=== PATIENT | female | born 1940 | race Caucasian/White ===

== ENCOUNTER → 2019-01-12 | Outpatient (CLI) | payer MEDICARE, OTHER ==
--- NOTE | 2019-01-12 18:16 | Diagnostic Imaging Report ---
INDICATION: Pain after fall. FINDINGS: There is a focal lucency to the dorsal aspect of the distal radius extending into the radiocarpal joint suspect for nondisplaced fracture. No other fracture or dislocation. Soft tissues are unremarkable. IMPRESSION: Nondisplaced intra-articular fracture along the dorsal aspect of the distal radius. Dictated by: Dictated on workstation # [id number]
--- NOTE | 2019-01-12 19:30 | Diagnostic Imaging Report ---
INDICATION: Pain after fall. Two views were obtained. FINDINGS: There is a focal cortical regularity along the dorsal aspect of the distal radius, suspect for nondisplaced fracture. There is no other fracture or dislocation. The soft tissues are unremarkable. IMPRESSION: Nondisplaced intra-articular fracture of the dorsal aspect of the distal radius. Dictated by: Dictated on workstation # [id number]
--- NOTE | 2019-01-12 19:35 | Diagnostic Imaging Report ---
INDICATION: Pain. FINDINGS: There is a nondisplaced fracture through the dorsal aspect of the distal radius extending into the radiocarpal joint. There is no other fracture or dislocation. Carpal bones are intact. IMPRESSION: Findings suspect for a nondisplaced intra-articular fracture involving the dorsal aspect of the distal radius. Dictated by: Dictated on workstation # [id number]
== END ==
LOC: RAD 15:19
PROVIDERS: ATTEND Nurse Practitioner Family
DX: S52.572A Other intraarticular fracture of lower end of left radius, initial encounter for closed fracture (principal); W19.XXXA Unspecified fall, initial encounter
CPT/HCPCS: 73090; 73110; 73130

== ENCOUNTER → 2019-02-14 | Outpatient (CLI) | payer MEDICARE, OTHER ==
--- NOTE | 2019-02-14 14:02 | Diagnostic Imaging Report ---
INDICATION: Wrist fracture four weeks ago, follow-up. TECHNIQUE: Two views of the left forearm. CORRELATION STUDY: 01/12/2019. FINDINGS: Limited visualization of the known distal dorsal intra-articular fracture of the radius. Fracture line is less well visualized but likely still present. The remainder of the radius as well as ulna is otherwise intact and unremarkable. Soft tissues are unremarkable. IMPRESSION: 1. Limited visualization of the known distal radius fracture. No new bony abnormality. Alignment anatomic. Dictated by: Dictated on workstation # [id number]
--- NOTE | 2019-02-14 14:12 | Diagnostic Imaging Report ---
INDICATION: Wrist fracture 4 weeks ago, followup. TECHNIQUE: 3 views of the left wrist CORRELATION STUDY: 01/12/2019 FINDINGS: Baseline imaging demonstrated a non-displaced intraarticular fracture of the distal dorsal radius. At followup, the previously noted fracture lines are less well visualized and blurred. There is suggestion of some residual fracture line present particularly along the lateral aspect. However, this was noted to be limited in visualization on prior imaging. Overall alignment appears maintained and near anatomic. There is some degree of degenerative change about the radiocarpal row as well as at the base of the first carpometacarpal articulation. Cystic change about the scaphoid. IMPRESSION: 1. Suggestion of interval healing of a nondisplaced distal dorsal radius fracture. A portion of the fracture lines do still appear to be present. However, it was noted that baseline imaging assessment was limited as is on the study as well. Dictated by: Dictated on workstation # [id number]
== END ==
LOC: RAD 11:22
DX: S52.572D Other intraarticular fracture of lower end of left radius, subsequent encounter for closed fracture with routine healing (principal)
CPT/HCPCS: 73090; 73110

== ENCOUNTER → 2019-08-22 | Outpatient (CLI) | payer MEDICARE, OTHER ==
--- NOTE | 2019-08-22 15:31 | Diagnostic Imaging Report ---
INDICATION: Shortness of breath. COMPARISON: 06/09/2013 FINDINGS: The lungs are clear. The heart is mildly enlarged but there is no vascular congestion or overt failure pattern. No pleural fluid or pneumothorax. IMPRESSION: Mild prominence of the heart, otherwise negative. Dictated by: Dictated on workstation # [id number]
== END ==
LOC: RAD 10:51
DX: J41.0 Simple chronic bronchitis (principal)
CPT/HCPCS: 71046

== ENCOUNTER → 2019-09-04 | Outpatient (CLI) | payer MEDICARE, OTHER | LOC: CARD 12:47 | DX: I51.7 Cardiomegaly (principal) | CPT/HCPCS: 93306 ==

== ENCOUNTER → 2020-09-24 | Outpatient (CLI) | payer MEDICARE, OTHER ==
[~2020-09-24] VITALS: Ht 160 cm; Wt 102.0 kg
[~2020-09-24] MED LIST: CATHETER FLUSH 10 ML SYR IV PRN; REGADENOSON 0.4 MG/5 ML SYR (LEXISCAN) IV ONE
[2020-09-24 09:33] VITALS: BP 110/57
--- NOTE | 2020-09-25 10:38 | STRESS TEST ---
DATE OF SERVICE: 09/24/2020 RESTING AND POST REGADENOSON TECHNETIUM-99M TETROFOSMIN SPECT CT IMAGING CLINICAL DIAGNOSIS: Baseline images were carried out after injection of 10.31 mCi of technetium-99m Tetrofosmin. This was followed by 0.4 mg of Regadenoson and 30.2 mCi of technetium-99m Tetrofosmin for SPECT imaging. The electrocardiogram showed sinus rhythm at baseline. It did not change significantly with Regadenoson infusion. The patient tolerated the procedure well. Review of images at rest and following stress does not indicate any significant perfusion defects consistent with myocardial ischemia or infarction. Gated images show normal global left ventricular systolic function with normal regional wall motion. Left ventricular ejection fraction is calculated to be 72%. Left ventricular end diastolic volume is 68 mL. TID is absent (1). CONCLUSIONS: 1. No evidence of significant myocardial ischemia or infarction on this study. 2. Normal regional wall motion. 3. Normal global left ventricular systolic function with a calculated ejection fraction of 72%. Job ID: [id number] DocumentID: [id number] Dictated Date: 09/25/2020 09:53:28 Operations Asst Date: 09/25/2020 10:38:09 Dictated By: SHIN HERRERA MD, MA, FACP, FACC,
== END ==
LOC: CARD 08:00
PROVIDERS: ATTEND Internal Medicine Cardiovascular Disease
DX: R06.09 Other forms of dyspnea (principal)
CPT/HCPCS: 78452; 93017; A9502

== ENCOUNTER → 2020-09-30 | Outpatient (CLI) | payer MEDICARE, OTHER | LOC: CARD 11:28 | PROVIDERS: ATTEND Internal Medicine Cardiovascular Disease | DX: R06.09 Other forms of dyspnea (principal) | CPT/HCPCS: 93306 ==

== ENCOUNTER 2021-04-23 05:41 | Outpatient (RCR) | payer MEDICARE, OTHER ==
[~2021-04-23] VITALS: Ht 162.6 cm; Wt 103.0 kg
[~2021-04-23 05:41] MED LIST changes: +ALBU1.25 INH; +BUME2TAB7 PO; -CATHETER FLUSH 10 ML SYR IV PRN; +FURO80TA3 PO; +GLIP10TA13 PO; +INSU3INS2 SQ; +POTA10CA43 PO; -REGADENOSON 0.4 MG/5 ML SYR (LEXISCAN) IV ONE; +SERT-414 PO; +SIMV20TA26 PO; +SITA100T12 PO
== END 2021-04-23 09:58 | disposition home or self-care (01) ==
LOC: PREOP 05:41
PROVIDERS: ATTEND Surgery
DX: Z01.812 Encounter for preprocedural laboratory examination (principal); K92.1 Melena; D64.9 Anemia, unspecified; Z20.822 Contact with and (suspected) exposure to COVID-19
CPT/HCPCS: 87635

== ENCOUNTER 2021-04-25 12:12 | Day surgery (SDC) | payer MEDICARE, OTHER ==
[~2021-04-25] VITALS: Ht 162 cm; Wt 103.0 kg
[2021-04-25] MEDS ORDERED: LACTATED RINGERS 1,000 ML IV STA (12:28)
[2021-04-25] MEDS ORDERED: MIDAZOLAM 5 MG/5 ML (VERSED) VIAL IV ONE (12:30)
[2021-04-25] MEDS ORDERED: LIDOCAINE JELLY 2% 6 ML SYRINGE MM PRN (12:30)
[2021-04-25] MEDS ORDERED: HURRICAINE EXT TUBE (BENZOCAINE) XX PRN (12:30)
[2021-04-25] MEDS ORDERED: fentaNYL INJ 100 MCG/2 ML AMP IVP ONE (12:30)
[2021-04-25 12:53] VITALS: BP 163/59
--- NOTE | 2021-04-25 13:55 | Progress Note-Pre Operative ---
Pre-Operative Progress Note H&P Reviewed The H&P was reviewed, patient examined and no changes noted. Date Seen by Provider: Apr 25, 2021 Time Seen by Provider: 13:00 Date H&P Reviewed: Apr 25, 2021 Time H&P Reviewed: 13:00 Pre-Operative Diagnosis: anemia KORY PATIÑO MD Apr 25, 2021 13:55
[2021-04-25] MEDS ORDERED: PANT40TA2 PO (13:56)
--- NOTE | 2021-04-25 13:56 | Discharge Inst-Surgical ---
D/C Lap Instructions-KIDO New, Converted, or Re-Newed RX: RX on Chart Follow Up PRN Activity as tolerated High Fiber Diet 25g or more per day Avoid Alcohol, Caffeine, Spicy [place] and Acid foods. Drink 64 fluid oz or more of fluids per day. Symptoms to Report: Fever over 101 degree F, Nausea/Vomiting If any problems/questions: Contact your physician or go to Emergency Room KORY PATIÑO MD Apr 25, 2021 13:56
[2021-04-25] MEDS ORDERED: proPOfol 200 MG/20 ML (DIPRIVAN) VIAL IV ONE (13:58)
[2021-04-25] MEDS ORDERED: morphine INJ 10 MG/ML 1ML (SYR OR VIAL) IVP PRN ×2 (14:00)
[2021-04-25] MEDS ORDERED: ONDANSETRON 4 MG/2 ML (SDV) Z0FRAN IVP PRN (14:00)
[2021-04-25] MEDS ORDERED: HYDROcodone/APAP 5 MG/325 MG (LORTAB) TAB PO PRN (14:00)
[2021-04-25] MEDS ORDERED: ACETAMINOPHEN 325 MG TABLET PO PRN (14:00)
[2021-04-25 14:37] VITALS: BP 139/62
[2021-04-25 14:40] VITALS: BP 133/55
[2021-04-25 15:10] VITALS: BP 147/60
[2021-04-25 15:15] VITALS: BP 147/60
--- NOTE | 2021-04-25 15:17 | Progress Note-Post Operative ---
Post-Operative Progess Note Surgeon (s)/Veneer Manufacturer (s) Surgeon KORY PATIÑO MD Veneer Manufacturer: none Pre-Operative Diagnosis anemia Post-Operative Diagnosis reflux esophagitis(stage 2), small HH(1.5cm), moderate gastritis. chronic stage 2 ext and int hemorrhoids, large sessile cecal mass. Procedure & Operative Findings Date of Procedure 04/25/21 Procedure Performed/Findings EGD with bx. colonoscopy. Anesthesia Type mac Estimated Blood Loss Estimated blood loss (mL): minimal Specimens/Packing Specimens Removed ge jxn, antrum, cecal mass KORY PATIÑO MD Apr 25, 2021 15:17
--- NOTE | 2021-04-25 18:52 | Anesthesia-General Post-Op ---
MAC Patient Condition Mental Status/LOC: Same as Preop Cardiovascular: Satisfactory Nausea/Vomiting: Absent Respiratory: Satisfactory Pain: Controlled Complications: Absent Post Op Complications Complications None Follow Up Care/Instructions Patient Instructions None needed. Anesthesiology Discharge Order Discharge Order Patient is doing well, no complaints, stable vital signs, no apparent adverse anesthesia problems. No complications reported per nursing. MANINDER GARCIA CRNA Apr 25, 2021 18:51
--- NOTE | 2021-04-25 20:41 | OPERATIVE REPORT ---
DATE OF SERVICE: 04/25/2021 ATTENDING PRIMARY CARE PHYSICIAN: Ernst Alvarado MD PREOPERATIVE DIAGNOSIS: Anemia. POSTOPERATIVE DIAGNOSES: Reflux esophagitis stage II, small hiatal hernia, moderate gastritis, mild chronic stage II external and internal hemorrhoids, cecal mass. PROCEDURE: EGD with biopsy, colonoscopy with biopsy. SURGEON: Kory Patñio MD. ANESTHESIA: Monitored anesthesia care. ESTIMATED BLOOD LOSS: Minimal. FINDINGS: Reflux esophagitis stage II, small hiatal hernia, moderate gastritis, mild chronic stage II external and internal hemorrhoids, cecal mass. DISPOSITION: The patient tolerated the procedure well. INDICATIONS: The patient is an 80-year-old female, who has had a longstanding history of anemia as well as iron deficiency and she was started on iron; however, discontinued this on her own. Hemoglobin and hematocrit were done recently and were found to be 7.3 and 24.7 respectively. She has not had a colonoscopy up to this point in her life. She does report some issues with the reflux; however, not severe. DESCRIPTION OF PROCEDURE: The patient was brought to the endoscopy suite, laid in the left lateral decubitus position. After adequate IV pain and sedative medications and monitored anesthesia care, the mouthpiece was applied. The endoscope was placed in the mouth, visualizing the pharynx and hypopharyngeal region. Vocal cords, epiglottis and vallecula identified and appeared to be normal. Endoscope was then gently intubated into the esophageal opening and esophagus insufflated. The endoscope was then advanced to the first, second and third portion of esophagus at the level of the GE junction, a reflux esophagitis stage II identified. No ulcers or strictures identified, and a biopsy was taken with forceps with visualization of good hemostasis. A biopsy was taken of the antrum to rule out H. pylori with visualization of good hemostasis. The endoscope was then advanced to the pylorus and the first and second portion of the duodenum, which appeared normal. The endoscope was then slowly withdrawn while taking a second look and suctioning of residual air with no additional findings. A digital rectal examination was then performed, which revealed mild chronic stage II external and internal hemorrhoids, not actively edematous nor inflamed and no bleeding. Normal sphincter tone was felt and there were no palpable masses. The endoscope was then intubated to the anus and rectum gently insufflated. The endoscope was then advanced through the valves of Lucio of the rectum with no polyps or any neoplasms identified. We then proceeded to sigmoid colon where no diverticulosis identified. The endoscope was then advanced to remainder of the descending, transverse and ascending colon to the cecum. At the level of the cecum, a fungating mass was identified and this was large. This is the most likely etiology of her anemia and blood loss. Multiple biopsies taken with forceps with visualization of good hemostasis. The endoscope was then slowly withdrawn while taking a second look and suctioning of residual air with no additional findings. The patient tolerated the procedure well. We will await the biopsy results; however, due to the characteristics of the lesion and size, this will likely harbor a malignancy and she will likely need to have this resected. We will also proceed with further workup including laboratory work and CT scan of the abdomen. Job ID: [id number] DocumentID: [id number] Dictated Date: 04/25/2021 14:32:46 Php Web Developer Date: 04/25/2021 20:40:46 Dictated By: KORY PATIÑO MD MTDD
== END 2021-04-25 15:15 ==
LOC: ENDO 12:12
PROVIDERS: ATTEND Surgery
DX: K21.00 Gastro-esophageal reflux disease with esophagitis, without bleeding (principal); K29.50 Unspecified chronic gastritis without bleeding; C18.0 Malignant neoplasm of cecum; K44.9 Diaphragmatic hernia without obstruction or gangrene; K92.1 Melena; K64.4 Residual hemorrhoidal skin tags; K64.1 Second degree hemorrhoids; K57.30 Diverticulosis of large intestine without perforation or abscess without bleeding; D50.9 Iron deficiency anemia, unspecified; I10 Essential (primary) hypertension; E11.9 Type 2 diabetes mellitus without complications; E66.01 Morbid (severe) obesity due to excess calories; Z68.39 Body mass index [BMI] 39.0-39.9, adult; Z79.84 Long term (current) use of oral hypoglycemic drugs; Z79.899 Other long term (current) drug therapy
CPT/HCPCS: 82947; 88305

== ENCOUNTER → 2021-05-20 | Outpatient (CLI) | payer MEDICARE ==
[~2021-05-20] MED LIST changes: +CATHETER FLUSH 10 ML SYR IV PRN; +HOLD METFORMIN - RECEIVED CONTRAST 20 ML VIAL IV SCH; +IOHEXOL 350 MG/ML 100 ML (OMNIPAQUE 350) VIAL IV ONE; +NS 100 ML (IVPB) BAG IV ONE; +PANT40TA2 PO
[2021-05-20 14:18] LABS: CREATININE SERUM 1.59 MG/DL (0.60-1.30)
--- NOTE | 2021-05-20 15:40 | Diagnostic Imaging Report ---
PROCEDURE: CT abdomen and pelvis with and without contrast. TECHNIQUE: Precontrast acquisitions were acquired through the abdomen and pelvis. Multiple contiguous axial images were obtained through the abdomen and pelvis after the administration of intravenous contrast. Auto Exposure Controls were utilized during the CT exam to meet ALARA standards for radiation dose reduction. DATE: May 20, 2021. COMPARISON: None. INDICATION: 80-year-old female, history of colon cancer. Evaluation for metastatic disease. FINDINGS: There is mild dependent atelectasis in the left lower lobe. The heart is not enlarged. There is no pericardial effusion. The liver is unremarkable in size and contour. There is no identified liver lesion. The main, right, and left portal veins are patent. There is no biliary ductal dilation. The main pancreatic duct is not abnormally dilated. There is some fatty replacement of the pancreatic parenchyma at the level of the pancreatic head. There is no identified abnormally enhancing pancreatic mass. The spleen is normal in size. The adrenal glands are unremarkable. There is a low-attenuation right renal lesion on axial image 38 measuring 4.9 cm in size with internal attenuation consistent with a benign cyst. There is a low-attenuation left renal lesion consistent with a benign cyst on axial image 36 which measures 1.1 cm in size. The urinary collecting systems are not distended. There is no identified renal or ureteral stone. The urinary bladder is unremarkable. The uterus and adnexa are grossly unremarkable in appearance for patient age on limited CT assessment. There is focal abnormal wall thickening in the region of the hepatic flexure as well as at the level of the more proximal aspect of the right colon. These sites are concerning for potential colon cancer. Further evaluation with colonoscopy is recommended. There is no identified pericolonic lymph node. The intestinal tract is not distended. There is no free intraperitoneal air. There is no drainable fluid collection. There is no free pelvic fluid. There are atherosclerotic calcifications. There is no identified abnormally enlarged lymph node in the abdomen or pelvis meeting CT size criteria for adenopathy. There is a fat-containing anterior abdominal wall hernia near the level of the umbilicus. There is chondrocalcinosis. There are multilevel degenerative changes of the spine. There is no identified acute bony abnormality. IMPRESSION: CT ABDOMEN AND PELVIS. 1. Foci of abnormal wall thickening of the colon in the region of the hepatic flexure and also at the level of the more proximal aspect of the right colon which do raise concern for colonic malignancy. Recommend further evaluation with colonoscopy. No identified metastatic lesion within the abdomen or pelvis. 3. Bilateral benign renal cysts. Dictated by: Dictated on workstation # [id number]
== END ==
LOC: RAD 14:45
PROVIDERS: ATTEND Surgery
DX: C18.9 Malignant neoplasm of colon, unspecified (principal); N28.1 Cyst of kidney, acquired
CPT/HCPCS: 36415; 74178; 82378; 82565; 84520

== ENCOUNTER 2021-05-28 05:32 | Outpatient (CLI) | payer MEDICARE, OTHER ==
[~2021-05-28] VITALS: Ht 157.5 cm
[~2021-05-28 05:32] MED LIST changes: -CATHETER FLUSH 10 ML SYR IV PRN; -HOLD METFORMIN - RECEIVED CONTRAST 20 ML VIAL IV SCH; -IOHEXOL 350 MG/ML 100 ML (OMNIPAQUE 350) VIAL IV ONE; -NS 100 ML (IVPB) BAG IV ONE
== END 2021-05-28 11:25 ==
LOC: PREOP 05:32
PROVIDERS: ATTEND Surgery
DX: Z01.818 Encounter for other preprocedural examination (principal)

== ENCOUNTER 2021-05-29 10:00 | Inpatient (IN) | payer MEDICARE, OTHER ==
[~2021-05-29] VITALS: Ht 157 cm; Wt 103.2 kg
[2021-05-29] VITALS (11 sets, daily range): BP systolic 117–200; BP diastolic 54–95
--- NOTE | 2021-05-29 12:12 | Progress Note-Pre Operative ---
Pre-Operative Progress Note H&P Reviewed The H&P was reviewed, patient examined and no changes noted. Date Seen by Provider: May 29, 2021 Time Seen by Provider: 12:10 Date H&P Reviewed: May 29, 2021 Time H&P Reviewed: 12:05 Pre-Operative Diagnosis: Colon Cancer SCARLETT LUIS APRN May 29, 2021 12:12
[2021-05-29] MEDS: LACTATED RINGERS 1,000 ML IV PRN ×3 (12:15→16:22)
[2021-05-29] MEDS ORDERED: DEXTROSE 50% 50 ML (IMS) SYR ONE ×2 (12:23→15:44)
[2021-05-29] MEDS ORDERED: DEXTROSE 50% 50 ML (IMS) SYR IV ONE (12:45)
[2021-05-29] MEDS ORDERED: ceFAZolin 2 GM IV Premixed 50 ML IV ONE (12:45)
[2021-05-29] MEDS ORDERED: LIDOCAINE/EPI 1%-1:100,000 (XYLOCAINE) 20ML ONE (13:13)
[2021-05-29] MEDS ORDERED: proPOfol 200 MG/20 ML (DIPRIVAN) VIAL IV ONE (14:00)
[2021-05-29] MEDS ORDERED: LIDOCAINE PF 2% 5 ML (XYLOCAINE) VIAL ONE (14:00)
[2021-05-29] MEDS ORDERED: ROCURONIUM 10 MG/ML 5 ML SYRINGE IV ONE ×2 (14:00→15:35)
[2021-05-29] MEDS ORDERED: ONDANSETRON 4 MG/2 ML (SDV) Z0FRAN ONE (14:00)
[2021-05-29] MEDS ORDERED: fentaNYL INJ 100 MCG/2 ML AMP ONE ×2 (14:00→15:32)
[2021-05-29] MEDS ORDERED: diphenhydrAMINE 50 MG/ML INJ (BENADRYL) IV PRN (14:15)
[2021-05-29] MEDS ORDERED: METOCLOPRAMIDE INJ 10 MG/2 ML (REGLAN) IV PRN (14:15)
[2021-05-29] MEDS ORDERED: fentaNYL INJ 1,000 MCG in NS (IVPB) 80 ML IV SCH (14:15)
[2021-05-29] MEDS ORDERED: NALOXONE 0.4 MG/ML 1 ML (NARCAN) VIAL IV PRN (14:15)
[2021-05-29] MEDS ORDERED: NS IV 1000 ML 1,000 ML IV SCH (14:15)
[2021-05-29] MEDS ORDERED: diphenhydrAMINE 50 MG/ML INJ (BENADRYL) IVP PRN (14:15)
[2021-05-29] MEDS ORDERED: ONDANSETRON 4 MG/2 ML (SDV) Z0FRAN IV PRN (14:15)
[2021-05-29] MEDS ORDERED: GLYCOPYRROLATE 0.2 MG/ML (ROBINUL) 2 ML VIAL ONE (16:06)
[2021-05-29] MEDS ORDERED: NEOSTIGMINE 3 MG/3 ML VIAL ONE (16:06)
[2021-05-29] MEDS ORDERED: LABETALOL HCL 20 MG/4 ML VIAL ONE (16:09)
[2021-05-29] MEDS ORDERED: SEVOFLURANE (ULTANE) 15 ML INHAL SOLN ONE (16:13)
--- NOTE | 2021-05-29 16:20 | Progress Note-Post Operative ---
Post-Operative Progess Note Surgeon (s)/Towel Rolling Machine Operator (s) Surgeon KORY PATIÑO MD Towel Rolling Machine Operator: saad rodriguez HAND ALTERATIONS SEAMSTRESS Pre-Operative Diagnosis Colon Cancer Post-Operative Diagnosis same Procedure & Operative Findings Date of Procedure 05/29/21 Procedure Performed/Findings laparoscopic right hemicolectomy, placement lt sc central venous cath Anesthesia Type get Estimated Blood Loss Estimated blood loss (mL): minimal Specimens/Packing Specimens Removed right colon KORY PATIÑO MD May 29, 2021 16:20
[2021-05-29] MEDS ORDERED: ONDANSETRON 4 MG/2 ML (SDV) Z0FRAN IVP PRN (16:45)
[2021-05-29] MEDS ORDERED: HYDROmorphone 2 MG/ML VIAL (DILAUDID) IV ONE ×2 (16:45→17:30)
--- NOTE | 2021-05-29 16:52 | Diagnostic Imaging Report ---
INDICATION: Central line placement. COMPARISON: 08/22/2019. TECHNIQUE: Single radiograph of the chest dated May 29, 2021. FINDINGS: Left subclavian central venous catheter is in place with the distal tip overlying near the cavoatrial junction. No significant pneumothorax. The cardiac silhouette is enlarged. Pulmonary vasculature appears engorged. Low lung volumes with extensive left greater than right pulmonary opacities. Small left pleural effusion suspected. No pneumothorax. No acute osseous abnormality. IMPRESSION: 1. Left subclavian central venous catheter is in place with the distal tip overlying near the cavoatrial junction without pneumothorax. 2. Low lung volumes with extensive left greater than right pulmonary infiltrates with trace left pleural effusion. 3. Central pulmonary vascular congestion. Dictated by: Dictated on workstation # [id number]
[2021-05-29] MEDS ORDERED: HYDROmorphone 2 MG/ML VIAL (DILAUDID) ONE (17:12)
[2021-05-29] MEDS: 1/2 NS W/KCL 20 MEQ/L 1,000 ML IV SCH (20:32)
[2021-05-29] MEDS: metroNIDAZOLE 500MG/100ML IVPB 100 ML IV SCH (20:51)
[2021-05-29] MEDS: ENOXAPARIN 40 MG/0.4 ML (LOVENOX) SYR SC SCH (20:52)
--- NOTE | 2021-05-29 21:02 | OPERATIVE REPORT ---
DATE OF SERVICE: 05/29/2021 ATTENDING PRIMARY CARE PHYSICIAN: Ernst Alvarado MD. PREOPERATIVE DIAGNOSIS: Ileocecal colon cancer. POSTOPERATIVE DIAGNOSIS: Hepatic flexure colon cancer. PROCEDURES PERFORMED: 1. Laparoscopic right hemicolectomy. 2. Placement of left subclavian central venous catheter. SURGEON: Eric Cardoza MD. METAPHYSICS TEACHER: Gamal Matos APRN. ANESTHESIA: General endotracheal. ESTIMATED BLOOD LOSS: 250 mL. FINDINGS: A large mass approximately at the hepatic flexure. There was involvement of the serosa; however, not invading adjacent organs and no peritoneal carcinomatosis as well as no obvious liver metastasis. DISPOSITION: The patient tolerated the procedure well. INDICATION FOR PROCEDURE: The patient is an 80-year-old female with longstanding history of anemia and iron deficiency and was started on iron; however, discontinued this on her own. She recently had labs drawn and was found to have a hemoglobin of 7.3 and hematocrit of 24.7. She had not had a colonoscopy before up to this point in her life. On 04/25/2021, she underwent an EGD and colonoscopy. She was found to have a reflux esophagitis stage II, small hiatal hernia, and moderate gastritis. She was also found to have mild chronic stage II external and internal hemorrhoids. However, there was a mass, which was thought to be at the cecum, identified and this was biopsied and consistent with at least an intramucosal carcinoma. DESCRIPTION OF PROCEDURE: The patient was brought to the operating room and laid supine on the table. After adequate IV pain and sedative medications and general endotracheal intubation, the chest and neck were prepped and draped in a standard surgical fashion. The left subclavian vein was then cannulated with drawing of the venous blood. A guidewire was inserted without any resistance and a skin incision was made using an 11 blade. A tract was then created using a venous dilator and through this opening, a triple lumen central venous catheter was placed over the guidewire using the Seldinger technique. The guidewire was removed and all three ports anthony venous blood and saline pushed in without any resistance. The catheter was then sutured to the skin using interrupted 3-0 silk sutures. Catheter was then cleaned and covered with Dermabond. The patient was then placed in a modified lithotomy position and the abdomen was prepped and draped in a standard surgical fashion. A 0.5% Marcaine with epinephrine was used to anesthetize the overlying skin in the left upper abdominal quadrant and a transverse skin incision was made using a 15 blade. A 0 silk suture was applied to the medial aspect incision for retraction and a Veress needle was inserted with a low opening pressure of 0 mmHg and the abdomen was then insufflated to 15 mmHg pressure. The Veress needle was removed and a 5 mm XL trocar was placed followed by a 5 mm 45-degree angle laparoscope visualizing the peritoneal cavity. A four-quadrant abdominal exploration was performed. The mass was not visualized at this time. There was no peritoneal carcinomatosis. No obvious liver metastasis. Under direct visualization, we then proceeded to place a supraumbilical 10 mm port after the skin and peritoneal lining were anesthetized using 0.5% Marcaine with epinephrine. In a similar manner, two right lower abdominal quadrant 5 mm ports were placed. The patient was then placed in a Trendelenburg position as well as plane right side up, left side down. We first proceeded with taking down the lateral attachments and the white lines of Toldt of the right side of the colon. We were also able to take down the hepatic flexure connective tissue fibers using the Sonicision with visualization of good hemostasis. We then proceeded with medial to lateral dissection of the mesentery taking a wedge of the mesentery as to do a cancer surgery. We used a Sonicision as well as a LigaSure for this. The duodenum was then identified and spared throughout this process. The gastrocolic omentum and ligament were then taken down using the Sonicision, freeing up the entire right side of the colon. Good hemostasis was observed. The mass appeared to be more along the hepatic flexure. The skin incision along the supraumbilical incision was then extended superiorly and the right colon was eviscerated out of this opening and then we proceeded to resect the colon 6 cm from the ileocecal valve along the ileum and then just right to the middle colic artery along the transverse colon using a MARCELL 55 mm stapler with blue loads. We then proceeded with [id number] anastomosis of the terminal ileum and the colon. This was done using the MARCELL 55 mm stapler and the open end was then reapproximated using 3-0 silk interrupted sutures. This open end was then stapled with the same stapler with visualization of good hemostasis. The mesentery was then closed using 3-0 Vicryl running suture. The ileocolonic anastomosis was then reduced back into the peritoneal cavity and the abdomen was insufflated with visualization of good hemostasis. A 19-[place] Silver-Andino drain was placed along the right pericolic gutter and subhepatic space. This was brought out the right lower abdominal quadrant port site. This was then sutured to the skin using 3-0 nylon suture. The supraumbilical fascia was then closed using a #1 looped PDS suture. The subcutaneous tissue was then reapproximated using 3-0 Vicryl interrupted sutures. All skin incisions were closed using 4-0 Monocryl running subcuticular sutures. Wounds were then cleaned and covered with Dermabond. The patient tolerated the procedure well. We will admit her to the floor and start IV and oral pain medication as well as ice chips for now. We will also consult physical therapy for ambulation. Once she develops some bowel function, we will start clear liquid diet and slowly advance as tolerated. When she has adequate pain control with oral pain medications and is tolerating liquids and some solids and is ambulating well, we will discharge her home. We will also proceed with DVT prophylaxis with early ambulation, SCDs as well as Lovenox injections. Job ID: [id number] DocumentID: [id number] Dictated Date: 05/29/2021 16:32:10 Member Of Parliament Date: 05/29/2021 21:01:25 Dictated By: ERIC CARDOZA MD
[2021-05-29] MEDS: fentaNYL INJ 100 MCG/2 ML AMP IVP PRN (21:46)
[2021-05-29] MEDS: ceFAZolin 2 GM IV Premixed 50 ML IV SCH (21:47)
[2021-05-29] MEDS: HYDROcodone/APAP 7.5 MG/325 MG (LORTAB, LORCET PLUS) TABLET PO PRN (23:55)
[2021-05-30] MEDS: fentaNYL INJ 100 MCG/2 ML AMP IVP PRN ×6 (02:34→17:34)
[2021-05-30] MEDS: metroNIDAZOLE 500MG/100ML IVPB 100 ML IV SCH ×2 (03:34→12:07)
[2021-05-30] MEDS: RT-ALBUTEROL SULF 2.5 MG/3 ML PRE-MIX VIAL INH SCH (03:36)
[2021-05-30 04:00] VITALS: BP 144/66
[2021-05-30] MEDS: ceFAZolin 2 GM IV Premixed 50 ML IV SCH ×2 (05:35→13:49)
[2021-05-30] MEDS: 1/2 NS W/KCL 20 MEQ/L 1,000 ML IV SCH ×4 (05:35→20:57)
[2021-05-30 05:42] LABS: HEMATOCRIT 23 % (35-52); MEAN CORPUSCULAR HEMOGLOBIN 27 pg (25-34); MEAN CORPUSCULAR HGB CONC 29 g/dL (32-36); MEAN CORPUSCULAR VOLUME 93 fL (80-99); MEAN PLATELET VOLUME 10.3 fL (9.0-12.2); PLATELET COUNT 267 10^3/uL (130-400); WHITE BLOOD COUNT 11.8 10^3/uL (4.3-11.0)
[2021-05-30 05:50] LABS: HEMOGLOBIN 6.8 g/dL (11.5-16.0)
[2021-05-30 05:56] LABS: POTASSIUM 4.7 MMOL/L (3.6-5.0)
[2021-05-30 05:57] LABS: CALCIUM 8.3 MG/DL (8.5-10.1)
[2021-05-30 06:01] LABS: CREATININE SERUM 1.52 MG/DL (0.60-1.30)
[2021-05-30 08:00] VITALS: BP 145/65
[2021-05-30] MEDS: SENNA W/DOCUSATE (SENOKOT S) TABLET PO SCH (08:45)
[2021-05-30] MEDS: PANTOPRAZOLE 40 MG (PROTONIX) VIAL IV SCH (08:46)
[2021-05-30] MEDS: ENOXAPARIN 40 MG/0.4 ML (LOVENOX) SYR SC SCH ×2 (08:46→20:04)
--- NOTE | 2021-05-30 09:27 | Physical Therapy Evaluation ---
PT Evaluation-General Medical Diagnosis Admission Date May 29, 2021 at 11:26 Medical Diagnosis: colon cancer Onset Date: May 29, 2021 Therapy Diagnosis Therapy Diagnosis: debility/weakness Referral Physician: Tracey Reason for Referral: Evaluation/Treatment Medical History Current History critical Hgb Reviewed History: Yes Social History Home: Single Level Current Living Status: Other Family Entry Into Home: Ramp Prior Prior Level of Function SCALE: Activities may be completed with or without assistive devices. 9-Fvqxbkwlsi-uccaxjb completes the activity by him/herself with no assistance from a helper. 5-Set-up or Clean-up Assistance-helper sets up or cleans up; patient completes activity. [place] assists only prior to or following the activity. 4-Supervision or Touching Assistance-helper provides verbal cues and/or touching/steadying and/or contact guard assistance as patient completes activity. Assistance may be provided throughout the activity or intermittently. 3-Partial/Moderate Assistance-helper does LESS THAN HALF the effort. [place] lifts, holds or supports trunk or limbs, but provides less than half the effort. 2-Substantial/Maximal Assistance-helper does MORE THAN HALF the effort. [place] lifts or holds trunk or limbs and provides more than half the effort. 3-Xkjbxorlc-sloryc does ALL the effort. Patient does none of the effort to complete the activity. Or, the assistance of 2 or more helpers is required for the patient to complete the activity. If activity was not attempted, code reason: 7-Patient Refused. 9-Not Applicable-not attempted and the patient did not perform the activity before the current illness, exacerbation or injury. 10-Not Attempted due to Environmental Limitations-(lack of equipment, weather restraints, etc.). 88-Not Attempted due to Medical Conditions or Safety Concerns. Bed Mobility: 5 Transfers (B,C,W/C): 5 Gait: 5 Indoor Mobility (Ambulation): Independent Prior Devices Use: Walker PT Evaluation-Current Subjective Patient agrees to PT. Objective Patient Orientation: Person, Time, Situation Attachments: Oxygen, [place] Catheter, IV ROM/Strength ROM Lower Extremities bilateral WFL (noted edema) Strength Lower Extremities 3-/5 grossly bilateral LE Integumentary/Posture Bladder Incontinence: Sam[place]go Cath Posture WFL Neuromuscular (Tone, Coordination, Reflexes) diminished coordination Sensory Vision: Functional Hearing: Impaired Transfers Roll Left to Right (QC): 2 Lying to Sitting/Side of Bed(Q: 2 Sit to Stand (QC): 3 Chair/Kmh-wy-Wakdu Xfer(QC): 3 Gait Does the Patient Walk?: Yes Mode of Locomotion: Walk Anticipated Mode of Locomotion: Walk Walk 10 feet (QC): 3 Walk 50 ft with 2 Turns(QC): 88 Walk 150 ft (QC): 88 Distance: 10' Gait Assistive Device: FWW Comments/Gait Description slow, shuffle gait sequence Balance Sitting Static: Fair Sitting Dynamic: Fair Standing Static: Fair Standing Dynamic: Fair Assessment/Needs 80 y.o. female, will benefit from skilled PT to address functional strength and mobility to improve current LOF. Rehab Potential: Fair PT [facility] Goals Neurology Physician Assistant Goals PT [facility] Goals Time Frame: Jun 14, 2021 Roll Left & Right (QC): 5 Sit to Lying (QC): 5 Lying-Sitting on Side/Bed(QC): 5 Sit to Stand (QC): 5 Chair/Cyf-yv-Lldmq Xfer(QC): 5 Toilet Transfer (QC): 5 Does the Patient Walk: Yes Walk 10 feet (QC): 5 Walk 50ft with 2 Turns (QC): 5 Walk 150 ft (QC): 5 PT Plan Problem List Problem List: Activity Tolerance, Functional Strength, Safety, Balance, Gait, Transfer, Bed Mobility Treatment/Plan Treatment Plan: Continue Plan of Care Treatment Plan: Bed Mobility, Education, Functional Activity Reddy, Functional Strength, Gait, Safety, Therapeutic Exercise, Transfers Treatment Duration: Jun 14, 2021 Frequency: 6 times per week Estimated Hrs Per Day: .25 hour per day Patient and/or Family Agrees t: Yes Time/GCodes Time In: 816 Time Out: 826 Total Billed Treatment Time: 10 Total [facility] MIGUELITO CHANEL PT May 30, 2021 09:27
[2021-05-30] MEDS: HYDROcodone/APAP 7.5 MG/325 MG (LORTAB, LORCET PLUS) TABLET PO PRN ×3 (09:47→20:04)
[2021-05-30] MEDS ORDERED: GLIP10TA24 PO ×2 (10:21)
[2021-05-30] MEDS ORDERED: PIOG30TA71 PO ×2 (10:21)
[2021-05-30] MEDS ORDERED: FERR-84 PO ×2 (10:21)
[2021-05-30] MEDS ORDERED: DOCU-26 PO ×2 (10:21)
[2021-05-30] MEDS ORDERED: MULT-1136 PO ×2 (10:21)
--- NOTE | 2021-05-30 10:55 | Progress Note ---
Subjective Date Seen by a Provider: May 30, 2021 Time Seen by a Provider: 10:30 Subjective/Events-last exam doing well. OOB-chair now. pain controlled. no nausea/vomiting, no fever/chills. Objective Exam Vital Signs Date Time Temp Pulse Resp B/P (MAP) Pulse Ox O2 Delivery O2 Flow Rate FiO2 05/30/21 09:00 95 Nasal Cannula 2.00 05/30/21 08:00 37.0 70 18 145/65 (91) 94 Nasal Cannula 2.00 05/30/21 04:00 37.1 73 18 144/66 (92) 97 Nasal Cannula 2.00 05/30/21 00:59 2.00 05/29/21 23:44 36.6 74 16 163/69 (100) 96 Nasal Cannula 2.00 05/29/21 20:15 95 Nasal Cannula 2.00 05/29/21 20:10 36.4 73 18 165/70 (101) 96 Nasal Cannula 2.00 05/29/21 17:40 36.4 16 189/67 (107) 94 Nasal Cannula 2 05/29/21 17:40 Nasal Cannula 2 05/29/21 17:35 Nasal Cannula 3 05/29/21 17:30 16 189/67 (107) 94 Nasal Cannula 2 05/29/21 17:20 Nasal Cannula 6 05/29/21 17:20 18 188/67 (107) 95 Nasal Cannula 3 05/29/21 17:10 20 200/73 (115) 96 Nasal Cannula 6 05/29/21 17:05 Nasal Cannula 6 05/29/21 17:00 14 190/81 (117) 94 Nasal Cannula 6 05/29/21 16:50 12 117/82 (94) 95 OxyMask 10 05/29/21 16:50 OxyMask 10 05/29/21 16:40 12 163/91 (115) 94 OxyMask 10 05/29/21 16:38 OxyMask 10 05/29/21 16:38 36.2 12 162/95 (117) 92 OxyMask 10 05/29/21 12:00 36.7 71 20 175/54 (94) 98 Room Air 05/29/21 11:45 98 Room Air I & O 05/30/21 07:00 Intake Total 3350 ml Output Total 535 ml Balance 2815 ml Capillary Refill : Less Than 3 Seconds General Appearance: No Apparent Distress HEENT: PERRL/EOMI Neck: Full Range of Motion Respiratory: Decreased Breath Sounds Cardiovascular: Regular Rate, Rhythm Gastrointestinal: soft, tenderness, other (ss drainage debbie) Extremity: Normal Capillary Refill Neurologic/Psychiatric: Alert, Oriented x3 Skin: Normal Color Lymphatic: No Adenopathy Results Lab Laboratory Tests 05/29/21 12:17: Glucometer 57*L 05/29/21 12:46: Glucometer 82 05/29/21 16:43: Glucometer 84 05/29/21 20:21: Glucometer 152H 05/29/21 23:46: Glucometer 169H 05/30/21 03:59: Glucometer 137H 05/30/21 05:30: White Blood Count 11.8H, Red Blood Count 2.49L, Hemoglobin 6.8*L, Hematocrit 23L , Mean Corpuscular Volume 93, Mean Corpuscular Hemoglobin 27, Mean Corpuscular Hemoglobin Concent 29L, Red Cell Distribution Width 20.3H, Platelet Count 267, Mean Platelet Volume 10.3, Sodium Level 137, Potassium Level 4.7, Chloride Level 109H, Carbon Dioxide Level 22, Anion Gap 6, Blood Urea Nitrogen 20H, Creatinine 1.52H, Estimat Glomerular Filtration Rate 33, BUN/Creatinine Ratio 13, Glucose Level 128H, Calcium Level 8.3L 05/30/21 08:10: Glucometer 118H Assessment/Plan Assessment/Plan Assess & Plan/Chief Complaint s/p laparoscopic right hemicolectomy. cont PT. cont IS and breathing tx. cont ice chips until some bowel function. KORY PATIÑO MD May 30, 2021 10:55
[2021-05-30 12:06] VITALS: BP 143/69
[2021-05-30] MEDS ORDERED: metroNIDAZOLE 500MG/100ML IVPB 100 ML ONE (12:06)
[2021-05-30 12:58] LABS: HEMOGLOBIN 7.2 g/dL (11.5-16.0)
--- NOTE | 2021-05-30 13:50 | Consultation - Hospitalist ---
HPI History of Present Illness: HPI/Chief Complaint Pt is an 80yoCF with a PMH of IDDMII, HLD, depression who was admitted for hemicolectomy. She is POD #1 and I am consulted for medical management. She reports having pain but that it is controlled despite grimacing during our conversation. She reports a history of DM and plans for her daughter to bring in her insulin pen. We discussed blood sugar control in the hospital and plan to control it with sliding scale for now since she is not eating and BS is 123 this AM. Source: patient Date Seen 05/30/21 Attending Physician Kory Cardoza MD PCP Ernst Alvarado MD Referring Physician Date of Admission May 29, 2021 at 11:26 Home Medications & Allergies Home Medications Reviewed patient Home Medication Reconciliation performed by pharmacy medication reconciliations photo equipment technician and/or nursing. Patients Allergies have been reviewed. Allergies Allergies Coded Allergies No Known Drug Allergies (Unverified05/28/21) Past Jpjcumq-Klimse-Jvxflm Hx Patient Social History Employed/Student: retired Tobacco Use?: No Smoking Status: Never a Smoker Smokeless Tobacco Frequency: Never a User Substance use?: No Alcohol Use?: No Pt feels they are or have been: No Immunizations Up To Date First/Initial COVID19 Vaccinat: APRIL 2021 Second COVID19 Vaccination Sanjay: APRIL 2021 Seasonal Allergies Seasonal Allergies: No Current Status status: No status: No Advance Directives: No Communicates: Verbally Primary Language: Danish Preferred Spoken Language: Danish Is interpretation needed?: No Past Medical History Surgeries: Gallbladder High Cholesterol, Hypertension Gastroesophageal Reflux Diabetes, Non-Insulin dep Hearing Impairment: Hard of Hearing Colon What Type of Treatment Did You: Surgical Intervention Depression Blood Disorders: Yes (ANEMIA) Family Medical History Reviewed Nursing Family Hx No Pertinent Family Hx Health daughter Review of Systems Constitutional: No fever EENTM: no symptoms reported Respiratory: no symptoms reported Cardiovascular: no symptoms reported Gastrointestinal: abdominal pain; No nausea, No vomiting Genitourinary: no symptoms reported Musculoskeletal: no symptoms reported Skin: no symptoms reported Psychiatric/Neurological: No Symptoms Reported Physical Exam Physical Exam Vital Signs Vital Signs - First Documented 05/29/21 05/29/21 11:45 12:00 Temp 36.7 Pulse 71 Resp 20 B/P (MAP) 175/54 (94) Pulse Ox 98 O2 Delivery Room Air Capillary Refill : Less Than 3 Seconds Height, Weight, BMI Height: '" Weight: lbs. oz. kg; 41.86 BMI Method: General Appearance: No Apparent Distress, Chronically ill, Obese HEENT: PERRL/EOMI, Moist Mucous Membranes; No Scleral Icterus (L), No Scleral Icterus (R) Neck: Full Range of Motion, Supple Respiratory: Lungs Clear, No Accessory Muscle Use, No Respiratory Distress Cardiovascular: Regular Rate, Rhythm, No Murmur Gastrointestinal: Soft, Abnormal Bowel Sounds (quiet), Tenderness (appropriate) Extremity: Normal Capillary Refill, No Calf Tenderness, No Pedal Edema Neurologic/Psychiatric: Alert, Oriented x3, Normal Mood/Affect Skin: Normal Color, Warm/Dry Results Results/Procedures Labs Laboratory Tests 05/30/21 05:30 05/30/21 12:50 Patient resulted labs reviewed. Imaging: Reviewed Imaging Report Imaging [facility], [place] NAME: NORY CASTILLO [facility] REC#: [id number] PT STATUS: ADM IN : 1940 PHYSICIAN: KORY CARDOZA MD ADMIT DATE: 05/29/21 Signed Date of Exam:05/29/21 CHEST 1 VIEW, AP/PA ONLY INDICATION: Central line placement. COMPARISON: 08/22/2019. TECHNIQUE: Single radiograph of the chest dated May 29, 2021. FINDINGS: Left subclavian central venous catheter is in place with the distal tip overlying near the cavoatrial junction. No significant pneumothorax. The cardiac silhouette is enlarged. Pulmonary vasculature appears engorged. Low lung volumes with extensive left greater than right pulmonary opacities. Small left pleural effusion suspected. No pneumothorax. No acute osseous abnormality. IMPRESSION: 1. Left subclavian central venous catheter is in place with the distal tip overlying near the cavoatrial junction without pneumothorax. 2. Low lung volumes with extensive left greater than right pulmonary infiltrates with trace left pleural effusion. 3. Central pulmonary vascular congestion. Dictated by: Dictated on workstation # [id number] Dict: 05/29/21 1649 Trans: 05/29/216 [facility] [phone] Interpreted by: MARCO ANTONIO FREEMAN MD Electronically signed by: MARCO ANTONIO FREEMAN MD 05/29/21 1706 Assessment/Plan Assessment and Plan Assess & Plan/Chief Complaint Colon cancer S/p hemicolectomy management per primary Pain regimen NPO except ice chips IDDMII Blood sugar currently well controlled while NPO SSI added Resume home meds as her diet advances and bowel function returns Anemia Post operative repeat hemoglobin 7.2, trend Unsure of baseline will round prCAMMIE Sotelo MD May 30, 2021 13:50
--- NOTE | 2021-05-30 14:11 | Anesthesia-General Post-Op ---
General Patient Condition Mental Status/LOC: Same as Preop Cardiovascular: Satisfactory Nausea/Vomiting: Absent Respiratory: Satisfactory Pain: Controlled Complications: Absent Post Op Complications Complications None Follow Up Care/Instructions Patient Instructions None needed. Anesthesia/Patient Condition Patient Condition Patient is doing well, no complaints, stable vital signs, no apparent adverse anesthesia problems. No complications reported per nursing. MANINDER GARCIA CRNA May 30, 2021 14:11
[2021-05-30] MEDS ORDERED: ONDANSETRON 4 MG/2 ML (SDV) Z0FRAN IVP PRN (14:15)
[2021-05-30] MEDS ORDERED: METOCLOPRAMIDE INJ 10 MG/2 ML (REGLAN) IVP PRN (14:15)
[2021-05-30 16:12] VITALS: BP 122/70
[2021-05-30] MEDS: inSUlin ASPART (NovoLOG) 1 UNIT/0.01 ML (CHARGE PER UNIT) SC SCH ×2 (18:22→20:23)
[2021-05-30 19:18] VITALS: BP 146/58
[2021-05-31] VITALS (7 sets, daily range): BP systolic 146–180; BP diastolic 54–86
[2021-05-31] MEDS: fentaNYL INJ 100 MCG/2 ML AMP IVP PRN ×2 (01:20→15:54)
[2021-05-31] MEDS: 1/2 NS W/KCL 20 MEQ/L 1,000 ML IV SCH ×3 (03:51→16:53)
[2021-05-31] MEDS: inSUlin ASPART (NovoLOG) 1 UNIT/0.01 ML (CHARGE PER UNIT) SC SCH ×4 (05:12→20:35)
[2021-05-31 06:10] LABS: BASOPHILS # (AUTO) 0.1 10^3/uL (0.0-0.1); BASOPHILS % (AUTO) 1 % (0-10); EOSINOPHILS # (AUTO) 0.2 10^3/uL (0.0-0.3); EOSINOPHILS % (AUTO) 2 % (0-10); HEMATOCRIT 23 % (35-52); LYMPHOCYTES # (AUTO) 1.9 10^3/uL (1.0-4.0); LYMPHOCYTES % (AUTO) 21 % (12-44); MEAN CORPUSCULAR HEMOGLOBIN 27 pg (25-34); MEAN CORPUSCULAR HGB CONC 29 g/dL (32-36); MEAN CORPUSCULAR VOLUME 94 fL (80-99); MEAN PLATELET VOLUME 10.2 fL (9.0-12.2); MONOCYTES # (AUTO) 0.8 10^3/uL (0.0-1.0); MONOCYTES % (AUTO) 9 % (0-12); NEUTROPHILS # (AUTO) 6.4 10^3/uL (1.8-7.8); NEUTROPHILS % (AUTO) 68 % (42-75); PLATELET COUNT 226 10^3/uL (130-400); WHITE BLOOD COUNT 9.4 10^3/uL (4.3-11.0)
[2021-05-31 06:12] LABS: HEMOGLOBIN 6.5 g/dL (11.5-16.0)
--- NOTE | 2021-05-31 07:45 | Progress Note - Surgery ---
CORTES MCDONOUGH MED STUDENT 05/31/21 0744: Subjective Date Seen by a Provider: May 31, 2021 Time Seen by a Provider: 08:15 Subjective/Events-last exam hospital course: 80 y/o F w/ PMH of IDDMI2, HLD, HTN, GERD, depression admitted for hemicolectomy. Laproscopic R hemicolectomy performed for colon cancer. DEBBIE drain in place. Central venous catheter placed in L subclavian. MRSA negative. today: The patient states she's feeling better. She denies pain except at her incision sites and has no other symptoms. DEBBIE drain with bulb half full. She denies BM or flatulence. She hasn't ambulated but plans on it later today. She is tolerating ice chips and using her IS. She is having good urine output in her urinary catheter. Review of Systems General: No Chills, No Night Sweats HEENT: No Head Aches, No Visual Changes, No Eye Pain, No Ear Pain Pulmonary: No Dyspnea, No Cough Cardiovascular: No: Chest Pain, Palpitations Gastrointestinal: Abdominal Pain; No: Nausea, Vomiting Genitourinary: No Dysuria, No Frequency Musculoskeletal: No: back pain Neurological: No: Weakness, Numbness Objective Exam Vital Signs Date Time Temp Pulse Resp B/P (MAP) Pulse Ox O2 Delivery O2 Flow Rate FiO2 05/31/21 04:35 36.7 69 18 152/86 (108) 92 Nasal Cannula 0.50 05/31/21 00:30 95 0.50 05/31/21 00:30 36.8 73 20 159/54 (89) 95 Nasal Cannula 0.50 05/30/21 20:05 Nasal Cannula 1.00 05/30/21 19:18 36.9 72 18 146/58 (87) 95 Nasal Cannula 1.00 05/30/21 16:12 36.6 67 20 122/70 (87) 96 Nasal Cannula 2.00 05/30/21 12:06 36.6 69 20 143/69 (93) 97 Nasal Cannula 2.00 05/30/21 09:00 95 Nasal Cannula 2.00 05/30/21 08:00 37.0 70 18 145/65 (91) 94 Nasal Cannula 2.00 I & O 05/31/21 07:00 Intake Total 1000 ml Output Total 1352 ml Balance -352 ml Capillary Refill : Less Than 3 Seconds General Appearance: No Apparent Distress, Chronically ill, Obese HEENT: PERRL/EOMI (delayed), Moist Mucous Membranes; No Scleral Icterus (L), No Scleral Icterus (R) Neck: Full Range of Motion, Supple Respiratory: Lungs Clear, No Accessory Muscle Use, No Respiratory Distress Cardiovascular: Regular Rate, Rhythm, No Murmur Gastrointestinal: soft, tenderness (all quadrants), other (ss drainage debbie) Extremity: Normal Capillary Refill, No Calf Tenderness, Pedal Edema (pitting) Neurologic/Psychiatric: Alert, Oriented x3, Normal Mood/Affect Skin: Normal Color, Warm/Dry Results Lab Laboratory Tests 05/30/21 08:10: Glucometer 118H 05/30/21 11:53: Glucometer 129H 05/30/21 12:50: Hemoglobin 7.2L, Hematocrit 25L 05/30/21 16:53: Glucometer 101 05/30/21 20:10: Glucometer 104 05/31/21 05:06: Glucometer 99 05/31/21 06:03: White Blood Count 9.4, Red Blood Count 2.40L, Hemoglobin 6.5*L, Hematocrit 23L, Mean Corpuscular Volume 94, Mean Corpuscular Hemoglobin 27, Mean Corpuscular Hemoglobin Concent 29L, Red Cell Distribution Width 20.2H, Platelet Count 226, Mean Platelet Volume 10.2, Immature Granulocyte % (Auto) 0, Neutrophils (%) (Auto) 68, Lymphocytes (%) (Auto) 21, Monocytes (%) (Auto) 9, Eosinophils (%) (Auto) 2, Basophils (%) (Auto) 1, Neutrophils # (Auto) 6.4, Lymphocytes # (Auto) 1.9, Monocytes # (Auto) 0.8, Eosinophils # (Auto) 0.2, Basophils # (Auto) 0.1, Immature Granulocyte # (Auto) 0.0 Microbiology 05/29/21 MRSA Screen - Final, Complete MRSA not isolated Assessment/Plan Assessment/Plan Assessment/Plan colon cancer s/p laparoscopic right hemicolectomy. * cont PT and ambulation. * cont IS and breathing tx. * start minimal liquid diet today and monitor patient's tolerance * remove hale today Anemia * Hgb 6.5, Hct 23 * discuss with ANDREW Fung DO 05/31/21 1240: Subjective Time Seen by a Provider: 09:21 Subjective/Events-last exam Pt seen and examined; denies abdominal pain, but also no flatus or BM. Denies N/V. Review of Systems General: No Chills, No Night Sweats Pulmonary: No Dyspnea, No Cough Cardiovascular: No: Chest Pain, Palpitations Gastrointestinal: Abdominal Pain (very minimal at incision); No: Nausea, Vomiting Objective Exam General Appearance: No Apparent Distress, Obese HEENT: Moist Mucous Membranes Respiratory: Lungs Clear, Normal Breath Sounds, No Accessory Muscle Use, No Respiratory Distress Cardiovascular: Regular Rate, Rhythm, No Murmur Gastrointestinal: soft, tenderness (at incision), other (ss drainage debbie, incision c/d/i) Assessment/Plan Assessment/Plan Assessment/Plan S/P Right hemicolectomy Anemia - pt has no symptoms and does not want to have blood transfusion at this time Plan to d/c hale and encourage ambulation and IS use. Will try sips of clears and pain meds, anti-emetics as needed. Supervisory-Addendum Brief Verification & Attestation Participated in pt care: history, MDM, physical Personally performed: exam, history, MDM, supervision of care Care discussed with: Medical Student Procedures: n/a Verification and Attestation of Medical Student E/M Service A medical student performed and documented this service. I then reviewed and verified all information documented by the medical student and made modifications to such information, when appropriate. I personally performed a physical exam, medical decision making and then discussed any differences between the notes and made revisions as necessary to create one note. Andrew Hobbs , 05/31/21 , 12:40 C[facility]ES MCDONOUGH MED STUDENT May 31, 2021 07:44 ANDREW HOBBS DO May 31, 2021 12:40
[2021-05-31] MEDS: RT-ALBUTEROL SULF 2.5 MG/3 ML PRE-MIX VIAL INH SCH ×3 (08:29→21:16)
--- NOTE | 2021-05-31 09:14 | Physical Therapy Daily Note ---
PT Daily Note-Current Subjective States that she will try to walk. Transfers SCALE: Activities may be completed with or without assistive devices. 7-Ojxmjmscqa-zxsdcqq completes the activity by him/herself with no assistance from a helper. 5-Set-up or Clean-up Assistance-helper sets up or cleans up; patient completes activity. [place] assists only prior to or following the activity. 4-Supervision or Touching Assistance-helper provides verbal cues and/or touching/steadying and/or contact guard assistance as patient completes activity. Assistance may be provided throughout the activity or intermittently. 3-Partial/Moderate Assistance-helper does LESS THAN HALF the effort. Egan lif ts, holds or supports trunk or limbs, but provides less than half the effort. 2-Substantial/Maximal Assistance-helper does MORE THAN HALF the effort. [place] lifts or holds trunk or limbs and provides more than half the effort. 9-Zbovflwfw-cemdpv does ALL the effort. Patient does none of the effort to complete the activity. Or, the assistance of 2 or more helpers is required for the patient to complete the activity. If activity was not attempted, code reason: 7-Patient Refused. 9-Not Applicable-not attempted and the patient did not perform the activity before the current illness, exacerbation or injury. 10-Not Attempted due to Environmental Limitations-(lack of equipment, weather restraints, etc.). 88-Not Attempted due to Medical Conditions or Safety Concerns. Roll Left & Right (QC): 3 Sit to Lying (QC): 3 Lying to Sitting/Side of Bed(Q: 3 Sit to Stand (QC): 4 Gait Training Does the Patient Walk?: Yes Distance: 10' Walk 10 feet (QC): 5 Walk 50 ft with 2 Turns(QC): 88 Walk 150 ft (QC): 88 Walking 10ft/uneven surface-QC: 88 Gait Persons Needed: 1 Gait Assistive Device: FWW Assessment Current Status: Good Progress Patient did well with ambulation today. PT [facility] Goals Nursing Home Goals PT [facility] Goals Time Frame: Jun 14, 2021 Roll Left & Right (QC): 5 Sit to Lying (QC): 5 Lying-Sitting on Side/Bed(QC): 5 Sit to Stand (QC): 5 Chair/Nsv-rz-Uzegh Xfer(QC): 5 Toilet Transfer (QC): 5 Does the Patient Walk: Yes Walk 10 feet (QC): 5 Walk 50ft with 2 Turns (QC): 5 Walk 150 ft (QC): 5 PT Plan Treatment/Plan Treatment Plan: Continue Plan of Care Treatment Plan: Bed Mobility, Education, Functional Activity Reddy, Functional Strength, Gait, Safety, Therapeutic Exercise, Transfers Treatment Duration: Jun 14, 2021 Frequency: 6 times per week Estimated Hrs Per Day: .25 hour per day Patient and/or Family Agrees t: Yes Time/GCodes Time In: 855 Time Out: 0910 Total Billed Treatment Time: 15 Total Billed Treatment 1, GT x 15 LIZET LANGFORD PT May 31, 2021 09:14
[2021-05-31] MEDS: PANTOPRAZOLE 40 MG (PROTONIX) VIAL IV SCH (10:09)
[2021-05-31] MEDS: ENOXAPARIN 40 MG/0.4 ML (LOVENOX) SYR SC SCH ×2 (10:09→20:38)
[2021-05-31] MEDS: SENNA W/DOCUSATE (SENOKOT S) TABLET PO SCH (10:09)
[2021-05-31] MEDS: HYDROcodone/APAP 7.5 MG/325 MG (LORTAB, LORCET PLUS) TABLET PO PRN ×2 (10:31→20:38)
[2021-06-01 03:53] VITALS: BP 153/68
[2021-06-01] MEDS: 1/2 NS W/KCL 20 MEQ/L 1,000 ML IV SCH ×4 (04:21→22:22)
[2021-06-01] MEDS: inSUlin ASPART (NovoLOG) 1 UNIT/0.01 ML (CHARGE PER UNIT) SC SCH ×4 (05:51→21:15)
[2021-06-01 08:00] VITALS: BP 168/78
--- NOTE | 2021-06-01 08:21 | Progress Note - Surgery ---
CORTES MCDONOUGH MED STUDENT 06/01/21 0821: Subjective Date Seen by a Provider: Jun 01, 2021 Time Seen by a Provider: 08:40 Subjective/Events-last exam hospital course: 80 y/o F w/ PMH of IDDMI2, HLD, HTN, GERD, depression admitted for hemicolectomy. Laproscopic R hemicolectomy performed for colon cancer. DEBBIE drain in place. Central venous catheter placed in L subclavian. MRSA negative. today: Patient is resting comfortably in bed. She has no complaints except for weakness upon ambulation. The DEBBIE drain is 3/4 full. Her urinary catheter was removed yesterday and she is having good urinary output. She is tolerating her clear diet. She is having stool and flatulence. She continues to use her IS. Review of Systems General: No Chills, No Night Sweats, No Fatigue HEENT: No Head Aches Pulmonary: No Dyspnea, No Cough Cardiovascular: No: Chest Pain Gastrointestinal: No: Nausea, Vomiting, Abdominal Pain Genitourinary: No Dysuria, No Frequency Musculoskeletal: No: back pain Neurological: No: Weakness, Numbness Objective Exam Vital Signs Date Time Temp Pulse Resp B/P (MAP) Pulse Ox O2 Delivery O2 Flow Rate FiO2 06/01/21 07:30 93 Nasal Cannula 2.00 06/01/21 03:53 37.0 69 18 153/68 (96) 98 Nasal Cannula 2.00 05/31/21 23:25 37.0 77 16 146/63 (90) 97 Nasal Cannula 2.00 05/31/21 21:16 95 Nasal Cannula 2.00 05/31/21 20:35 Nasal Cannula 2.00 05/31/21 19:42 37.0 78 18 180/76 (110) 97 Nasal Cannula 2.00 05/31/21 16:00 36.9 81 18 151/66 (94) 93 Nasal Cannula 2.00 05/31/21 14:34 Room Air 05/31/21 14:30 95 Nasal Cannula 0.50 05/31/21 11:40 37.0 76 24 148/68 (94) 91 Nasal Cannula 0.50 05/31/21 09:12 Nasal Cannula 1.00 05/31/21 08:34 91 Nasal Cannula 0.50 I & O 06/01/21 06:59 Intake Total 1300 ml Output Total 1235 ml Balance 65 ml Capillary Refill : Less Than 3 Seconds General Appearance: No Apparent Distress, Obese HEENT: Moist Mucous Membranes, Other (delayed EOM) Neck: Full Range of Motion, Supple Respiratory: Lungs Clear, Normal Breath Sounds, No Accessory Muscle Use, No Respiratory Distress Cardiovascular: Regular Rate, Rhythm Gastrointestinal: soft, tenderness (at incisions), other (ss drainage debbie, incision c/d/i) Extremity: Normal Capillary Refill, No Calf Tenderness, Pedal Edema (pitting) Neurologic/Psychiatric: Alert, Oriented x3, Normal Mood/Affect Skin: Normal Color, Warm/Dry Results Lab Laboratory Tests 05/31/21 11:39: Glucometer 101 05/31/21 15:58: Glucometer 109 05/31/21 20:29: Glucometer 144H 06/01/21 05:46: Glucometer 113H Microbiology 05/29/21 MRSA Screen - Final, Complete MRSA not isolated Assessment/Plan Assessment/Plan Assessment/Plan S/P Right hemicolectomy Anemia - pt has no symptoms and does not want to have blood transfusion at this time Plan is to advance diet to liquids then soft foods as tolerated since pt had BM and flatulence. encourage ambulation and IS use. pain meds and anti-emetics as needed. Per doctor, not necessary to order repeat labs. ANDREW RENEE DO 06/01/21 1346: Subjective Time Seen by a Provider: 11:21 Subjective/Events-last exam Pt seen and examined, looks much better today and is up in chair. She denies abdominal pain and is hungry. +BM and flatus. Review of Systems General: No Chills, No Night Sweats Pulmonary: No Dyspnea, No Cough Cardiovascular: No: Chest Pain Gastrointestinal: No: Nausea, Vomiting, Abdominal Pain Objective Exam General Appearance: No Apparent Distress, Obese Respiratory: Lungs Clear, Normal Breath Sounds, No Accessory Muscle Use, No Respiratory Distress Cardiovascular: Regular Rate, Rhythm, No Murmur Gastrointestinal: soft, tenderness (at incisions), other (ss drainage debbie, incision c/d/i) Assessment/Plan Assessment/Plan Assessment/Plan S/P Right hemicolectomy Anemia - pt has no symptoms and does not want to have blood transfusion at this time Plan is to advance diet to liquids then soft foods as tolerated since pt had BM and flatulence. Encourage ambulation and IS use. pain meds and anti-emetics as needed. Will order a CBC in the am to make sure she is not trending down. Supervisory-Addendum Brief Verification & Attestation Participated in pt care: history, MDM, physical Personally performed: exam, history, MDM, supervision of care Care discussed with: Medical Student Procedures: n/a Verification and Attestation of Medical Student E/M Service A medical student performed and documented this service. I then reviewed and verified all information documented by the medical student and made modifications to such information, when appropriate. I personally performed a physical exam, medical decision making and then discussed any differences between the notes and made revisions as necessary to create one note. Andrew Renee , 06/01/21 , 13:46 CORTES MCDONOUGH MED STUDENT Jun 01, 2021 08:21 ANDREW RENEE DO Jun 01, 2021 13:46
[2021-06-01] MEDS: SENNA W/DOCUSATE (SENOKOT S) TABLET PO SCH (08:42)
[2021-06-01] MEDS: PANTOPRAZOLE 40 MG (PROTONIX) VIAL IV SCH (08:42)
[2021-06-01] MEDS: ENOXAPARIN 40 MG/0.4 ML (LOVENOX) SYR SC SCH ×2 (08:43→22:15)
[2021-06-01] MEDS: HYDROcodone/APAP 7.5 MG/325 MG (LORTAB, LORCET PLUS) TABLET PO PRN ×2 (08:52→22:15)
[2021-06-01] MEDS: fentaNYL INJ 100 MCG/2 ML AMP IVP PRN (10:22)
[2021-06-01 11:20] VITALS: BP 167/74
[2021-06-01 16:00] VITALS: BP 217/86
[2021-06-01 20:00] VITALS: BP 157/65
[2021-06-01 23:48] VITALS: BP 178/72
[2021-06-02] VITALS (8 sets, daily range): BP systolic 134–189; BP diastolic 59–73
[2021-06-02] MEDS: inSUlin ASPART (NovoLOG) 1 UNIT/0.01 ML (CHARGE PER UNIT) SC SCH ×4 (06:19→22:17)
[2021-06-02] MEDS: HYDROcodone/APAP 7.5 MG/325 MG (LORTAB, LORCET PLUS) TABLET PO PRN ×3 (06:40→21:32)
[2021-06-02] MEDS: 1/2 NS W/KCL 20 MEQ/L 1,000 ML IV SCH ×4 (06:42→21:30)
[2021-06-02 07:06] LABS: BASOPHILS % (AUTO) 0 % (0-10); EOSINOPHILS # (AUTO) 0.2 10^3/uL (0.0-0.3); EOSINOPHILS % (AUTO) 2 % (0-10); HEMATOCRIT 23 % (35-52); LYMPHOCYTES # (AUTO) 1.8 10^3/uL (1.0-4.0); LYMPHOCYTES % (AUTO) 17 % (12-44); MEAN CORPUSCULAR HEMOGLOBIN 27 pg (25-34); MEAN CORPUSCULAR HGB CONC 28 g/dL (32-36); MEAN CORPUSCULAR VOLUME 94 fL (80-99); MEAN PLATELET VOLUME 10.6 fL (9.0-12.2); MONOCYTES # (AUTO) 0.8 10^3/uL (0.0-1.0); MONOCYTES % (AUTO) 7 % (0-12); NEUTROPHILS # (AUTO) 7.5 10^3/uL (1.8-7.8); NEUTROPHILS % (AUTO) 73 % (42-75); PLATELET COUNT 241 10^3/uL (130-400); WHITE BLOOD COUNT 10.4 10^3/uL (4.3-11.0)
--- NOTE | 2021-06-02 07:15 | Progress Note - Surgery ---
CORTES MCDONOUGH MED STUDENT 06/02/21 0714: Subjective Date Seen by a Provider: Jun 02, 2021 Time Seen by a Provider: 07:10 Subjective/Events-last exam 80 y/o F w/ PMH of IDDMI2, HLD, HTN, GERD, depression admitted for hemicolectomy. Laproscopic R hemicolectomy performed for colon cancer. DEBBIE drain in place. Central venous catheter placed in L subclavian. MRSA negative. today: Patient is resting comfortably in bed. She has no complaints. The DEBBIE drain was replaced and is 1/4 full. She is having good urinary output. She is tolerating a full diet. She is having stool and flatulence. She continues to use her IS. Patient states she does not feel ready to be discharged. Review of Systems General: No Fatigue HEENT: No Head Aches, No Visual Changes Pulmonary: Dyspnea (on ambulation), Cough Cardiovascular: No: Chest Pain Gastrointestinal: No: Nausea, Vomiting, Abdominal Pain Genitourinary: No Dysuria, No Frequency Musculoskeletal: No: arm pain, back pain, leg pain Neurological: No: Weakness, Numbness Objective Exam Vital Signs Date Time Temp Pulse Resp B/P (MAP) Pulse Ox O2 Delivery O2 Flow Rate FiO2 06/02/21 03:46 36.8 72 18 176/73 (107) 97 Nasal Cannula 1.50 06/01/21 23:48 36.6 76 18 178/72 (107) 96 Nasal Cannula 1.50 06/01/21 21:00 Nasal Cannula 1.50 06/01/21 20:00 36.9 81 20 157/65 (95) 95 Nasal Cannula 1.50 06/01/21 16:00 37.1 82 18 217/86 (129) 98 Nasal Cannula 1.50 06/01/21 11:20 36.8 76 20 167/74 (105) 100 Nasal Cannula 1.50 06/01/21 09:00 97 Nasal Cannula 2.00 06/01/21 08:00 36.8 74 20 168/78 (108) 97 Nasal Cannula 2.00 06/01/21 07:30 93 Nasal Cannula 2.00 I & O 06/02/21 07:00 Intake Total 1620 ml Output Total 480 ml Balance 1140 ml Capillary Refill : Less Than 3 Seconds General Appearance: No Apparent Distress, Obese HEENT: Moist Mucous Membranes, Other (delayed EOM) Neck: Full Range of Motion, Supple Respiratory: Lungs Clear, Normal Breath Sounds, No Accessory Muscle Use, No Respiratory Distress Cardiovascular: Regular Rate, Rhythm, No Murmur Gastrointestinal: soft, tenderness (at incisions), other (ss drainage debbie, incision c/d/i, mild bruising at midline incision) Extremity: Normal Capillary Refill, No Calf Tenderness, Pedal Edema Neurologic/Psychiatric: Alert, Oriented x3, Normal Mood/Affect Skin: Normal Color, Warm/Dry Results Lab Laboratory Tests 06/01/21 11:19: Glucometer 116H 06/01/21 16:20: Glucometer 141H 06/01/21 20:07: Glucometer 171H 06/02/21 06:03: Glucometer 145H 06/02/21 06:58: Microbiology 05/29/21 MRSA Screen - Final, Complete MRSA not isolated Assessment/Plan Assessment/Plan Assessment/Plan S/P Right hemicolectomy Anemia - pt has no symptoms and does not want to have blood transfusion at this time. Hgb stable at 6.6 today Plan is to continue soft food diet as tolerated. Continue oxygen, patient not on oxygen at home. Encourage ambulation and IS use. pain meds and anti-emetics as needed. ANDREW RENEE DO 06/02/21 1442: Subjective Time Seen by a Provider: 13:44 Subjective/Events-last exam Pt seen and examined, she thinks now she is ready to go home. She is tolerating diet and pain controlled with oral meds. PT says she can walk 25-30 ft. Review of Systems General: Fatigue HEENT: No Head Aches, No Visual Changes Pulmonary: Dyspnea (on ambulation), Cough Cardiovascular: No: Chest Pain Gastrointestinal: No: Nausea, Vomiting, Abdominal Pain Objective Exam General Appearance: No Apparent Distress, Obese Respiratory: Lungs Clear, Normal Breath Sounds, No Accessory Muscle Use, No Respiratory Distress Cardiovascular: Regular Rate, Rhythm Gastrointestinal: soft, tenderness (at incisions), other (ss drainage debbie, incision c/d/i, mild bruising at midline incision) Assessment/Plan Assessment/Plan Assessment/Plan S/P Right hemicolectomy Anemia - pt has no symptoms and does not want to have blood transfusion at this time. Hgb stable at 6.6 today Plan is to check O2 with ambulation if she needs oxygen will have to get is set up; otherwise can send home today. Encourage ambulation and IS use. pain meds and anti-emetics as needed. Supervisory-Addendum Brief Verification & Attestation Participated in pt care: history, MDM, physical Personally performed: exam, history, MDM, supervision of care Care discussed with: Medical Student Procedures: n/a Verification and Attestation of Medical Student E/M Service A medical student performed and documented this service. I then reviewed and verified all information documented by the medical student and made modifications to such information, when appropriate. I personally performed a physical exam, medical decision making and then discussed any differences between the notes and made revisions as necessary to create one note. Andrew Renee , 06/02/21 , 14:42 CORTES MCDONOUGH MED STUDENT Jun 02, 2021 07:14 ANDREW RENEE DO Jun 02, 2021 14:42
[2021-06-02 07:24] LABS: ALBUMIN 2.8 GM/DL (3.2-4.5); BILIRUBIN,TOTAL 0.3 MG/DL (0.1-1.0); CALCIUM 8.3 MG/DL (8.5-10.1); CREATININE SERUM 1.03 MG/DL (0.60-1.30); POTASSIUM 4.9 MMOL/L (3.6-5.0); TOTAL PROTEIN 5.6 GM/DL (6.4-8.2)
[2021-06-02 07:27] LABS: HEMOGLOBIN 6.6 g/dL (11.5-16.0)
[2021-06-02] MEDS: SENNA W/DOCUSATE (SENOKOT S) TABLET PO SCH (08:35)
[2021-06-02] MEDS: PANTOPRAZOLE 40 MG (PROTONIX) VIAL IV SCH (08:35)
[2021-06-02] MEDS: ENOXAPARIN 40 MG/0.4 ML (LOVENOX) SYR SC SCH ×2 (08:35→20:39)
--- NOTE | 2021-06-02 10:23 | Physical Therapy Daily Note ---
PT Daily Note-Current Subjective Patient agrees to PT. Patient c/o right heel pain. Noted redness with RN notified. Mental Status Patient Orientation: Person, Time, Situation Attachments: Central Line, Oxygen, Drains Transfers SCALE: Activities may be completed with or without assistive devices. 7-Gtxyjtwyvv-csbyrmk completes the activity by him/herself with no assistance from a helper. 5-Set-up or Clean-up Assistance-helper sets up or cleans up; patient completes activity. [place] assists only prior to or following the activity. 4-Supervision or Touching Assistance-helper provides verbal cues and/or touching/steadying and/or contact guard assistance as patient completes activity. Assistance may be provided throughout the activity or intermittently. 3-Partial/Moderate Assistance-helper does LESS THAN HALF the effort. [place] lifts, holds or supports trunk or limbs, but provides less than half the effort. 2-Substantial/Maximal Assistance-helper does MORE THAN HALF the effort. [place] lifts or holds trunk or limbs and provides more than half the effort. 1-Qecvothwz-izplff does ALL the effort. Patient does none of the effort to co mplete the activity. Or, the assistance of 2 or more helpers is required for the patient to complete the activity. If activity was not attempted, code reason: 7-Patient Refused. 9-Not Applicable-not attempted and the patient did not perform the activity before the current illness, exacerbation or injury. 10-Not Attempted due to Environmental Limitations-(lack of equipment, weather restraints, etc.). 88-Not Attempted due to Medical Conditions or Safety Concerns. Lying to Sitting/Side of Bed(Q: 2 Sit to Stand (QC): 3 Chair/Ynh-xz-Actkt Xfer(QC): 3 Toilet Transfer (QC): 3 Gait Training Does the Patient Walk?: Yes Distance: 20' x 2 Walk 10 feet (QC): 4 Gait Assistive Device: FWW slow, extended UE's with FWW use and WBOS Assessment Patient is up to toilet with MEDICINAL CHEMIST present to cleanse and dress patient. Patient improving with treatment plan. PT Prison Goals Prison Goals PT Prison Goals Time Frame: Jun 14, 2021 Roll Left & Right (QC): 5 Sit to Lying (QC): 5 Lying-Sitting on Side/Bed(QC): 5 Sit to Stand (QC): 5 Chair/Ovu-nx-Opahc Xfer(QC): 5 Toilet Transfer (QC): 5 Does the Patient Walk: Yes Walk 10 feet (QC): 5 Walk 50ft with 2 Turns (QC): 5 Walk 150 ft (QC): 5 PT Plan Treatment/Plan Treatment Plan: Continue Plan of Care Treatment Plan: Bed Mobility, Education, Functional Activity Reddy, Functional Strength, Gait, Safety, Therapeutic Exercise, Transfers Treatment Duration: Jun 14, 2021 Frequency: 6 times per week Estimated Hrs Per Day: .25 hour per day Patient and/or Family Agrees t: Yes Time/GCodes Time In: 950 Time Out: 1009 Total Billed Treatment Time: 19 Total Billed Treatment 1 visit FA 19 min MIGUELITO CHANEL PT Jun 02, 2021 10:23
[2021-06-02] MEDS: hydrALAZINE (APESOLINE) 20 MG/ML VIAL IV PRN ×3 (15:44→21:17)
[2021-06-02] MEDS ORDERED: NS IV 500 ML 500 ML IV SCH (15:45)
--- NOTE | 2021-06-02 20:01 | Progress Note - Hospitalist ---
Subjective HPI/CC On Admission Date Seen by Provider: Jun 02, 2021 Time Seen by Provider: 16:00 Pt is an 80yoCF with a PMH of IDDMII, HLD, depression who was admitted for hemicolectomy. She is POD #1 and I am consulted for medical management. She reports having pain but that it is controlled despite grimacing during our conversation. She reports a history of DM and plans for her daughter to bring in her insulin pen. We discussed blood sugar control in the hospital and plan to control it with sliding scale for now since she is not eating and BS is 123 this AM. Subjective/Events-last exam She reports shortness of breath. She denies hematochezia and melena. She has had some bleeding around her abdominal incision. Objective Exam Vital Signs Vital Signs Date Time Temp Pulse Resp B/P (MAP) Pulse Ox O2 Delivery O2 Flow Rate FiO2 06/02/21 19:24 37.1 78 20 166/72 (103) 99 Nasal Cannula 2.00 Capillary Refill : Less Than 3 Seconds General Appearance: No Apparent Distress, Obese Respiratory: Lungs Clear, Normal Breath Sounds, No Respiratory Distress Cardiovascular: Regular Rate, Rhythm, No Edema, No Murmur Gastrointestinal: Normal Bowel Sounds, Soft Extremity: Normal Inspection, No Pedal Edema Neurologic/Psychiatric: Alert, Oriented x3, No Motor/Sensory Deficits, Disoriented Skin: Normal Color, Warm/Dry Results/Procedures Lab Laboratory Tests 06/02/21 06:58 Patient resulted labs reviewed. Imaging: Reviewed Imaging Report Assessment/Plan Assessment and Plan Assess & Plan/Chief Complaint Colon cancer s/p hemicolectomy Management per primary Postoperative anemia Acute respiratory failure with hypoxia Hgb 6.6 Likely causing dyspnea Obtained verbal consent, discussed risks/benefits/alternatives, patient agrees Transfuse 1 unit PRBC Repeat Hgb tomorrow Goal Hgb >7 DVT prophylaxis: Lovenox Diagnosis/Problems Diagnosis/Problems (1) Colon cancer Status: Acute (2) S/P right hemicolectomy Status: Acute (3) Postoperative anemia Status: Acute (4) Acute respiratory failure with hypoxia Status: Acute CHRIS RHOADES MD Jun 02, 2021 20:01
[2021-06-03 00:14] VITALS: BP 139/69
[2021-06-03 04:05] VITALS: BP_SYST 139; BP_SYST 167; BP_DIAS 69; BP_DIAS 70
[2021-06-03 04:36] LABS: BASOPHILS # (AUTO) 0.1 10^3/uL (0.0-0.1); BASOPHILS % (AUTO) 1 % (0-10); EOSINOPHILS # (AUTO) 0.2 10^3/uL (0.0-0.3); EOSINOPHILS % (AUTO) 2 % (0-10); HEMATOCRIT 27 % (35-52); LYMPHOCYTES # (AUTO) 2.4 10^3/uL (1.0-4.0); LYMPHOCYTES % (AUTO) 21 % (12-44); MEAN CORPUSCULAR HGB CONC 29 g/dL (32-36); MEAN CORPUSCULAR VOLUME 91 fL (80-99); MEAN PLATELET VOLUME 10.5 fL (9.0-12.2); MONOCYTES # (AUTO) 0.9 10^3/uL (0.0-1.0); MONOCYTES % (AUTO) 8 % (0-12); NEUTROPHILS # (AUTO) 7.8 10^3/uL (1.8-7.8); NEUTROPHILS % (AUTO) 67 % (42-75); PLATELET COUNT 267 10^3/uL (130-400); WHITE BLOOD COUNT 11.6 10^3/uL (4.3-11.0)
[2021-06-03 04:39] LABS: MEAN CORPUSCULAR HEMOGLOBIN 26 pg (25-34)
[2021-06-03] MEDS: inSUlin ASPART (NovoLOG) 1 UNIT/0.01 ML (CHARGE PER UNIT) SC SCH ×2 (05:47→11:31)
[2021-06-03] MEDS: 1/2 NS W/KCL 20 MEQ/L 1,000 ML IV SCH ×2 (07:35→16:20)
[2021-06-03 08:00] VITALS: BP 184/76
[2021-06-03] MEDS: SENNA W/DOCUSATE (SENOKOT S) TABLET PO SCH (08:37)
[2021-06-03] MEDS: ENOXAPARIN 40 MG/0.4 ML (LOVENOX) SYR SC SCH (08:37)
[2021-06-03] MEDS: PANTOPRAZOLE 40 MG (PROTONIX) VIAL IV SCH (08:38)
--- NOTE | 2021-06-03 10:09 | Physical Therapy Daily Note ---
PT Daily Note-Current Subjective Patient agrees to PT. Mental Status Patient Orientation: Normal For Age Attachments: Central Line, Oxygen, Drains Transfers SCALE: Activities may be completed with or without assistive devices. 6-Cfpxuklnlq-uymlipk completes the activity by him/herself with no assistance from a helper. 5-Set-up or Clean-up Assistance-helper sets up or cleans up; patient completes activity. [place] assists only prior to or following the activity. 4-Supervision or Touching Assistance-helper provides verbal cues and/or touching/steadying and/or contact guard assistance as patient completes activity. Assistance may be provided throughout the activity or intermittently. 3-Partial/Moderate Assistance-helper does LESS THAN HALF the effort. [place] lifts, holds or supports trunk or limbs, but provides less than half the effort. 2-Substantial/Maximal Assistance-helper does MORE THAN HALF the effort. [place] lifts or holds trunk or limbs and provides more than half the effort. 1-Oydyishhp-oyshzu does ALL the effort. Patient does none of the effort to complete the activity. Or, the assistance of 2 or more helpers is required for the patient to complete the activity. If activity was not attempted, code reason: 7-Patient Refused. 9-Not Applicable-not attempted and the patient did not perform the activity before the current illness, exacerbation or injury. 10-Not Attempted due to Environmental Limitations-(lack of equipment, weather restraints, etc.). 88-Not Attempted due to Medical Conditions or Safety Concerns. Roll Left & Right (QC): 4 Lying to Sitting/Side of Bed(Q: 4 Sit to Stand (QC): 4 Chair/Gum-yr-Qpfxq Xfer(QC): 4 Toilet Transfer (QC): 4 SBA with all mobility/patient toileted self Gait Training Does the Patient Walk?: Yes Distance: 25' x 1; 75' x 1 Walk 10 feet (QC): 4 Walk 50 ft with 2 Turns(QC): 4 Gait Assistive Device: FWW SBA/slow and functional Exercises Seated Therapy Exercises: Ankle pumps, Long arc quads Seated Reps: 15 Assessment Patient is up in recliner with needs met. Increase activity. PT Tutoring Clinician Goals Shelter Goals PT Tutoring Clinician Goals Time Frame: Jun 14, 2021 Roll Left & Right (QC): 5 Sit to Lying (QC): 5 Lying-Sitting on Side/Bed(QC): 5 Sit to Stand (QC): 5 Chair/Vtz-lh-Vlati Xfer(QC): 5 Toilet Transfer (QC): 5 Does the Patient Walk: Yes Walk 10 feet (QC): 5 Walk 50ft with 2 Turns (QC): 5 Walk 150 ft (QC): 5 PT Plan Treatment/Plan Treatment Plan: Continue Plan of Care Treatment Plan: Bed Mobility, Education, Functional Activity Reddy, Functional Strength, Gait, Safety, Therapeutic Exercise, Transfers Treatment Duration: Jun 14, 2021 Frequency: 6 times per week Estimated Hrs Per Day: .25 hour per day Patient and/or Family Agrees t: Yes Time/GCodes Time In: 835 Time Out: 858 Total Billed Treatment Time: 23 Total Billed Treatment 1 visit FA x 2 23 min MIGUELITO CHANEL PT Jun 03, 2021 10:09
[2021-06-03 12:00] VITALS: BP 184/71
[2021-06-03] MEDS ORDERED: HYDR-34 PO ×2 (13:10)
--- NOTE | 2021-06-03 13:11 | Discharge Inst-Surgical ---
Discharge Inst-Surgical Depart Medication/Instructions New, Converted or Re-Newed RX: Transmitted to Pharmacy Patient Instructions Follow up Appt: Make appointment for 1 week. [phone] Instructions: No lifting greater than 20 pounds. No strenuous activity. May shower in 24 hours, no tub bath or soaking. Use incentive spirometer at home as directed. No Smoking Skin/Wound Care: May remove bandages in am. You need to leave the Dermabond on incision it will fall off on it's own. Symptoms to Report: Appetite Changes, Extremity Discoloration, Numbness/Tingling, Swelling Increased, Bleeding Excessive, Eyesight Changes, Pain Increased, Urine Color Change, Constipation(Persistent), Fever over 101 degree F, Pain/Pressure in chest, Urinating Difficulty, Cough Up/Vomit Blood, Heart Beat Irreg/Pounding, Pain/Pressure in jaw, Cramps in feet or legs, Lightheadedness, Pain/Pressure in shoulder, Diarrhea(Persistent), Memory Changes Suddenly, Questions/Concerns, Weight gain consecutive days, Dizziness/Fainting, Nausea/Vomiting, Shortness of Breath, Weight gain over 2 pounds If questions or concerns contact your physician Or seek help at emergency department. Activity Activity as Tolerated: Yes Activity Instructions: Avoid Stress to Incision Driving Instructions: No Driving/Refer to Dr. Perry Discharge Diet: No Restrictions Diet After 24 Hours: Clear Liquid if Nauseous If Any Problems/Questions/Issu: Contact Your Physician, Go to Emergency Room Skin/Wound Care Infection Signs and Symptoms: Increased Redness, Foul Odor of Wound, Increased Drainage, Skin Itchy or Has a Rash, Increased Swelling, Temperature Above 101 F Wound Care Comment: ARTHUR drain teaching Bathing Instructions: Sponge Stitches/[place]/Dermabond Dis: Care of ANDREW Cox DO Jun 03, 2021 13:11
[2021-06-03] MEDS: hydrALAZINE (APESOLINE) 20 MG/ML VIAL IV PRN (13:21)
[2021-06-03 17:05] VITALS: BP 184/71
== END 2021-06-03 17:05 | disposition home or self-care (01) | DRG 329 ==
LOC: 4TH 11:26
PROVIDERS: ADMIT Surgery; ATTEND Surgery
PROC: 0DTF0ZZ Resection of Right Large Intestine, Open Approach (ICD-10-PCS; principal; 2021-05-29 14:00)
DX: C18.3 Malignant neoplasm of hepatic flexure (principal); J96.01 Acute respiratory failure with hypoxia; D64.9 Anemia, unspecified; K21.00 Gastro-esophageal reflux disease with esophagitis, without bleeding; K44.9 Diaphragmatic hernia without obstruction or gangrene; K29.70 Gastritis, unspecified, without bleeding; K64.1 Second degree hemorrhoids; E11.9 Type 2 diabetes mellitus without complications; E78.00 Pure hypercholesterolemia, unspecified; E78.5 Hyperlipidemia, unspecified; I10 Essential (primary) hypertension; K21.9 Gastro-esophageal reflux disease without esophagitis; H91.90 Unspecified hearing loss, unspecified ear; F32.9 Major depressive disorder, single episode, unspecified
CPT/HCPCS: 36415; 71045; 80048; 80053; 82947; 85014; 85018; 85025; 85027; 86850; 86900; 86901; 86920; 87081; 94640; 94760; 94761

== ENCOUNTER 2021-09-16 12:33 | Outpatient (RCR) | payer MEDICARE, OTHER ==
[2021-06-19 09:51] LABS: BASOPHILS # (AUTO) 0.1 10^3/uL (0.0-0.1); BASOPHILS % (AUTO) 1 % (0-10); EOSINOPHILS # (AUTO) 0.4 10^3/uL (0.0-0.3); EOSINOPHILS % (AUTO) 5 % (0-10); HEMATOCRIT 31 % (35-52); HEMOGLOBIN 9.3 g/dL (11.5-16.0); LYMPHOCYTES # (AUTO) 2.3 10^3/uL (1.0-4.0); LYMPHOCYTES % (AUTO) 28 % (12-44); MEAN CORPUSCULAR HEMOGLOBIN 27 pg (25-34); MEAN CORPUSCULAR HGB CONC 30 g/dL (32-36); MEAN CORPUSCULAR VOLUME 92 fL (80-99); MEAN PLATELET VOLUME 10.8 fL (9.0-12.2); MONOCYTES # (AUTO) 0.6 10^3/uL (0.0-1.0); MONOCYTES % (AUTO) 7 % (0-12); NEUTROPHILS # (AUTO) 4.9 10^3/uL (1.8-7.8); NEUTROPHILS % (AUTO) 59 % (42-75); PLATELET COUNT 309 10^3/uL (130-400); WHITE BLOOD COUNT 8.3 10^3/uL (4.3-11.0)
[2021-06-19 10:21] LABS: ALBUMIN 3.6 GM/DL (3.2-4.5); BILIRUBIN,TOTAL 0.2 MG/DL (0.1-1.0); CALCIUM 9.2 MG/DL (8.5-10.1); CREATININE SERUM 1.59 MG/DL (0.60-1.30); POTASSIUM 4.3 MMOL/L (3.6-5.0); TOTAL PROTEIN 6.8 GM/DL (6.4-8.2)
[2021-07-23 15:24] LABS: BASOPHILS % (AUTO) 0 % (0-10); EOSINOPHILS # (AUTO) 0.2 10^3/uL (0.0-0.3); EOSINOPHILS % (AUTO) 3 % (0-10); HEMATOCRIT 30 % (35-52); HEMOGLOBIN 9.2 g/dL (11.5-16.0); LYMPHOCYTES # (AUTO) 2.6 10^3/uL (1.0-4.0); LYMPHOCYTES % (AUTO) 32 % (12-44); MEAN CORPUSCULAR HEMOGLOBIN 28 pg (25-34); MEAN CORPUSCULAR HGB CONC 31 g/dL (32-36); MEAN CORPUSCULAR VOLUME 91 fL (80-99); MEAN PLATELET VOLUME 11.6 fL (9.0-12.2); MONOCYTES # (AUTO) 0.6 10^3/uL (0.0-1.0); MONOCYTES % (AUTO) 8 % (0-12); NEUTROPHILS # (AUTO) 4.6 10^3/uL (1.8-7.8); NEUTROPHILS % (AUTO) 57 % (42-75); PLATELET COUNT 221 10^3/uL (130-400)
[2021-07-23 15:39] LABS: ALBUMIN 3.7 GM/DL (3.2-4.5); BILIRUBIN,TOTAL 0.2 MG/DL (0.1-1.0); CALCIUM 9.5 MG/DL (8.5-10.1); CREATININE SERUM 1.89 MG/DL (0.60-1.30); POTASSIUM 4.1 MMOL/L (3.6-5.0); TOTAL PROTEIN 7.3 GM/DL (6.4-8.2)
[2021-08-06 13:53] LABS: BASOPHILS # (AUTO) 0.1 10^3/uL (0.0-0.1); BASOPHILS % (AUTO) 1 % (0-10); EOSINOPHILS # (AUTO) 0.2 10^3/uL (0.0-0.3); EOSINOPHILS % (AUTO) 2 % (0-10); HEMATOCRIT 29 % (35-52); HEMOGLOBIN 9.1 g/dL (11.5-16.0); LYMPHOCYTES # (AUTO) 2.2 10^3/uL (1.0-4.0); LYMPHOCYTES % (AUTO) 25 % (12-44); MEAN CORPUSCULAR HEMOGLOBIN 29 pg (25-34); MEAN CORPUSCULAR HGB CONC 31 g/dL (32-36); MEAN CORPUSCULAR VOLUME 93 fL (80-99); MONOCYTES # (AUTO) 0.6 10^3/uL (0.0-1.0); MONOCYTES % (AUTO) 7 % (0-12); NEUTROPHILS # (AUTO) 5.8 10^3/uL (1.8-7.8); NEUTROPHILS % (AUTO) 65 % (42-75); PLATELET COUNT 222 10^3/uL (130-400)
[2021-08-06 14:12] LABS: ALBUMIN 3.8 GM/DL (3.2-4.5); BILIRUBIN,TOTAL 0.3 MG/DL (0.1-1.0); CALCIUM 9.2 MG/DL (8.5-10.1); CREATININE SERUM 1.64 MG/DL (0.60-1.30); POTASSIUM 4.8 MMOL/L (3.6-5.0); TOTAL PROTEIN 7.4 GM/DL (6.4-8.2)
[~2021-09-16 12:33] MED LIST changes: +DOCU-26 PO; +FERR-84 PO; +GLIP10TA24 PO; +HYDR-34 PO; +MULT-1136 PO; +PIOG30TA71 PO
[2021-09-16 13:01] LABS: BASOPHILS # (AUTO) 0.1 10^3/uL (0.0-0.1); BASOPHILS % (AUTO) 1 % (0-10); EOSINOPHILS # (AUTO) 0.3 10^3/uL (0.0-0.3); EOSINOPHILS % (AUTO) 4 % (0-10); HEMATOCRIT 29 % (35-52); HEMOGLOBIN 9.1 g/dL (11.5-16.0); LYMPHOCYTES # (AUTO) 2.1 10^3/uL (1.0-4.0); LYMPHOCYTES % (AUTO) 26 % (12-44); MEAN CORPUSCULAR HEMOGLOBIN 31 pg (25-34); MEAN CORPUSCULAR HGB CONC 32 g/dL (32-36); MEAN CORPUSCULAR VOLUME 97 fL (80-99); MEAN PLATELET VOLUME 11.5 fL (9.0-12.2); MONOCYTES # (AUTO) 0.6 10^3/uL (0.0-1.0); MONOCYTES % (AUTO) 8 % (0-12); NEUTROPHILS # (AUTO) 4.7 10^3/uL (1.8-7.8); NEUTROPHILS % (AUTO) 61 % (42-75); PLATELET COUNT 190 10^3/uL (130-400); WHITE BLOOD COUNT 7.8 10^3/uL (4.3-11.0)
[2021-09-16 13:23] LABS: ALBUMIN 3.7 GM/DL (3.2-4.5); BILIRUBIN,TOTAL 0.4 MG/DL (0.1-1.0); CALCIUM 9.5 MG/DL (8.5-10.1); CREATININE SERUM 2.26 MG/DL (0.60-1.30); POTASSIUM 4.6 MMOL/L (3.6-5.0); TOTAL PROTEIN 7.3 GM/DL (6.4-8.2)
== END 2021-09-17 | disposition home or self-care (01) ==
LOC: ONC 12:33
PROVIDERS: ATTEND Internal Medicine Hematology & Oncology
DX: C18.9 Malignant neoplasm of colon, unspecified (principal); I12.9 Hypertensive chronic kidney disease with stage 1 through stage 4 chronic kidney disease, or unspecified chronic kidney disease; N18.30 Chronic kidney disease, stage 3 unspecified; E11.9 Type 2 diabetes mellitus without complications
CPT/HCPCS: 80053; 82378; 85025; G0463; 99213; 99214

== ENCOUNTER 2021-10-14 13:47 | Outpatient (RCR) | payer MEDICARE, OTHER ==
[2021-10-14 14:02] LABS: BASOPHILS % (AUTO) 1 % (0-10); EOSINOPHILS # (AUTO) 0.1 10^3/uL (0.0-0.3); EOSINOPHILS % (AUTO) 2 % (0-10); HEMATOCRIT 30 % (35-52); HEMOGLOBIN 9.6 g/dL (11.5-16.0); LYMPHOCYTES % (AUTO) 25 % (12-44); MEAN CORPUSCULAR HEMOGLOBIN 33 pg (25-34); MEAN CORPUSCULAR HGB CONC 32 g/dL (32-36); MEAN CORPUSCULAR VOLUME 104 fL (80-99); MEAN PLATELET VOLUME 11.2 fL (9.0-12.2); MONOCYTES # (AUTO) 0.7 10^3/uL (0.0-1.0); MONOCYTES % (AUTO) 8 % (0-12); NEUTROPHILS # (AUTO) 5.1 10^3/uL (1.8-7.8); NEUTROPHILS % (AUTO) 64 % (42-75); PLATELET COUNT 221 10^3/uL (130-400)
[2021-10-14 14:22] LABS: ALBUMIN 3.9 GM/DL (3.2-4.5); BILIRUBIN,TOTAL 0.5 MG/DL (0.1-1.0); CALCIUM 9.3 MG/DL (8.5-10.1); CREATININE SERUM 1.64 MG/DL (0.60-1.30); POTASSIUM 4.6 MMOL/L (3.6-5.0); TOTAL PROTEIN 7.5 GM/DL (6.4-8.2)
== END 2021-11-03 | disposition home or self-care (01) ==
LOC: ONC 13:47
PROVIDERS: ATTEND Internal Medicine Hematology & Oncology
DX: Z51.11 Encounter for antineoplastic chemotherapy (principal); C18.0 Malignant neoplasm of cecum; I12.9 Hypertensive chronic kidney disease with stage 1 through stage 4 chronic kidney disease, or unspecified chronic kidney disease; N18.30 Chronic kidney disease, stage 3 unspecified; E11.9 Type 2 diabetes mellitus without complications; R97.0 Elevated carcinoembryonic antigen [CEA]
CPT/HCPCS: 80053; 82378; 85025; G0463; 99213

== ENCOUNTER → 2021-10-14 | Outpatient (CLI) | payer MEDICARE, OTHER ==
--- NOTE | 2021-10-14 15:36 | Diagnostic Imaging Report ---
PROCEDURE: US venous upper extremity left. TECHNIQUE: Multiple realtime grayscale images were obtained of left upper extremity in various projections. Additional spectral analysis and color Doppler duplex images were also obtained. INDICATION: Left arm swelling. FINDINGS: The left internal jugular vein as well as the left subclavian and axillary veins are patent. The brachial vein is patent. Basilic, cephalic as well as radial and ulnar veins are patent. No thrombus is detected. No fluid collection or mass is detected. IMPRESSION: No evidence of left upper extremity DVT. Dictated by: Dictated on workstation # [id number]
== END ==
LOC: RAD 14:37
PROVIDERS: ATTEND Nurse Practitioner Adult Health
DX: R22.32 Localized swelling, mass and lump, left upper limb (principal)

== ENCOUNTER → 2021-10-14 | Outpatient (CLI) | payer MEDICARE, OTHER | LOC: RAD 14:37 | PROVIDERS: ATTEND Nurse Practitioner Adult Health | DX: Z53.9 Procedure and treatment not carried out, unspecified reason (principal) ==

== ENCOUNTER → 2021-11-18 | Outpatient (CLI) | payer MEDICARE, OTHER ==
--- NOTE | 2021-11-18 18:02 | Diagnostic Imaging Report ---
HISTORY: Difficulty breathing COMPARISON: 05/29/2021 TECHNIQUE: 2 views of the chest FINDINGS: There is a small left pleural effusion and a minimal right pleural effusion. There is mild cardiomegaly. There is central vascular congestion with mild interstitial edema. Aeration is significantly improved compared to May 2021. No pneumothorax is seen. IMPRESSION: 1. Small left and minimal right pleural effusions. 2. Mild cardiomegaly with interstitial edema. Aeration is improved compared to May 2021. Dictated by: Dictated on workstation # [id number]
== END ==
LOC: RAD 14:30
DX: I51.7 Cardiomegaly (principal); M79.89 Other specified soft tissue disorders; R60.0 Localized edema
CPT/HCPCS: 71046

== ENCOUNTER 2022-03-08 17:36 | Emergency (ER) | payer MEDICARE, OTHER ==
[~2022-03-08] VITALS: Ht 162 cm; Wt 108.8 kg
[2022-03-08] MEDS ORDERED: DEXTROSE 50% 50 ML (IMS) SYR ONE (17:48)
--- NOTE | 2022-03-08 17:56 | ED General ---
General Chief Complaint: Glucose Problems Stated Complaint: HYPOGLYCEMIA Source of Information: Patient, EMS, Old Records History of Present Illness Date Seen by Provider: Mar 08, 2022 Time Seen by Provider: 17:45 Initial Comments PT ARRIVES VIA EMS FROM HOME PER EMS, A FAMILY MEMBER FOUND HER UNRESPONSIVE, AND CALLED EMS ON ARRIVAL, EMS FOUND PT DIAPHORETIC, UNRESPONSIVE AND FOAMING AT THE MOUTH PT IS KNOWN INSULIN DEPENDENT DIABETIC, ACCUCHECK FOR EMS WAS 49 AFTER 80 ML OF D10 VIA I/O IN LEFT LOWER LEG PT IS AWAKE ON ARRIVAL AND TALKING. LAST KNOWN WELL TIME WAS 2230 LAST NIGHT, AND FAMILY MEMBER REPORTED TO EMS THAT SHE LAST TOOK MEDICATION AT THAT TIME FAMILY MEMBER CHECKED ON HER AT NOON, AND PT WAS SLEEPING SO LEFT HER ALONE FAMILY MEMBER CHECKED ON HER AGAIN AROUND 1700 AND FOUND HER IN THE ABOVE CONDITION AND CALLED EMS NO ACCUCHECK WAS DONE BY FAMILY MEMBER. NO FAMILY IS HERE WITH PT ON ARRIVAL PT IS AWAKE AND ABLE TO ANSWER BASIC QUESTIONS ON ARRIVAL PT STATES SHE IS DIABETIC AND HAS COLON CANCER, BUT IS NOT GETTING ANY TREATMENT FOR COLON CANCER PT ONLY C/O BEING COLD CLOTHING IS SATURATED WITH URINE AND SWEAT. PCP: DR. GREEN Allergies and Home Medications Allergies Coded Allergies: No Known Drug Allergies (Unverified , 05/28/21) Patient Home Medication List Bumetanide (Bumetanide) 2 Mg Tablet, 2 MG PO DAILY, (Reported) Entered as Reported by: JOHNIE GODFREY on 04/22/21 1312 Docusate Sodium (Stool Softener) 100 Mg Capsule, 200 MG PO DAILY, (Reported) Entered as Reported by: STEPHANIE FULLER on 05/30/21 1021 Ferrous Sulfate (Iron) 325 Mg Tablet, 325 MG PO DAILY, (Reported) Entered as Reported by: STEPHANIE FULLER on 05/30/21 1021 Glipizide (Glipizide ER) 10 Mg Tab.er.24, 10 MG PO DAILY, (Reported) Entered as Reported by: STEPHANIE FULLER on 05/30/21 1021 Hydrocodone Bit/Acetaminophen (HYDROcodone/APAP 7.5/325 TAB) 1 Ea Tablet, 1 EA PO Q4H PRN for PAIN-MODERATE (5-7) Prescribed by: ANDREW HOBBS on 06/03/21 1310 Insulin Glargine/Lixisenatide (Soliqua 100 Unit-33 Mcg/ml Pen) 3 Ml Insuln.pen, 40 UNITS SQ DAILY, (Reported) Entered as Reported by: JOHNIE GODFREY on 04/22/21 1312 Multivitamin (Multivitamin) 1 Each Tablet, 1 EACH PO DAILY, (Reported) Entered as Reported by: STEPHANIE FULLER on 05/30/21 1021 Pioglitazone HCl (Pioglitazone HCl) 30 Mg Tablet, 30 MG PO DAILY, (Reported) Entered as Reported by: STEPHANIE FULLER on 05/30/21 1021 Potassium Chloride (Potassium Chloride) 10 Meq Capsule.er, 10 MEQ PO DAILY, (Reported) Entered as Reported by: JOHNIE GODFREY on 04/22/21 1312 Sertraline HCl (Sertraline HCl) 100 Mg Tablet, 100 MG PO DAILY, (Reported) Entered as Reported by: JOHNIE GODFREY on 04/22/21 131 Simvastatin (Simvastatin) 20 Mg Tablet, 20 MG PO DAILY, (Reported) Entered as Reported by: JOHNIE GODFREY on 04/22/21 131 Sitagliptin Phosphate (Januvia) 100 Mg Tablet, 100 MG PO DAILY, (Reported) Entered as Reported by: JOHNIE GODFREY on 04/22/21 1312 Review of Systems Review of Systems Constitutional: other ( ABOVE) Past Dkdhxpo-Fttrok-Eltoaf Hx Immunizations Up To Date First/Initial COVID19 Vaccinat: APRIL 2021 Second COVID19 Vaccination Sanjay: APRIL 2021 Third COVID19 Vaccination Date: NA Seasonal Allergies Seasonal Allergies: No Past Medical History Surgeries: Yes Abdominal, Bowel Surgery, Gallbladder Respiratory: Yes (BREATHING ISSUES) Cardiac: Yes High Cholesterol, Hypertension Neurological: No Genitourinary: No Gastrointestinal: Yes (COLON CANCER) Gastroesophageal Reflux Musculoskeletal: No Endocrine: Yes (OBESITY) Diabetes, Insulin dep HEENT: Yes Hearing Impairment: Hard of Hearing Cancer: Yes Colon Did You Recieve Any Treatments: Yes What Type of Treatment Did You: Surgical Intervention COLON RESECTION /RIGHT HEMICOLECTOMY 05/[address] PATIÑO Psychosocial: Yes Depression Integumentary: No Blood Disorders: Yes (ANEMIA) Family Medical History No Pertinent Family Hx Health daughter Physical Exam Vital Signs Vital Signs - First Documented Capillary Refill : Height, Weight, BMI Height: '" Weight: lbs. oz. kg; 41.86 BMI Method: General Appearance: No Apparent Distress, WD/WN, Obese, Other (SKIN IS VERY COL D, PT IS AWAKE AND TALKING BUT HAVING SOME FLEXION CONTRACTIONS OF HANDS AND FEET. SKIN IS DAMP. ) Neck: Normal Inspection Respiratory: Normal Breath Sounds, No Accessory Muscle Use, No Respiratory Distress Cardiovascular: Regular Rate, Rhythm, No JVD, No Murmur Gastrointestinal: Non Tender, Soft Extremity: Pedal Edema (TRACE EDEMA TO BILATERAL LOWER LEGS. I/O PRESENT IN LEFT LOWER LEG. FEET AND HANDS ARE COLD WITH DECREASED CAP REFILL. 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 Norm as Tested Skin: Cool, Damp, Pallor Focused Exam Lactate Level 03/08/22 18:10: Lactic Acid Level 1.60 Lactic Acid Level Laboratory Tests Test 03/08/22 18:10 Lactic Acid Level 1.60 MMOL/L (0.50-2.00) Progress/Results/Core Measures Suspected Sepsis SIRS Temperature: Pulse: Respiratory Rate: Laboratory Tests 03/08/22 18:10: White Blood Count 12.0H Blood Pressure / Mean: 03/08/22 18:10: Lactic Acid Level 1.60 Laboratory Tests 03/08/22 18:10: Creatinine 1.41H, INR Comment 1.0, Platelet Count 255, Total Bilirubin 0.4 Results/Orders Lab Results Laboratory Tests Test 03/08/22 18:08 03/08/22 18:10 03/08/22 18:15 03/08/22 19:00 Range/Units Glucometer 204 H 115 H 70-110 MG/DL White Blood Count 12.0 H 4.3-11.0 10^3/uL Red Blood Count 3.84 3.80-5.11 10^6/uL Hemoglobin 11.3 L 11.5-16.0 g/dL Hematocrit 37 35-52 % Mean Corpuscular Volume 96 80-99 fL Mean Corpuscular Hemoglobin 29 25-34 pg Mean Corpuscular Hemoglobin Concent 31 L 32-36 g/dL Red Cell Distribution Width 15.9 H 10.0-14.5 % Platelet Count 255 130-400 10^3/uL Mean Platelet Volume 10.9 9.0-12.2 fL Immature Granulocyte % (Auto) 1 % Neutrophils (%) (Auto) 92 H 42-75 % Lymphocytes (%) (Auto) 5 L 12-44 % Monocytes (%) (Auto) 3 0-12 % Eosinophils (%) (Auto) 0 0-10 % Basophils (%) (Auto) 0 0-10 % Neutrophils # (Auto) 11.0 H 1.8-7.8 10^3/uL Lymphocytes # (Auto) 0.6 L 1.0-4.0 10^3/uL Monocytes # (Auto) 0.3 0.0-1.0 10^3/uL Eosinophils # (Auto) 0.0 0.0-0.3 10^3/uL Basophils # (Auto) 0.0 0.0-0.1 10^3/uL Immature Granulocyte # (Auto) 0.1 0.0-0.1 10^3/uL Neutrophils % (Manual) 93 % Lymphocytes % (Manual) 4 % Monocytes % (Manual) 3 % Anisocytosis SLIGHT Prothrombin Time 13.1 12.2-14.7 SEC INR Comment 1.0 0.8-1.4 Activated Partial Thromboplast Time 34 24-35 SEC Sodium Level 140 135-145 MMOL/L Potassium Level 5.0 3.6-5.0 MMOL/L Chloride Level 106 98-107 MMOL/L Carbon Dioxide Level 23 21-32 MMOL/L Anion Gap 11 5-14 MMOL/L Blood Urea Nitrogen 25 H 7-18 MG/DL Creatinine 1.41 H 0.60-1.30 MG/DL Estimat Glomerular Filtration Rate 37 BUN/Creatinine Ratio 18 Glucose Level 201 H 70-105 MG/DL Lactic Acid Level 1.60 0.50-2.00 MMOL/L Calcium Level 8.9 8.5-10.1 MG/DL Corrected Calcium 9.1 8.5-10.1 MG/DL Magnesium Level 2.3 1.6-2.4 MG/DL Total Bilirubin 0.4 0.1-1.0 MG/DL Aspartate Amino Transf (AST/SGOT) 25 5-34 U/L Alanine Aminotransferase (ALT/SGPT) 28 0-55 U/L Alkaline Phosphatase 96 40-136 U/L Total Creatine Kinase 95 29-168 U/L Creatine Kinase MB 2.7 <6.6 NG/ML Myoglobin 101.9 H 10.0-92.0 NG/ML Troponin I < 0.028 <0.028 NG/ML C-Reactive Protein High Sensitivity 1.53 H 0.00-0.50 MG/DL B-Type Natriuretic Peptide 1573.6 H <100.0 PG/ML Total Protein 7.7 6.4-8.2 GM/DL Albumin 3.7 3.2-4.5 GM/DL Amylase Level 65 25-125 U/L Lipase 16 8-78 U/L Procalcitonin 0.03 <0.10 NG/ML Influenza Type A (RT-PCR) Not Detected Not Detecte Influenza Type B (RT-PCR) Not Detected Not Detecte SARS-CoV-2 RNA (RT-PCR) Not Detected Not Detecte Urine Color YELLOW Urine Clarity CLEAR Urine pH 8.0 5-9 Urine Specific Holcomb 1.025 H 1.016-1.022 Urine Protein 2+ H NEGATIVE Urine Glucose (UA) NEGATIVE NEGATIVE Urine Ketones NEGATIVE NEGATIVE Urine Nitrite POSITIVE H NEGATIVE Urine Bilirubin NEGATIVE NEGATIVE Urine Urobilinogen 0.2 < = 1.0 MG/DL Urine Leukocyte Esterase NEGATIVE NEGATIVE Urine RBC (Auto) 1+ H NEGATIVE Urine RBC 5-10 H /HPF Urine WBC 2-5 /HPF Urine Squamous Epithelial Cells NONE /HPF Urine Renal Epithelial Cells NONE /HPF Urine Crystals NONE /LPF Urine Bacteria LARGE H /HPF Urine Casts NONE /LPF Urine Mucus NEGATIVE /LPF Urine Culture Indicated CULTURE PENDING Test 03/08/22 20:29 Range/Units Glucometer 124 H 70-110 MG/DL My Orders Orders - YG TINOCO DO D50w (Emergency) Syringe (Dextrose 50% 5 (03/08/22 18:00) Ed Iv/Invasive Line Start (03/08/22 17:47) Catheter(Urinary) Insert & Ass 03,15 (03/08/22 17:47) O2 (03/08/22 17:47) Monitor-Rhythm Ecg Trace Only (03/08/22 17:47) Amylase (03/08/22 17:47) Cbc With Automated Diff (03/08/22 17:47) Comprehensive Metabolic Panel (03/08/22 17:47) Lipase (03/08/22 17:47) Magnesium (03/08/22 17:47) Ed Iv/Invasive Line Start (03/08/22 17:47) Dextrose 10% Iv Solution (D10w 1000 Ml I (03/08/22 18:00) Lactic Acid Analyzer (03/08/22 18:10) Blood Culture (03/08/22 18:10) Urinalysis (03/08/22 18:10) Urine Culture (03/08/22 18:10) Protime With Inr (03/08/22 18:10) Partial Thromboplastin Time (03/08/22 18:10) Chest 1 View, Ap/Pa Only (03/08/22 18:10) Ed Iv/Invasive Line Start (03/08/22 18:10) Ed Iv/Invasive Line Start (03/08/22 18:10) Vital Signs Adult Sepsis Patie Q15M (03/08/22 18:10) O2 (03/08/22 18:10) Remove Rings In Anticipation O (03/08/22 18:10) Procalcitonin (Pct) (03/08/22 18:10) Hs C Reactive Protein (03/08/22 18:10) Ekg Tracing (03/08/22 18:10) Covid 19 Inhouse Test (03/08/22 18:10) Influenza A And B By Pcr (03/08/22 18:10) Isolation Central Supply Req (03/08/22 18:10) Creatine Kinase (03/08/22 18:10) Creatine Kinase Mb (03/08/22 18:10) Myoglobin Serum (03/08/22 18:10) Troponin I Kiran (03/08/22 18:10) Accucheck Stat ONCE (03/08/22 18:20) Manual Differential (03/08/22 18:10) Ceftriaxone 1 Gm Pre-Mix (Rocephin 1 Gm (03/08/22 19:15) Bnp Kiran (03/08/22 19:10) General/Regular (03/08/22 Dinner) Accucheck Stat ONCE (03/08/22 20:15) Furosemide Injection (Lasix Injection) (03/08/22 20:30) Accucheck Stat ONCE (03/08/22 21:12) Medications Given in ED Current Medications Medications Dose Ordered Sig/Altagracia Route Start Time Stop Time Status Last Admin Dose Admin Ceftriaxone Sodium/Dextrose 50 ml @ 100 mls/hr ONCE ONCE IV 03/08/22 19:15 03/08/22 19:44 DC 03/08/22 20:22 100 MLS/HR Dextrose 50 ml ONCE ONCE IV 03/08/22 18:00 03/08/22 18:01 DC 03/08/22 17:50 50 ML Furosemide 40 mg ONCE ONCE IVP 03/08/22 20:30 03/08/22 20:31 DC 03/08/22 20:22 40 MG Vital Signs/I&O 03/08/22 03/08/22 03/08/22 17:45 17:45 17:47 Temp 35.6 Pulse 60 Resp 18 B/P (MAP) 175/124 (141) Pulse Ox 94 95 O2 Delivery Nasal Cannula Nasal Cannula Nasal Cannula O2 Flow Rate 5.00 5.00 6.00 Capillary Refill : Point of Care Testing Finger Stick Blood Glucose: 35 Blood Glucose Action Taken: DR AND RN NOTIFIED Progress Note : Progress Note ACCUCHECK 35 ON ARRIVAL HERE, GIVEN 1 AMP D50 VIA LEFT LEG I/O AND INFUSION OF D10 STARTED. VERY DIFFICULT IV ACCESS. SEPSIS PROTOCOL INITIATED COVID AND FLU TESTING DONE. PT WISHES TO BE A FULL CODE Diagnostic Imaging Comments CXR--PER RADIOLOGIST REPORT AT 1901 There is cardiomegaly with vascular congestion and perihilar pulmonary edema. IMPRESSION: Congestive heart failure. Reviewed: Reviewed by Me Departure Impression Primary Impression: Severe diabetic hypoglycemia Additional Impressions: CHF (congestive heart failure) UTI (urinary tract infection) HTN (hypertension) Disposition: HOME, SELF-CARE Condition: Improved Departure-Patient Inst. Decision time for Depature: 21:29 Referrals: LORA GREEN MD (PCP/Family) Primary Care Physician Patient Instructions: CHF, Diabetes and Infections, High Blood Pressure (DC), Low Blood Sugar, Adult ED, Urinary Tract Infection, Adult ED Add. Discharge Instructions: EAT A HIGH PROTEIN SNACK WHEN YOU GET HOME HOLD YOUR NIGHT TIME DIABETIC MEDICATION TONIGHT, BUT YOU MAY TAKE ALL OF YOUR OTHER REGULAR MEDICATION TONIGHT CHECK YOUR BLOOD SUGAR EVERY 2-3 HOURS TONIGHT, AND IF IT DOES NOT DROP BELOW 80, YOU MAY RESTART YOUR REGULAR DIABETES MEDICATION IN THE MORNING KEEP YOUR APPOINTMENT WITH DR. GREEN TOMORROW. All discharge instructions reviewed with patient and/or family. Voiced understanding. Scripts Nitrofurantoin Monohyd/M-Cryst (Macrobid 100 mg Capsule) 100 Mg Capsule 1 TAB PO BID, #20 CAP Prov: YG TINOCO DO 03/08/22 YG TINOCO DO Mar 08, 2022 17:56
[2022-03-08] MEDS ORDERED: DEXTROSE 50% 50 ML (IMS) SYR IV ONE (18:00)
[2022-03-08] MEDS ORDERED: DEXTROSE 10% IV SOLUTION 1,000 ML IV SCH (18:00)
[2022-03-08 18:21] LABS: BASOPHILS % (AUTO) 0 % (0-10); EOSINOPHILS % (AUTO) 0 % (0-10); HEMATOCRIT 37 % (35-52); HEMOGLOBIN 11.3 g/dL (11.5-16.0); LYMPHOCYTES # (AUTO) 0.6 10^3/uL (1.0-4.0); LYMPHOCYTES % (AUTO) 5 % (12-44); MEAN CORPUSCULAR HEMOGLOBIN 29 pg (25-34); MEAN CORPUSCULAR HGB CONC 31 g/dL (32-36); MEAN CORPUSCULAR VOLUME 96 fL (80-99); MEAN PLATELET VOLUME 10.9 fL (9.0-12.2); MONOCYTES # (AUTO) 0.3 10^3/uL (0.0-1.0); MONOCYTES % (AUTO) 3 % (0-12); NEUTROPHILS % (AUTO) 92 % (42-75); PLATELET COUNT 255 10^3/uL (130-400)
[2022-03-08 18:26] LABS: BILIRUBIN,URINE NEGATIVE (NEGATIVE); CLARITY,URINE CLEAR; COLOR,URINE YELLOW; GLUCOSE, URINE (UA) NEGATIVE (NEGATIVE); KETONES,URINE NEGATIVE (NEGATIVE); LEUKOCYTE ESTERASE ,URINE NEGATIVE (NEGATIVE); NITRITE,URINE POSITIVE (NEGATIVE); PROTEIN,URINE 2+ (NEGATIVE)
[2022-03-08 18:28] LABS: ALBUMIN 3.7 GM/DL (3.2-4.5); CHLORIDE 106 MMOL/L (98-107); SODIUM 140 MMOL/L (135-145)
[2022-03-08 18:29] LABS: CALCIUM 8.9 MG/DL (8.5-10.1)
[2022-03-08 18:30] LABS: AMYLASE 65 U/L (25-125); GLUCOSE 201 MG/DL (70-105); TOTAL PROTEIN 7.7 GM/DL (6.4-8.2)
[2022-03-08 18:31] LABS: CARBON DIOXIDE 23 MMOL/L (21-32)
[2022-03-08 18:32] LABS: BILIRUBIN,TOTAL 0.4 MG/DL (0.1-1.0)
[2022-03-08 18:34] LABS: ALKALINE PHOSPHATASE 96 U/L (40-136); CREATININE SERUM 1.41 MG/DL (0.60-1.30); GFR ESTIMATED 37
[2022-03-08 18:34] LABS: BACTERIA,URINE LARGE /HPF
[2022-03-08 18:35] LABS: BUN/CREATININE RATIO 18; PROTHROMBIN TIME PATIENT 13.1 SEC (12.2-14.7)
[2022-03-08 18:37] LABS: ALANINE AMINOTRANSFERASE 28 U/L (0-55); MAGNESIUM 2.3 MG/DL (1.6-2.4)
[2022-03-08 18:38] LABS: ANISOCYTOSIS SLIGHT; LIPASE 16 U/L (8-78); LYMPHOCYTES % (MANUAL) 4 %; MONOCYTES % (MANUAL) 3 %; NEUTROPHILS % (MANUAL) 93 %
[2022-03-08 18:39] LABS: CREATINE KINASE 95 U/L (29-168)
[2022-03-08 18:46] LABS: CREATINE KINASE MB 2.7 NG/ML (<6.6)
--- NOTE | 2022-03-08 18:56 | Diagnostic Imaging Report ---
INDICATION: Altered mental status. EXAMINATION: Portable chest at 6:41 PM. There is cardiomegaly with vascular congestion and perihilar pulmonary edema. IMPRESSION: Congestive heart failure. Dictated by: Dictated on workstation # [id number]
[2022-03-08] MEDS ORDERED: cefTRIAXone 1 GM PRE-MIX 50 ML IV ONE (19:15)
[2022-03-08] MEDS ORDERED: FUROSEMIDE 40 MG/4 ML INJ (LASIX) IVP ONE (20:30)
[2022-03-08] MEDS ORDERED: NITR-65 PO (21:31)
[2022-03-08 22:28] VITALS: BP 122/65
== END 2022-03-08 22:28 | disposition home or self-care (01) ==
LOC: EDUNIT# 17:36 → ER 17:37
DX: E11.649 Type 2 diabetes mellitus with hypoglycemia without coma (principal); I11.0 Hypertensive heart disease with heart failure; I50.9 Heart failure, unspecified; N39.0 Urinary tract infection, site not specified; E66.9 Obesity, unspecified; C18.9 Malignant neoplasm of colon, unspecified; Z79.4 Long term (current) use of insulin; Z20.822 Contact with and (suspected) exposure to COVID-19
CPT/HCPCS: 36415; 51702; 71045; 80053; 81000; 82150; 82550; 82553; 82947; 83605; 83690; 83735; 83874; 83880; 84145; 84484; 85007; 85027; 85610; 85730; 86141; 87040; 87077; 87088; 87186; 87636; 93005; 93041

== ENCOUNTER → 2022-07-16 | Outpatient (CLI) | payer MEDICARE, OTHER ==
[~2022-07-16] MED LIST changes: +NITR-65 PO
== END ==
LOC: CARD 12:26
PROVIDERS: ATTEND Nurse Practitioner Family
DX: I34.81 Nonrheumatic mitral (valve) annulus calcification (principal); I51.7 Cardiomegaly; I48.91 Unspecified atrial fibrillation
CPT/HCPCS: 93225; 93226; C8929; 93306

== ENCOUNTER 2022-09-02 14:23 | Inpatient (IN) | payer MEDICARE, OTHER ==
[~2022-09-02] VITALS: Ht 160 cm; Wt 95.3 kg
--- OUTSIDE RECORDS SUMMARY | 2022-09-02 14:43 | XMS REPORT | CCD ---
Author Author Amy Fenton Organization [facility] Address [address] [place] [address] Phone Care Team Providers Care Sample Tailor Name Role Phone PP Unavailable CCM Unavailable Summary Purpose Interface Exchange Insurance Providers Payer name Policy type / Coverage type Covered democrat ID Effective Begin Date Effective End Date [employer] MEDIC[place] Medicare Part B [id number] Unknown Family History Family History data not found Social History No Social History data Allergies, Adverse Reactions, Alerts Allergies, Adverse Reactions, Alerts data not found Problems Condition Codes Effective Dates Condition Status Anemia ICD-10: D64.9 ICD-9: 285.9 07/07/2022 Active Cardiac arrhythmia ICD-10: I49.9 ICD-9: 427.9 07/07/2022 Active 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 ICD-9: 428.40 07/07/2022 Active DM type 2 (diabetes mellitus, type 2) ICD-10: E11.9 ICD-9: 250.00 04/15/2022 Active Renal insufficiency ICD-10: N28.9 ICD-9: 593.9 07/07/2022 Active CHF (congestive heart failure) ICD-10: I50.9 ICD-9: 428.0 04/15/2022 Active Depression ICD-10: F32.A ICD-9: 311 06/16/2022 Active Essential hypertension ICD-10: I10 ICD-9: 401.9 04/15/2022 Active Hyperlipidemia ICD-10: E78.5 ICD-9: 272.4 04/15/2022 Active Requires continuous at home supplemental oxygen ICD-10 : Z99.81 ICD-9: V46.2 04/15/2022 Active Hypertension Unknown 04/15/2022 Active Encounter to establish care with new doctor ICD-10: Z7 6.89 ICD-9: V65.8 04/15/2022 Active Medications Medication Codes Instructions Start Date Stop Date Status Fill Instructions simvastatin 20 mg tablet RxNorm: 266070 Take 1 Tablet(s) Oral QD 07/21/2022 Active metoprolol succinate ER 50 mg tablet,extended release 24 hr RxNorm: 539377 1 Tablet(s) Oral QD 06/16/2022 No Stop Date Active cranberry 500 mg capsule RxNorm: 1 Capsule(s) Oral QD 06/16/2022 N o Stop Date Active Breztri Aerosphere 160 mcg-9mcg-4.8mcg/actuation HFA a erosol inhaler RxNorm: 9721666 2 Puff(s) Inhalation two times a day in the morning an d evening 06/16/2022 No Stop Date Active iron 325 mg (65 mg iron) tablet RxNorm: 874752 1 Tablet(s) Oral QD 06/16/2022 No Stop Date Active bumetanide 1 mg tablet RxNorm: 562423 Take 1 Tablet(s) Oral QD 06/0412/12/2022 Active Soliqua 100/33 100 unit-33 mcg/mL subcutaneous insulin pen RxNorm: 8694277 Take 25 Unit(s) Subcutaneous QD 06/16/2022 09/13/2022 Active Soliqua 100/33 100 unit-33 mcg/mL subcutaneous insulin pen RxNorm: 1353740 Take 25 Unit(s) Subcutaneous QD 06/16/2022 06/15/2022 Inactive bumetanide 1 mg tablet RxNorm: 756188 1 Tablet(s) Oral QD 06/16/2022 06/15/2022 Inactive pioglitazone 30 mg tablet RxNorm: 363136 Take 1 Tablet(s) Oral QD 0 05/19/2022 06/15/2022 Inactive albuterol sulfate 2.5 mg/3 mL (0.083 %) solution for n ebulization RxNorm: 138678 3 Milliliter(s) Inhalation four times a day as needed DX: J4 4.9 COPD 05/12/2022 05/12/2022 Inactive albuterol sulfate 2.5 mg/3 mL (0.083 %) solution for n ebulization RxNorm: 021245 3 Milliliter(s) Inhalation four times a day as needed DX: I5 0.9 05/12/2022 05/12/2022 Inactive Seroquel 25 mg tablet RxNorm: 347476 Take 1 Tablet(s) Oral QD 05/1105/11/2022 Inactive simvastatin 20 mg tablet RxNorm: 973387 Take 1 Tablet(s) Oral QD 05/11/2022 Inactive Januvia 100 mg tablet RxNorm: 107930 1 Tablet(s) Oral QD 05/11/2022 0 06/15/2022 Inactive albuterol sulfate 2.5 mg/3 mL (0.083 %) solution for n ebulization RxNorm: 550110 3 Milliliter(s) Inhalation DX: I50.9 05/08/2022 05/08/2022 Inac tive sertraline 100 mg tablet RxNorm: 239223 Take 1 Tablet(s) Oral QD 10/16/2022 Active simvastatin 20 mg tablet RxNorm: 504496 Take 1 Tablet(s) Oral QD 04/16/2022 Inactive potassium chloride ER 10 mEq capsule,extended release RxNorm : 648281 Take 1 Capsule(s) Oral QD with food 04/15/2022 07/13/2022 Active spironolactone 25 mg tablet RxNorm: 583218 Tablet(s) Oral 04/15/2022 06/15/2022 Inactive Seroquel 25 mg tablet RxNorm: 779196 1 Tablet(s) Oral QD 04/15/2022 0 05/11/2022 Inactive albuterol sulfate 2.5 mg/3 mL (0.083 %) solution for n ebulization RxNorm: 379409 Milliliter(s) Inhalation 04/15/2022 05/08/2022 Inactive sertraline 100 mg tablet RxNorm: 908364 1 Tablet(s) Oral QD 022 04/20/2022 Inactive simvastatin 20 mg tablet RxNorm: 125904 Tablet(s) Oral 04/15/2022 Inactive pioglitazone 30 mg tablet RxNorm: 818589 Tablet(s) Oral 04/15/2022 Inactive glipizide 10 mg tablet RxNorm: 093533 Tablet(s) Oral 04/15/202204/14 Active glipizide ER 10 mg tablet, extended release 24 hr RxNorm: 31 5107 Take 1 Tablet(s) Oral 04/15/2022 06/15/2022 Inactive metoprolol tartrate 50 mg tablet RxNorm: 111034 Tablet(s) Oral 04/0306/15/2022 Inactive Medication Administered No Medication Administered data Immunizations No Immunization data Results No Results data Procedures No Procedures data Vital Signs Date Vital 07/07/2022 Blood Pressure 1: 137/79 Code: 8480-6 BMI: 37.1 Code: 23156-1 Heart Rate 1: 75 bpm Height: 5'4" Code: 8302-2 SpO2: 100% Temperature: 3 6.6 (C) / 97.8 (F) Weight: 216 lbs Code: 35152-5 06/16/2022 Blood Pressure 1: 162/64 Code: 8480-6 Heart Rate 1: 64 bpm Respiratory Rate: 24 bpm SpO2: 90% Temperature: 36.3 (C) / 97.3 (F) We ight: 224 lbs Code: 09435-4 04/15/2022 Blood Pressure 1: 132/70 Code: 8480-6 BMI: 37.2 Code: 91908-4 Heart Rate 1: 102 bpm Height: 5'4" Code: 8302-2 Respiratory Rate: 18 bpm SpO2: 97% Temperature: 36.4 (C) / 97.5 (F) Weight: 217 lbs Code: 23844-4 Functional Status No Functional Status data Reason For Visit Reason For Visit Effective Dates Notes follow up 07/07/2022 lab results Medication Monitoring 06/16/2022 ~generic 04/15/2022 Establish care Encounters Encounter Performer Location Location Address Codes Date () OFFICE/OUTPATIENT VISIT EST 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] Diagnosis: Anemia[ICD10: D64.9] Diagnosis: Renal insufficiency[ICD10: N28.9] Diagnosis: DM type 2 (diabetes mellitus, type 2)[ICD10: E11.9] Diagnosis: Cardiac arrhythmia[ICD10: I49.9] Tao Orender TAO JoseMarito DEREK [facility] [address] [place] [id number] CPT-4: 13011 07/07/2022 ([id number]) OFFICE/OUTPATIENT VISIT EST Diagnosis: DM type 2 (diabetes mellitus, type 2)[ICD10: E11.9] Diagnosis: Essential hypertension[ICD10: I10] Diagnosis: Hyperlipidemia[ICD10: E78.5] Diagnosis: Requires continuous at home supplemental oxygen[ICD10: Z99.81] Diagnosis: CHF (congestive heart failure)[ICD10: I50.9] Diagnosis: Depression[ICD10: F32.A] Allyson Hoytdylon BURGER JoseMarito JACQUE VALDEZ [facility] [address] [place] [phone] CPT-4: 65837 06/16/2022 ([id number]) OFFICE/OUTPATIENT VISIT NEW Diagnosis: Essential hypertension[ICD10: I10] Diagnosis: Hyperlipidemia[ICD10: E78.5] Diagnosis: CHF (congestive heart failure)[ICD10: I50.9] Diagnosis: DM type 2 (diabetes mellitus, type 2)[ICD10: E11.9] Diagnosis: Encounter to establish care with new doctor[ICD10: Z76.89] Diagnosis: Requires continuous at home supplemental oxygen[ICD10: Z99.81] Haleigh Eliceo BURGER JoseMarito DEREK [facility] [address] [place] [phone] CPT-4: 10074 04/15/2022 Plan of Care Planned Activity Notes Codes Status Date Visit Diagnosis Plan: Combined congestive systolic and diastolic heart failure Discussion: Check 2-D ECHO Add farxiga 5mg daily See Dr. Skaggs Follow Up: 1 months ICD-9 : 428.40 ICD-10 : I50.40 07/07/2022 Visit Diagnosis Plan: Anemia Discussion: Check iron/fe rritin/B12 Patient has a history of colon cancer and did not finish treatment ICD-9 : 285.9 ICD-10 : D64.9 07/07/2022 Visit Diagnosis Plan: Renal insufficiency Discussion: Add farxiga ICD-9 : 593.9 ICD-10 : N28.9 07/07/2022 Visit Diagnosis Plan: DM type 2 (diabetes mellitus, ty pe 2) Discussion: Continue soliqua and add farxiga 5mg daily Patient was asked to do accuchecks BID over last 2 weeks but only check blood sugar 3 times in the past 2 weeks Accuchecks at least daily alternating times Labs discussed ICD-9 : 250.00 ICD-10 : E11.9 07/07/2022 Visit Diagnosis Plan: Cardiac arrhythmia Discussion: Jose dempsey like in atrial fibrillation but not a good candidate for NOAC due to anemia of unknown cause and noncompliance Will check ECHO and see Dr. Skaggs Will increase metoprolol to 50mg po BID ICD-9 : 427.9 ICD-10 : I49.9 07/07/2022 [facility]ment: Tao [facility] [phone] [id number] US RESCHEDULED 06/30/2022 Visit Diagnosis Plan: Essential hypertension Discussio n: Continue metoprolol. Monitor BP readings over the next 2 weeks and log them. Follow-up in 2 weeks. ICD-9 : 401.9 ICD-10 : I10 06/16/2022 Visit Diagnosis Plan: DM type 2 (diabetes mellitus, ty pe 2) Discussion: Continue Soliqua 25 units daily. Stop pioglitazone, glipizide, and januvia. Start checking fasting BS in am and log it. Follow-up in 2 weeks. Labs ordered and will review at f/u. ICD-9 : 250.00 ICD-10 : E11.9 06/16/2022 Visit Diagnosis Plan: CHF (congestive heart failure) D iscussion: Continue metoprolol and bumetadine and KCL. No longer on spironolactone. ICD-9 : 428.0 ICD-10 : I50.9 06/16/2022 Visit Diagnosis Plan: Hyperlipidemia Discussion: Gerry nue simvastatin. Check lipid panel. ICD-9 : 272.4 ICD-10 : E78.5 06/16/2022 Visit Diagnosis Plan: Depression Discussion: Continue sertraline-- well controlled. ICD-9 : 311 ICD-10 : F32.A 06/16/2022 Visit Diagnosis Plan: Requires continuous at home supp lemental oxygen Discussion: Continue continuous O2-- she is needing a portable O2 tank. ICD-9 : V46.2 ICD-10 : Z99.81 06/16/2022 Appointment: [facility] [phone] [id number] [facility] REVIEW 06/16/2022 Patient Education: Patient Medication Summary Completed 06/16/2022 Patient Education: pioglitazone- [employer] Coupon [phone] [email or web address].Stratopy/ENEFpro/resources/getResource/61/njraih5d-[email or web address] Completed 06/16/2022 Patient Education: High Blood Pressure Co mpleted 06/16/2022 Visit Diagnosis Plan: Encounter to establish care with new doctor Discussion: Denies acute concerns today and states all chronic conditions have been stable Refilled medications Records requested from previous provider and from recent ED visit and update labs when due ICD-9 : V65.8 ICD-10 : Z76.89 04/15/2022 Appointment: Haleigh Fenton [facility]el[facility] [phone] [id number] no answer/vm not set up at 0945 tl NEW PATIENT 04/15/2022 Patient Education: Patient Medication Summary Completed 04/15/2022 Patient Education: High Blood Pressure Co mpleted 04/15/2022 Patient Education: potassium chloride- [employer] Coup on [phone] https://www.Stratopy/ENEFpro/resources/getResource/61/[email or web address]-[email or web address] Completed 04/15/2022 Patient Education: glipizide- [employer] Coupon [phone] [email or web address].Zefanclub/ENEFpro/resources/getResource/61/[email or web address]-[email or web address] Completed 04/15/2022 Instructions No Instructions Medical Equipment No Medical Equipment data Health Concerns Section Health Concerns data not found Goals Section Goals data not found Interventions Section Interventions data not found Health Status Evaluations/Outcomes Section Health Status Evaluations/Outcomes data not found Advance Directives No Advance Directive data
--- OUTSIDE RECORDS SUMMARY | 2022-09-02 14:43 | XMS REPORT | CCD ---
Author Author Amy Fenton Organization [facility] Address [address] [place] [address] Phone Care Team Providers Care Dowel Sander Operator Name Role Phone PP Unavailable CCM Unavailable Summary Purpose Interface Exchange Insurance Providers Payer name Policy type / Coverage type Covered green party ID Effective Begin Date Effective End Date W[place] MEDIC[place] Medicare Part B [id number] Unknown Family History Family History data not [...] Fill Instructions simvastatin 20 mg tablet RxNorm: 058144 Take 1 Tablet(s) Oral QD 07/21/2022 Active metoprolol succinate ER 50 mg tablet,extended release 24 hr RxNorm: 306588 1 Tablet(s) Oral QD 06/16/2022 No Stop Date Active cranberry 500 mg capsule RxNorm: 1 Capsule(s) Oral QD 06/16/2022 N o Stop Date Active Breztri Aerosphere 160 mcg-9mcg-4.8mcg/actuation HFA a erosol inhaler RxNorm: 5698309 2 Puff(s) Inhalation two times a day in the morning an d evening 06/16/2022 No Stop Date Active iron 325 mg (65 mg iron) tablet RxNorm: 943763 1 Tablet(s) Oral QD 06/16/2022 No Stop Date Active bumetanide 1 mg tablet RxNorm: 154360 Take 1 Tablet(s) Oral QD 06/0412/12/2022 Active Soliqua 100/33 100 unit-33 mcg/mL subcutaneous insulin pen RxNorm: 0538319 Take 25 Unit(s) Subcutaneous QD 06/16/2022 09/13/2022 Active Soliqua 100/33 100 unit-33 mcg/mL subcutaneous insulin pen RxNorm: 6105687 Take 25 Unit(s) Subcutaneous QD 06/16/2022 06/15/2022 Inactive bumetanide 1 mg tablet RxNorm: 045352 1 Tablet(s) Oral QD 06/16/2022 06/15/2022 Inactive pioglitazone 30 mg tablet RxNorm: 396890 Take 1 Tablet(s) Oral QD 0 05/19/2022 06/15/2022 Inactive albuterol sulfate 2.5 mg/3 mL (0.083 %) solution for n ebulization RxNorm: 769703 3 Milliliter(s) Inhalation four times a day as needed DX: J4 4.9 COPD 05/12/2022 05/12/2022 Inactive albuterol sulfate 2.5 mg/3 mL (0.083 %) solution for n ebulization RxNorm: 191029 3 Milliliter(s) Inhalation four times a day as needed DX: I5 0.9 05/12/2022 05/12/2022 Inactive Seroquel 25 mg tablet RxNorm: 333124 Take 1 Tablet(s) Oral QD 05/1105/11/2022 Inactive simvastatin 20 mg tablet RxNorm: 655157 Take 1 Tablet(s) Oral QD 05/11/2022 Inactive Januvia 100 mg tablet RxNorm: 601676 1 Tablet(s) Oral QD 05/11/2022 0 06/15/2022 Inactive albuterol sulfate 2.5 mg/3 mL (0.083 %) solution for n ebulization RxNorm: 068810 3 Milliliter(s) Inhalation DX: I50.9 05/08/2022 05/08/2022 Inac tive sertraline 100 mg tablet RxNorm: 292395 Take 1 Tablet(s) Oral QD 10/16/2022 Active simvastatin 20 mg tablet RxNorm: 115565 Take 1 Tablet(s) Oral QD 04/16/2022 Inactive potassium chloride ER 10 mEq capsule,extended release RxNorm : 097009 Take 1 Capsule(s) Oral QD with food 04/15/2022 07/13/2022 Inactive spironolactone 25 mg tablet RxNorm: 376004 Tablet(s) Oral 04/15/2022 06/15/2022 Inactive Seroquel 25 mg tablet RxNorm: 688932 1 Tablet(s) Oral QD 04/15/2022 0 05/11/2022 Inactive albuterol sulfate 2.5 mg/3 mL (0.083 %) solution for n ebulization RxNorm: 205303 Milliliter(s) Inhalation 04/15/2022 05/08/2022 Inactive sertraline 100 mg tablet RxNorm: 153252 1 Tablet(s) Oral QD 022 04/20/2022 Inactive simvastatin 20 mg tablet RxNorm: 260554 Tablet(s) Oral 04/15/2022 Inactive pioglitazone 30 mg tablet RxNorm: 796642 Tablet(s) Oral 04/15/2022 Inactive glipizide 10 mg tablet RxNorm: 640028 Tablet(s) Oral 04/15/202204/14 Active glipizide ER 10 mg tablet, extended release 24 hr RxNorm: 31 5107 Take 1 Tablet(s) Oral 04/15/2022 06/15/2022 Inactive metoprolol tartrate 50 mg tablet RxNorm: 653663 Tablet(s) Oral 04/0306/15/2022 Inactive Medication Administered No Medication Administered data Immunizations No Immunization data Results No Results data Procedures No Procedures data Vital Signs Date Vital 07/07/2022 Blood Pressure 1: 137/79 Code: 8480-6 BMI: 37.1 Code: 26465-0 Heart Rate 1: 75 bpm Height: 5'4" Code: 8302-2 SpO2: 100% Temperature: 3 6.6 (C) / 97.8 (F) Weight: 216 lbs Code: 43374-6 06/16/2022 Blood Pressure 1: 162/64 Code: 8480-6 Heart Rate 1: 64 bpm Respiratory Rate: 24 bpm SpO2: 90% Temperature: 36.3 (C) / 97.3 (F) We ight: 224 lbs Code: 44270-5 04/15/2022 Blood Pressure 1: 132/70 Code: 8480-6 BMI: 37.2 Code: 58682-1 Heart Rate 1: 102 bpm Height: 5'4" Code: 8302-2 Respiratory Rate: 18 bpm SpO2: 97% Temperature: 36.4 (C) / 97.5 (F) Weight: 217 lbs Code: 22937-4 Functional Status No Functional Status data Reason [...] arrhythmia[ICD10: I49.9] Tao Orender TAO JoseMarito DEREK VouchAR [address] [place] [address] CPT-4: 31557 07/07/2022 ([id number]) OFFICE/OUTPATIENT VISIT EST Diagnosis: DM type 2 (diabetes mellitus, type 2)[ICD10: E11.9] Diagnosis: Essential hypertension[ICD10: I10] Diagnosis: Hyperlipidemia[ICD10: E78.5] Diagnosis: Requires continuous at home supplemental oxygen[ICD10: Z99.81] Diagnosis: CHF (congestive heart failure)[ICD10: I50.9] Diagnosis: Depression[ICD10: F32.A] Allyson Hoytdylon BURGER JoseMarito JACQUE VALDEZ VouchAR [address] [place] [address] CPT-4: 18649 06/16/2022 ([id number]) OFFICE/OUTPATIENT VISIT NEW Diagnosis: Essential hypertension[ICD10: I10] Diagnosis: Hyperlipidemia[ICD10: E78.5] Diagnosis: CHF (congestive heart failure)[ICD10: I50.9] Diagnosis: DM type 2 (diabetes mellitus, type 2)[ICD10: E11.9] Diagnosis: Encounter to establish care with new doctor[ICD10: Z76.89] Diagnosis: Requires continuous at home supplemental oxygen[ICD10: Z99.81] Haleigh Eliceo BURGER JoseMarito DEREK VouchAR [address] [place] [phone] CPT-4: 63654 04/15/2022 Plan of Care Planned Activity Notes [...] I49.9 07/07/2022 Appointment: Tao Beaver WPtel: [phone] [phone] FOLLOW UP 07/07/2022 Appointment: Toa Beaver WPtel: [phone] [phone] US RESCHEDULED 06/30/2022 Visit Diagnosis Plan: Essential [...] : Z99.81 06/16/2022 Appointment: [facility] [phone] [facility] [facility] REVIEW 06/16/2022 Patient Education: Patient Medication Summary Completed 06/16/2022 Patient Education: pioglitazone- OptimizeRX Coupon [phone] [id number] https://www.[employer]/resources/getResource/61/vzmmwx3y-8ff2-079e-69 Completed 06/16/2022 Patient Education: High Blood Pressure [...] [facility] [phone] [facility] no answer/vm not set up at 0945 tl NEW PATIENT 04/15/2022 Patient Education: Patient Medication Summary Completed 04/15/2022 Patient Education: High Blood Pressure Co mpleted 04/15/2022 Patient Education: potassium chloride- OptimizeRX Coup on [id number] https://www.[employer]/samplemd/resources/getResource/61/36093s1z-6ot6-5751-b4 Completed 04/15/2022 Patient Education: glipizide- OptimizeRX Coupon [phone] https://www.[employer]/samplemd/resources/getResource/61/n1p8990y-3s6i-69ki-b1 Completed 04/15/2022 Instructions No Instructions Medical Equipment No Medical Equipment data Health Concerns Section Health Concerns data not found Goals Section Goals data not found Interventions Section Interventions data not found Health Status Evaluations/Outcomes Section Health Status Evaluations/Outcomes data not found Advance Directives No Advance Directive data
--- OUTSIDE RECORDS SUMMARY | 2022-09-02 14:43 | XMS REPORT | CCD ---
Author Author Amy Fenton Organization [facility] Address [address] [place] [address] Phone Care Team Providers Care Airplane Dispatch Clerk Name Role Phone PP Unavailable CCM Unavailable Summary Purpose Interface Exchange Insurance Providers Payer name Policy type / Coverage type Covered green party ID Effective Begin Date Effective End Date WPS MEDIC[place] Medicare Part B [id number] Unknown Family History Family History data not [...] Fill Instructions simvastatin 20 mg tablet RxNorm: 046935 Take 1 Tablet(s) Oral QD 07/21/2022 Active metoprolol succinate ER 50 mg tablet,extended release 24 hr RxNorm: 044100 1 Tablet(s) Oral QD 06/16/2022 No Stop Date Active cranberry 500 mg capsule RxNorm: 1 Capsule(s) Oral QD 06/16/2022 N o Stop Date Active Breztri Aerosphere 160 mcg-9mcg-4.8mcg/actuation HFA a erosol inhaler RxNorm: 8985659 2 Puff(s) Inhalation two times a day in the morning an d evening 06/16/2022 No Stop Date Active iron 325 mg (65 mg iron) tablet RxNorm: 203557 1 Tablet(s) Oral QD 06/16/2022 No Stop Date Active bumetanide 1 mg tablet RxNorm: 669499 Take 1 Tablet(s) Oral QD 06/0412/12/2022 Active Soliqua 100/33 100 unit-33 mcg/mL subcutaneous insulin pen RxNorm: 8974993 Take 25 Unit(s) Subcutaneous QD 06/16/2022 09/13/2022 Active Soliqua 100/33 100 unit-33 mcg/mL subcutaneous insulin pen RxNorm: 2011322 Take 25 Unit(s) Subcutaneous QD 06/16/2022 06/15/2022 Inactive bumetanide 1 mg tablet RxNorm: 321839 1 Tablet(s) Oral QD 06/16/2022 06/15/2022 Inactive pioglitazone 30 mg tablet RxNorm: 134068 Take 1 Tablet(s) Oral QD 0 05/19/2022 06/15/2022 Inactive albuterol sulfate 2.5 mg/3 mL (0.083 %) solution for n ebulization RxNorm: 735638 3 Milliliter(s) Inhalation four times a day as needed DX: J4 4.9 COPD 05/12/2022 05/12/2022 Inactive albuterol sulfate 2.5 mg/3 mL (0.083 %) solution for n ebulization RxNorm: 043993 3 Milliliter(s) Inhalation four times a day as needed DX: I5 0.9 05/12/2022 05/12/2022 Inactive Seroquel 25 mg tablet RxNorm: 372308 Take 1 Tablet(s) Oral QD 05/1105/11/2022 Inactive simvastatin 20 mg tablet RxNorm: 559276 Take 1 Tablet(s) Oral QD 05/11/2022 Inactive Januvia 100 mg tablet RxNorm: 937469 1 Tablet(s) Oral QD 05/11/2022 0 06/15/2022 Inactive albuterol sulfate 2.5 mg/3 mL (0.083 %) solution for n ebulization RxNorm: 248897 3 Milliliter(s) Inhalation DX: I50.9 05/08/2022 05/08/2022 Inac tive sertraline 100 mg tablet RxNorm: 830270 Take 1 Tablet(s) Oral QD 10/16/2022 Active simvastatin 20 mg tablet RxNorm: 695806 Take 1 Tablet(s) Oral QD 04/16/2022 Inactive potassium chloride ER 10 mEq capsule,extended release RxNorm : 508825 Take 1 Capsule(s) Oral QD with food 04/15/2022 07/13/2022 Inactive spironolactone 25 mg tablet RxNorm: 000614 Tablet(s) Oral 04/15/2022 06/15/2022 Inactive Seroquel 25 mg tablet RxNorm: 700172 1 Tablet(s) Oral QD 04/15/2022 0 05/11/2022 Inactive albuterol sulfate 2.5 mg/3 mL (0.083 %) solution for n ebulization RxNorm: 525589 Milliliter(s) Inhalation 04/15/2022 05/08/2022 Inactive sertraline 100 mg tablet RxNorm: 373943 1 Tablet(s) Oral QD 022 04/20/2022 Inactive simvastatin 20 mg tablet RxNorm: 815971 Tablet(s) Oral 04/15/2022 Inactive pioglitazone 30 mg tablet RxNorm: 870155 Tablet(s) Oral 04/15/2022 Inactive glipizide 10 mg tablet RxNorm: 323398 Tablet(s) Oral 04/15/202204/14 Active glipizide ER 10 mg tablet, extended release 24 hr RxNorm: 31 5107 Take 1 Tablet(s) Oral 04/15/2022 06/15/2022 Inactive metoprolol tartrate 50 mg tablet RxNorm: 937719 Tablet(s) Oral 04/0306/15/2022 Inactive Medication Administered No Medication Administered data Immunizations No Immunization data Results No Results data Procedures No Procedures data Vital Signs Date Vital 07/07/2022 Blood Pressure 1: 137/79 Code: 8480-6 BMI: 37.1 Code: 73288-1 Heart Rate 1: 75 bpm Height: 5'4" Code: 8302-2 SpO2: 100% Temperature: 3 6.6 (C) / 97.8 (F) Weight: 216 lbs Code: 46897-4 06/16/2022 Blood Pressure 1: 162/64 Code: 8480-6 Heart Rate 1: 64 bpm Respiratory Rate: 24 bpm SpO2: 90% Temperature: 36.3 (C) / 97.3 (F) We ight: 224 lbs Code: 39118-6 04/15/2022 Blood Pressure 1: 132/70 Code: 8480-6 BMI: 37.2 Code: 55575-4 Heart Rate 1: 102 bpm Height: 5'4" Code: 8302-2 Respiratory Rate: 18 bpm SpO2: 97% Temperature: 36.4 (C) / 97.5 (F) Weight: 217 lbs Code: 57733-2 Functional Status No Functional Status data Reason [...] arrhythmia[ICD10: I49.9] Tao Orender TAO JoseMarito DEREK MDLIVE [address] [place] [address] CPT-4: 23994 07/07/2022 ([id number]) OFFICE/OUTPATIENT VISIT EST Diagnosis: DM type 2 (diabetes mellitus, type 2)[ICD10: E11.9] Diagnosis: Essential hypertension[ICD10: I10] Diagnosis: Hyperlipidemia[ICD10: E78.5] Diagnosis: Requires continuous at home supplemental oxygen[ICD10: Z99.81] Diagnosis: CHF (congestive heart failure)[ICD10: I50.9] Diagnosis: Depression[ICD10: F32.A] Allyson Hoytdylon BURGER JoseMarito JACQUE VALDEZ MDLIVE [address] [place] [phone] CPT-4: 69621 06/16/2022 (97128) OFFICE/OUTPATIENT VISIT NEW Diagnosis: Essential hypertension[ICD10: I10] Diagnosis: Hyperlipidemia[ICD10: E78.5] Diagnosis: CHF (congestive heart failure)[ICD10: I50.9] Diagnosis: DM type 2 (diabetes mellitus, type 2)[ICD10: E11.9] Diagnosis: Encounter to establish care with new doctor[ICD10: Z76.89] Diagnosis: Requires continuous at home supplemental oxygen[ICD10: Z99.81] Haleigh Eliceo BURGER JoseMarito DEREK MDLIVE [address] [place] [phone] CPT-4: 36871 04/15/2022 Plan of Care Planned Activity Notes [...] I49.9 07/07/2022 Appointment: Tao Beaver WPtel: [phone] [phone] FOLLOW UP 07/07/2022 Appointment: Tao Beaver WPtel: [phone] [phone] US RESCHEDULED 06/30/2022 Visit Diagnosis Plan: Essential [...] 06/16/2022 Appointment: [facility]son [facility]acon [facility] [phone] [facility] MEDICATION REVIEW 06/16/2022 Patient Education: Patient Medication Summary Completed 06/16/2022 Patient Education: pioglitazone- OptimizeRX Coupon [phone] [id number] https://www.[employer]/resources/getResource/61/orbjle7u-3kc0-947q-16 Completed 06/16/2022 Patient Education: High Blood Pressure Co mpleted 06/16/2022 Visit Diagnosis Plan: Encounter to establish care with new doctor Discussion: Denies acute concerns today and states all chronic conditions have been stable Refilled medications Records requested from previous provider and from recent ED visit and update labs when due ICD-9 : V65.8 ICD-10 : Z76.89 04/15/2022 Appointment: Haleigh Fenton [facility]el[facility] [phone] [facility] no answer/vm not set up at 0945 tl NEW PATIENT 04/15/2022 Patient Education: Patient Medication Summary Completed 04/15/2022 Patient Education: High Blood Pressure Co mpleted 04/15/2022 Patient Education: potassium chloride- OptimizeRX Coup on [id number] https://www.[employer]/samplemd/resources/getResource/61/84782b1n-1we6-1500-j8 Completed 04/15/2022 Patient Education: glipizide- OptimizeRX Coupon [id number] https://www.[employer]/samplemd/resources/getResource/61/g8l4921l-7u7v-04fm-d2 Completed 04/15/2022 Instructions No Instructions Medical Equipment No Medical Equipment data Health Concerns Section Health Concerns data not found Goals Section Goals data not found Interventions Section Interventions data not found Health Status Evaluations/Outcomes Section Health Status Evaluations/Outcomes data not found Advance Directives No Advance Directive data
--- OUTSIDE RECORDS SUMMARY | 2022-09-02 14:43 | XMS REPORT | CCD ---
Author Author Amy Fenton Organization [facility] Address [address] [place] [address] Phone Care Team Providers Care Client Service Associate Name Role Phone PP Unavailable CCM Unavailable Summary Purpose Interface Exchange Insurance Providers Payer name Policy type / Coverage type Covered democrat ID Effective Begin Date Effective End Date W[place] MEDIC[place] B [place] Medicare Part B [id number] Unknown Family History Family History data not [...] Fill Instructions simvastatin 20 mg tablet RxNorm: 030136 Take 1 Tablet(s) Oral QD 01/17/2023 Active simvastatin 20 mg tablet RxNorm: 135088 Take 1 Tablet(s) Oral QD 06/22/2022 Inactive metoprolol succinate ER 50 mg tablet,extended release 24 hr RxNorm: 329457 1 Tablet(s) Oral QD 06/16/2022 No Stop Date Active cranberry 500 mg capsule RxNorm: 1 Capsule(s) Oral QD 06/16/2022 N o Stop Date Active Breztri Aerosphere 160 mcg-9mcg-4.8mcg/actuation HFA a erosol inhaler RxNorm: 5413785 2 Puff(s) Inhalation two times a day in the morning an d evening 06/16/2022 No Stop Date Active iron 325 mg (65 mg iron) tablet RxNorm: 547979 1 Tablet(s) Oral QD 06/16/2022 No Stop Date Active bumetanide 1 mg tablet RxNorm: 848747 Take 1 Tablet(s) Oral QD 06/0412/12/2022 Active Soliqua 100/33 100 unit-33 mcg/mL subcutaneous insulin pen RxNorm: 3469280 Take 25 Unit(s) Subcutaneous QD 06/16/2022 09/13/2022 Active Soliqua 100/33 100 unit-33 mcg/mL subcutaneous insulin pen RxNorm: 8915452 Take 25 Unit(s) Subcutaneous QD 06/16/2022 06/15/2022 Inactive bumetanide 1 mg tablet RxNorm: 445298 1 Tablet(s) Oral QD 06/16/2022 06/15/2022 Inactive pioglitazone 30 mg tablet RxNorm: 255898 Take 1 Tablet(s) Oral QD 0 05/19/2022 06/15/2022 Inactive albuterol sulfate 2.5 mg/3 mL (0.083 %) solution for n ebulization RxNorm: 167516 3 Milliliter(s) Inhalation four times a day as needed DX: J4 4.9 COPD 05/12/2022 05/12/2022 Inactive albuterol sulfate 2.5 mg/3 mL (0.083 %) solution for n ebulization RxNorm: 633270 3 Milliliter(s) Inhalation four times a day as needed DX: I5 0.9 05/12/2022 05/12/2022 Inactive Seroquel 25 mg tablet RxNorm: 585000 Take 1 Tablet(s) Oral QD 05/1105/11/2022 Inactive simvastatin 20 mg tablet RxNorm: 793138 Take 1 Tablet(s) Oral QD 05/11/2022 Inactive Januvia 100 mg tablet RxNorm: 934767 1 Tablet(s) Oral QD 05/11/2022 0 06/15/2022 Inactive albuterol sulfate 2.5 mg/3 mL (0.083 %) solution for n ebulization RxNorm: 277125 3 Milliliter(s) Inhalation DX: I50.9 05/08/2022 05/08/2022 Inac tive sertraline 100 mg tablet RxNorm: 867156 Take 1 Tablet(s) Oral QD 10/16/2022 Active simvastatin 20 mg tablet RxNorm: 942395 Take 1 Tablet(s) Oral QD 04/16/2022 Inactive spironolactone 25 mg tablet RxNorm: 309261 Tablet(s) Oral 04/15/2022 06/15/2022 Inactive Seroquel 25 mg tablet RxNorm: 112941 1 Tablet(s) Oral QD 04/15/2022 0 05/11/2022 Inactive albuterol sulfate 2.5 mg/3 mL (0.083 %) solution for n ebulization RxNorm: 817106 Milliliter(s) Inhalation 04/15/2022 05/08/2022 Inactive sertraline 100 mg tablet RxNorm: 111084 1 Tablet(s) Oral QD 022 04/20/2022 Inactive potassium chloride ER 10 mEq capsule,extended release RxNorm : 047527 Take 1 Capsule(s) Oral QD with food 04/15/2022 07/13/2022 Inactive simvastatin 20 mg tablet RxNorm: 415020 Tablet(s) Oral 04/15/2022 Inactive pioglitazone 30 mg tablet RxNorm: 589176 Tablet(s) Oral 04/15/2022 Inactive glipizide 10 mg tablet RxNorm: 020109 Tablet(s) Oral 04/15/202204/14 Active glipizide ER 10 mg tablet, extended release 24 hr RxNorm: 31 5107 Take 1 Tablet(s) Oral 04/15/2022 06/15/2022 Inactive metoprolol tartrate 50 mg tablet RxNorm: 760572 Tablet(s) Oral 04/0306/15/2022 Inactive Medication Administered No Medication Administered data Immunizations No Immunization data Results No Results data Procedures No Procedures data Vital Signs Date Vital 07/07/2022 Blood Pressure 1: 137/79 Code: 8480-6 BMI: 37.1 Code: 12699-0 Heart Rate 1: 75 bpm Height: 5'4" Code: 8302-2 SpO2: 100% Temperature: 3 6.6 (C) / 97.8 (F) Weight: 216 lbs Code: 51724-7 06/16/2022 Blood Pressure 1: 162/64 Code: 8480-6 Heart Rate 1: 64 bpm Respiratory Rate: 24 bpm SpO2: 90% Temperature: 36.3 (C) / 97.3 (F) We ight: 224 lbs Code: 43383-6 04/15/2022 Blood Pressure 1: 132/70 Code: 8480-6 BMI: 37.2 Code: 92209-5 Heart Rate 1: 102 bpm Height: 5'4" Code: 8302-2 Respiratory Rate: 18 bpm SpO2: 97% Temperature: 36.4 (C) / 97.5 (F) Weight: 217 lbs Code: 72437-1 Functional Status No Functional Status data Reason For Visit Reason For Visit Effective Dates Notes follow up 07/07/2022 lab results Medication Monitoring 06/16/2022 ~generic 04/15/2022 Establish care Encounters Encounter Performer Location Location Address Codes Date (03900) OFFICE/OUTPATIENT VISIT EST 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] Diagnosis: Anemia[ICD10: D64.9] Diagnosis: Renal insufficiency[ICD10: N28.9] Diagnosis: DM type 2 (diabetes mellitus, type 2)[ICD10: E11.9] Diagnosis: Cardiac arrhythmia[ICD10: I49.9] Tao BEAVER [address] [address] CPT-4: 20217 07/07/2022 (65709) OFFICE/OUTPATIENT VISIT EST Diagnosis: DM type 2 (diabetes mellitus, type 2)[ICD10: E11.9] Diagnosis: Essential hypertension[ICD10: I10] Diagnosis: Hyperlipidemia[ICD10: E78.5] Diagnosis: Requires continuous at home supplemental oxygen[ICD10: Z99.81] Diagnosis: CHF (congestive heart failure)[ICD10: I50.9] Diagnosis: Depression[ICD10: F32.A] Allyson Ines VALDEZ [address] [address] CPT-4: 49992 06/16/2022 ([id number]) OFFICE/OUTPATIENT VISIT NEW Diagnosis: Essential hypertension[ICD10: I10] Diagnosis: Hyperlipidemia[ICD10: E78.5] Diagnosis: CHF (congestive heart failure)[ICD10: I50.9] Diagnosis: DM type 2 (diabetes mellitus, type 2)[ICD10: E11.9] Diagnosis: Encounter to establish care with new doctor[ICD10: Z76.89] Diagnosis: Requires continuous at home supplemental oxygen[ICD10: Z99.81] Haleigh BEAVER [address] [address] CPT-4: 73247 04/15/2022 Plan of Care Planned Activity Notes Codes Status Date Visit Plan: 07/07/2022 Visit Diagnosis Plan: Combined congestive systolic and [...] 07/07/2022 Visit Diagnosis Plan: Cardiac arrhythmia Discussion: S roselyn like in atrial fibrillation but not a good candidate for NOAC due to anemia of unknown cause and noncompliance Will check ECHO and see Dr. Skaggs Will increase metoprolol to 50mg po BID ICD-9 : 427.9 ICD-10 : I49.9 07/07/2022 Appointment: Tao Beaver WPtel: [phone] [phone] FOLLOW UP 07/07/2022 Appointment: Tao Beaver WPtel: [address] [phone] US RESCHEDULED 06/30/2022 Visit Diagnosis Plan: Essential [...] 06/16/2022 Appointment: [facility]son [facility] [phone] [facility] MEDICATION REVIEW 06/16/2022 Patient Education: Patient Medication Summary Completed 06/16/2022 Patient Education: pioglitazone- OptimizeRX Coupon [phone] https://www.[employer]/resources/getResource/61/uujrih9o-2ju2-362d-39 Completed 06/16/2022 Patient Education: High Blood Pressure Co mpleted 06/16/2022 Visit Diagnosis Plan: Encounter to establish care with new doctor Discussion: Denies acute concerns today and states all chronic conditions have been stable Refilled medications Records requested from previous provider and from recent ED visit and update labs when due ICD-9 : V65.8 ICD-10 : Z76.89 04/15/2022 Appointment: ForrestHaleigh reynolds WPtel[facility] [phone] [facility] no answer/vm not set up at 0945 tl NEW PATIENT 04/15/2022 Patient Education: Patient Medication Summary Completed 04/15/2022 Patient Education: High Blood Pressure Co mpleted 04/15/2022 Patient Education: potassium chloride- OptimizeRX Coup on [id number] https://www.[employer]/resources/getResource/61/24032f1f-1lf4-2623-y5 Completed 04/15/2022 Patient Education: glipizide- OptimizeRX Coupon [id number] https://www.[employer]/resources/getResource/61/b1j3214w-7q7q-13my-a1 Completed 04/15/2022 Instructions No Instructions Medical Equipment No Medical Equipment data Health Concerns Section Health Concerns data not found Goals Section Goals data not found Interventions Section Interventions data not found Health Status Evaluations/Outcomes Section Health Status Evaluations/Outcomes data not found Advance Directives No Advance Directive data
--- OUTSIDE RECORDS SUMMARY | 2022-09-02 14:43 | XMS REPORT | CCD ---
Author Author Amy Fenton Organization TAO [facility]ER [facility] Address [address] [place] [address] Phone Care Team Providers Care Concrete Layer Name Role Phone PP Unavailable CCM Unavailable Summary Purpose Interface Exchange Insurance Providers Payer name Policy type / Coverage type Covered republican ID Effective Begin Date Effective End Date W[place] MEDIC[place] B [place] Medicare Part B [id number] Unknown Family History Family History data not [...] Fill Instructions simvastatin 20 mg tablet RxNorm: 650813 Take 1 Tablet(s) Oral QD 07/21/2022 Active metoprolol succinate ER 50 mg tablet,extended release 24 hr RxNorm: 765488 1 Tablet(s) Oral QD 06/16/2022 No Stop Date Active cranberry 500 mg capsule RxNorm: 1 Capsule(s) Oral QD 06/16/2022 N o Stop Date Active Breztri Aerosphere 160 mcg-9mcg-4.8mcg/actuation HFA a erosol inhaler RxNorm: 2049209 2 Puff(s) Inhalation two times a day in the morning an d evening 06/16/2022 No Stop Date Active iron 325 mg (65 mg iron) tablet RxNorm: 707051 1 Tablet(s) Oral QD 06/16/2022 No Stop Date Active bumetanide 1 mg tablet RxNorm: 829643 Take 1 Tablet(s) Oral QD 06/0412/12/2022 Active Soliqua 100/33 100 unit-33 mcg/mL subcutaneous insulin pen RxNorm: 6583259 Take 25 Unit(s) Subcutaneous QD 06/16/2022 09/13/2022 Active Soliqua 100/33 100 unit-33 mcg/mL subcutaneous insulin pen RxNorm: 8015560 Take 25 Unit(s) Subcutaneous QD 06/16/2022 06/15/2022 Inactive bumetanide 1 mg tablet RxNorm: 070126 1 Tablet(s) Oral QD 06/16/2022 06/15/2022 Inactive pioglitazone 30 mg tablet RxNorm: 705602 Take 1 Tablet(s) Oral QD 0 05/19/2022 06/15/2022 Inactive albuterol sulfate 2.5 mg/3 mL (0.083 %) solution for n ebulization RxNorm: 745632 3 Milliliter(s) Inhalation four times a day as needed DX: J4 4.9 COPD 05/12/2022 05/12/2022 Inactive albuterol sulfate 2.5 mg/3 mL (0.083 %) solution for n ebulization RxNorm: 476434 3 Milliliter(s) Inhalation four times a day as needed DX: I5 0.9 05/12/2022 05/12/2022 Inactive Seroquel 25 mg tablet RxNorm: 173937 Take 1 Tablet(s) Oral QD 05/1105/11/2022 Inactive simvastatin 20 mg tablet RxNorm: 021528 Take 1 Tablet(s) Oral QD 05/11/2022 Inactive Januvia 100 mg tablet RxNorm: 482148 1 Tablet(s) Oral QD 05/11/2022 0 06/15/2022 Inactive albuterol sulfate 2.5 mg/3 mL (0.083 %) solution for n ebulization RxNorm: 914311 3 Milliliter(s) Inhalation DX: I50.9 05/08/2022 05/08/2022 Inac tive sertraline 100 mg tablet RxNorm: 180545 Take 1 Tablet(s) Oral QD 10/16/2022 Active simvastatin 20 mg tablet RxNorm: 033132 Take 1 Tablet(s) Oral QD 04/16/2022 Inactive potassium chloride ER 10 mEq capsule,extended release RxNorm : 132058 Take 1 Capsule(s) Oral QD with food 04/15/2022 07/13/2022 Active spironolactone 25 mg tablet RxNorm: 155572 Tablet(s) Oral 04/15/2022 06/15/2022 Inactive Seroquel 25 mg tablet RxNorm: 803479 1 Tablet(s) Oral QD 04/15/2022 0 05/11/2022 Inactive albuterol sulfate 2.5 mg/3 mL (0.083 %) solution for n ebulization RxNorm: 310221 Milliliter(s) Inhalation 04/15/2022 05/08/2022 Inactive sertraline 100 mg tablet RxNorm: 259653 1 Tablet(s) Oral QD 022 04/20/2022 Inactive simvastatin 20 mg tablet RxNorm: 026260 Tablet(s) Oral 04/15/2022 Inactive pioglitazone 30 mg tablet RxNorm: 923705 Tablet(s) Oral 04/15/2022 Inactive glipizide 10 mg tablet RxNorm: 132164 Tablet(s) Oral 04/15/202204/14 Active glipizide ER 10 mg tablet, extended release 24 hr RxNorm: 31 5107 Take 1 Tablet(s) Oral 04/15/2022 06/15/2022 Inactive metoprolol tartrate 50 mg tablet RxNorm: 668484 Tablet(s) Oral 04/0306/15/2022 Inactive Medication Administered No Medication Administered data Immunizations No Immunization data Results No Results data Procedures No Procedures data Vital Signs Date Vital 07/07/2022 Blood Pressure 1: 137/79 Code: 8480-6 BMI: 37.1 Code: 38533-5 Heart Rate 1: 75 bpm Height: 5'4" Code: 8302-2 SpO2: 100% Temperature: 3 6.6 (C) / 97.8 (F) Weight: 216 lbs Code: 49920-3 06/16/2022 Blood Pressure 1: 162/64 Code: 8480-6 Heart Rate 1: 64 bpm Respiratory Rate: 24 bpm SpO2: 90% Temperature: 36.3 (C) / 97.3 (F) We ight: 224 lbs Code: 39946-9 04/15/2022 Blood Pressure 1: 132/70 Code: 8480-6 BMI: 37.2 Code: 60795-9 Heart Rate 1: 102 bpm Height: 5'4" Code: 8302-2 Respiratory Rate: 18 bpm SpO2: 97% Temperature: 36.4 (C) / 97.5 (F) Weight: 217 lbs Code: 66382-8 Functional Status No Functional Status data Reason [...] arrhythmia[ICD10: I49.9] Tao Orender TAO JoseMarito DEREK [employer] [address] [place] [address] CPT-4: 42268 07/07/2022 (01659) OFFICE/OUTPATIENT VISIT EST Diagnosis: DM type 2 (diabetes mellitus, type 2)[ICD10: E11.9] Diagnosis: Essential hypertension[ICD10: I10] Diagnosis: Hyperlipidemia[ICD10: E78.5] Diagnosis: Requires continuous at home supplemental oxygen[ICD10: Z99.81] Diagnosis: CHF (congestive heart failure)[ICD10: I50.9] Diagnosis: Depression[ICD10: F32.A] Allyson Hoytdylon BURGER JoseMarito JACQUE VALDEZ [employer] [address] [place] [phone] CPT-4: 55512 06/16/2022 (10036) OFFICE/OUTPATIENT VISIT NEW Diagnosis: Essential hypertension[ICD10: I10] Diagnosis: Hyperlipidemia[ICD10: E78.5] Diagnosis: CHF (congestive heart failure)[ICD10: I50.9] Diagnosis: DM type 2 (diabetes mellitus, type 2)[ICD10: E11.9] Diagnosis: Encounter to establish care with new doctor[ICD10: Z76.89] Diagnosis: Requires continuous at home supplemental oxygen[ICD10: Z99.81] Haleigh Eliceo BURGER JoseMarito DEREK [employer] [address] [place] [place] [address] CPT-4: 17738 04/15/2022 Plan of Care Planned Activity Notes [...] 07/07/2022 Visit Diagnosis Plan: Cardiac arrhythmia Discussion: Joes dempsey like in atrial fibrillation but not a good candidate for NOAC due to anemia of unknown cause and noncompliance Will check ECHO and see Dr. Skaggs Will increase metoprolol to 50mg po BID ICD-9 : 427.9 ICD-10 : I49.9 07/07/2022 App[facility]ment[facility] Tao [facility] [phone] [facility] [place] RESCHEDULED 06/30/2022 Visit Diagnosis Plan: Essential [...] : Z99.81 06/16/2022 Appointment: [facility]lyson [facility] [address] [facility] [facility] REVIEW 06/16/2022 Patient Education: Patient Medication Summary Completed 06/16/2022 Patient Education: pioglitazone- OptimizeRX Coupon [phone] [id number] https://www.[employer]/HearMeOut/resources/getResource/61/tdrnja5q-6fh0-417i-20 Completed 06/16/2022 Patient Education: High Blood Pressure Co mpleted 06/16/2022 Visit Diagnosis Plan: Encounter to establish care with new doctor Discussion: Denies acute concerns today and states all chronic conditions have been stable Refilled medications Records requested from previous provider and from recent ED visit and update labs when due ICD-9 : V65.8 ICD-10 : Z76.89 04/15/2022 Appointment: Haleigh Fenton [facility]el[facility] [phone] [facility] no answer/vm not set up at 0945 tl NEW PATIENT 04/15/2022 Patient Education: Patient Medication Summary Completed 04/15/2022 Patient Education: High Blood Pressure Co mpleted 04/15/2022 Patient Education: potassium chloride- OptimizeRX Coup on [id number] https://www.[employer]/HearMeOut/resources/getResource/61/17585c7l-2st3-3314-l9 Completed 04/15/2022 Patient Education: glipizide- OptimizeRX Coupon [phone] https://www.HearMeOut.Tapomat/HearMeOut/resources/getResource/61/s2c5655c-6j9j-32yh-x3 Completed 04/15/2022 Instructions No Instructions Medical Equipment No Medical Equipment data Health Concerns Section Health Concerns data not found Goals Section Goals data not found Interventions Section Interventions data not found Health Status Evaluations/Outcomes Section Health Status Evaluations/Outcomes data not found Advance Directives No Advance Directive data
--- OUTSIDE RECORDS SUMMARY | 2022-09-02 14:43 | XMS REPORT | CCD ---
Author Author Amy Fenton Organization [facility] Address [address] [place] [address] Phone Care Team Providers Care Mate Chief Name Role Phone PP Unavailable CCM Unavailable Summary Purpose Interface Exchange Insurance Providers Payer name Policy type / Coverage type Covered constitution party ID Effective Begin Date Effective End Date WPS MEDIC[place] B [place] Medicare Part B [id number] Unknown Family History Family History data not [...] Start Date Stop Date Status Fill Instructions metoprolol succinate ER 50 mg tablet,extended release 24 hr RxNorm: 961906 Take 1 Tablet(s) Oral two times a day 07/28/2022 01/23/2023 Active replaces once daily metoprolol succinate ER 50 mg tablet,extended release 24 hr RxNorm: 877225 Take 1 Tablet(s) Oral QD 07/27/2022 07/27/2022 Inactive simvastatin 20 mg tablet RxNorm: 321230 Take 1 Tablet(s) Oral QD 01/17/2023 Active simvastatin 20 mg tablet RxNorm: 533040 Take 1 Tablet(s) Oral QD 06/22/2022 Inactive cranberry 500 mg capsule RxNorm: 1 Capsule(s) Oral QD 06/16/2022 N o Stop Date Active Breztri Aerosphere 160 mcg-9mcg-4.8mcg/actuation HFA a erosol inhaler RxNorm: 0441533 2 Puff(s) Inhalation two times a day in the morning an d evening 06/16/2022 No Stop Date Active iron 325 mg (65 mg iron) tablet RxNorm: 589524 1 Tablet(s) Oral QD 06/16/2022 No Stop Date Active bumetanide 1 mg tablet RxNorm: 918046 Take 1 Tablet(s) Oral QD 06/0412/12/2022 Active Soliqua 100/33 100 unit-33 mcg/mL subcutaneous insulin pen RxNorm: 3225428 Take 25 Unit(s) Subcutaneous QD 06/16/2022 09/13/2022 Active metoprolol succinate ER 50 mg tablet,extended release 24 hr RxNorm: 360902 1 Tablet(s) Oral QD 06/16/2022 07/27/2022 Inactive Soliqua 100/33 100 unit-33 mcg/mL subcutaneous insulin pen RxNorm: 4012442 Take 25 Unit(s) Subcutaneous QD 06/16/2022 06/15/2022 Inactive bumetanide 1 mg tablet RxNorm: 591185 1 Tablet(s) Oral QD 06/16/2022 06/15/2022 Inactive pioglitazone 30 mg tablet RxNorm: 684791 Take 1 Tablet(s) Oral QD 0 05/19/2022 06/15/2022 Inactive albuterol sulfate 2.5 mg/3 mL (0.083 %) solution for n ebulization RxNorm: 011355 3 Milliliter(s) Inhalation four times a day as needed DX: J4 4.9 COPD 05/12/2022 05/12/2022 Inactive albuterol sulfate 2.5 mg/3 mL (0.083 %) solution for n ebulization RxNorm: 416736 3 Milliliter(s) Inhalation four times a day as needed DX: I5 0.9 05/12/2022 05/12/2022 Inactive Seroquel 25 mg tablet RxNorm: 394065 Take 1 Tablet(s) Oral QD 05/1105/11/2022 Inactive simvastatin 20 mg tablet RxNorm: 173482 Take 1 Tablet(s) Oral QD 05/11/2022 Inactive Januvia 100 mg tablet RxNorm: 990666 1 Tablet(s) Oral QD 05/11/2022 0 06/15/2022 Inactive albuterol sulfate 2.5 mg/3 mL (0.083 %) solution for n ebulization RxNorm: 080143 3 Milliliter(s) Inhalation DX: I50.9 05/08/2022 05/08/2022 Inac tive sertraline 100 mg tablet RxNorm: 225159 Take 1 Tablet(s) Oral QD 10/16/2022 Active simvastatin 20 mg tablet RxNorm: 020590 Take 1 Tablet(s) Oral QD 04/16/2022 Inactive spironolactone 25 mg tablet RxNorm: 433851 Tablet(s) Oral 04/15/2022 06/15/2022 Inactive Seroquel 25 mg tablet RxNorm: 641466 1 Tablet(s) Oral QD 04/15/2022 0 05/11/2022 Inactive albuterol sulfate 2.5 mg/3 mL (0.083 %) solution for n ebulization RxNorm: 279692 Milliliter(s) Inhalation 04/15/2022 05/08/2022 Inactive sertraline 100 mg tablet RxNorm: 166009 1 Tablet(s) Oral QD 022 04/20/2022 Inactive potassium chloride ER 10 mEq capsule,extended release RxNorm : 458864 Take 1 Capsule(s) Oral QD with food 04/15/2022 07/13/2022 Inactive simvastatin 20 mg tablet RxNorm: 965709 Tablet(s) Oral 04/15/2022 Inactive pioglitazone 30 mg tablet RxNorm: 338275 Tablet(s) Oral 04/15/2022 Inactive glipizide 10 mg tablet RxNorm: 779202 Tablet(s) Oral 04/15/202204/14 Active glipizide ER 10 mg tablet, extended release 24 hr RxNorm: 31 5107 Take 1 Tablet(s) Oral 04/15/2022 06/15/2022 Inactive metoprolol tartrate 50 mg tablet RxNorm: 389837 Tablet(s) Oral 04/0306/15/2022 Inactive Medication Administered No Medication Administered data Immunizations No Immunization data Results No Results data Procedures No Procedures data Vital Signs Date Vital 07/07/2022 Blood Pressure 1: 137/79 Code: 8480-6 BMI: 37.1 Code: 38218-9 Heart Rate 1: 75 bpm Height: 5'4" Code: 8302-2 SpO2: 100% Temperature: 3 6.6 (C) / 97.8 (F) Weight: 216 lbs Code: 24496-6 06/16/2022 Blood Pressure 1: 162/64 Code: 8480-6 Heart Rate 1: 64 bpm Respiratory Rate: 24 bpm SpO2: 90% Temperature: 36.3 (C) / 97.3 (F) We ight: 224 lbs Code: 26932-2 04/15/2022 Blood Pressure 1: 132/70 Code: 8480-6 BMI: 37.2 Code: 76868-6 Heart Rate 1: 102 bpm Height: 5'4" Code: 8302-2 Respiratory Rate: 18 bpm SpO2: 97% Temperature: 36.4 (C) / 97.5 (F) Weight: 217 lbs Code: 11219-2 Functional Status No Functional Status data Reason [...] E11.9] Diagnosis: Cardiac arrhythmia[ICD10: I49.9] Tao BEAVER [employer] [address] [place] [address] CPT-4: 94993 07/07/2022 (35113) OFFICE/OUTPATIENT VISIT EST Diagnosis: DM type 2 (diabetes mellitus, type 2)[ICD10: E11.9] Diagnosis: Essential hypertension[ICD10: I10] Diagnosis: Hyperlipidemia[ICD10: E78.5] Diagnosis: Requires continuous at home supplemental oxygen[ICD10: Z99.81] Diagnosis: CHF (congestive heart failure)[ICD10: I50.9] Diagnosis: Depression[ICD10: F32.A] Allyson GILMORE [employer] [address] [place] [phone] CPT-4: 36610 06/16/2022 (03591) OFFICE/OUTPATIENT VISIT NEW Diagnosis: Essential hypertension[ICD10: I10] Diagnosis: Hyperlipidemia[ICD10: E78.5] Diagnosis: CHF (congestive heart failure)[ICD10: I50.9] Diagnosis: DM type 2 (diabetes mellitus, type 2)[ICD10: E11.9] Diagnosis: Encounter to establish care with new doctor[ICD10: Z76.89] Diagnosis: Requires continuous at home supplemental oxygen[ICD10: Z99.81] Haleigh BEAVER [employer] [address] [place] [phone] CPT-4: 08392 04/15/2022 Plan of Care Planned Activity Notes [...] 427.9 ICD-10 : I49.9 07/07/2022 Appointment: Tao Beavertel: [address] [place], [place] [id number] FOLLOW UP 07/07/2022 Appointment: Tao Beaver WPtel: [address] [place] [address] RESCHEDULED 06/30/2022 Visit Diagnosis Plan: Essential hypertension [...] 06/16/2022 Appointment: Allyson Chacon [facility]el[facility] [phone] [facility] [facility] MEDICATION REVIEW 06/16/2022 Patient Education: Patient Medication Summary Completed 06/16/2022 Patient Education: pioglitazone- OptimizeRX Coupon [id number] https://www.Miew/[employer]/resources/getResource/61/fmskwv1i-2xl7-247o-95 Completed 06/16/2022 Patient Education: High Blood Pressure Co mpleted 06/16/2022 Visit Diagnosis Plan: Encounter to establish care with new doctor Discussion: Denies acute concerns today and states all chronic conditions have been stable Refilled medications Records requested from previous provider and from recent ED visit and update labs when due ICD-9 : V65.8 ICD-10 : Z76.89 04/15/2022 Appointment: Haleigh Fenton WPtel: [phone] [facility] no answer/vm not set up at 0945 tl NEW PATIENT 04/15/2022 Patient Education: Patient Medication Summary Completed 04/15/2022 Patient Education: High Blood Pressure Co mpleted 04/15/2022 Patient Education: potassium chloride- OptimizeRX Coup on [id number] https://www.[employer].com/samplemd/resources/getResource/61/94479z1j-6mn3-8698-p5 Completed 04/15/2022 Patient Education: glipizide- OptimizeRX Thelma [phone] https://www.[employer].com/samplemd/resources/getResource/61/p1u7505y-6j2s-74ii-b1 Completed 04/15/2022 Instructions No Instructions Medical Equipment No Medical Equipment data Health Concerns Section Health Concerns data not found Goals Section Goals data not found Interventions Section Interventions data not found Health Status Evaluations/Outcomes Section Health Status Evaluations/Outcomes data not found Advance Directives No Advance Directive data
--- OUTSIDE RECORDS SUMMARY | 2022-09-02 14:43 | XMS REPORT | CCD ---
Author Author Amy Fenton Organization TAO [facility]ER [facility] Address [address] [place] [address] Phone Care Team Providers Care Cage Fighter Name Role Phone PP Unavailable CCM Unavailable Summary Purpose Interface Exchange Insurance Providers Payer name Policy type / Coverage type Covered green party ID Effective Begin Date Effective End Date W[place] MEDIC[place] B [place] Medicare Part B [id number] Unknown Family History Family History data not [...] 50 mg tablet,extended release 24 hr RxNorm: 638414 Take 1 Tablet(s) Oral QD 07/27/2022 08/25/2022 Active simvastatin 20 mg tablet RxNorm: 160863 Take 1 Tablet(s) Oral QD 01/17/2023 Active simvastatin 20 mg tablet RxNorm: 027901 Take 1 Tablet(s) Oral QD 06/22/2022 Inactive metoprolol succinate ER 50 mg tablet,extended release 24 hr RxNorm: 919069 1 Tablet(s) Oral QD 06/16/2022 07/27/2022 Inactive cranberry 500 mg capsule RxNorm: 1 Capsule(s) Oral QD 06/16/2022 N o Stop Date Active Breztri Aerosphere 160 mcg-9mcg-4.8mcg/actuation HFA a erosol inhaler RxNorm: 2953501 2 Puff(s) Inhalation two times a day in the morning an d evening 06/16/2022 No Stop Date Active iron 325 mg (65 mg iron) tablet RxNorm: 688273 1 Tablet(s) Oral QD 06/16/2022 No Stop Date Active bumetanide 1 mg tablet RxNorm: 558105 Take 1 Tablet(s) Oral QD 06/0412/12/2022 Active Soliqua 100/33 100 unit-33 mcg/mL subcutaneous insulin pen RxNorm: 9044056 Take 25 Unit(s) Subcutaneous QD 06/16/2022 09/13/2022 Active Soliqua 100/33 100 unit-33 mcg/mL subcutaneous insulin pen RxNorm: 5749907 Take 25 Unit(s) Subcutaneous QD 06/16/2022 06/15/2022 Inactive bumetanide 1 mg tablet RxNorm: 372034 1 Tablet(s) Oral QD 06/16/2022 06/15/2022 Inactive pioglitazone 30 mg tablet RxNorm: 927688 Take 1 Tablet(s) Oral QD 0 05/19/2022 06/15/2022 Inactive albuterol sulfate 2.5 mg/3 mL (0.083 %) solution for n ebulization RxNorm: 573080 3 Milliliter(s) Inhalation four times a day as needed DX: J4 4.9 COPD 05/12/2022 05/12/2022 Inactive albuterol sulfate 2.5 mg/3 mL (0.083 %) solution for n ebulization RxNorm: 907830 3 Milliliter(s) Inhalation four times a day as needed DX: I5 0.9 05/12/2022 05/12/2022 Inactive Seroquel 25 mg tablet RxNorm: 920835 Take 1 Tablet(s) Oral QD 05/1105/11/2022 Inactive simvastatin 20 mg tablet RxNorm: 570140 Take 1 Tablet(s) Oral QD 05/11/2022 Inactive Januvia 100 mg tablet RxNorm: 769094 1 Tablet(s) Oral QD 05/11/2022 0 06/15/2022 Inactive albuterol sulfate 2.5 mg/3 mL (0.083 %) solution for n ebulization RxNorm: 856228 3 Milliliter(s) Inhalation DX: I50.9 05/08/2022 05/08/2022 Inac tive sertraline 100 mg tablet RxNorm: 737520 Take 1 Tablet(s) Oral QD 10/16/2022 Active simvastatin 20 mg tablet RxNorm: 502543 Take 1 Tablet(s) Oral QD 04/16/2022 Inactive spironolactone 25 mg tablet RxNorm: 231308 Tablet(s) Oral 04/15/2022 06/15/2022 Inactive Seroquel 25 mg tablet RxNorm: 884035 1 Tablet(s) Oral QD 04/15/2022 0 05/11/2022 Inactive albuterol sulfate 2.5 mg/3 mL (0.083 %) solution for n ebulization RxNorm: 268957 Milliliter(s) Inhalation 04/15/2022 05/08/2022 Inactive sertraline 100 mg tablet RxNorm: 658334 1 Tablet(s) Oral QD 022 04/20/2022 Inactive potassium chloride ER 10 mEq capsule,extended release RxNorm : 748495 Take 1 Capsule(s) Oral QD with food 04/15/2022 07/13/2022 Inactive simvastatin 20 mg tablet RxNorm: 240890 Tablet(s) Oral 04/15/2022 Inactive pioglitazone 30 mg tablet RxNorm: 480722 Tablet(s) Oral 04/15/2022 Inactive glipizide 10 mg tablet RxNorm: 523105 Tablet(s) Oral 04/15/202204/14 Active glipizide ER 10 mg tablet, extended release 24 hr RxNorm: 31 5107 Take 1 Tablet(s) Oral 04/15/2022 06/15/2022 Inactive metoprolol tartrate 50 mg tablet RxNorm: 913025 Tablet(s) Oral 04/0306/15/2022 Inactive Medication Administered No Medication Administered data Immunizations No Immunization data Results No Results data Procedures No Procedures data Vital Signs Date Vital 07/07/2022 Blood Pressure 1: 137/79 Code: 8480-6 BMI: 37.1 Code: 63085-2 Heart Rate 1: 75 bpm Height: 5'4" Code: 8302-2 SpO2: 100% Temperature: 3 6.6 (C) / 97.8 (F) Weight: 216 lbs Code: 34419-5 06/16/2022 Blood Pressure 1: 162/64 Code: 8480-6 Heart Rate 1: 64 bpm Respiratory Rate: 24 bpm SpO2: 90% Temperature: 36.3 (C) / 97.3 (F) We ight: 224 lbs Code: 24967-5 04/15/2022 Blood Pressure 1: 132/70 Code: 8480-6 BMI: 37.2 Code: 95940-8 Heart Rate 1: 102 bpm Height: 5'4" Code: 8302-2 Respiratory Rate: 18 bpm SpO2: 97% Temperature: 36.4 (C) / 97.5 (F) Weight: 217 lbs Code: 48407-1 Functional Status No Functional Status data Reason For Visit Reason For Visit Effective Dates Notes follow up 07/07/2022 lab results Medication Monitoring 06/16/2022 ~generic 04/15/2022 Establish care Encounters Encounter Performer Location Location Address Codes Date (19091) OFFICE/OUTPATIENT VISIT EST 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] Diagnosis: Anemia[ICD10: D64.9] Diagnosis: Renal insufficiency[ICD10: N28.9] Diagnosis: DM type 2 (diabetes mellitus, type 2)[ICD10: E11.9] Diagnosis: Cardiac arrhythmia[ICD10: I49.9] Tao BEAVER [employer] [address] [place] [phone] CPT-4: 53351 07/07/2022 (60789) OFFICE/OUTPATIENT VISIT EST Diagnosis: DM type 2 (diabetes mellitus, type 2)[ICD10: E11.9] Diagnosis: Essential hypertension[ICD10: I10] Diagnosis: Hyperlipidemia[ICD10: E78.5] Diagnosis: Requires continuous at home supplemental oxygen[ICD10: Z99.81] Diagnosis: CHF (congestive heart failure)[ICD10: I50.9] Diagnosis: Depression[ICD10: F32.A] Allyson VALDEZ [employer] [address] [place] [address] CPT-4: 27598 06/16/2022 (52994) OFFICE/OUTPATIENT VISIT NEW Diagnosis: Essential hypertension[ICD10: I10] Diagnosis: Hyperlipidemia[ICD10: E78.5] Diagnosis: CHF (congestive heart failure)[ICD10: I50.9] Diagnosis: DM type 2 (diabetes mellitus, type 2)[ICD10: E11.9] Diagnosis: Encounter to establish care with new doctor[ICD10: Z76.89] Diagnosis: Requires continuous at home supplemental oxygen[ICD10: Z99.81] Haleigh BEAVER [employer] [address] [place] [phone] CPT-4: 13641 04/15/2022 Plan of Care Planned Activity Notes [...] : I49.9 07/07/2022 Appointment: Tao Beaver WPtel: [phone] [place] FOLLOW UP 07/07/2022 Appointment: Tao Beaver WPtel: [phone] [facility] US RESCHEDULED 06/30/2022 Visit [...] 06/16/2022 Appointment: Allyson Chacon [facility]el[facility] [phone] [facility] MEDICATION REVIEW 06/16/2022 Patient Education: Patient Medication Summary Completed 06/16/2022 Patient Education: pioglitazone- OptimizeRX Coupon [id number] https://www.Stealth[employer]here/resources/getResource/61/pzohsc7m-4bn6-348d-32 Completed 06/16/2022 Patient Education: High Blood Pressure Co mpleted 06/16/2022 Visit Diagnosis Plan: Encounter to establish care with new doctor Discussion: Denies acute concerns today and states all chronic conditions have been stable Refilled medications Records requested from previous provider and from recent ED visit and update labs when due ICD-9 : V65.8 ICD-10 : Z76.89 04/15/2022 Appointment: Haleigh Fenton [facility]Ptel[facility] [phone] [facility] no answer/vm not set up at 0945 tl NEW PATIENT 04/15/2022 Patient Education: Patient Medication Summary Completed 04/15/2022 Patient Education: High Blood Pressure Co mpleted 04/15/2022 Patient Education: potassium chloride- OptimizeRX Coup on [phone] https://www.Stealth[employer]here/resources/getResource/61/25788a2i-7sv3-8372-w7 Completed 04/15/2022 Patient Education: glipizide- OptimizeRX Coupon [phone] https://www.HomeSphere.com/samplemd/resources/getResource/61/o7l8680y-4t3f-18fe-f7 Completed 04/15/2022 Instructions No Instructions Medical Equipment No Medical Equipment data Health Concerns Section Health Concerns data not found Goals Section Goals data not found Interventions Section Interventions data not found Health Status Evaluations/Outcomes Section Health Status Evaluations/Outcomes data not found Advance Directives No Advance Directive data
[2022-09-02] MEDS ORDERED: ACETAMINOPHEN 325 MG TABLET PO PRN (15:00)
[2022-09-02] MEDS ORDERED: PATIENT MAY USE OWN MEDS, ALL PO SCH (15:00)
[2022-09-02] MEDS ORDERED: FUROSEMIDE 40 MG/4 ML INJ (LASIX) IVP NR (15:00)
--- NOTE | 2022-09-02 15:13 | Tele-ICU Progress Note ---
Subjective Date Seen by a Provider: Sep 02, 2022 Subjective/Events-last exam This virtual visit was conducted using real time audio/video. Thank you for asking us to see this patient for respiratory insufficiency due to decompensated CHF, afib/RVR. Also COPD on 4LPM home O2. Directly admitted from [facility] and no records available. PMH:COPD/O2 4 LPM, Afib on Eliquis. SH: smoking history:F FH: Non-contributory PE: Pale, obese. 120-130 Irreg 120/100 O2 sat 99% on 5 LPM NC. HEENT: No obvious masses, adenopathy or JVD. Chest: clear to auscultation. CV:Irreg S1 S2 No murmur or added sounds. Abd: Non-tender. Bowel sounds Y. : Unremarkable. [place] N. [employer]ER/psychiatric: Grossly intact. No obvious focal findings. Extremities: 3-4+ edema. Capillary refill < 3 seconds. Skin: unremarkable. Results: No labs available. CXR: pending. Available old chart/ vitals / labs / images reviewed. Video assessment done using teleICU camera, rest of exam as per RN. A/P: Respiratory insufficiency: Continue present management with O2. Duonebs added. Monitor for increasing oxygenation needs and/or need for intubation. Critical Care: critically ill patient. Will need diuresis once labs incl K level available. Discussed with RN FRANCIS. Asked RN to reach out to eICU if any questions or concerns later. Time spent with patient/coordination of care with other health professionals (mins): 28 Sepsis Event Evaluation Height, Weight, BMI Height: '" Weight: lbs. oz. kg; 41.00 BMI Method: Exam Exam Patient acknowledged, consented, and participated in this virtual visit which was conducted using real time audio/video Height & Weight Height: '" Weight: lbs. oz. kg; 41.00 BMI Method: General Appearance: Anxious, Obese Peripheral Pulses: 1+ Dorsalis Pedis (R), 1+ Left Dors-Pedis (L) (See free text) Assessment/Plan Assessment/Plan See free text. Critical Care: Critically Ill Patient ANN ODELL MD Sep 02, 2022 15:13
[2022-09-02 15:53] LABS: BASOPHILS % (AUTO) 0 % (0-10); EOSINOPHILS # (AUTO) 0.1 10^3/uL (0.0-0.3); EOSINOPHILS % (AUTO) 0 % (0-10); HEMATOCRIT 24 % (35-52); HEMOGLOBIN 7.1 g/dL (11.5-16.0); LYMPHOCYTES # (AUTO) 0.4 10^3/uL (1.0-4.0); LYMPHOCYTES % (AUTO) 3 % (12-44); MEAN CORPUSCULAR HEMOGLOBIN 28 pg (25-34); MEAN CORPUSCULAR HGB CONC 30 g/dL (32-36); MEAN CORPUSCULAR VOLUME 95 fL (80-99); MEAN PLATELET VOLUME 11.1 fL (9.0-12.2); MONOCYTES % (AUTO) 7 % (0-12); NEUTROPHILS % (AUTO) 89 % (42-75); PLATELET COUNT 317 10^3/uL (130-400); WHITE BLOOD COUNT 14.6 10^3/uL (4.3-11.0)
[2022-09-02 15:54] LABS: POTASSIUM 4.1 MMOL/L (3.6-5.0)
[2022-09-02 15:55] LABS: CALCIUM 8.8 MG/DL (8.5-10.1)
[2022-09-02 15:56] LABS: TOTAL PROTEIN 6.4 GM/DL (6.4-8.2)
--- NOTE | 2022-09-02 15:56 | Diagnostic Imaging Report ---
INDICATION: Dyspnea. COMPARISON: Radiograph 03/08/2022. FINDINGS: There is a large left pleural effusion with near complete left chest white out with only a portion of the apex aerated. The heart appears enlarged and there is vascular congestion on the right. No right-sided pleural fluid or pneumothorax. IMPRESSION: Near white out of the left hemithorax presumed a combination of consolidation and a large left pleural effusion. There is cardiomegaly and vascular congestion present. Dictated by: Dictated on workstation # [id number]
[2022-09-02 15:58] LABS: BILIRUBIN,TOTAL 0.4 MG/DL (0.1-1.0)
[2022-09-02 16:00] LABS: CREATININE SERUM 1.7 MG/DL (0.60-1.30)
[2022-09-02 16:03] LABS: MAGNESIUM 2.2 MG/DL (1.6-2.4)
[2022-09-02 16:08] VITALS: BP 132/94
[2022-09-02 16:13] LABS: EOSINOPHILS % (MANUAL) 1 %; LYMPHOCYTES % (MANUAL) 2 %; MONOCYTES % (MANUAL) 4 %; NEUTROPHILS % (MANUAL) 93 %
[2022-09-02 16:14] LABS: ELLIPT/OVALOCYTES MODERATE; POLYCHROMASIA MODERATE; STOMATOCYTES SLIGHT; TARGET CELLS MODERATE
[2022-09-02] MEDS ORDERED: RT-ALBUTEROL/IPRATROPIUM 3 ML (DUONEB) VIAL INH PRN (16:15)
[2022-09-02 16:27] LABS: ABG BASE EXCESS 4.4 MMOL/L (-2.5-2.5); ABG OXYGEN SATURATION 100 % (94-100); ABG PCO2 46 MMHG (35-45); ABG PH 7.42 (7.37-7.43); ABG PO2 108 MMHG (79-93); ABG TCO2 30.2 MMOL/L (21.0-31.0); ALLENS TEST YES-POS
[2022-09-02 16:28] LABS: PATIENT TEMP 36.7; VENTILATOR NO
[2022-09-02] MEDS ORDERED: NS IV 500 ML 500 ML IV SCH (17:00)
--- NOTE | 2022-09-02 17:03 | History & Physical ---
History of Present Illness History of Present Illness Reason for visit/HPI This is a 82 year old female with a known history of atrial fibrillation, CHF, and COPD who presented to my office with worsening shortness of breath and edema. She has not been taking any of her medications for at least 2 weeks according to her daughter. Her oxygen saturation was 84% on 4L in my office. She was also found to be in atrial fibrillation with RVR. She will be directly admitted to the ICU for further evaluation and treatment. She has a history of noncompliance with medications. She states that she threw away her medications and that is why she has not been taking them. Date of Admission Sep 02, 2022 at 14:39 Date Seen by a Provider: Sep 02, 2022 Time Seen by a Provider: 14:00 I consulted on this patient on 09/02/22 16:58 Attending Physician Tao Beaver DO Admitting Physician Admitting Physician: Tao Beaver DO Attending Physician: Tao Beaver DO Consult Allergies and Home Medications Allergies Coded Allergies: No Known Drug Allergies (Unverified , 05/28/21) Patient Home Medication List Home Medication List Reviewed: Yes Bumetanide (Bumetanide) 2 Mg Tablet, 2 MG PO DAILY, (Reported) Entered as Reported by: JOHNIE GODFREY on 04/22/21 1312 Docusate Sodium (Stool Softener) 100 Mg Capsule, 200 MG PO DAILY, (Reported) Entered as Reported by: STEPHANIE FULLER on 05/30/21 1021 Ferrous Sulfate (Iron) 325 Mg Tablet, 325 MG PO DAILY, (Reported) Entered as Reported by: STEPHANIE FULLER on 05/30/21 1021 Glipizide (Glipizide ER) 10 Mg Tab.er.24, 10 MG PO DAILY, (Reported) Entered as Reported by: STEPHANIE FULLER on 05/30/21 1021 Hydrocodone Bit/Acetaminophen (HYDROcodone/APAP 7.5/325 TAB) 1 Ea Tablet, 1 EA PO Q4H PRN for PAIN-MODERATE (5-7) Prescribed by: ANDREW HOBBS on 06/03/21 1310 Insulin Glargine/Lixisenatide (Soliqua 100 Unit-33 Mcg/ml Pen) 3 Ml Insuln.pen, 40 UNITS SQ DAILY, (Reported) Entered as Reported by: JOHNIE GODFREY on 04/22/21 1312 Multivitamin (Multivitamin) 1 Each Tablet, 1 EACH PO DAILY, (Reported) Entered as Reported by: STEPHANIE FULLER on 05/30/21 1021 Nitrofurantoin Monohyd/M-Cryst (Macrobid 100 mg Capsule) 100 Mg Capsule, 1 TAB PO BID Prescribed by: YG TINOCO on 03/08/222130 Pioglitazone HCl (Pioglitazone HCl) 30 Mg Tablet, 30 MG PO DAILY, (Reported) Entered as Reported by: STEPHANIE FULLER on 05/30/21 1021 Potassium Chloride (Potassium Chloride) 10 Meq Capsule.er, 10 MEQ PO DAILY, (Reported) Entered as Reported by: JOHNIE GODFREY on 04/22/21 131 Sertraline HCl (Sertraline HCl) 100 Mg Tablet, 100 MG PO DAILY, (Reported) Entered as Reported by: JOHNIE GODFREY on 04/22/21 131 Simvastatin (Simvastatin) 20 Mg Tablet, 20 MG PO DAILY, (Reported) Entered as Reported by: JOHNIE GODFREY on 04/22/21 131 Sitagliptin Phosphate (Januvia) 100 Mg Tablet, 100 MG PO DAILY, (Reported) Entered as Reported by: JOHNIE GODFREY on 04/22/21 131 Past Rqnecgu-Tgislx-Vnyozv Hx Patient Social History Tobacco Use?: No Use of E-Cig and/or Vaping dev: No Substance use?: No Alcohol Use?: No Pt feels they are or have been: No Immunizations Up To Date First/Initial COVID19 Vaccinat: APRIL 2021 Second COVID19 Vaccination Sanjay: APRIL 2021 Seasonal Allergies Seasonal Allergies: No Current Status Advance Directives: No Communicates: Verbally Primary Language: Citizen Of [place] Preferred Spoken Language: Citizen Of [place] Is interpretation needed?: No Past Medical History Surgeries: Abdominal, Bowel Surgery, Gallbladder Chronic Edema/Swelling, High Cholesterol, Hypertension EXHIBITIONS CURATOR History: Menopausal Gastroesophageal Reflux, Chronic Constipation, Hemorrhoids, Polyps, Esophagitis Diabetes, Insulin dep Hearing Impairment: Hard of Hearing Colon Did You Recieve Any Treatments: Yes What Type of Treatment Did You: Surgical Intervention Depression Blood Disorders: Yes (ANEMIA) Family Medical History No Pertinent Family Hx PAST SURGICAL HISTORY: -EGD/COLONOSCOPY 04/25/21 -COLON RESECTION / RIGHT HEMICOLECTOMY 05/[address] PATIÑO -CHOLECYSTECTOMY -KNEE SURGERY Review of Systems Constitutional: malaise, weakness EENTM: No see HPI, No no symptoms reported, No ear discharge, No hearing loss, No ear pain, No blurred vision, No double vision, No eye pain, No tearing, No vision loss, No dental problems, No hoarseness, No mouth pain, No mouth swelling, No epistaxis, No nose congestion, No nose pain, No throat pain, No throat swelling, No other Respiratory: short of breath Cardiovascular: edema Gastrointestinal: No RUQ, No LUQ, No RLQ, No LLQ, No no symptoms reported, No see HPI, No abdominal pain, No constipation, No diarrhea, No dysphagia, No hematemesis, No heartburn, No jaundice, No loss of appetite, No melena, No nausea, No vomiting, No other Genitourinary: No no symptoms reported, No see HPI, No decreased output, No discharge, No dysuria, No frequency, No hematuria, No hesitancy, No incontinence, No nocturia, No pain, No other Musculoskeletal: muscle weakness Skin: No no symptoms reported, No see HPI, No change in color, No change in hair/nails, No dryness, No hx of skin cancer, No lesions, No lumps, No pruritus, No rash, No other Psychiatric/Neurological: Weakness Physical Exam Vital Signs Vital Signs - First Documented 09/02/22 09/02/22 15:00 15:15 Pulse 126 Resp 38 B/P (MAP) 121/113 (116) Pulse Ox 100 O2 Delivery Nasal Cannula O2 Flow Rate 5.00 Capillary Refill : Height, Weight, BMI Height: '" Weight: lbs. oz. kg; 39.49 BMI Method: General Appearance: Moderate Distress (respiratory) Neck: Supple Respiratory: Decreased Breath Sounds, Respiratory Distress Cardiovascular: Irregularly Irregular, Tachycardia Gastrointestinal: Normal Bowel Sounds, Non Tender, Soft Rectal: Deferred Back: No CVA Tenderness Extremity: Non Tender, No Calf Tenderness, Pedal Edema (3 plus) Neurologic/Psychiatric: Disoriented (mildy obtunded) Skin: Warm/Dry Comments Laboratory Tests 09/02/22 15:20: Sodium Level 139, Potassium Level 4.1, Chloride Level 102, Carbon Dioxide Level 21, Anion Gap 16H, Blood Urea Nitrogen 44H, Creatinine 1.70H, Estimat Glomerular Filtration Rate 30, BUN/Creatinine Ratio 26, Glucose Level 239H, Calcium Level 8.8, Corrected Calcium 9.6, Magnesium Level 2.2, Total Bilirubin 0.4, Aspartate Amino Transf (AST/SGOT) 48H, Alanine Aminotransferase (ALT/SGPT) 44, Alkaline Phosphatase 130, Total Protein 6.4, Albumin 3.0L 09/02/22 15:22: Glucometer 216H 09/02/22 15:45: White Blood Count 14.6H, Red Blood Count 2.50L, Hemoglobin 7.1L, Hematocrit 24L, Mean Corpuscular Volume 95, Mean Corpuscular Hemoglobin 28, Mean Corpuscular Hemoglobin Concent 30L, Red Cell Distribution Width 16.4H, Platelet Count 317, Mean Platelet Volume 11.1, Immature Granulocyte % (Auto) 1, Neutrophils (%) (Auto) 89H, Lymphocytes (%) (Auto) 3L, Monocytes (%) (Auto) 7, Eosinophils (%) (Auto) 0, Basophils (%) (Auto) 0, Neutrophils # (Auto) 13.0H, Lymphocytes # (Auto) 0.4L, Monocytes # (Auto) 1.0, Eosinophils # (Auto) 0.1, Basophils # (Auto) 0.0, Immature Granulocyte # (Auto) 0.1, Neutrophils % (Manual) 93, Lymphocytes % (Manual) 2, Monocytes % (Manual) 4, Eosinophils % (Manual) 1, Polychromasia MODERATE, Target Cells MODERATE, Stomatocytes SLIGHT, Elliptocytes MODERATE, B-Type Natriuretic Peptide 654.3H 09/02/22 16:15: Blood Gas Puncture Site L RADIAL, Blood Gas Patient Temperature 36.7, Arterial Blood pH 7.42, Arterial Blood Partial Pressure CO2 46H, Arterial Blood Partial Pressure O2 108H, Arterial Blood HCO3 29H, Arterial Blood Total CO2 30.2, Art erial Blood Oxygen Saturation 100, Arterial Blood Base Excess 4.4H, Arvin Test YES-POS, Blood Gas Ventilator Setting NO, Blood Gas Inspired Oxygen UNKNOWN Assessment/Plan Assessment and Plan 1. Acute on Chronic Respiratory Failure--admit to ICU on oxygen and advance to BiPAP if needed, Check ABGs, patient is DNR 2. Atrial Fibrillation with RVR--consult cardiology, cardizem drip if needed, otherwise start oral cardizem, will need to hold on eliquis due to anemia 3. Decompensated Diastolic Congestive Heart Failure--IV lasix and monitor BUN/Cr 4. Acute on Chronic Anemia--transfuse 1u pRBCs and monitor H/H 5. Dibetes mellitus--start accuchecks with SSI 6. Acute on Chronic Renal Insufficiency--monitor BUN/Cr with diuresis 7. Debility--will need PT/OT once more medically stable 8. History of Colon Cancer--stopped treatment early 9. COPD--oxygen requiring, MAT protocol Admission Diagnosis Admission Status: Inpatient Order (span 2 midnights) Reason for Inpatient Admission: Will need IV lasix and possible cardizem TAO Nuñez DO Sep 02, 2022 17:03
[2022-09-02] MEDS: inSUlin ASPART (NovoLOG) 1 UNIT/0.01 ML (CHARGE PER UNIT) SC SCH ×2 (17:38→20:21)
[2022-09-02] MEDS: FUROSEMIDE 40 MG/4 ML INJ (LASIX) IVP SCH (17:38)
--- NOTE | 2022-09-02 18:04 | Consultation-Cardiology ---
HPI-Cardiology Cardiology Consultation: Date of Consultation 09/02/22 Time Seen by a Provider: 17:30 Date of Admission Attending Physician Vanesa Beaver DO Admitting Physician Admitting Physician: Vanesa Beaver DO Attending Physician: Vanesa Beaver DO Consulting Physician SHIN HERRERA MD, MA, FACP, FACC, FSCAI, CCDS HPI: Chief Complaint: Shortness of breath 82 yo woman with multiple medical issues who quit taking all her meds 2 weeks and presented with marked shortness of breath and hypoxia (83% on RA) to Dr Beaver's office from where she was hospitalized. Has been treated with iv Lasix and supple oxygen. Currently, feels better. Denies cp or palp or syncop or swelling. Notes gen malaise and weakness. Denies n/v/d Review of Systems-Cardiology Review of Systems Constitutional: As described under HPI, malaise; No weight loss, No weight gain Eyes: No vision change Ears/Nose/Throat: No ear discharge, No nasal drainage, No recent hearing loss Respiratory: As described under HPI Cardiovascular: As described under HPI Gastrointestinal: As described under HPI Genitourinary: No dysuria Musculoskeletal: back pain (chronic) Skin: No rash, No ulcerations Psychiatric/Neurological: No seizure, No focal weakness, No syncope Hematologic: No bleeding abnormalities HNW-Shrjtq-Auzbvr Hx Patient Social History 2nd Hand Smoke Exposure: No Have you traveled recently?: No Alcohol Use?: No Pt feels they are or have been: No Past Medical History PMH As described under Assessment. Family Medical History Family Medical History: Does not report fam h/o early CAD or SCD Allergies and Home Medications Allergies Coded Allergies: No Known Drug Allergies (Unverified , 05/28/21) Patient Home Medication List Home Medication List Reviewed: Yes Bumetanide (Bumetanide) 2 Mg Tablet, 2 MG PO DAILY, (Reported) Entered as Reported by: JOHNIE GODFREY on 04/22/21 1312 Docusate Sodium (Stool Softener) 100 Mg Capsule, 200 MG PO DAILY, (Reported) Entered as Reported by: STEPHANIE FULLER on 05/30/21 1021 Ferrous Sulfate (Iron) 325 Mg Tablet, 325 MG PO DAILY, (Reported) Entered as Reported by: STEPHANIE FULLER on 05/30/21 1021 Glipizide (Glipizide ER) 10 Mg Tab.er.24, 10 MG PO DAILY, (Reported) Entered as Reported by: STEPHANIE FULLER on 05/30/21 1021 Hydrocodone Bit/Acetaminophen (HYDROcodone/APAP 7.5/325 TAB) 1 Ea Tablet, 1 EA PO Q4H PRN for PAIN-MODERATE (5-7) Prescribed by: ANDREW HOBBS on 06/03/21 1310 Insulin Glargine/Lixisenatide (Soliqua 100 Unit-33 Mcg/ml Pen) 3 Ml Insuln.pen, 40 UNITS SQ DAILY, (Reported) Entered as Reported by: JOHNIE GODFREY on 04/22/21 1312 Multivitamin (Multivitamin) 1 Each Tablet, 1 EACH PO DAILY, (Reported) Entered as Reported by: STEPHANIE FULLER on 05/30/21 1021 Nitrofurantoin Monohyd/M-Cryst (Macrobid 100 mg Capsule) 100 Mg Capsule, 1 TAB PO BID Prescribed by: YG TINOCO on 03/08/22 213 Pioglitazone HCl (Pioglitazone HCl) 30 Mg Tablet, 30 MG PO DAILY, (Reported) Entered as Reported by: STEPHANIE FULLER on 05/30/21 1021 Potassium Chloride (Potassium Chloride) 10 Meq Capsule.er, 10 MEQ PO DAILY, (Reported) Entered as Reported by: JOHNIE GODFREY on 04/22/21 131 Sertraline HCl (Sertraline HCl) 100 Mg Tablet, 100 MG PO DAILY, (Reported) Entered as Reported by: JOHNIE GODFREY on 04/22/21 1312 Simvastatin (Simvastatin) 20 Mg Tablet, 20 MG PO DAILY, (Reported) Entered as Reported by: JOHNIE GODFREY on 04/22/21 131 Sitagliptin Phosphate (Januvia) 100 Mg Tablet, 100 MG PO DAILY, (Reported) Entered as Reported by: JOHNIE GODFREY on 04/22/21 1312 Physical Exam-Cardiology Physical Exam Vital Signs/I&O 09/02/22 09/02/22 09/02/22 09/02/22 15:00 15:14 15:15 15:30 Pulse 126 110 110 123 Resp 38 11 36 B/P (MAP) 121/113 (116) 132/94 (107) Pulse Ox 100 100 O2 Delivery Nasal Cannula Nasal Cannula Nasal Cannula O2 Flow Rate 5.00 5.00 5.00 09/02/22 09/02/22 09/02/22 09/02/22 15:45 16:00 16:08 16:15 Pulse 108 113 113 117 Resp 27 28 25 B/P (MAP) 174/86 (115) Pulse Ox 99 97 97 100 O2 Delivery Nasal Cannula Nasal Cannula Nasal Cannula O2 Flow Rate 5.00 5.00 5.00 09/02/22 09/02/22 09/02/22 09/02/22 16:30 17:00 17:15 17:30 Pulse 112 120 103 113 Resp 28 23 9 26 B/P (MAP) 142/42 (75) 177/116 (136) 163/89 (113) 165/102 (123) Pulse Ox 98 90 99 99 O2 Delivery Nasal Cannula Nasal Cannula Nasal Cannula Nasal Cannula O2 Flow Rate 5.00 5.00 5.00 5.00 Capillary Refill : Constitutional: AAO x 3, well-developed HEENT: PERRL, EOMI, hearing is well preserved; No xanthelasmas are seen Neck: carotid pulses are 2 + bilaterally, with good upstrokes Respiratory: No accessory muscle use; other (fair to good air entry; coarse and fine basal crackles) Cardiovascular: irregularly irregular, tachycardia, S1 and S2, systolic murmur (soft SANJAY at card base) Gastrointestinal: No tender; soft; No guarding, No rebound; audible bowel sounds Extremities: No clubbing, No cyanosis, No significant edema Neurologic/Psychiatric: oriented x 3, other (moves all limbs equally) Skin: No rash on exposed areas, No ulcerations on exposed areas Data Review Labs Laboratory Tests 09/02/22 15:20: Sodium Level 139, Potassium Level 4.1, Chloride Level 102, Carbon Dioxide Level 21, Anion Gap 16H, Blood Urea Nitrogen 44H, Creatinine 1.70H, Estimat Glomerular Filtration Rate 30, BUN/Creatinine Ratio 26, Glucose Level 239H, Calcium Level 8.8, Corrected Calcium 9.6, Magnesium Level 2.2, Total Bilirubin 0.4, Aspartate Amino Transf (AST/SGOT) 48H, Alanine Aminotransferase (ALT/SGPT) 44, Alkaline Phosphatase 130, Total Protein 6.4, Albumin 3.0L 09/02/22 15:22: Glucometer 216H 09/02/22 15:45: White Blood Count 14.6H, Red Blood Count 2.50L, Hemoglobin 7.1L, Hematocrit 24L, Mean Corpuscular Volume 95, Mean Corpuscular Hemoglobin 28, Mean Corpuscular Hemoglobin Concent 30L, Red Cell Distribution Width 16.4H, Platelet Count 317, Mean Platelet Volume 11.1, Immature Granulocyte % (Auto) 1, Neutrophils (%) (Auto) 89H, Lymphocytes (%) (Auto) 3L, Monocytes (%) (Auto) 7, Eosinophils (%) (Auto) 0, Basophils (%) (Auto) 0, Neutrophils # (Auto) 13.0H, Lymphocytes # (Auto) 0.4L, Monocytes # (Auto) 1.0, Eosinophils # (Auto) 0.1, Basophils # (Auto) 0.0, Immature Granulocyte # (Auto) 0.1, Neutrophils % (Manual) 93, Lymphocytes % (Manual) 2, Monocytes % (Manual) 4, Eosinophils % (Manual) 1, Polychromasia MODERATE, Target Cells MODERATE, Stomatocytes SLIGHT, Elliptocytes MODERATE, B-Type Natriuretic Peptide 654.3H 09/02/22 16:15: Blood Gas Puncture Site L RADIAL, Blood Gas Patient Temperature 36.7, Arterial Blood pH 7.42, Arterial Blood Partial Pressure CO2 46H, Arterial Blood Partial Pressure O2 108H, Arterial Blood HCO3 29H, Arterial Blood Total CO2 30.2, Arterial Blood Oxygen Saturation 100, Arterial Blood Base Excess 4.4H, Arvin Test YES-POS, Blood Gas Ventilator Setting NO, Blood Gas Inspired Oxygen UNKNOWN Laboratory Tests 09/02/22 15:20 09/02/22 15:45 A/P-Cardiology Assessment/Admission Diagnosis Ac resp failure, likely related to noncompliance with med and other factors noted below Ac diastolic CHF Marked anemia - [facility] [place] [place] A Fib with RVR - first dx on ECG of 07-13-22 - Holter 07/16/22: A fib with avg vent rate 96 bpm, frequent isolated and couple PVCs, no VT New onset CHF - undetermined etiology - Echocardiogram of Sep 30, 2020 showed LVEF 60-65%. PASP 35-40mmHg - Echocardiogram of 07-16-22 showed LVEF 50-55%. Mod calcified mitral valve annulus Exertional shortness of breath, - likely related to physical deconditioning - MPI of Sep 25, 2020: No evidence of significant myocardial ischemia or infarction on this study. Normal regional wall motion. Normal global left ventricular systolic function with a calculated ejection fraction of 72%. - Recommend sleep eval for eval for YEISON. Discussed. She refuses DM II - managed by PCP CKD-4 - managed by PCP Obesity - with BMI approx 39 Hypertension Hyperlipidemia - treated with statins and managed by pcp Colon CA - right hemicolectomy by Dr. Cardoza for stage IV colon, followed by Dr. Piedra Discussion and Recomendations * Advised compliance with meds * iv diuretics to treat decomp CHF * Oral dilt to control ventricular rate * Oral apixaban for stroke prophylaxis * Blood transfusion to treat her marked anemia that is likely contributing to shortness of breath * Monitor labs * I discussed her case with Dr Beaver on the phone SHIN HERRERA MD FACP FAC CCDS Sep 02, 2022 18:04
[2022-09-02] MEDS: RT-ALBUTEROL/IPRATROPIUM 3 ML (DUONEB) VIAL INH SCH ×2 (19:07→21:27)
[2022-09-02 20:11] VITALS: BP 141/78
[2022-09-02] MEDS: APIXABAN 2.5 MG (ELIQUIS) TABLET PO SCH (20:21)
[2022-09-02 20:31] VITALS: BP 146/83
[2022-09-02 23:02] VITALS: BP 134/76
[2022-09-03 01:57] LABS: HEMOGLOBIN 7.7 g/dL (11.5-16.0)
[2022-09-03] MEDS: RT-ALBUTEROL/IPRATROPIUM 3 ML (DUONEB) VIAL INH SCH ×6 (02:09→22:45)
[2022-09-03 04:37] LABS: HEMATOCRIT 25 % (35-52); HEMOGLOBIN 7.6 g/dL (11.5-16.0); MEAN CORPUSCULAR HEMOGLOBIN 28 pg (25-34); MEAN CORPUSCULAR HGB CONC 31 g/dL (32-36); MEAN CORPUSCULAR VOLUME 91 fL (80-99); MEAN PLATELET VOLUME 11.2 fL (9.0-12.2); PLATELET COUNT 304 10^3/uL (130-400); WHITE BLOOD COUNT 14.5 10^3/uL (4.3-11.0)
[2022-09-03 05:05] LABS: ALBUMIN 2.7 GM/DL (3.2-4.5); POTASSIUM 3.4 MMOL/L (3.6-5.0)
[2022-09-03 05:06] LABS: CALCIUM 8.5 MG/DL (8.5-10.1)
[2022-09-03 05:08] LABS: TOTAL PROTEIN 5.8 GM/DL (6.4-8.2)
[2022-09-03 05:09] LABS: BILIRUBIN,TOTAL 0.7 MG/DL (0.1-1.0)
[2022-09-03 05:11] LABS: CREATININE SERUM 1.64 MG/DL (0.60-1.30)
[2022-09-03] MEDS ORDERED: NS IV 500 ML 500 ML IV PRN (05:15)
[2022-09-03] MEDS: inSUlin ASPART (NovoLOG) 1 UNIT/0.01 ML (CHARGE PER UNIT) SC SCH ×4 (05:16→20:13)
[2022-09-03] MEDS: MAGNESIUM 1 GM/100 ML IVPB 100 ML IV SCH (05:40)
[2022-09-03] MEDS: KCL 20 MEQ TAB (K-DUR) PO SCH (06:06)
[2022-09-03] MEDS: POTASSIUM CL 10MEQ/50ML IVPB 50 ML IV SCH (06:06)
[2022-09-03] MEDS: FUROSEMIDE 40 MG/4 ML INJ (LASIX) IVP SCH ×2 (06:17→17:10)
--- NOTE | 2022-09-03 06:56 | Progress Note ---
Standard Progress Note Progress Notes/Assess & Plan Date Seen by a Provider: Sep 03, 2022 Time Seen by a Provider: 06:55 Progress/Assessment & Plan RN called for permision to give IV KCl in pt with potassium 3.4 but Cr 1.6, I gave approval RUPINDER PEREZ MD Sep 03, 2022 06:56
[2022-09-03] MEDS ORDERED: FLU QUAD HIGH DOSE 240 MCG/0.7 ML 2022-23 (FLUZONE) IM ONE (07:15)
--- NOTE | 2022-09-03 07:37 | Progress Note ---
ANDREY FORD 09/03/22 0737: Subjective Date Seen by a Provider: Sep 03, 2022 Time Seen by a Provider: 07:00 Subjective/Events-last exam 82F with PMH of CHF, COPD, and A Fibb on day 2 of admission for acute respiratory failure claims she is feeling better today and resting comfortably in bed. Pt received packed RBCs yesterday and tolerated well. Per nurse, pt was able to eat last night w/o complaints. Denies any pain while resting, N/V, fever or chills, or troubles with bowel movements. Claims she does feel SOB and fatigued. Review of Systems General: No Chills, No Night Sweats HEENT: No Head Aches, No Dysphasia Pulmonary: Dyspnea, Cough Cardiovascular: No: Chest Pain, Palpitations Gastrointestinal: No: Nausea, Vomiting, Abdominal Pain Genitourinary: No Dysuria, No Frequency Musculoskeletal: leg pain, foot pain Neurological: Weakness Objective Exam Last Set of Vital Signs Vital Signs Date Time Temp Pulse Resp B/P (MAP) Pulse Ox O2 Delivery O2 Flow Rate FiO2 09/03/22 06:50 95 Nasal Cannula 4.00 09/03/22 06:00 104 31 156/96 (116) 09/03/22 03:38 37.5 Capillary Refill : Less Than 3 Seconds I&O Intake and Output 09/03/22 00:00 Intake Total 475 ml Output Total 900 ml Balance -425 ml Intake Oral 150 ml Other 325 ml Output Urine Total 900 ml # Bowel Movements 1 Daily Weight Change No General: Alert HEENT: Atraumatic, PERRLA Neck: Supple, No LAD Lungs: Other (mininmal jaya flow in lt kendal thorax, mild wheezes on expiration on the rt side) Heart: No Murmurs Abdomen: Normal Bowel Sounds, No Tenderness Extremities: Normal Pulses, Other (3+ edema in LE BL, tenderness to palpation ) Skin: No Rashes, No Significant Lesion Neuro: Normal Tone Psych/Mental Status: Mood NL Results Lab Laboratory Tests 09/02/22 15:20: Sodium Level 139, Potassium Level 4.1, Chloride Level 102, Carbon Dioxide Level 21, Anion Gap 16H, Blood Urea Nitrogen 44H, Creatinine 1.70H, Estimat Glomerular Filtration Rate 30, BUN/Creatinine Ratio 26, Glucose Level 239H, Calcium Level 8.8, Corrected Calcium 9.6, Magnesium Level 2.2, Total Bilirubin 0.4, Aspartate Amino Transf (AST/SGOT) 48H, Alanine Aminotransferase (ALT/SGPT) 44, Alkaline Phosphatase 130, Total Protein 6.4, Albumin 3.0L 09/02/22 15:22: Glucometer 216H 09/02/22 15:45: White Blood Count 14.6H, Red Blood Count 2.50L, Hemoglobin 7.1L, Hematocrit 24L, Mean Corpuscular Volume 95, Mean Corpuscular Hemoglobin 28, Mean Corpuscular Hemoglobin Concent 30L, Red Cell Distribution Width 16.4H, Platelet Count 317, Mean Platelet Volume 11.1, Immature Granulocyte % (Auto) 1, Neutrophils (%) (Auto) 89H, Lymphocytes (%) (Auto) 3L, Monocytes (%) (Auto) 7, Eosinophils (%) (Auto) 0, Basophils (%) (Auto) 0, Neutrophils # (Auto) 13.0H, Lymphocytes # (Auto) 0.4L, Monocytes # (Auto) 1.0, Eosinophils # (Auto) 0.1, Basophils # (Auto) 0.0, Immature Granulocyte # (Auto) 0.1, Neutrophils % (Manual) 93, Lymphocytes % (Manual) 2, Monocytes % (Manual) 4, Eosinophils % (Manual) 1, Polychromasia MODERATE, Target Cells MODERATE, Stomatocytes SLIGHT, Elliptocytes MODERATE, B-Type Natriuretic Peptide 654.3H 09/02/22 16:15: Blood Gas Puncture Site L RADIAL, Blood Gas Patient Temperature 36.7, Arterial Blood pH 7.42, Arterial Blood Partial Pressure CO2 46H, Arterial Blood Partial Pressure O2 108H, Arterial Blood HCO3 29H, Arterial Blood Total CO2 30.2, Arterial Blood Oxygen Saturation 100, Arterial Blood Base Excess 4.4H, Arvin Test YES-POS, Blood Gas Ventilator Setting NO, Blood Gas Inspired Oxygen UNKNOWN 09/02/22 20:15: Glucometer 266H 09/03/22 01:50: Hemoglobin 7.7L, Hematocrit 25L 09/03/22 04:10: Hemoglobin 7.6L, Hematocrit 25L, White Blood Count 14.5H, Red Blood Count 2.71L, Mean Corpuscular Volume 91, Mean Corpuscular Hemoglobin 28, Mean Corpuscular Hemoglobin Concent 31L, Red Cell Distribution Width 16.8H, Platelet Count 304, Mean Platelet Volume 11.2, Sodium Level 139, Potassium Level 3.4L, Chloride Level 101, Carbon Dioxide Level 24, Anion Gap 14, Blood Urea Nitrogen 44H, Creatinine 1.64H, Estimat Glomerular Filtration Rate 31, BUN/Creatinine Ratio 27, Glucose Level 174H, Calcium Level 8.5, Corrected Calcium 9.5, Magnesium Level 2.0, Total Bilirubin 0.7, Aspartate Amino Transf (AST/SGOT) 41H, Alanine Aminotransferase (ALT/SGPT) 39, Alkaline Phosphatase 112, Total Protein 5.8L, Albumin 2.7L Assessment/Plan Assessment/Plan Assess & Plan/Chief Complaint 1. Acute on Chronic Respiratory Failure--continue supplemental O2 therapy 2. Atrial Fibrillation with RVR--continue oral cardizem, 3. Decompensated Diastolic Congestive Heart Failure--IV lasix and monitor BUN/Cr 4. Acute on Chronic Anemia- continue monitor H/H, pt to receive another transfusion of PRBCs 5. Dibetes mellitus--continue ssi 6. Acute on Chronic Renal Insufficiency--monitor BUN/Cr with diuresis 7. Debility--will need PT/OT once more medically stable 8. History of Colon Cancer--stopped treatment early 9. COPD--oxygen requiring, continue on MAT protocol 10. stroke prohylaxis- continue on eliquis per cardio 11. Consult surgery for bronchoscopy v.s thoracentesis 12. PNA- start on rocephin and azithromycin TAO REED DO 09/03/22 1226: Supervisory-Addendum Brief Verification & Attestation Participated in pt care: history, physical Personally performed: exam, history, supervision of care Care discussed with: Medical Student Procedures: n/a Results interpretation: Verified all documentation Verification and Attestation of Medical Student E/M Service A medical student performed and documented this service in my presence. I reviewed and verified all information documented by the medical student and made modifications to such information, when appropriate. I personally performed the physical exam and medical decision making. Tao Reed, Sep 03, 2022,12:23 Patient feeling little less short of air today. Left side of chest still arvind out on CXR and poor aeration so will consult surgery for possible thoracentesis vs bronchoscopy. Will start Ceftriaxone and Zithromax due to elevated WBC count and possible infiltrate on left. Transfuse to get H/H over 8 due to cardiac issues. If H/H does not stabilize with transfusion will have to DC eliquis. ANDREY FORD Sep 03, 2022 07:37 TAO REED DO Sep 03, 2022 12:26
[2022-09-03] MEDS ORDERED: KCL 20 MEQ TAB (K-DUR) PO ONE (08:00)
--- NOTE | 2022-09-03 08:20 | Diagnostic Imaging Report ---
INDICATION: Respiratory failure Portable chest 6:03 AM There is a large left pleural effusion. There is cardiomegaly with pulmonary vascular congestion. IMPRESSION: Pulmonary venous hypertension with large left pleural effusion. No significant change from previous day. Dictated by: Dictated on workstation # [email or web address]
[2022-09-03] MEDS: PANTOPRAZOLE 40 MG (PROTONIX) TAB PO SCH (08:30)
[2022-09-03] MEDS ORDERED: NS IV 500 ML 500 ML IV SCH (08:45)
--- NOTE | 2022-09-03 08:46 | Progress Note - Cardiology ---
Cardiology SOAP Progress Note Subjective: Sitting up in bed Continues to feel SOB She states she feels her SOB has not improved much from admission No c/o CP C/O LE swelling Objective: I&O/Vital Signs 09/03/22 09/04/22 09/04/22 09/04/22 23:00 00:00 00:00 00:10 Temp 37.2 Pulse 93 92 Resp 23 29 B/P (MAP) 155/76 (102) 145/75 (98) Pulse Ox 96 94 96 O2 Delivery Nasal Cannula Nasal Cannula Nasal Cannula Nasal Cannula O2 Flow Rate 4.00 4.00 4.00 4.00 09/04/22 09/04/22 09/04/22 09/04/22 01:00 01:00 01:37 02:00 Pulse 92 101 98 Resp 16 24 B/P (MAP) 137/91 (106) 128/98 (108) Pulse Ox 95 98 96 O2 Delivery Nasal Cannula Nasal Cannula Nasal Cannula O2 Flow Rate 4.00 4.00 4.00 09/04/22 09/04/22 09/04/22 09/04/22 03:00 03:25 03:25 04:00 Temp 37.3 Pulse 98 98 Resp B/P (MAP) 129/74 (92) 129/76 (93) Pulse Ox 96 95 96 O2 Delivery Nasal Cannula Nasal Cannula Nasal Cannula Nasal Cannula O2 Flow Rate 4.00 4.00 4.00 4.00 09/04/22 09/04/22 09/04/22 09/04/22 05:00 06:00 07:00 07:00 Pulse 95 99 93 95 Resp 25 B/P (MAP) 118/70 (86) 126/65 (85) 137/63 (87) Pulse Ox 96 96 97 O2 Delivery Nasal Cannula Nasal Cannula Nasal Cannula O2 Flow Rate 4.00 4.00 4.00 09/04/22 09/04/22 09/04/22 09/04/22 07:08 08:00 08:00 09:00 Pulse 104 96 Resp 15 12 B/P (MAP) 139/64 (89) 139/64 (89) Pulse Ox 97 95 95 96 O2 Delivery Nasal Cannula Nasal Cannula Nasal Cannula Nasal Cannula O2 Flow Rate 4.00 4.00 4.00 4.00 09/04/22 09/04/22 10:00 10:27 Pulse 103 Resp 19 B/P (MAP) 136/67 (90) Pulse Ox 99 96 O2 Delivery Nasal Cannula Nasal Cannula O2 Flow Rate 4.00 4.00 09/04/22 00:00 Intake Total 685 ml Output Total 350 ml Balance 335 ml Constitutional: AAO x 3, well-developed Respiratory: No accessory muscle use; other (fair to good air entry; coarse and fine basal crackles) Cardiovascular: irregularly irregular, tachycardia, S1 and S2, systolic murmur (soft SANJAY at card base) Gastrointestional: No tender; soft; No guarding, No rebound; audible bowel sounds Extremities: other (bilat LE pitting edema 3+); No clubbing, No cyanosis, No significant edema Neurologic/Psychiatric: oriented x 3, other (moves all limbs equally) Skin: No rash on exposed areas, No ulcerations on exposed areas Results/Procedures: Labs Laboratory Tests 09/03/22 11:31: Body Fluid Source PLEURAL, Body Fluid Color YELLOW, Body Fluid Appearance MOD CLDY, Body Fluid WBC 0.108, Body Fluid RBC 0.009, Body Fl Polynuclear WBCs (%)(Auto) 35.2, Body Fluid Mononuclear Cells % Auto 64.8, Body Fluid Slide Review Yes, Body Fluid Glucose 208, Body Fluid Total Protein 3.2 09/03/22 14:35: Glucometer 207H 09/03/22 19:40: Hemoglobin 8.7L, Hematocrit 28L 09/03/22 20:07: Glucometer 256H 09/04/22 03:21: White Blood Count 13.8H, Red Blood Count 3.04L, Hemoglobin 8.6L, Hematocrit 27L, Mean Corpuscular Volume 90, Mean Corpuscular Hemoglobin 28, Mean Corpuscular H emoglobin Concent 32, Red Cell Distribution Width 17.2H, Platelet Count 303, Mean Platelet Volume 11.2, Immature Granulocyte % (Auto) 2, Neutrophils (%) (Auto) 84H, Lymphocytes (%) (Auto) 8L, Monocytes (%) (Auto) 6, Eosinophils (%) (Auto) 1, Basophils (%) (Auto) 0, Neutrophils # (Auto) 11.5H, Lymphocytes # (Auto) 1.1, Monocytes # (Auto) 0.8, Eosinophils # (Auto) 0.1, Basophils # (Auto) 0.0, Immature Granulocyte # (Auto) 0.2H, Sodium Level 139, Potassium Level 4.4, Chloride Level 101, Carbon Dioxide Level 23, Anion Gap 15H, Blood Urea Nitrogen 46H, Creatinine 1.98H, Estimat Glomerular Filtration Rate 25, BUN/Creatinine Ratio 23, Glucose Level 241H, Calcium Level 8.5, Corrected Calcium 9.5, Phosphorus Level 2.0L, Magnesium Level 1.9, Total Bilirubin 0.7, Aspartate Amino Transf (AST/SGOT) 37H, Alanine Aminotransferase (ALT/SGPT) 40, Alkaline Phosphatase 113, Total Protein 5.9L, Albumin 2.8L 09/04/22 06:07: Glucometer 226H Microbiology 09/03/22 Gram Stain - Final, Resulted 09/03/22 Anaerobic Culture, Resulted Pending 09/03/22 Body Fluid Culture, Resulted Pending 09/02/22 MRSA Screen - Final, Complete MRSA not isolated Procedures NAME: NORY CASTILLO [facility] REC#: [id number] PT STATUS: ADM IN : 1940 PHYSICIAN: TAO REED DO ADMIT DATE: 09/02/22/ICU Draft Date of Exam:09/03/22 CHEST 1 VIEW, AP/PA ONLY INDICATION: Respiratory failure Portable chest 6:03 AM There is a large left pleural effusion. There is cardiomegaly with pulmonary vascular congestion. IMPRESSION: Pulmonary venous hypertension with large left pleural effusion. No significant change from previous day. Dictated on workstation # [id number] Dict: 09/03/22 0808 Trans: 09/03/22 0819 [facility] [id number] Interpreted by: KEMI JACOBS MD Electronically signed by: A/P: Assessment: Ac resp failure, likely related to noncompliance with med and other factors noted below Ac diastolic CHF - Echocardiogram of Sep 30, 2020 showed LVEF 60-65%. PASP 35-40mmHg - Echocardiogram of 07-16-22 showed LVEF 50-55%. Mod calcified mitral valve annulus Marked anemia - managed by medical services - received 1 unit PRBC's overnight A Fib with RVR - first dx on ECG of 07-13-22 - Holter 07/16/22: A fib with avg vent rate 96 bpm, frequent isolated and couple PVCs, no VT - MPI of Sep 25, 2020: No evidence of significant myocardial ischemia or infarction on this study. Normal regional wall motion. Normal global left ventricular systolic function with a calculated ejection fraction of 72%. - Recommend sleep eval for eval for YEISON. Discussed. She refuses DM II - managed by PCP CKD-4 - managed by PCP Obesity - with BMI approx 39 Hypertension Hyperlipidemia - treated with statins and managed by pcp Colon CA - right hemicolectomy by Dr. Cardoza for stage IV colon, followed by Dr. Piedra Plan: * Advised compliance with meds * Continue iv diuretics to treat decomp CHF * Give additional Lasix this morning * Oral dilt to control ventricular rate * Oral apixaban for stroke prophylaxis * HTN and tachycardia * start low dose BB * Blood transfusion to treat her marked anemia that is likely contributing to shortness of breath * Received 1 unit overnight * Monitor labs COLIN TOWNSEND Sep 03, 2022 08:46
[2022-09-03] MEDS ORDERED: AZITHROMYCIN INJECTION 500 MG in NS (IVPB) 250 ML IV ONE (09:00)
[2022-09-03] MEDS ORDERED: FUROSEMIDE 40 MG/4 ML INJ (LASIX) IVP NR (09:00)
--- NOTE | 2022-09-03 09:15 | Tele-ICU Progress Note ---
Subjective Date Seen by a Provider: Sep 03, 2022 Subjective/Events-last exam This virtual visit was conducted using real time audio/video. Thank you for asking us to see this patient for respiratory insufficiency due to decompensated CHF, afib/RVR. Also COPD on 4LPM home O2. Directly admitted from [facility] and previously no records available. Very noncompliant. PMH:COPD/O2 4 LPM, Afib on Eliquis, DM2< HL, Dep., CKD. SH: smoking history: Former PE: Pale, obese. 100-110 Irreg 120/100 O2 sat 95% on 5 LPM NC. HEENT: No obvious masses, adenopathy or JVD. Chest: clear to auscultation. CV:Irreg S1 S2 No murmur or added sounds. Abd: Non-tender. Bowel sounds Y. : Unremarkable. [place] N. PAEDIATRICIAN/psychiatric: Grossly intact. No obvious focal findings. Extremities: 3-4+ edema. Capillary refill < 3 seconds. Skin: unremarkable. Decreased Hb 7.6, K 3.4. Elevated BUN 44, Creat 1.64, BNP 654.3. AB.42/46/108 on 5 LPM. CXR w massive L pleural effusion. Available old chart/ vitals / labs / images reviewed. Video assessment done using teleICU camera, rest of exam as per RN. A/P: Respiratory insufficiency: Continue present management with O2. Duonebs added. Needs thoracentesis. Hold Eliquis. Monitor for increasing oxygenation needs and/or need for intubation. Critical Care: critically ill patient. Cont lasix, PPI, SSI, Dilt. Hold Eliquis for thoracentesis. Replace K. Discussed with RN FRANCIS. Asked RN to reach out to eICU if any questions or concerns later. Time spent with patient/coordination of care with other health professionals (mins): 18 Sepsis Event Evaluation Height, Weight, BMI Height: '" Weight: lbs. oz. kg; 39.76 BMI Method: Exam Exam Patient acknowledged, consented, and participated in this virtual visit which was conducted using real time audio/video Vital Signs Date Time Temp Pulse Resp B/P (MAP) Pulse Ox O2 Delivery O2 Flow Rate FiO2 09/03/22 08:00 36.9 09/03/22 08:00 109 20 159/70 (99) 96 Nasal Cannula 4.00 09/03/22 07:00 98 09/03/22 07:00 101 28 165/83 (110) 100 Nasal Cannula 4.00 09/03/22 06:50 95 Nasal Cannula 4.00 09/03/22 06:00 104 31 156/96 (116) 98 Nasal Cannula 4.00 09/03/22 05:00 110 33 141/80 (100) 95 Nasal Cannula 4.00 09/03/22 04:00 105 28 140/63 (88) 95 Nasal Cannula 4.00 09/03/22 03:40 94 Nasal Cannula 4.00 09/03/22 03:38 37.5 116 24 94 Nasal Cannula 4.00 09/03/22 03:00 115 27 151/64 (93) 94 Nasal Cannula 4.00 09/03/22 02:09 98 Nasal Cannula 4.00 09/03/22 02:00 87 30 142/111 (121) 96 Nasal Cannula 4.00 09/03/22 01:00 87 27 141/67 (91) 97 Nasal Cannula 4.00 09/03/22 01:00 104 09/03/22 00:00 92 29 140/68 (92) 96 Nasal Cannula 4.00 09/02/22 23:02 37.0 98 18 134/76 95 Nasal Cannula 4.00 09/02/22 23:00 95 Nasal Cannula 4.00 09/02/22 23:00 106 23 152/67 (95) 97 Nasal Cannula 4.00 09/02/22 23:00 37.0 Nasal Cannula 4.00 09/02/22 22:00 103 22 144/76 (98) 97 Nasal Cannula 4.00 09/02/22 21:27 98 Nasal Cannula 5.00 09/02/22 21:00 111 28 161/85 (110) 97 Nasal Cannula 4.00 09/02/22 20:31 37.2 103 22 146/83 100 Nasal Cannula 4.00 09/02/22 20:11 37.1 109 20 141/78 94 Nasal Cannula 4.00 09/02/22 20:00 117 15 141/78 (99) 98 Nasal Cannula 4.00 09/02/22 19:25 97 Nasal Cannula 4.00 09/02/22 19:08 97 Nasal Cannula 5.00 09/02/22 19:00 37.1 117 24 124/92 (103) 97 Nasal Cannula 4.00 09/02/22 19:00 119 09/02/22 17:30 113 26 165/102 (123) 99 Nasal Cannula 5.00 09/02/22 17:15 103 9 163/89 (113) 99 Nasal Cannula 5.00 09/02/22 17:00 120 23 177/116 (136) 90 Nasal Cannula 5.00 09/02/22 16:30 112 28 142/42 (75) 98 Nasal Cannula 5.00 09/02/22 16:15 117 25 174/86 (115) 100 Nasal Cannula 5.00 09/02/22 16:08 113 97 09/02/22 16:00 95 Nasal Cannula 5.00 09/02/22 16:00 113 28 97 Nasal Cannula 5.00 09/02/22 16:00 36.7 09/02/22 15:45 108 27 99 Nasal Cannula 5.00 09/02/22 15:30 123 36 100 Nasal Cannula 5.00 09/02/22 15:15 110 11 132/94 (107) 100 Nasal Cannula 5.00 09/02/22 15:14 110 09/02/22 15:00 126 38 121/113 (116) Nasal Cannula 5.00 I & O 09/03/22 06:59 Intake Total 925 ml Output Total 1250 ml Balance -325 ml Height & Weight Height: '" Weight: lbs. oz. kg; 39.76 BMI Method: General Appearance: Moderate Distress (respiratory) Neck: Supple Respiratory: Decreased Breath Sounds, Respiratory Distress Cardiovascular: Irregularly Irregular, Tachycardia Capillary Refill: Less Than 3 Seconds Peripheral Pulses: 1+ Dorsalis Pedis (R), 1+ Left Dors-Pedis (L) (See free text) Extremity: Non Tender, No Calf Tenderness, Pedal Edema (3 plus) Neurologic/Psychiatric: Disoriented (mildy obtunded) Skin: Warm/Dry Results Lab Laboratory Tests 09/02/22 15:20 09/02/22 15:45 09/03/22 01:50 09/03/22 04:10 Assessment/Plan Assessment/Plan See free text. Critical Care: Critically Ill Patient ANN ODELL MD Sep 03, 2022 09:15
[2022-09-03] MEDS: APIXABAN 2.5 MG (ELIQUIS) TABLET PO SCH ×2 (09:30→16:30)
[2022-09-03] MEDS: cefTRIAXone 1 GM PRE-MIX 50 ML IV SCH (09:36)
[2022-09-03] MEDS ORDERED: LIDOCAINE 1% INJ 20 ML VIAL ONE (11:28)
--- NOTE | 2022-09-03 11:43 | Diagnostic Imaging Report ---
INDICATION: Pleural effusion. IMPRESSION: Ultrasound guidance was provided for Dr. Renee to perform bedside thoracentesis. Images were stored and demonstrate a left pleural effusion. Dictated by: Dictated on workstation # [email or web address]
--- NOTE | 2022-09-03 11:46 | Consultation - Surgery ---
CHICOGRACE 09/03/22 1146: History of Present Illness History of Present Illness Patient Consulted On(joel/time) 09/03/22 11:44 Date Seen by Provider: Sep 03, 2022 Time Seen by Provider: 11:44 Reason for Visit: SOA History of Present Illness Consult requested robert Larkin 82yo F with h/o afib, CHF, COPD, and O2 dependence at 4L presents with worsening SOA with associated b/l leg swelling that started last night. Pt h/o limited due to condition/pt cooperation. Per notes, pt was admitted by Dr. Larkin after presenting to her office with the worsening SOA and leg edema. Pt states that she is chronically SOA and uses 4L O2 at home as well as a CPAP at night. Per note, pt had not been taking her medications for the past 2 weeks but in the room pt states that she has been taking all her medications as prescribed. Pt was found to have an O2 sat of 84% on 4L in office and was in afib with RVR, prompting direct admit to ICU for evaluation and treatment. Pt had a CXR on 09/02 that showed near white out of the left hemithorax that was presumed by radiology to be a combination of consolidation and a large left pleural eff usion. Cardiomegaly and vascular congestion was also noted. Today, pt is notably SOA and uncomfortable sitting in bed. Pt has a O2 sat of 97% on 4L. Repeat CXR today showed pulmonary venous hypertension with a large left pleural effusion. Pt consented to thoracentesis and 1260mL of serous fluid was removed. Following procedure, pt stated that her SOA had improved slightly. Pt notes that she has been hospitalized for similar symptoms in the past but can't recall when. Pt notes that she has been voiding without issue but does not that she has been experiencing bright red blood in her stool for "quite some time". Pt has h/o colon cancer and 2 months ago she discontinued treatment. Pt was followed by Dr. Dickson. Pt is followed by Dr. Skaggs for her CHF and states that she had an appointment "recently" where she states he increased her metformin to "2 tabs". Pt denies CP, abd pain, nausea, vomiting, SMITH, lightheadedness, and hematuria. Allergies and Home Medications Allergies Coded Allergies: No Known Drug Allergies (Unverified , 05/28/21) Patient Home Medication List Home Medication List Reviewed: Yes Bumetanide (Bumetanide) 2 Mg Tablet, 2 MG PO DAILY, (Reported) Entered as Reported by: JOHNIE GODFREY on 04/22/21 1312 Docusate Sodium (Stool Softener) 100 Mg Capsule, 200 MG PO DAILY, (Reported) Entered as Reported by: STEPHANIE FULLER on 05/30/21 1021 Ferrous Sulfate (Iron) 325 Mg Tablet, 325 MG PO DAILY, (Reported) Entered as Reported by: STEPHANIE FULLER on 05/30/21 1021 Glipizide (Glipizide ER) 10 Mg Tab.er.24, 10 MG PO DAILY, (Reported) Entered as Reported by: STEPHANIE FULLER on 05/30/21 1021 Hydrocodone Bit/Acetaminophen (HYDROcodone/APAP 7.5/325 TAB) 1 Ea Tablet, 1 EA PO Q4H PRN for PAIN-MODERATE (5-7) Prescribed by: ANDREW HOBBS on 06/03/21 1310 Insulin Glargine/Lixisenatide (Soliqua 100 Unit-33 Mcg/ml Pen) 3 Ml Insuln.pen, 40 UNITS SQ DAILY, (Reported) Entered as Reported by: JOHNIE GODFREY on 04/22/21 1312 Multivitamin (Multivitamin) 1 Each Tablet, 1 EACH PO DAILY, (Reported) Entered as Reported by: STEPHANIE FULLER on 05/30/21 1021 Nitrofurantoin Monohyd/M-Cryst (Macrobid 100 mg Capsule) 100 Mg Capsule, 1 TAB PO BID Prescribed by: YG TINOCO on 03/08/22 2131 Pioglitazone HCl (Pioglitazone HCl) 30 Mg Tablet, 30 MG PO DAILY, (Reported) Entered as Reported by: STEPHANIE FULLER on 05/30/21 1021 Potassium Chloride (Potassium Chloride) 10 Meq Capsule.er, 10 MEQ PO DAILY, (Reported) Entered as Reported by: JOHNIE GODFREY on 04/22/21 1312 Sertraline HCl (Sertraline HCl) 100 Mg Tablet, 100 MG PO DAILY, (Reported) Entered as Reported by: JOHNIE GODFREY on 04/22/21 1312 Simvastatin (Simvastatin) 20 Mg Tablet, 20 MG PO DAILY, (Reported) Entered as Reported by: JOHNIE GODFREY on 04/22/21 1312 Sitagliptin Phosphate (Januvia) 100 Mg Tablet, 100 MG PO DAILY, (Reported) Entered as Reported by: JOHNIE GODFREY on 04/22/21 1312 Past Rhcqals-Gnlzru-Dlvloj Hx Patient Social History Smoking Status: Never a Smoker 2nd Hand Smoke Exposure: No Recent Hopitalizations: No Alcohol Use?: No Have you traveled recently?: No Seasonal Allergies Seasonal Allergies: No Surgeries History of Surgeries: Yes Surgeries: Gallbladder Respiratory History of Respiratory Disorde: Yes ("BREATHING ISSUES"--O2 AT 4L/NC) Cardiovascular History of Cardiac Disorders: Yes (CHF) Cardiac Disorders: Chronic Edema/Swelling, High Cholesterol, Hypertension Neurological History of Neurological Disord: No 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 Genitourinary History of Genitourinary Disor: Yes (CHRONIC RENAL INSUFFICIENCY) Gastrointestinal History of Gastrointestinal Di: Yes (COLON CANCER) Musculoskeletal History of Musculoskeletal Dis: No Endocrine History of Endocrine Disorders: Yes (OBESITY) Endocrine Disorders: Diabetes, Insulin dep HEENT History of HEENT Disorders: Yes Hearing Impairment: Hard of Hearing Cancer History of Cancer: Yes Cancer: Colon Psychosocial History of Psychiatric Problem: Yes Integumentary History of Skin or Integumenta: No Blood Transfusions History of Blood Disorders: Yes (ANEMIA) Family Medical History Significant Family History: No Pertinent Family Hx Review of Systems-General Constitutional: No chills, No diaphoresis, No dizziness EENTM: No ear pain, No tearing Respiratory: No hemoptysis; short of breath Cardiovascular: No chest pain; edema Gastrointestinal: No diarrhea, No melena, No nausea, No vomiting Genitourinary: No decreased output, No discharge, No hematuria Musculoskeletal: No gout, No muscle twitching Skin: No change in color, No change in hair/nails Psychiatric/Neurological: Denies Anxiety, Denies Depressed Physical Exam-General Problems Physical Exam Vital Signs Vital Signs - First Documented 09/02/22 09/02/22 15:00 15:15 Pulse 126 Resp 38 B/P (MAP) 121/113 (116) Pulse Ox 100 O2 Delivery Nasal Cannula O2 Flow Rate 5.00 Capillary Refill : Less Than 3 Seconds General Appearance: mild distress, obese HEENT: PERRL/EOMI; No scleral icterus (R), No scleral icterus (L) Neck: non-tender, supple Respiratory: decreased breath sounds (L lung diffusely), accessory muscle use Cardiovascular: normal peripheral pulses, no murmur Gastrointestinal: distended, tenderness (epigastric and periumbilical with palpation ) Back: No muscle spasm Extremities: pedal edema (B/L 4+ Pitting edema), swelling (Pedal and tibial ), other (tenderness of R lower leg with movement and palpation ) Neurologic/Psychiatric: alert, normal mood/affect, oriented x 3 Skin: warm/dry, other (slight erythema noted on R leg extending from dorsum of foot to mid nam ) Lymphatic: no adenopathy Data Review Labs Laboratory Tests 09/02/22 15:20: Sodium Level 139, Potassium Level 4.1, Chloride Level 102, Carbon Dioxide Level 21, Anion Gap 16H, Blood Urea Nitrogen 44H, Creatinine 1.70H, Estimat Glomerular Filtration Rate 30, BUN/Creatinine Ratio 26, Glucose Level 239H, Calcium Level 8.8, Corrected Calcium 9.6, Magnesium Level 2.2, Total Bilirubin 0.4, Aspartate Amino Transf (AST/SGOT) 48H, Alanine Aminotransferase (ALT/SGPT) 44, Alkaline Phosphatase 130, Total Protein 6.4, Albumin 3.0L 09/02/22 15:22: Glucometer 216H 09/02/22 15:45: White Blood Count 14.6H, Red Blood Count 2.50L, Hemoglobin 7.1L, Hematocrit 24L, Mean Corpuscular Volume 95, Mean Corpuscular Hemoglobin 28, Mean Corpuscular Hemoglobin Concent 30L, Red Cell Distribution Width 16.4H, Platelet Count 317, Mean Platelet Volume 11.1, Immature Granulocyte % (Auto) 1, Neutrophils (%) (Auto) 89H, Lymphocytes (%) (Auto) 3L, Monocytes (%) (Auto) 7, Eosinophils (%) (Auto) 0, Basophils (%) (Auto) 0, Neutrophils # (Auto) 13.0H, Lymphocytes # (Auto) 0.4L, Monocytes # (Auto) 1.0, Eosinophils # (Auto) 0.1, Basophils # (Auto) 0.0, Immature Granulocyte # (Auto) 0.1, Neutrophils % (Manual) 93, Lymphocytes % (Manual) 2, Monocytes % (Manual) 4, Eosinophils % (Manual) 1, Polychromasia MODERATE, Target Cells MODERATE, Stomatocytes SLIGHT, Elliptocytes MODERATE, B-Type Natriuretic Peptide 654.3H 09/02/22 16:15: Blood Gas Puncture Site L RADIAL, Blood Gas Patient Temperature 36.7, Arterial Blood pH 7.42, Arterial Blood Partial Pressure CO2 46H, Arterial Blood Partial Pressure O2 108H, Arterial Blood HCO3 29H, Arterial Blood Total CO2 30.2, Arterial Blood Oxygen Saturation 100, Arterial Blood Base Excess 4.4H, Arvin Test YES-POS, Blood Gas Ventilator Setting NO, Blood Gas Inspired Oxygen UNKNOWN 09/02/22 20:15: Glucometer 266H 09/03/22 01:50: Hemoglobin 7.7L, Hematocrit 25L 09/03/22 04:10: Hemoglobin 7.6L, Hematocrit 25L, White Blood Count 14.5H, Red Blood Count 2.71L, Mean Corpuscular Volume 91, Mean Corpuscular Hemoglobin 28, Mean Corpuscular Hemoglobin Concent 31L, Red Cell Distribution Width 16.8H, Platelet Count 304, Mean Platelet Volume 11.2, Sodium Level 139, Potassium Level 3.4L, Chloride Level 101, Carbon Dioxide Level 24, Anion Gap 14, Blood Urea Nitrogen 44H, Creatinine 1.64H, Estimat Glomerular Filtration Rate 31, BUN/Creatinine Ratio 27, Glucose Level 174H, Calcium Level 8.5, Corrected Calcium 9.5, Magnesium Level 2.0, Total Bilirubin 0.7, Aspartate Amino Transf (AST/SGOT) 41H, Alanine Aminotransferase (ALT/SGPT) 39, Alkaline Phosphatase 112, Total Protein 5.8L, Albumin 2.7L 09/03/22 10:08: Glucometer 209H Assessment/Plan Assessment/Plan Assessment/Plan 1. Acute on Chronic Respiratory Failure 2. Atrial Fibrillation with RVR, 3. Decompensated Diastolic Congestive Heart Failure 4. Acute on Chronic Anemia 5. Dibetes mellitus 6. Acute on Chronic Renal Insufficiency 7. Debility 8. History of Colon Cancer 9. COPD 10. PNA 11. O2 dependence Performed a thoracentesis on the L lung after confirming presence of pleural effusion on US. 1260mL serous fluid removed. Repeat US was ordered, awaiting results. Culture on pleural fluid Continue to monitor, repeat CXR to check pleural effusion if symptoms worsen again. ANDREW HOBBS DO 09/03/22 1230: History of Present Illness History of Present Illness Time Seen by Provider: 11:16 History of Present Illness Surgery asked to consult regarding respiratory distress, worsening CXR...possible pleural fluid. HPI per IM: This is a 82 year old female with a known history of atrial fibrillation, CHF, and COPD who presented to my office with worsening shortness of breath and edema. She has not been taking any of her medications for at least 2 weeks according to her daughter. Her oxygen saturation was 84% on 4L in my office. She was also found to be in atrial fibrillation with RVR. She will be directly admitted to the ICU for further evaluation and treatment. She has a history of noncompliance with medications. She states that she threw away her medications and that is why she has not been taking them. Pt was a direct admit from primary physicians office, got worse this am and I was asked to see regarding possible thoracentesis. Before I had even seen the pt I ordered an US and then went in to look at US as they were doing it. I had already looked at her CXRs from this visit and the one in March. Pt was complain ing of SOB and appeared to be in some respiratory distress. Allergies and Home Medications Allergies Coded Allergies: No Known Drug Allergies (Unverified , 05/28/21) Patient Home Medication List Home Medication List Reviewed: Yes Bumetanide (Bumetanide) 2 Mg Tablet, 2 MG PO DAILY, (Reported) Entered as Reported by: JOHNIE GODFREY on 04/22/21 1312 Docusate Sodium (Stool Softener) 100 Mg Capsule, 200 MG PO DAILY, (Reported) Entered as Reported by: STEPHANIE FULLER on 05/30/21 1021 Ferrous Sulfate (Iron) 325 Mg Tablet, 325 MG PO DAILY, (Reported) Entered as Reported by: STEPHANIE FULLER on 05/30/21 1021 Glipizide (Glipizide ER) 10 Mg Tab.er.24, 10 MG PO DAILY, (Reported) Entered as Reported by: STEPHANIE FULLER on 05/30/21 1021 Hydrocodone Bit/Acetaminophen (HYDROcodone/APAP 7.5/325 TAB) 1 Ea Tablet, 1 EA PO Q4H PRN for PAIN-MODERATE (5-7) Prescribed by: ANDREW HOBBS on 06/03/21 1310 Insulin Glargine/Lixisenatide (Soliqua 100 Unit-33 Mcg/ml Pen) 3 Ml Insuln.pen, 40 UNITS SQ DAILY, (Reported) Entered as Reported by: JOHNIE GODFREY on 04/22/21 1312 Multivitamin (Multivitamin) 1 Each Tablet, 1 EACH PO DAILY, (Reported) Entered as Reported by: STEPHANIE FULLER on 05/30/21 1021 Nitrofurantoin Monohyd/M-Cryst (Macrobid 100 mg Capsule) 100 Mg Capsule, 1 TAB PO BID Prescribed by: YG TINOCO on 03/08/22 2131 Pioglitazone HCl (Pioglitazone HCl) 30 Mg Tablet, 30 MG PO DAILY, (Reported) Entered as Reported by: STEPHANIE FULLER on 05/30/21 1021 Potassium Chloride (Potassium Chloride) 10 Meq Capsule.er, 10 MEQ PO DAILY, (Reported) Entered as Reported by: JOHNIE GODFREY on 04/22/21 1312 Sertraline HCl (Sertraline HCl) 100 Mg Tablet, 100 MG PO DAILY, (Reported) Entered as Reported by: JOHNIE GODFREY on 04/22/21 131 Simvastatin (Simvastatin) 20 Mg Tablet, 20 MG PO DAILY, (Reported) Entered as Reported by: JOHNIE GODFREY on 04/22/21 1312 Sitagliptin Phosphate (Januvia) 100 Mg Tablet, 100 MG PO DAILY, (Reported) Entered as Reported by: JOHNIE GODFREY on 04/22/21 1312 Past Bxhohdm-Webipe-Kasyay Hx Patient Social History Smoking Status: Never a Smoker Alcohol Use?: No Surgeries History of Surgeries: Yes (EGD and Colonoscopy) Surgeries: Abdominal (colon resection), Gallbladder, Joint Replacement Respiratory History of Respiratory Disorde: Yes Respiratory Disorders: Sleep Apnea, COPD Cardiovascular History of Cardiac Disorders: Yes (CHF) Cardiac Disorders: Hypertension Neurological History of Neurological Disord: No Genitourinary History of Genitourinary Disor: Yes Genitourinary Disorders: Renal Failure Gastrointestinal History of Gastrointestinal Di: Yes (Colon CA) Gastrointestinal Disorders: Gastroesophageal Reflux, Hemorrhoids, Polyps, Gall Bladder Disease Musculoskeletal History of Musculoskeletal Dis: Yes Musculoskeletal Disorders: Arthritis, Chronic Back Pain HEENT History of HEENT Disorders: Yes HEENT Disorders: Glaucoma Loss of Vision: Bilateral Hearing Impairment: Hard of Hearing Cancer History of Cancer: Yes Cancer: Colon Psychosocial History of Psychiatric Problem: No Integumentary History of Skin or Integumenta: No Family Medical History Significant Family History: Cancer (denied any in her family), Diabetes (Mother) Review of Systems-General Constitutional: No chills, No diaphoresis, No dizziness; malaise, weakness EENTM: No ear pain, No tearing, No epistaxis Respiratory: No cough, No hemoptysis; short of breath Cardiovascular: No chest pain; edema Gastrointestinal: No abdominal pain, No diarrhea, No melena, No nausea, No vomiting Genitourinary: No decreased output, No discharge, No hematuria Musculoskeletal: No gout; joint pain, joint swelling; No muscle twitching Skin: No change in color, No change in hair/nails Psychiatric/Neurological: Denies Anxiety, Denies Depressed Physical Exam-General Problems Physical Exam General Appearance: moderate distress, obese Eyes: Bilateral Eye PERRL, Bilateral Eye EOMI HEENT: pharynx normal; No scleral icterus (R), No scleral icterus (L) Neck: non-tender, supple Respiratory: respiratory distress, decreased breath sounds (L lung diffusely), accessory muscle use, crackles, other (dullness to percussion left lung) Cardiovascular: systolic murmur, irregularly irregular Gastrointestinal: soft, distended (probably body habitus), tenderness (epigastric and periumbilical with deep palpation ) Rectal: deferred Back: no CVA tenderness, no vertebral tenderness Extremities: pedal edema (B/L 4+ Pitting edema), swelling (Pedal and tibial ), other (tenderness of R lower leg with movement and palpation ) Neurologic/Psychiatric: alert, normal mood/affect, oriented x 3 Skin: warm/dry, other (slight erythema noted on R leg extending from dorsum of foot to mid nam ) Lymphatic: no adenopathy (neck, axilla or groin) Data Review Radiology Date of Exam:09/03/22 US-NOCHG GUIDE PARA/THOR INDICATION: Pleural effusion. IMPRESSION: Ultrasound guidance was provided for Dr. Hobbs to perform bedside thoracentesis. Images were stored and demonstrate a left pleural effusion. Dictated by: Dictated on workstation # [id number] Dict: 09/03/22 1138 Trans: 09/03/22 1158 [id number] Interpreted by: KEMI JACOBS MD Electronically signed by: KEMI JACOBS MD 09/03/22 1158 Date of Exam:09/03/22 CHEST 1 VIEW, AP/PA ONLY Indication: Pleural effusion, follow-up thoracentesis Portable chest 11:40 AM The left pleural effusion has been evacuated compared to earlier in the day. There is no pneumothorax. There is cardiomegaly with vascular congestion. IMPRESSION: Cardiomegaly with pulmonary venous hypertension. Left pleural effusion has been evacuated. There is no pneumothorax. Dictated by: Dictated on workstation # [id number] Dict: 09/03/22 1153 Trans: 09/03/22 1154 [id number] Interpreted by: KEMI JACOBS MD Electronically signed by: KEMI JACOBS MD 09/03/22 1154 Assessment/Plan Assessment/Plan Assessment/Plan 1. Acute on Chronic Respiratory Failure - secondary to pleural effusion 2. Hypokalemia - needs to be replaced 3. Atrial Fibrillation with RVR, 4. Decompensated Diastolic Congestive Heart Failure 5. Acute on Chronic Anemia 6. Diabetes mellitus 7. Acute on Chronic Renal Insufficiency 8. Debility 9. History of Colon Cancer 10. COPD 11. PNA 12. O2 dependence Performed a thoracentesis on the L lung after confirming presence of pleural effusion on US. 1260mL serous fluid removed. Repeat CXR showed improvement and no pneumothorax. Will order cultures, fluid cell count and cytology on pleural fluid and Continue to monitor, repeat CXR in AM to check pleural effusion and/or if symptoms worsen again. Supervisory-Addendum Brief Verification & Attestation Participated in pt care: history, MDM, physical Personally performed: exam, history, MDM, supervision of care Care discussed with: Medical Student Procedures: n/a Verification and Attestation of Medical Student E/M Service A medical student performed and documented this service. I then reviewed and verified all information documented by the medical student and made modifications to such information, when appropriate. I personally performed a physical exam, medical decision making and then discussed any differences between the notes and made revisions as necessary to create one note. Andrew Hobbs , 09/03/22 , 12:41 GRACE GOLDEN Sep 03, 2022 11:46 ANDREW HOBBS DO Sep 03, 2022 12:30
--- NOTE | 2022-09-03 11:55 | Diagnostic Imaging Report ---
Indication: Pleural effusion, follow-up thoracentesis Portable chest 11:40 AM The left pleural effusion has been evacuated compared to earlier in the day. There is no pneumothorax. There is cardiomegaly with vascular congestion. IMPRESSION: Cardiomegaly with pulmonary venous hypertension. Left pleural effusion has been evacuated. There is no pneumothorax. Dictated by: Dictated on workstation # [id number]
--- NOTE | 2022-09-03 12:04 | Progress Note-Post Operative ---
Post-Operative Progess Note Surgeon (s)/Ski Base Trimmer (s) Surgeon ANDREW HOBBS DO Ski Base Trimmer: none Pre-Operative Diagnosis Pleural effusion Post-Operative Diagnosis same Procedure & Operative Findings Date of Procedure 09/03/22 Procedure Performed/Findings Procedural Note: LEFT Thoracentesis A time out was performed and the US was reviewed, the appropriate side was confirmed and marked. The patient was prepped and draped in a sterile manner using chlorhexidine scrub after the appropriate level was percussed and confirmed by ultrasound 1% lidocaine was used to anesthetize the skin, subcutaneous tissue and superior aspect of the rib periosteum and parietal pleura. . A #11 blade scalpel was used to make a quick stab incision at the insertion site; which was around 8 or 9th rib. The [id number] needle was then introduced through the skin incision into the pleural space using negative aspiration pressure and got an immediate return of a straw colored fluid, no blood. The thoracentesis catheter was then threaded without difficulty. Approximately 1260 ml of dark straw colored fluid was removed w ithout difficulty. The catheter was then removed. No immediate complications were noted during the procedure. A post-procedure chest x-ray shows no pneumothorax and pleural effusion much improved. The fluid will be sent for studies. Estimated blood loss is scant. Anesthesia Type local lidocaine Estimated Blood Loss Estimated blood loss (mL): scant Specimens/Packing Specimens Removed pleural fluid ANDREW HOBBS DO Sep 03, 2022 12:04
[2022-09-03 13:18] LABS: BODY FLUID RBC COUNT 0.009 10^6/uL; BODY FLUID WBC TOTAL COUNT 0.108 10^3/uL
[2022-09-03] MEDS ORDERED: METO50TA7 PO (13:37)
[2022-09-03] MEDS ORDERED: APIX2.5T PO (13:37)
[2022-09-03] MEDS ORDERED: ALBU2.5V4 NEB (13:37)
[2022-09-03] MEDS ORDERED: BUME1TAB8 PO (13:37)
[2022-09-03 13:41] VITALS: BP 118/65
[2022-09-03 13:54] LABS: BODY FLUID APPEARENCE MOD CLDY; BODY FLUID COLOR YELLOW
[2022-09-03 13:55] LABS: GLUCOSE,BODY FLUID 208 MG/DL; TOTAL PROTEIN,BODY FLUID 3.2 G/DL
[2022-09-03 13:59] LABS: BODY FLUID SOURCE PLEURAL
[2022-09-03 14:03] VITALS: BP 105/80
[2022-09-03 16:35] VITALS: BP 120/72
--- NOTE | 2022-09-03 17:08 | Progress Note - Cardiology ---
Cardiology SOAP Progress Note Subjective: Still short of breath Gen malaise and weakness still present No n/v/d No focal weakness No cp or palp or syncope Objective: I&O/Vital Signs 09/03/22 09/03/22 09/03/22 09/03/22 06:00 06:50 07:00 07:00 Pulse 104 101 98 Resp 31 28 B/P (MAP) 156/96 (116) 165/83 (110) Pulse Ox 98 95 100 O2 Delivery Nasal Cannula Nasal Cannula Nasal Cannula O2 Flow Rate 4.00 4.00 4.00 09/03/22 09/03/22 09/03/22 09/03/22 08:00 08:00 09:00 10:00 Temp 36.9 Pulse 109 107 98 Resp 20 31 35 B/P (MAP) 159/70 (99) 166/46 (86) 127/66 (86) Pulse Ox 96 96 95 O2 Delivery Nasal Cannula Nasal Cannula Nasal Cannula O2 Flow Rate 4.00 4.00 4.00 09/03/22 09/03/22 09/03/22 09/03/22 10:34 11:00 12:00 12:12 Temp 35.9 Pulse 100 98 Resp 39 28 B/P (MAP) 111/65 (80) 106/70 (82) Pulse Ox 95 97 96 O2 Delivery Nasal Cannula Nasal Cannula Nasal Cannula O2 Flow Rate 4.00 4.00 4.00 09/03/22 09/03/22 09/03/22 09/03/22 13:00 13:00 13:41 14:00 Temp 35.8 Pulse 85 86 85 90 Resp 29 16 27 B/P (MAP) 118/65 (82) 118/65 105/80 (88) Pulse Ox 95 90 O2 Delivery Nasal Cannula Nasal Cannula Nasal Cannula O2 Flow Rate 4.00 4.00 4.00 09/03/22 09/03/22 09/03/22 09/03/22 14:03 14:46 15:00 15:55 Temp 36.4 37.0 Pulse 87 85 Resp 22 25 B/P (MAP) 105/80 130/72 (91) Pulse Ox 96 95 95 O2 Delivery Nasal Cannula Nasal Cannula Nasal Cannula O2 Flow Rate 4.00 4.00 4.00 09/03/22 09/03/22 16:00 16:35 Temp 35.4 Pulse 96 102 Resp 18 24 B/P (MAP) 128/72 (90) 120/72 Pulse Ox 95 94 O2 Delivery Nasal Cannula Nasal Cannula O2 Flow Rate 4.00 4.00 09/03/22 00:00 Intake Total 475 ml Output Total 900 ml Balance -425 ml Constitutional: AAO x 3, well-developed Respiratory: No accessory muscle use; other (fair to good air entry; coarse and fine basal crackles) Cardiovascular: irregularly irregular, tachycardia, S1 and S2, systolic murmur (soft SANJAY at card base) Gastrointestional: No tender; soft; No guarding, No rebound; audible bowel sounds Extremities: other (bilat LE pitting edema 3+); No clubbing, No cyanosis, No significant edema Neurologic/Psychiatric: oriented x 3, other (moves all limbs equally) Skin: No rash on exposed areas, No ulcerations on exposed areas Results/Procedures: Labs Laboratory Tests 09/02/22 20:15: Glucometer 266H 09/03/22 01:50: Hemoglobin 7.7L, Hematocrit 25L 09/03/22 04:10: Hemoglobin 7.6L, Hematocrit 25L, White Blood Count 14.5H, Red Blood Count 2.71L, Mean Corpuscular Volume 91, Mean Corpuscular Hemoglobin 28, Mean Corpuscular Hemoglobin Concent 31L, Red Cell Distribution Width 16.8H, Platelet Count 304, Mean Platelet Volume 11.2, Sodium Level 139, Potassium Level 3.4L, Chloride Level 101, Carbon Dioxide Level 24, Anion Gap 14, Blood Urea Nitrogen 44H, Creatinine 1.64H, Estimat Glomerular Filtration Rate 31, BUN/Creatinine Ratio 27, Glucose Level 174H, Calcium Level 8.5, Corrected Calcium 9.5, Magnesium Level 2.0, Total Bilirubin 0.7, Aspartate Amino Transf (AST/SGOT) 41H, Alanine Aminotransferase (ALT/SGPT) 39, Alkaline Phosphatase 112, Total Protein 5.8L, Albumin 2.7L 09/03/22 10:08: Glucometer 209H 09/03/22 11:31: Body Fluid Source PLEURAL, Body Fluid Color YELLOW, Body Fluid Appearance MOD CLDY, Body Fluid WBC 0.108, Body Fluid RBC 0.009, Body Fl Polynuclear WBCs (%)(Auto) 35.2, Body Fluid Mononuclear Cells % Auto 64.8, Body Fluid Slide Review Yes, Body Fluid Glucose 208, Body Fluid Total Protein 3.2 09/03/22 14:35: Glucometer 207H Laboratory Tests 09/02/22 15:20 09/02/22 15:45 09/03/22 01:50 09/03/22 04:10 A/P: Assessment: Ac resp failure, likely related to noncompliance with med and other factors noted below Ac diastolic CHF - Echocardiogram of Sep 30, 2020 showed LVEF 60-65%. PASP 35-40mmHg - Echocardiogram of 07-16-22 showed LVEF 50-55%. Mod calcified mitral valve annulus Marked anemia - managed by medical services - received 1 unit PRBC's overnight A Fib with RVR - first dx on ECG of 07-13-22 - Holter 07/16/22: A fib with avg vent rate 96 bpm, frequent isolated and couple PVCs, no VT - MPI of Sep 25, 2020: No evidence of significant myocardial ischemia or infarction on this study. Normal regional wall motion. Normal global left ventricular systolic function with a calculated ejection fraction of 72%. - Recommend sleep eval for eval for YEISON. Discussed. She refuses DM II - managed by PCP CKD-4 - managed by PCP Obesity - with BMI approx 39 Hypertension Hyperlipidemia - treated with statins and managed by pcp Colon CA - right hemicolectomy by Dr. Cardoza for stage IV colon, followed by Dr. Piedra Plan: * Advised compliance with meds * Continue iv diuretics to treat decomp CHF * Give additional Lasix this morning * Oral dilt to control ventricular rate * Oral apixaban for stroke prophylaxis * HTN and tachycardia * start low dose BB * Blood transfusion to treat her marked anemia that is likely contributing to shortness of breath * Received 1 unit overnight * We recommend another unit of blood (given symptomatic anemia) * Monitor labs SHIN HERRERA MD FACP FAC CCDS Sep 03, 2022 17:08
[2022-09-03 19:44] LABS: HEMOGLOBIN 8.7 g/dL (11.5-16.0)
[2022-09-04] MEDS: RT-ALBUTEROL/IPRATROPIUM 3 ML (DUONEB) VIAL INH SCH ×5 (01:37→19:22)
[2022-09-04 03:49] LABS: BASOPHILS % (AUTO) 0 % (0-10); EOSINOPHILS # (AUTO) 0.1 10^3/uL (0.0-0.3); EOSINOPHILS % (AUTO) 1 % (0-10); HEMATOCRIT 27 % (35-52); HEMOGLOBIN 8.6 g/dL (11.5-16.0); LYMPHOCYTES # (AUTO) 1.1 10^3/uL (1.0-4.0); LYMPHOCYTES % (AUTO) 8 % (12-44); MEAN CORPUSCULAR HEMOGLOBIN 28 pg (25-34); MEAN CORPUSCULAR HGB CONC 32 g/dL (32-36); MEAN CORPUSCULAR VOLUME 90 fL (80-99); MEAN PLATELET VOLUME 11.2 fL (9.0-12.2); MONOCYTES # (AUTO) 0.8 10^3/uL (0.0-1.0); MONOCYTES % (AUTO) 6 % (0-12); NEUTROPHILS # (AUTO) 11.5 10^3/uL (1.8-7.8); NEUTROPHILS % (AUTO) 84 % (42-75); PLATELET COUNT 303 10^3/uL (130-400); WHITE BLOOD COUNT 13.8 10^3/uL (4.3-11.0)
[2022-09-04 04:05] LABS: ALBUMIN 2.8 GM/DL (3.2-4.5); POTASSIUM 4.4 MMOL/L (3.6-5.0)
[2022-09-04 04:06] LABS: CALCIUM 8.5 MG/DL (8.5-10.1)
[2022-09-04 04:07] LABS: TOTAL PROTEIN 5.9 GM/DL (6.4-8.2)
[2022-09-04 04:09] LABS: BILIRUBIN,TOTAL 0.7 MG/DL (0.1-1.0)
[2022-09-04 04:11] LABS: CREATININE SERUM 1.98 MG/DL (0.60-1.30)
[2022-09-04 04:14] LABS: MAGNESIUM 1.9 MG/DL (1.6-2.4)
[2022-09-04] MEDS: POTASSIUM CL 10MEQ/50ML IVPB 50 ML IV SCH (04:30)
[2022-09-04] MEDS: KCL 20 MEQ TAB (K-DUR) PO SCH (04:30)
[2022-09-04] MEDS: MAGNESIUM 1 GM/100 ML IVPB 100 ML IV SCH (04:30)
[2022-09-04] MEDS: inSUlin ASPART (NovoLOG) 1 UNIT/0.01 ML (CHARGE PER UNIT) SC SCH ×4 (06:22→21:27)
[2022-09-04] MEDS: FUROSEMIDE 40 MG/4 ML INJ (LASIX) IVP SCH (06:23)
--- NOTE | 2022-09-04 08:04 | Progress Note ---
ANDREY FORD 09/04/22 0804: Subjective Date Seen by a Provider: Sep 04, 2022 Time Seen by a Provider: 07:30 Subjective/Events-last exam 82 F with pmh of chf, copd, a fibb is on day 3 of admission for acute respiratory failure resting comfortably in bed. Denies any pain, fever, chills, n/v, or troubles with BMs. Claims she is fatigued and SOB. Had 1260cc drained via thoracentesis yesterday that was tolerated well. Review of Systems General: No Chills, No Night Sweats HEENT: No Head Aches, No Dysphasia Pulmonary: Dyspnea, Cough Cardiovascular: Edema; No: Chest Pain, Palpitations Gastrointestinal: No: Nausea, Vomiting, Abdominal Pain Genitourinary: No Dysuria, No Incontinence Musculoskeletal: leg pain Neurological: Weakness, Other (flat affect with minimal engagement) Objective Exam Last Set of Vital Signs Vital Signs Date Time Temp Pulse Resp B/P (MAP) Pulse Ox O2 Delivery O2 Flow Rate FiO2 09/04/22 07:08 97 Nasal Cannula 4.00 09/04/22 06:00 99 24 126/65 (85) 09/04/22 03:25 37.3 Capillary Refill : Less Than 3 Seconds I&O Intake and Output 09/03/22 23:59 Intake Total 1360 ml Output Total 850 ml Balance 510 ml Intake Oral 910 ml IV Total 450 ml Output Urine Total 850 ml General: Alert, Other (mild engagment ) HEENT: Atraumatic, PERRLA Neck: Supple, No LAD Lungs: Other (wheezes in right lung dillon with mild increase in air flow of left lung field) Heart: Other (irregularly irregular ) Abdomen: Normal Bowel Sounds, No Tenderness Extremities: Other (BL LE edema, radial and doraslis pedis pulse 3+ BL) Skin: No Rashes, No Significant Lesion Neuro: Other (SOB with speech ) Psych/Mental Status: Other (flat affect) Results Lab Laboratory Tests 09/03/22 10:08: Glucometer 209H 09/03/22 11:31: Body Fluid Source PLEURAL, Body Fluid Color YELLOW, Body Fluid Appearance MOD CLDY, Body Fluid WBC 0.108, Body Fluid RBC 0.009, Body Fl Polynuclear WBCs (%)(Auto) 35.2, Body Fluid Mononuclear Cells % Auto 64.8, Body Fluid Slide Review Yes, Body Fluid Glucose 208, Body Fluid Total Protein 3.2 09/03/22 14:35: Glucometer 207H 09/03/22 19:40: Hemoglobin 8.7L, Hematocrit 28L 09/03/22 20:07: Glucometer 256H 09/04/22 03:21: White Blood Count 13.8H, Red Blood Count 3.04L, Hemoglobin 8.6L, Hematocrit 27L, Mean Corpuscular Volume 90, Mean Corpuscular Hemoglobin 28, Mean Corpuscular Hemoglobin Concent 32, Red Cell Distribution Width 17.2H, Platelet Count 303, Mean Platelet Volume 11.2, Immature Granulocyte % (Auto) 2, Neutrophils (%) (Auto) 84H, Lymphocytes (%) (Auto) 8L, Monocytes (%) (Auto) 6, Eosinophils (%) (Auto) 1, Basophils (%) (Auto) 0, Neutrophils # (Auto) 11.5H, Lymphocytes # (Auto) 1.1, Monocytes # (Auto) 0.8, Eosinophils # (Auto) 0.1, Basophils # (Auto) 0.0, Immature Granulocyte # (Auto) 0.2H, Sodium Level 139, Potassium Level 4.4, Chloride Level 101, Carbon Dioxide Level 23, Anion Gap 15H, Blood Urea Nitrogen 46H, Creatinine 1.98H, Estimat Glomerular Filtration Rate 25, BUN/Creatinine Ratio 23, Glucose Level 241H, Calcium Level 8.5, Corrected Calcium 9.5, Phosphorus Level 2.0L, Magnesium Level 1.9, Total Bilirubin 0.7, Aspartate Amino Transf (AST/SGOT) 37H, Alanine Aminotransferase (ALT/SGPT) 40, Alkaline Phosphatase 113, Total Protein 5.9L, Albumin 2.8L 09/04/22 06:07: Glucometer 226H Microbiology 09/03/22 Gram Stain - Final, Resulted 09/03/22 Anaerobic Culture, Resulted Pending 09/03/22 Body Fluid Culture, Resulted Pending 09/02/22 MRSA Screen - Final, Complete MRSA not isolated Assessment/Plan Assessment/Plan Assess & Plan/Chief Complaint 1. Acute on Chronic Respiratory Failure--continue supplemental O2 therapy 2. Atrial Fibrillation with RVR--continue oral cardizem, 3. Decompensated Diastolic Congestive Heart Failure--IV lasix and monitor BUN/Cr 4. Acute on Chronic Anemia- continue monitor H/H, pt to receive another transfusion of PRBCs 5. Dibetes mellitus--continue ssi 6. Acute on Chronic Renal Insufficiency--monitor BUN/Cr with diuresis 7. Debility--will need PT/OT once more medically stable 8. History of Colon Cancer--stopped treatment early 9. COPD--oxygen requiring, continue on MAT protocol 10. stroke prohylaxis- continue on eliquis per cardio 11. Consult surgery for bronchoscopy v.s thoracentesis 12. PNA- start on rocephin and azithromycin Final Diagnosis 1. Acute on Chronic Respiratory Failure--continue supplemental O2 therapy 2. Atrial Fibrillation with RVR--continue oral cardizem, 3. Decompensated Diastolic Congestive Heart Failure--IV lasix and monitor BUN/C r 4. Acute on Chronic Anemia- continue monitor H/H, transfuse if Hgb < 8 5. Dibetes mellitus--start on long and short acting insulin 6. Acute on Chronic Renal Insufficiency--monitor BUN/Cr with diuresis, decrease lasix, start NS w/ KCl 7. Debility--will need PT/OT once more medically stable 8. History of Colon Cancer--stopped treatment early, did not obtain fecal occult blood 9. COPD--oxygen requiring, continue on MAT protocol 10. stroke prohylaxis- continue on eliquis per cardio and H/H has stabilized 11. PNA- continue on rocephin and azithromycin, start solu-medrol therapy 12. Pleural effusion- repeat CXR today TAO REED DO 09/04/22 1105: Supervisory-Addendum Brief Verification & Attestation Participated in pt care: history, physical Personally performed: exam, history, supervision of care Care discussed with: Medical Student Procedures: n/a Results interpretation: Verified all documentation Verification and Attestation of Medical Student E/M Service A medical student performed and documented this service in my presence. I reviewed and verified all information documented by the medical student and made modifications to such information, when appropriate. I personally performed the physical exam and medical decision making. Tao Reed, Sep 04, 2022,11:03 Had thoracentesis yesterday. Left lung with some worsening infiltrates. Very weak and tired. Will decrease IV lasix to 40mg daily due to worsening BUN/Cr and add IVFs at 75cc/hr due to poor oral intake. Continue rocephin/zithromax--cultures pending on pleural effusion. Add solumedrol for wheezing. Resume eliquis today--was held yesterday for thoracentesis. ANDREY FORD Sep 04, 2022 08:04 TAO REED DO Sep 04, 2022 11:05
--- NOTE | 2022-09-04 08:26 | Tele-ICU Progress Note ---
Subjective Date Seen by a Provider: Sep 04, 2022 Time Seen by a Provider: 08:24 Subjective/Events-last exam This virtual visit was conducted using real time audio/video. admitted for CHF, has pleural fluid, tapped yesterday, borderline extudate with TP 3.2 glu 208, still has SOB, startedf on SoluMedrol, still has considerable leg edema and received IV Lasix, pt is lethargic CXR from yesterday shows obvious CHF Pt is DNR/DNI Sepsis Event Evaluation Height, Weight, BMI Height: '" Weight: lbs. oz. kg; 40.27 BMI Method: Exam Exam Patient acknowledged, consented, and participated in this virtual visit which was conducted using real time audio/video Vital Signs Date Time Temp Pulse Resp B/P (MAP) Pulse Ox O2 Delivery O2 Flow Rate FiO2 09/04/22 07:08 97 Nasal Cannula 4.00 09/04/22 07:00 93 09/04/22 06:00 99 24 126/65 (85) 96 Nasal Cannula 4.00 09/04/22 05:00 95 24 118/70 (86) 96 Nasal Cannula 4.00 09/04/22 04:00 98 22 129/76 (93) 96 Nasal Cannula 4.00 09/04/22 03:25 37.3 Nasal Cannula 4.00 09/04/22 03:25 95 Nasal Cannula 4.00 09/04/22 03:00 98 22 129/74 (92) 96 Nasal Cannula 4.00 09/04/22 02:00 98 24 128/98 (108) 96 Nasal Cannula 4.00 09/04/22 01:37 98 Nasal Cannula 4.00 09/04/22 01:00 101 09/04/22 01:00 92 16 137/91 (106) 95 Nasal Cannula 4.00 09/04/22 00:10 37.2 Nasal Cannula 4.00 09/04/22 00:00 96 Nasal Cannula 4.00 09/04/22 00:00 92 29 145/75 (98) 94 Nasal Cannula 4.00 09/03/22 23:00 93 23 155/76 (102) 96 Nasal Cannula 4.00 09/03/22 22:45 97 Nasal Cannula 4.00 09/03/22 22:00 93 25 127/79 (95) 96 Nasal Cannula 4.00 09/03/22 21:00 98 32 137/70 (92) 95 Nasal Cannula 4.00 09/03/22 20:00 36.6 09/03/22 20:00 95 Nasal Cannula 4.00 09/03/22 20:00 98 20 144/76 (98) 95 Nasal Cannula 4.00 09/03/22 19:00 37.1 100 22 113/68 (83) 95 Nasal Cannula 4.00 09/03/22 19:00 93 09/03/22 18:58 96 Nasal Cannula 4.00 09/03/22 18:00 101 23 132/78 (96) 93 Nasal Cannula 4.00 09/03/22 17:00 95 16 127/86 (100) 95 Nasal Cannula 4.00 09/03/22 16:35 35.4 102 24 120/72 94 Nasal Cannula 4.00 09/03/22 16:00 97 Nasal Cannula 4.00 09/03/22 16:00 96 18 128/72 (90) 95 Nasal Cannula 4.00 09/03/22 15:55 37.0 09/03/22 15:00 85 25 130/72 (91) 95 Nasal Cannula 4.00 09/03/22 14:46 95 Nasal Cannula 4.00 09/03/22 14:03 36.4 87 22 105/80 96 Nasal Cannula 4.00 09/03/22 14:00 90 27 105/80 (88) 90 Nasal Cannula 4.00 09/03/22 13:41 35.8 85 16 118/65 Nasal Cannula 4.00 09/03/22 13:00 86 09/03/22 13:00 85 29 118/65 (82) 95 Nasal Cannula 4.00 09/03/22 12:12 35.9 09/03/22 12:00 98 28 106/70 (82) 96 Nasal Cannula 4.00 09/03/22 12:00 94 Nasal Cannula 4.00 09/03/22 11:00 100 39 111/65 (80) 97 Nasal Cannula 4.00 09/03/22 10:34 95 Nasal Cannula 4.00 09/03/22 10:00 98 35 127/66 (86) 95 Nasal Cannula 4.00 09/03/22 09:00 107 31 166/46 (86) 96 Nasal Cannula 4.00 I & O 09/04/22 07:00 Intake Total 1260 ml Output Total 820 ml Balance 440 ml Height & Weight Height: '" Weight: lbs. oz. kg; 40.27 BMI Method: General Appearance: Moderate Distress (respiratory) Neck: Supple Respiratory: Decreased Breath Sounds, Respiratory Distress, Wheezing Cardiovascular: Irregularly Irregular, Tachycardia, Other (No crackles according to RN) Capillary Refill: Less Than 3 Seconds Peripheral Pulses: 1+ Dorsalis Pedis (R), 1+ Left Dors-Pedis (L) (See free text) Gastrointestinal: normal bowel sounds, non tender, soft, distended (probably body habitus), tenderness (epigastric and periumbilical with deep palpation ) Extremity: Non Tender, No Calf Tenderness, Pedal Edema (3 plus) Neurologic/Psychiatric: Disoriented (mildy obtunded) Skin: Warm/Dry Results Lab Laboratory Tests 09/02/22 15:20 09/02/22 15:45 09/03/22 01:50 09/03/22 04:10 09/03/22 19:40 09/04/22 03:21 Assessment/Plan Assessment/Plan CHF, pleural effusion, probably from CHF, needs to stay in ICU, continue to di ureis, started on IV Medrol, continue Lasix, po cardizem, azithromycin, Rochephin Working hard to breathe will add BiPAP 12/5, FIO2 50% Pt is DNR/DNI Critical Care: Critically Ill Patient Time spent with patient (mins): 25 RUPINDER PEREZ MD Sep 04, 2022 08:26
--- NOTE | 2022-09-04 08:47 | Progress Note - Surgery ---
KOKOSARAHGRACE Gaines 09/04/22 0847: Subjective Date Seen by a Provider: Sep 04, 2022 Time Seen by a Provider: 08:39 Subjective/Events-last exam Pt is resting comfortably in bed. Pt states that her SOB is better today. Pt was transfused yesterday with 1U PRBCs due to low Hgb but today still states that she feels weak. Pt states that she has not had a cough but in room she experienced a cough that seemed to be productive. Per cardiology note, pt is recommended to be transfused with another 1U PRBC due to symptomatic anemia. Pt states that she is still having no issues with voiding or BMs. Pt denies nausea, vomiting, CP, and lightheadedness. Review of Systems General: No Chills, No Night Sweats HEENT: No Head Aches, No Visual Changes Pulmonary: No Dyspnea, No Cough Cardiovascular: No: Chest Pain, Lt Headedness Gastrointestinal: No: Nausea, Vomiting, Abdominal Pain Genitourinary: No Dysuria, No Hematuria Musculoskeletal: No: neck pain, shoulder pain Neurological: Weakness Objective Exam Vital Signs Date Time Temp Pulse Resp B/P (MAP) Pulse Ox O2 Delivery O2 Flow Rate FiO2 09/04/22 08:00 104 15 139/64 (89) 95 Nasal Cannula 4.00 09/04/22 07:08 97 Nasal Cannula 4.00 09/04/22 07:00 95 25 137/63 (87) 97 Nasal Cannula 4.00 09/04/22 07:00 93 09/04/22 06:00 99 24 126/65 (85) 96 Nasal Cannula 4.00 09/04/22 05:00 95 24 118/70 (86) 96 Nasal Cannula 4.00 09/04/22 04:00 98 22 129/76 (93) 96 Nasal Cannula 4.00 09/04/22 03:25 37.3 Nasal Cannula 4.00 09/04/22 03:25 95 Nasal Cannula 4.00 09/04/22 03:00 98 22 129/74 (92) 96 Nasal Cannula 4.00 09/04/22 02:00 98 24 128/98 (108) 96 Nasal Cannula 4.00 09/04/22 01:37 98 Nasal Cannula 4.00 09/04/22 01:00 101 09/04/22 01:00 92 16 137/91 (106) 95 Nasal Cannula 4.00 09/04/22 00:10 37.2 Nasal Cannula 4.00 09/04/22 00:00 96 Nasal Cannula 4.00 09/04/22 00:00 92 29 145/75 (98) 94 Nasal Cannula 4.00 09/03/22 23:00 93 23 155/76 (102) 96 Nasal Cannula 4.00 09/03/22 22:45 97 Nasal Cannula 4.00 09/03/22 22:00 93 25 127/79 (95) 96 Nasal Cannula 4.00 09/03/22 21:00 98 32 137/70 (92) 95 Nasal Cannula 4.00 09/03/22 20:00 36.6 09/03/22 20:00 95 Nasal Cannula 4.00 09/03/22 20:00 98 20 144/76 (98) 95 Nasal Cannula 4.00 09/03/22 19:00 37.1 100 22 113/68 (83) 95 Nasal Cannula 4.00 09/03/22 19:00 93 09/03/22 18:58 96 Nasal Cannula 4.00 09/03/22 18:00 101 23 132/78 (96) 93 Nasal Cannula 4.00 09/03/22 17:00 95 16 127/86 (100) 95 Nasal Cannula 4.00 09/03/22 16:35 35.4 102 24 120/72 94 Nasal Cannula 4.00 09/03/22 16:00 97 Nasal Cannula 4.00 09/03/22 16:00 96 18 128/72 (90) 95 Nasal Cannula 4.00 09/03/22 15:55 37.0 09/03/22 15:00 85 25 130/72 (91) 95 Nasal Cannula 4.00 09/03/22 14:46 95 Nasal Cannula 4.00 09/03/22 14:03 36.4 87 22 105/80 96 Nasal Cannula 4.00 09/03/22 14:00 90 27 105/80 (88) 90 Nasal Cannula 4.00 09/03/22 13:41 35.8 85 16 118/65 Nasal Cannula 4.00 09/03/22 13:00 86 09/03/22 13:00 85 29 118/65 (82) 95 Nasal Cannula 4.00 09/03/22 12:12 35.9 09/03/22 12:00 98 28 106/70 (82) 96 Nasal Cannula 4.00 09/03/22 12:00 94 Nasal Cannula 4.00 09/03/22 11:00 100 39 111/65 (80) 97 Nasal Cannula 4.00 09/03/22 10:34 95 Nasal Cannula 4.00 09/03/22 10:00 98 35 127/66 (86) 95 Nasal Cannula 4.00 09/03/22 09:00 107 31 166/46 (86) 96 Nasal Cannula 4.00 I & O 09/04/22 07:00 Intake Total 1260 ml Output Total 820 ml Balance 440 ml Capillary Refill : Less Than 3 Seconds General Appearance: No Apparent Distress, Obese HEENT: PERRL/EOMI Neck: Normal Inspection, Supple Respiratory: Crackles (present diffusely L lung ), Wheezing (expiratory ) Cardiovascular: No Murmur, Irregularly Irregular (afib), Tachycardia Gastrointestinal: soft, tenderness (RLQ and lower periumbilical with deep palpation ) Extremity: Pedal Edema (3 plus), Other (tenderness with palpation and movement of R foot and nam, improved from yesterday ) Neurologic/Psychiatric: Alert, Oriented x3, Normal Mood/Affect Skin: Warm/Dry, Erythema (R lower extremity from slightly above dorsum of foot to a few inches below knee- improved from yesterday) Lymphatic: No Adenopathy Results Lab Laboratory Tests 09/03/22 10:08: Glucometer 209H 09/03/22 11:31: Body Fluid Source PLEURAL, Body Fluid Color YELLOW, Body Fluid Appearance MOD C LDY, Body Fluid WBC 0.108, Body Fluid RBC 0.009, Body Fl Polynuclear WBCs (%)(Auto) 35.2, Body Fluid Mononuclear Cells % Auto 64.8, Body Fluid Slide Review Yes, Body Fluid Glucose 208, Body Fluid Total Protein 3.2 09/03/22 14:35: Glucometer 207H 09/03/22 19:40: Hemoglobin 8.7L, Hematocrit 28L 09/03/22 20:07: Glucometer 256H 09/04/22 03:21: White Blood Count 13.8H, Red Blood Count 3.04L, Hemoglobin 8.6L, Hematocrit 27L, Mean Corpuscular Volume 90, Mean Corpuscular Hemoglobin 28, Mean Corpuscular Hemoglobin Concent 32, Red Cell Distribution Width 17.2H, Platelet Count 303, Mean Platelet Volume 11.2, Immature Granulocyte % (Auto) 2, Neutrophils (%) (Auto) 84H, Lymphocytes (%) (Auto) 8L, Monocytes (%) (Auto) 6, Eosinophils (%) (Auto) 1, Basophils (%) (Auto) 0, Neutrophils # (Auto) 11.5H, Lymphocytes # (Auto) 1.1, Monocytes # (Auto) 0.8, Eosinophils # (Auto) 0.1, Basophils # (Auto) 0.0, Immature Granulocyte # (Auto) 0.2H, Sodium Level 139, Potassium Level 4.4, Chloride Level 101, Carbon Dioxide Level 23, Anion Gap 15H, Blood Urea Nitrogen 46H, Creatinine 1.98H, Estimat Glomerular Filtration Rate 25, BUN/Creatinine Ratio 23, Glucose Level 241H, Calcium Level 8.5, Corrected Calcium 9.5, Phosphorus Level 2.0L, Magnesium Level 1.9, Total Bilirubin 0.7, Aspartate Amino Transf (AST/SGOT) 37H, Alanine Aminotransferase (ALT/SGPT) 40, Alkaline Phosphatase 113, Total Protein 5.9L, Albumin 2.8L 09/04/22 06:07: Glucometer 226H Microbiology 09/03/22 Gram Stain - Final, Resulted 09/03/22 Anaerobic Culture, Resulted Pending 09/03/22 Body Fluid Culture, Resulted Pending 09/02/22 MRSA Screen - Final, Complete MRSA not isolated Assessment/Plan Assessment/Plan Assessment/Plan Acute on Chronic Respiratory Failure - secondary to pleural effusion Atrial Fibrillation with RVR, Decompensated Diastolic Congestive Heart Failure Acute on Chronic Anemia Acute on Chronic Renal Insufficiency Diabetes Mellitus History of Colon Cancer and R hemicoloectomy by Dr. Cardoza COPD PNA O2 dependence Pt's breathing seems much improved following thoracentesis yesterday. Still awaiting final results of culture, cell count, and cytology of the pleural fluid. Will check CXR once resulted to check pleural effusion. Will continue to monitor. ANDREW HOBBS DO 09/04/22 0959: Subjective Time Seen by a Provider: 09:11 Subjective/Events-last exam Pt seen and examined, she is lying in bed in no acute distress. She denies SOB. Review of Systems Pulmonary: No Dyspnea, No Cough Cardiovascular: No: Chest Pain Gastrointestinal: No: Nausea, Vomiting, Abdominal Pain Genitourinary: No Dysuria, No Hematuria Objective Exam General Appearance: No Apparent Distress, Obese HEENT: PERRL/EOMI Respiratory: No Accessory Muscle Use, No Respiratory Distress, Crackles (present diffusely L lung ), Wheezing (expiratory ) Cardiovascular: Irregularly Irregular (afib), Tachycardia, Other (I listened but could not hear the murmur, not enough time between beats to hear) Gastrointestinal: soft, tenderness (RLQ and lower periumbilical with deep palpation ) Extremity: Pedal Edema (3 plus), Other (tenderness with palpation and movement of R foot and nam, improved from yesterday ) Neurologic/Psychiatric: Alert, Oriented x3 Skin: Warm/Dry, Erythema (R lower extremity from slightly above dorsum of foot to a few inches below knee- improved from yesterday) Assessment/Plan Assessment/Plan Assessment/Plan Acute on Chronic Respiratory Failure - secondary to pleural effusion Atrial Fibrillation with RVR, Decompensated Diastolic Congestive Heart Failure Acute on Chronic Anemia Acute on Chronic Renal Insufficiency Diabetes Mellitus History of Colon Cancer and R hemicoloectomy by Dr. Cardoza COPD PNA O2 dependence Pt's breathing seems much improved following thoracentesis yesterday. Still awaiting final results of culture, cell count, and cytology of the pleural flu id. Will check CXR once resulted to check pleural effusion. Will continue to monitor. Unfortunately, when I reviewed the CXR the left lung appears worse than yesterday. This is probably a reaccumulation of fluid; however, pt does not appear to be in any distress or shortness of breath. Will monitor and can do another thoracentesis if needed. Pt may need increased diuretics or other medical intervention to help before tapping. Supervisory-Addendum Brief Verification & Attestation Participated in pt care: history, MDM, physical Personally performed: exam, history, MDM, supervision of care Care discussed with: Medical Student Procedures: n/a Verification and Attestation of Medical Student E/M Service A medical student performed and documented this service. I then reviewed and verified all information documented by the medical student and made modifications to such information, when appropriate. I personally performed a physical exam, medical decision making and then discussed any differences between the notes and made revisions as necessary to create one note. Andrew Hobbs , 09/04/22 , 09:59 GRACE GOLDEN Sep 04, 2022 08:47 ANDREW HOBBS DO Sep 04, 2022 09:59
[2022-09-04] MEDS: PANTOPRAZOLE 40 MG (PROTONIX) TAB PO SCH (09:37)
[2022-09-04] MEDS: AZITHROMYCIN 250 MG TAB (ZITHROMAX) PO SCH (09:37)
[2022-09-04] MEDS: cefTRIAXone 1 GM PRE-MIX 50 ML IV SCH (09:37)
[2022-09-04] MEDS: APIXABAN 2.5 MG (ELIQUIS) TABLET PO SCH ×2 (09:38→21:26)
[2022-09-04] MEDS: meTOproloL SUCCINATE 50 MG (TOPROL XL) TAB PO SCH (09:38)
[2022-09-04] MEDS: 1/2 NS W/KCL 20 MEQ/L 1,000 ML IV SCH ×2 (09:41→23:25)
--- NOTE | 2022-09-04 09:48 | Diagnostic Imaging Report ---
INDICATION: Pleural effusion. TECHNIQUE: Single view chest 9:18 AM. CORRELATION STUDY: 09/03/2022 FINDINGS: Heart size, mediastinum and vasculature overall appear more prominent increased from prior. Increasing opacities throughout the left lung. Also appears to be increasing severity of left pleural effusion. Right lung with perhaps minimal infiltrate or edema at the lung bases along with small effusion. IMPRESSION: 1. Overall appears to be adverse change with increasing severity of edema and likely effusion left lung. Dictated by: Dictated on workstation # [id number]
--- NOTE | 2022-09-04 10:50 | Progress Note - Cardiology ---
Cardiology SOAP Progress Note Subjective: Sitting up in bed LE swelling has improved No c/o CP Feels SOB has improved Objective: I&O/Vital Signs 09/06/22 09/07/22 09/07/22 09/07/22 23:55 01:00 02:28 04:00 Temp 36.4 Pulse 80 90 83 Resp 20 25 B/P (MAP) 151/77 (101) 161/90 (113) Pulse Ox 98 100 99 O2 Delivery High Flow N/C Nasal Cannula High Flow N/C O2 Flow Rate 5.00 4.00 5.00 09/07/22 09/07/22 09/07/22 09/07/22 04:01 06:46 07:34 07:59 Temp 36.5 36.8 Pulse 86 85 Resp 21 B/P (MAP) 149/70 (96) Pulse Ox 98 99 O2 Delivery Nasal Cannula Nasal Cannula O2 Flow Rate 4.00 4.00 09/07/22 00:00 Intake Total 1090 ml Output Total 850 ml Balance 240 ml Constitutional: AAO x 3, well-developed Respiratory: other Cardiovascular: irregularly irregular, tachycardia, S1 and S2, systolic murmur Gastrointestional: soft, audible bowel sounds Extremities: other Neurologic/Psychiatric: oriented x 3, other Skin: No rash on exposed areas, No ulcerations on exposed areas Results/Procedures: Labs Laboratory Tests 09/06/22 14:27: Glucometer 198H 09/06/22 16:45: Glucometer 172H 09/06/22 20:35: Glucometer 239H 09/07/22 05:12: White Blood Count 25.2H, Red Blood Count 3.35L, Hemoglobin 9.4L, Hematocrit 31L, Mean Corpuscular Volume 92, Mean Corpuscular Hemoglobin 28, Mean Corpuscular Hemoglobin Concent 31L, Red Cell Distribution Width 16.6H, Platelet Count 338, Mean Platelet Volume 10.9, Immature Granulocyte % (Auto) 1, Neutrophils (%) (Auto) 95H, Lymphocytes (%) (Auto) 2L, Monocytes (%) (Auto) 3, Eosinophils (%) (Auto) 0, Basophils (%) (Auto) 0, Neutrophils # (Auto) 23.9H, Lymphocytes # (Auto) 0.4L, Monocytes # (Auto) 0.7, Eosinophils # (Auto) 0.0, Basophils # (Auto) 0.0, Immature Granulocyte # (Auto) 0.2H, Sodium Level 138, Potassium Level 4.6, Chloride Level 104, Carbon Dioxide Level 24, Anion Gap 10, Blood Urea Nitrogen 50H, Creatinine 1.98H, Estimat Glomerular Filtration Rate 25, BUN/Creatinine Ratio 25, Glucose Level 158H, Calcium Level 9.0, Corrected Calci um 10.0, Phosphorus Level 3.2, Magnesium Level 2.2, Total Bilirubin 0.3, Aspartate Amino Transf (AST/SGOT) 47H, Alanine Aminotransferase (ALT/SGPT) 57H, Alkaline Phosphatase 129, Total Protein 5.8L, Albumin 2.8L Microbiology 09/03/22 Gram Stain - Final, Resulted 09/03/22 Anaerobic Culture, Resulted Pending 09/03/22 Body Fluid Culture - Final, Resulted No growth 09/02/22 MRSA Screen - Final, Complete MRSA not isolated Procedures NAME: NORY CASTILLO [facility] REC#: [id number] PT STATUS: ADM IN : 1940 PHYSICIAN: TAO REED DO ADMIT DATE: 09/02/22/ICU Draft Date of Exam:09/04/22 CHEST 1 VIEW, AP/PA ONLY INDICATION: Pleural effusion. TECHNIQUE: Single view chest 9:18 AM. CORRELATION STUDY: 09/03/2022 FINDINGS: Heart size, mediastinum and vasculature overall appear more prominent increased from prior. Increasing opacities throughout the left lung. Also appears to be increasing severity of left pleural effusion. Right lung with perhaps minimal infiltrate or edema at the lung bases along with small effusion. IMPRESSION: 1. Overall appears to be adverse change with increasing severity of edema and likely effusion left lung. Dictated on workstation # [id number] Dict: 09/04/22 0945 Trans: 09/04/22 0948 CVB [id number] Interpreted by: ALEENA RIVER DO Electronically signed by: A/P: Assessment: Ac resp failure, likely related to noncompliance with med and other factors noted below Ac diastolic CHF - Echocardiogram of Sep 30, 2020 showed LVEF 60-65%. PASP 35-40mmHg - Echocardiogram of 07-16-22 showed LVEF 50-55%. Mod calcified mitral valve annulus Marked anemia - managed by medical services - received 1 unit PRBC's overnight A Fib with RVR - rate improved - first dx on ECG of 07-13-22 - Holter 07/16/22: A fib with avg vent rate 96 bpm, frequent isolated and couple PVCs, no VT - MPI of Sep 25, 2020: No evidence of significant myocardial ischemia or infarction on this study. Normal regional wall motion. Normal global left ventricular systolic function with a calculated ejection fraction of 72%. - Recommend sleep eval for eval for YEISON. Discussed. She has refused in the past DM II - managed by PCP CKD-4 - managed by PCP Obesity - with BMI approx 39 Hypertension Hyperlipidemia - treated with statins and managed by pcp Colon CA - right hemicolectomy by Dr. Cardoza for stage IV colon, followed by Dr. Piedra Plan: * Advised compliance with meds * Continue iv diuretics to treat decomp CHF * Give additional Lasix this morning * Continue Oral dilt to control ventricular rate * Monitor lab closely * Continue apixaban for stroke prophylaxis * HTN and tachycardia * continue current regimen * Blood transfusion to treat her marked anemia that is likely contributing to shortness of breath * H/H has improved following 2 units PRBC [place] Sep 04, 2022 10:50
[2022-09-04] MEDS: methylPREDNISolone 40 MG/ML (Solu-MEDROL) VIAL IV SCH ×3 (11:00→23:25)
[2022-09-04] MEDS ORDERED: FUROSEMIDE 40 MG/4 ML INJ (LASIX) IVP NR (11:15)
--- NOTE | 2022-09-04 11:19 | Physical Therapy Evaluation ---
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 3-Pgrpxkpgyw-xrvbnvh completes the activity by him/herself with no assistance from a helper. 5-Set-up or Clean-up Assistance-helper sets up or cleans up; patient completes activity. [place] assists only prior to or following the activity. 4-Supervision or Touching Assistance-helper provides verbal cues and/or touching/steadying and/or contact guard assistance as patient completes activity. Assistance may be provided throughout the activity or intermittently. 3-Partial/Moderate Assistance-helper does LESS THAN HALF the effort. [place] lifts, holds or supports trunk or limbs, but provides less than half the effort. 2-Substantial/Maximal Assistance-helper does MORE THAN HALF the effort. [place] lifts or holds trunk or limbs and provides more than half the effort. 9-Nduqhhkvs-rblaib does ALL the effort. Patient does none of the effort to complete the activity. Or, the assistance of 2 or more helpers is required for the patient to complete the activity. If activity was not attempted, code reason: 7-Patient Refused. 9-Not Applicable-not attempted and the patient did not perform the activity before the current illness, exacerbation or injury. 10-Not Attempted due to Environmental Limitations-(lack of equipment, weather restraints, etc.). 88-Not Attempted due to Medical Conditions or Safety Concerns. Bed Mobility: 3 Transfers (B,C,W/C): 3 Gait: 3 Indoor Mobility (Ambulation): Independent Stairs: Not [place] Prior Devices Use: Walker PT Evaluation-Current Subjective Patient in bed pre-tx, reports no pain, refuses to stand up or sit at EOB but agrees to PT exercises in bed. Pt/Family Goals none stated Objective Patient Orientation: Person, Place, Situation Attachments: [place] Catheter, IV ROM/Strength ROM Lower Extremities WNl Strength Lower Extremities patient would not participate in this but she seems to have at lest 3/5 grossly bilaterally. Integumentary/Posture Bladder Incontinence: [place] Cath Sensory Hearing: Functional Sensation Right Lower Extremit: Intact Sensation Left Lower Extremity: Intact Treatment LE Strengthening (AP x20, Heel Slides x10, Quad Set x15) Assessment/Needs Patient does not want to move out of bed and gets SOB with exercises even though O2 remains 93%. Patient BLE have weakness and needs verbal encouragement to do PT. Patient in bed post-tx with nurse call, phone, tray, all needs met. Rehab Potential: Fair PT Mental Health Worker Goals Jail Goals PT Jail Goals Time Frame: Sep 11, 2022 Roll Left & Right (QC): 4 (CGA) Sit to Lying (QC): 4 (CGA) Lying-Sitting on Side/Bed(QC): 4 (CGA) Sit to Stand (QC): 4 (CGA) Chair/Ywi-js-Wqlzy Xfer(QC): 4 (CGA) Toilet Transfer (QC): 4 (CGA) Walk 10 feet (QC): 4 (CGA) Walk 50ft with 2 Turns (QC): 4 (CGA) PT Plan Problem List Problem List: Activity Tolerance, Functional Strength, Safety, Balance, Gait, Transfer, Bed Mobility, ROM Treatment/Plan Treatment Plan: Continue Plan of Care Treatment Plan: Bed Mobility, Education, Functional Activity Reddy, Functional Strength, Gait, Safety, Therapeutic Exercise, Transfers Treatment Duration: Sep 11, 2022 Frequency: 6 times per week Estimated Hrs Per Day: .25 hour per day Patient and/or Family Agrees t: Yes Safety Risks/Education Patient Education: Correct Positioning, Safety Issues Teaching Recipient: Patient Teaching Methods: Demonstration, Discussion Response to Teaching: Reinforcement Needed Discharge Recommendations Plan Patient will perform bed mobility and transfer training, balance and endurance training, gait training and functional strengthening in order to be more independent at home. Therapy Discharge Recommendati: Scheduled Assistance, Home & Family, Post Acute PT Time Time In: 1101 Time Out: 1110 DATE: Sep 04, 2022 Total Billed Treatment Time: 9 Total Billed Treatment 1 visit EVM 9' KRTEK,JEREMIAS PT Sep 04, 2022 11:19
[2022-09-04 14:53] VITALS: BP 146/86
--- NOTE | 2022-09-04 17:59 | Progress Note - Cardiology ---
Cardiology SOAP Progress Note Subjective: On BiPAP Communication difficult Does not report cp or palp or syncope Shortness of breath and gen weakness and malaise have persisted Objective: I&O/Vital Signs 09/04/22 09/04/22 09/04/22 09/04/22 06:00 07:00 07:00 07:08 Pulse 99 93 95 Resp 24 25 B/P (MAP) 126/65 (85) 137/63 (87) Pulse Ox 96 97 97 O2 Delivery Nasal Cannula Nasal Cannula Nasal Cannula O2 Flow Rate 4.00 4.00 4.00 09/04/22 09/04/22 09/04/22 09/04/22 08:00 08:00 08:00 09:00 Temp 36.3 Pulse 104 96 Resp 15 12 B/P (MAP) 139/64 (89) 139/64 (89) Pulse Ox 95 95 96 O2 Delivery Nasal Cannula Nasal Cannula Nasal Cannula O2 Flow Rate 4.00 4.00 4.00 09/04/22 09/04/22 09/04/22 09/04/22 10:00 10:27 11:00 12:00 Temp 37.0 Pulse 103 121 Resp 19 22 B/P (MAP) 136/67 (90) 133/89 (104) Pulse Ox 99 96 94 O2 Delivery Nasal Cannula Nasal Cannula Nasal Cannula O2 Flow Rate 4.00 4.00 4.00 09/04/22 09/04/22 09/04/22 09/04/22 12:00 12:00 13:00 13:00 Pulse 111 120 115 Resp 26 30 B/P (MAP) 125/68 (87) 125/79 (94) Pulse Ox 96 95 95 O2 Delivery Nasal Cannula Nasal Cannula Nasal Cannula O2 Flow Rate 4.00 4.00 4.00 09/04/22 09/04/22 09/04/22 09/04/22 14:00 14:47 14:53 15:00 Pulse 113 112 112 Resp 31 31 30 B/P (MAP) 131/65 (87) 142/82 (102) Pulse Ox 96 97 99 99 O2 Delivery Nasal Cannula Nasal Cannula Nasal Cannula O2 Flow Rate 4.00 4.00 50.00 4.00 09/04/22 09/04/22 09/04/22 09/04/22 16:00 16:00 16:00 17:00 Temp 37.2 Pulse 109 108 Resp 30 22 B/P (MAP) 142/82 (102) 140/77 (98) Pulse Ox 99 96 98 O2 Delivery Nasal Cannula Nasal Cannula Nasal Cannula O2 Flow Rate 4.00 4.00 4.00 09/03/22 23:59 Intake Total 685 ml Output Total 350 ml Balance 335 ml Constitutional: AAO x 3, well-developed, other (on BiPAP) Respiratory: other (fair air entry, prolonged exp) Cardiovascular: irregularly irregular, tachycardia, S1 and S2, systolic murmur Gastrointestional: soft, audible bowel sounds Extremities: other Neurologic/Psychiatric: other (moves all limbs) Skin: No rash on exposed areas, No ulcerations on exposed areas Results/Procedures: Labs Laboratory Tests 09/03/22 19:40: Hemoglobin 8.7L, Hematocrit 28L 09/03/22 20:07: Glucometer 256H 09/04/22 03:21: Hemoglobin 8.6L, Hematocrit 27L, White Blood Count 13.8H, Red Blood Count 3.04L, Mean Corpuscular Volume 90, Mean Corpuscular Hemoglobin 28, Mean Corpuscular Hemoglobin Concent 32, Red Cell Distribution Width 17.2H, Platelet Count 303, Mean Platelet Volume 11.2, Immature Granulocyte % (Auto) 2, Neutrophils (%) (Auto) 84H, Lymphocytes (%) (Auto) 8L, Monocytes (%) (Auto) 6, Eosinophils (%) ( Auto) 1, Basophils (%) (Auto) 0, Neutrophils # (Auto) 11.5H, Lymphocytes # (Aut o) 1.1, Monocytes # (Auto) 0.8, Eosinophils # (Auto) 0.1, Basophils # (Auto) 0.0, Immature Granulocyte # (Auto) 0.2H, Sodium Level 139, Potassium Level 4.4, Chloride Level 101, Carbon Dioxide Level 23, Anion Gap 15H, Blood Urea Nitrogen 46H, Creatinine 1.98H, Estimat Glomerular Filtration Rate 25, BUN/Creatinine Ra jerod 23, Glucose Level 241H, Calcium Level 8.5, Corrected Calcium 9.5, Phosphorus Level 2.0L, Magnesium Level 1.9, Total Bilirubin 0.7, Aspartate Amino Transf (AST/SGOT) 37H, Alanine Aminotransferase (ALT/SGPT) 40, Alkaline Phosphatase 11 3, Total Protein 5.9L, Albumin 2.8L 09/04/22 06:07: Glucometer 226H 09/04/22 11:25: Glucometer 270H 09/04/22 15:18: Lab Scanned Report Transfusion Reaction Form Microbiology 09/03/22 Gram Stain - Final, Resulted 09/03/22 Anaerobic Culture, Resulted Pending 09/03/22 Body Fluid Culture - Preliminary, Resulted Culture In Progress 09/02/22 MRSA Screen - Final, Complete MRSA not isolated Laboratory Tests 09/03/22 01:50 09/03/22 04:10 09/03/22 19:40 09/04/22 03:21 A/P: Assessment: Ac resp failure, likely related to noncompliance with med and other factors noted below - worsening resp status, despite therapy, on 09/04/22 Ac diastolic CHF - Echocardiogram of Sep 30, 2020 showed LVEF 60-65%. PASP 35-40mmHg - Echocardiogram of 07-16-22 showed LVEF 50-55%. Mod calcified mitral valve annulus Marked anemia - managed by medical services - received 1 unit PRBC's overnight A Fib with RVR - rate improved - first dx on ECG of 07-13-22 - Holter 07/16/22: A fib with avg vent rate 96 bpm, frequent isolated and couple PVCs, no VT - MPI of Sep 25, 2020: No evidence of significant myocardial ischemia or infarction on this study. Normal regional wall motion. Normal global left vent ricular systolic function with a calculated ejection fraction of 72%. - Recommend sleep eval for eval for YEISON. Discussed. 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 Cardoza for stage IV colon, followed by Dr. Piedra Plan: * Reduce diuretics if renal function continues to deteriorate * Continue Oral dilt to control ventricular rate * Monitor lab closely * Continue apixaban for stroke prophylaxis * HTN and tachycardia * continue current regimen SHIN HERRERA MD FACP [facility] CCDS Sep 04, 2022 17:59
[2022-09-04 19:22] VITALS: BP 136/76
[2022-09-04 22:46] VITALS: BP 146/109
[2022-09-05] MEDS: RT-ALBUTEROL/IPRATROPIUM 3 ML (DUONEB) VIAL INH SCH ×6 (02:57→22:18)
[2022-09-05 04:58] LABS: BASOPHILS % (AUTO) 0 % (0-10); EOSINOPHILS % (AUTO) 0 % (0-10); HEMATOCRIT 28 % (35-52); HEMOGLOBIN 8.5 g/dL (11.5-16.0); LYMPHOCYTES # (AUTO) 0.2 10^3/uL (1.0-4.0); LYMPHOCYTES % (AUTO) 1 % (12-44); MEAN CORPUSCULAR HEMOGLOBIN 28 pg (25-34); MEAN CORPUSCULAR HGB CONC 31 g/dL (32-36); MEAN CORPUSCULAR VOLUME 91 fL (80-99); MEAN PLATELET VOLUME 11.1 fL (9.0-12.2); MONOCYTES # (AUTO) 0.3 10^3/uL (0.0-1.0); MONOCYTES % (AUTO) 2 % (0-12); NEUTROPHILS # (AUTO) 18.6 10^3/uL (1.8-7.8); NEUTROPHILS % (AUTO) 95 % (42-75); PLATELET COUNT 306 10^3/uL (130-400); WHITE BLOOD COUNT 19.5 10^3/uL (4.3-11.0)
[2022-09-05 05:34] LABS: ALBUMIN 2.7 GM/DL (3.2-4.5); BILIRUBIN,TOTAL 0.3 MG/DL (0.1-1.0); CALCIUM 8.7 MG/DL (8.5-10.1); CREATININE SERUM 2.02 MG/DL (0.60-1.30); MAGNESIUM 1.9 MG/DL (1.6-2.4); PHOSPHORUS 1.9 MG/DL (2.3-4.7); POTASSIUM 4.6 MMOL/L (3.6-5.0); TOTAL PROTEIN 5.8 GM/DL (6.4-8.2)
[2022-09-05] MEDS: MAGNESIUM 1 GM/100 ML IVPB 100 ML IV SCH (05:55)
[2022-09-05] MEDS: KCL 20 MEQ TAB (K-DUR) PO SCH (05:55)
[2022-09-05] MEDS: POTASSIUM CL 10MEQ/50ML IVPB 50 ML IV SCH (05:55)
[2022-09-05] MEDS: methylPREDNISolone 40 MG/ML (Solu-MEDROL) VIAL IV SCH ×3 (06:03→17:20)
[2022-09-05] MEDS: inSUlin ASPART (NovoLOG) 1 UNIT/0.01 ML (CHARGE PER UNIT) SC SCH ×4 (06:05→20:21)
--- NOTE | 2022-09-05 08:18 | Progress Note ---
ANDREY FORD 09/05/22 0818: Subjective Date Seen by a Provider: Sep 05, 2022 Time Seen by a Provider: 07:45 Subjective/Events-last exam 82 F with pmh of CHF, a. fibb, and COPD on day 4 of admission for acute respiratory failure claims she feels better than yesterday and is sitting up in bed today. Pt has a new complaint of sharp RLQ pain that started upon waking up. Rates pain 6/10 on palpation that does not radiate. Pt has not had a BM since admission or passed flatus. Was started on BiPap last night for labored breathing but claims it is easier to breath today. Starts physical therapy yesterday that was tolerated well. Denies CP, n/v, fever, chills. Claims she is still SOB and weak. Review of Systems General: No Chills, No Night Sweats HEENT: No Head Aches, No Dysphasia Pulmonary: Dyspnea, Cough Cardiovascular: No: Chest Pain, Palpitations Gastrointestinal: Constipation; No: Nausea, Vomiting Genitourinary: No Dysuria, No Frequency Musculoskeletal: leg pain, foot pain Neurological: Weakness Objective Exam Last Set of Vital Signs Vital Signs Date Time Temp Pulse Resp B/P (MAP) Pulse Ox O2 Delivery O2 Flow Rate FiO2 09/05/22 07:54 36.4 09/05/22 07:35 96 Nasal Cannula 4.00 09/05/22 07:00 95 09/05/22 06:00 143/77 (99) 09/05/22 03:00 31 09/04/22 23:59 50 Capillary Refill : Less Than 3 Seconds I&O Intake and Output 09/05/22 00:00 Intake Total 770 ml Output Total 1495 ml Balance -725 ml Intake Oral 770 ml Output Urine Total 1495 ml # Bowel Movements 1 General: Alert HEENT: Atraumatic, EOMI Neck: Supple, No LAD Lungs: Other (improved air flow, diffuse crackles noted on both L and R lung dillon) Heart: Other (irregularly irregular) Abdomen: Other (hypactive BS x 4, abdominal distention, RLQ pain) Extremities: Other (BL 3+ LE edema) Skin: No Rashes, No Significant Lesion Neuro: Other (weakeness) Psych/Mental Status: Mental Status NL Results Lab Laboratory Tests 09/04/22 11:25: Glucometer 270H 09/04/22 15:18: Lab Scanned Report Transfusion Reaction Form 09/04/22 17:57: Glucometer 308H 09/04/22 20:33: Glucometer 281H 09/05/22 04:28: White Blood Count 19.5H, Red Blood Count 3.05L, Hemoglobin 8.5L, Hematocrit 28L, Mean Corpuscular Volume 91, Mean Corpuscular Hemoglobin 28, Mean Corpuscular Hemoglobin Concent 31L, Red Cell Distribution Width 16.8H, Platelet Count 306, Mean Platelet Volume 11.1, Immature Granulocyte % (Auto) 2, Neutrophils (%) (Auto) 95H, Lymphocytes (%) (Auto) 1L, Monocytes (%) (Auto) 2, Eosinophils (%) (Auto) 0, Basophils (%) (Auto) 0, Neutrophils # (Auto) 18.6H, Lymphocytes # (Auto) 0.2L, Monocytes # (Auto) 0.3, Eosinophils # (Auto) 0.0, Basophils # (Auto) 0.0, Immature Granulocyte # (Auto) 0.4H, Sodium Level 139, Potassium Level 4.6, Chloride Level 101, Carbon Dioxide Level 24, Anion Gap 14, Blood Urea Nitrogen 42H, Creatinine 2.02H, Estimat Glomerular Filtration Rate 24, BUN/Creatinine Ratio 21, Glucose Level 374H, Calcium Level 8.7, Corrected Calcium 9.7, Phosphorus Level 1.9L, Magnesium Level 1.9, Total Bilirubin 0.3, Aspartate Amino Transf (AST/SGOT) 27, Alanine Aminotransferase (ALT/SGPT) 39, Alkaline Phosphatase 111, Total Protein 5.8L, Albumin 2.7L Microbiology 09/03/22 Gram Stain - Final, Resulted 09/03/22 Anaerobic Culture, Resulted Pending 09/03/22 Body Fluid Culture - Preliminary, Resulted Culture In Progress 09/02/22 MRSA Screen - Final, Complete MRSA not isolated Assessment/Plan Assessment/Plan Assess & Plan/Chief Complaint 1. Acute on Chronic Respiratory Failure--continue supplemental O2 therapy 2. Atrial Fibrillation with RVR--continue oral cardizem, 3. Decompensated Diastolic Congestive Heart Failure--IV lasix and monitor BUN/Cr 4. Acute on Chronic Anemia- continue monitor H/H, transfuse if Hgb < 8 5. Dibetes mellitus--continue aspart and increase dosage of levemir to 35 units 6. Acute on Chronic Renal Insufficiency--monitor BUN/Cr with diuresis, decrease lasix, start NS w/ KCl 7. Debility--continue PT/OT 8. History of Colon Cancer--stopped treatment early, did not obtain fecal occult blood 9. COPD--oxygen requiring, continue on MAT protocol 10. stroke prophylaxis- continue on eliquis per cardio and H/H has stabilized 11. PNA- stop rocephin, start on cefepime and continue and azithromycin, cont inue solu-medrol therapy, continue Bipap as needed, start incentive spirometry 12. Pleural effusion- monitor with repeat CXR tomorrow 13. Constipation- start oral milk of magnesium and senna therapy TAO REED DO 09/06/22 0942: Supervisory-Addendum Brief Verification & Attestation Participated in pt care: history, physical Personally performed: exam, history, supervision of care Care discussed with: Medical Student Procedures: n/a Results interpretation: Verified all documentation Verification and Attestation of Medical Student E/M Service A medical student performed and documented this service in my presence. I reviewed and verified all information documented by the medical student and made modifications to such information, when appropriate. I personally performed the physical exam and medical decision making. Tao Reed, Sep 06, 2022,09:40 Feeling a little better. No BM. Did not do much with PT. Blood sugar elevated so will increase levemir--likely steroid induced. WBC also up and worsening infiltrates on CXR so will start cefepime. ANDREY FORD Sep 05, 2022 08:18 TAO REED DO Sep 06, 2022 09:42
[2022-09-05] MEDS: AZITHROMYCIN 250 MG TAB (ZITHROMAX) PO SCH (08:19)
[2022-09-05] MEDS: cefTRIAXone 1 GM PRE-MIX 50 ML IV SCH (08:19)
[2022-09-05] MEDS: PANTOPRAZOLE 40 MG (PROTONIX) TAB PO SCH (08:19)
[2022-09-05] MEDS: meTOproloL SUCCINATE 50 MG (TOPROL XL) TAB PO SCH (08:20)
[2022-09-05] MEDS: APIXABAN 2.5 MG (ELIQUIS) TABLET PO SCH ×2 (08:20→20:22)
--- NOTE | 2022-09-05 08:45 | Tele-ICU Progress Note ---
Subjective Date Seen by a Provider: Sep 05, 2022 Time Seen by a Provider: 08:42 Subjective/Events-last exam This virtual visit was conducted using real time audio/video. I reviewed CXR shows return of left pleural effusion, will need a drainage procedure, probably should have another tap until then. Pt actually looks better and is able to get out of bed WBC up to 19K, pleural fluid is no growth so far remains on Medrol, Rocephin changed to Cefepime Sepsis Event Evaluation Height, Weight, BMI Height: '" Weight: lbs. oz. kg; 40.27 BMI Method: Exam Exam Patient acknowledged, consented, and participated in this virtual visit which was conducted using real time audio/video Vital Signs Date Time Temp Pulse Resp B/P (MAP) Pulse Ox O2 Delivery O2 Flow Rate FiO2 09/05/22 08:00 86 145/92 (109) 95 Nasal Cannula 4.00 09/05/22 07:54 36.4 09/05/22 07:35 96 Nasal Cannula 4.00 09/05/22 07:00 95 09/05/22 07:00 105 143/76 (98) 96 Nasal Cannula 4.00 09/05/22 06:00 98 143/77 (99) 96 Nasal Cannula 4.00 09/05/22 05:00 101 148/80 (102) 95 Nasal Cannula 4.00 09/05/22 04:00 104 129/81 (97) 96 Nasal Cannula 4.00 09/05/22 04:00 93 Nasal Cannula 4.00 09/05/22 03:36 36.7 09/05/22 03:00 109 31 134/100 (111) 100 Nasal Cannula 4.00 09/05/22 02:58 96 Nasal Cannula 4.00 09/05/22 02:00 118 22 139/72 (94) 95 Nasal Cannula 4.00 09/05/22 01:06 Nasal Cannula 4.00 09/05/22 01:00 124 09/05/22 01:00 133 27 148/73 (98) 99 NIV Bilevel 50.00 09/05/22 00:05 36.1 09/05/22 00:00 118 26 124/95 (105) 99 NIV Bilevel 50.00 09/04/22 23:59 99 NIV Bilevel 50 09/04/22 23:00 106 26 127/107 (114) 99 NIV Bilevel 50.00 09/04/22 22:46 102 31 98 50.00 09/04/22 22:00 114 27 148/109 (122) 99 NIV Bilevel 50.00 09/04/22 21:00 100 20 142/128 (133) 99 NIV Bilevel 50.00 09/04/22 20:00 99 NIV Bilevel 50 09/04/22 20:00 97 25 142/71 (94) 99 NIV Bilevel 50.00 09/04/22 19:56 36.6 09/04/22 19:30 NIV Bilevel 50.00 09/04/22 19:22 107 29 99 50.00 09/04/22 19:00 109 09/04/22 19:00 Nasal Cannula 4.00 09/04/22 19:00 98 27 136/76 (96) 99 Nasal Cannula 4.00 09/04/22 18:00 110 27 144/67 (92) 98 Nasal Cannula 4.00 09/04/22 17:00 108 22 140/77 (98) 98 Nasal Cannula 4.00 09/04/22 16:00 37.2 09/04/22 16:00 96 Nasal Cannula 4.00 09/04/22 16:00 109 30 142/82 (102) 99 Nasal Cannula 4.00 09/04/22 15:00 112 30 142/82 (102) 99 Nasal Cannula 4.00 09/04/22 14:53 112 31 99 50.00 09/04/22 14:47 97 Nasal Cannula 4.00 09/04/22 14:00 113 31 131/65 (87) 96 Nasal Cannula 4.00 09/04/22 13:00 115 09/04/22 13:00 120 30 125/79 (94) 95 Nasal Cannula 4.00 09/04/22 12:00 111 26 125/68 (87) 95 Nasal Cannula 4.00 09/04/22 12:00 96 Nasal Cannula 4.00 09/04/22 12:00 37.0 09/04/22 11:00 121 22 133/89 (104) 94 Nasal Cannula 4.00 09/04/22 10:27 96 Nasal Cannula 4.00 09/04/22 10:00 103 19 136/67 (90) 99 Nasal Cannula 4.00 09/04/22 09:00 96 12 139/64 (89) 96 Nasal Cannula 4.00 I & O 09/05/22 07:00 Intake Total 720 ml Output Total 1425 ml Balance -705 ml Height & Weight Height: '" Weight: lbs. oz. kg; 40.27 BMI Method: General Appearance: Moderate Distress (respiratory) HEENT: PERRL/EOMI Neck: Supple Respiratory: Decreased Breath Sounds, Respiratory Distress, Wheezing Cardiovascular: Irregularly Irregular, Tachycardia, Other (No crackles according to RN) Capillary Refill: Less Than 3 Seconds Gastrointestinal: normal bowel sounds, non tender, soft, distended (probably body habitus), tenderness (epigastric and periumbilical with deep palpation ) Extremity: Non Tender, No Calf Tenderness, Pedal Edema (3 plus) Neurologic/Psychiatric: Disoriented (mildy obtunded) Skin: Warm/Dry Lymphatic: No Adenopathy Results Lab Laboratory Tests 09/03/22 19:40 09/04/22 03:21 09/05/22 04:28 Assessment/Plan Assessment/Plan CHF with return of large left plerual effusion, will need to drain again A fib, which is stable and is on po Cardizem 240 COPD Critical Care: Critically Ill Patient Time spent with patient (mins): 25 RUPINDER PEREZ MD Sep 05, 2022 08:44
--- NOTE | 2022-09-05 08:54 | Diagnostic Imaging Report ---
CHEST 1 VIEW, AP/PA ONLY Indication: Pleural effusion Comparison: 09/04/2022 Findings: Left perihilar and no pneumothorax, pleural effusion or pneumothorax. Possible layering left pleural effusion. Stable cardiomegaly. Impression: 1. Stable left lung consolidations that are highly concerning for pneumonia. Continued follow-up to resolution is advised to exclude underlying lung mass. Dictated by: Dictated on workstation # [id number]
[2022-09-05] MEDS: CEFEPIME INJECTION 1,000 MG in NS (IVPB) 50 ML IV SCH ×2 (08:56→20:15)
[2022-09-05] MEDS ORDERED: FUROSEMIDE 40 MG/4 ML INJ (LASIX) IVP SCH (09:00)
[2022-09-05] MEDS ORDERED: MILK OF MAGNESIA 400 MG/5 ML 30 ML UDC PO NR (09:30)
[2022-09-05] MEDS: SENNA W/DOCUSATE (SENOKOT S) TABLET PO SCH ×2 (09:38→20:21)
--- NOTE | 2022-09-05 09:40 | Diagnostic Imaging Report ---
Indication: Pleural effusion follow-up EXAMINATION: Chest 09/05/2022 COMPARISON: 09/05/2022 at 5:09 a.m. FINDINGS: Single view of the chest demonstrates cardiomegaly with pulmonary vascular congestion. Worsening bilateral infiltrates noted left worse than right. There is a likely left effusion. No pneumothorax. IMPRESSION: 1. Worsening findings of pulmonary edema and bilateral infiltrates left worse than right. 2. Left pleural effusion. Dictated by: Dictated on workstation # [id number]
--- NOTE | 2022-09-05 11:24 | Progress Note - Cardiology ---
Cardiology SOAP Progress Note Subjective: Shortness of breath somewhat improved, she says No cp or palp or syncope Gen malaise and weakness present No n/v/d No focal weakness Objective: I&O/Vital Signs 09/04/22 09/05/22 09/05/22 09/05/22 23:59 00:00 00:05 01:00 Temp 36.1 Pulse 118 133 Resp 26 27 B/P (MAP) 124/95 (105) 148/73 (98) Pulse Ox 99 99 99 O2 Delivery NIV Bilevel NIV Bilevel NIV Bilevel O2 Flow Rate 50.00 50.00 FiO2 50 09/05/22 09/05/22 09/05/22 09/05/22 01:00 01:06 02:00 02:58 Pulse 124 118 Resp 22 B/P (MAP) 139/72 (94) Pulse Ox 95 96 O2 Delivery Nasal Cannula Nasal Cannula Nasal Cannula O2 Flow Rate 4.00 4.00 4.00 09/05/22 09/05/22 09/05/22 09/05/22 03:00 03:36 04:00 04:00 Temp 36.7 Pulse 109 104 Resp 31 B/P (MAP) 134/100 (111) 129/81 (97) Pulse Ox 100 93 96 O2 Delivery Nasal Cannula Nasal Cannula Nasal Cannula O2 Flow Rate 4.00 4.00 4.00 09/05/22 09/05/22 09/05/22 09/05/22 05:00 06:00 07:00 07:00 Pulse 101 98 105 95 B/P (MAP) 148/80 (102) 143/77 (99) 143/76 (98) Pulse Ox 95 96 96 O2 Delivery Nasal Cannula Nasal Cannula Nasal Cannula O2 Flow Rate 4.00 4.00 4.00 09/05/22 09/05/22 09/05/22 09/05/22 07:35 07:54 08:00 09:00 Temp 36.4 Pulse 86 88 Resp 28 B/P (MAP) 145/92 (109) 90/64 (73) Pulse Ox 96 95 98 O2 Delivery Nasal Cannula Nasal Cannula Nasal Cannula O2 Flow Rate 4.00 4.00 4.00 09/05/22 09/05/22 09/05/22 10:00 10:05 11:00 Pulse 93 97 Resp 30 29 B/P (MAP) 112/94 (100) 143/84 (103) Pulse Ox 96 96 95 O2 Delivery Nasal Cannula Nasal Cannula Nasal Cannula O2 Flow Rate 4.00 4.00 4.00 09/05/22 00:00 Intake Total 200 ml Output Total 725 ml Balance -525 ml Constitutional: AAO x 3, well-developed, other (on BiPAP) Respiratory: other (fair air entry, prolonged exp) Cardiovascular: irregularly irregular, tachycardia, S1 and S2, systolic murmur Gastrointestional: soft, audible bowel sounds Extremities: other Neurologic/Psychiatric: other (moves all limbs) Skin: No rash on exposed areas, No ulcerations on exposed areas Results/Procedures: Labs Laboratory Tests 09/04/22 11:25: Glucometer 270H 09/04/22 15:18: Lab Scanned Report Transfusion Reaction Form 09/04/22 17:57: Glucometer 308H 09/04/22 20:33: Glucometer 281H 09/05/22 04:28: White Blood Count 19.5H, Red Blood Count 3.05L, Hemoglobin 8.5L, Hematocrit 28L, Mean Corpuscular Volume 91, Mean Corpuscular Hemoglobin 28, Mean Corpuscular Hemoglobin Concent 31L, Red Cell Distribution Width 16.8H, Platelet Count 306, Mean Platelet Volume 11.1, Immature Granulocyte % (Auto) 2, Neutrophils (%) (Auto) 95H, Lymphocytes (%) (Auto) 1L, Monocytes (%) (Auto) 2, Eosinophils (%) (Auto) 0, Basophils (%) (Auto) 0, Neutrophils # (Auto) 18.6H, Lymphocytes # (Auto) 0.2L, Monocytes # (Auto) 0.3, Eosinophils # (Auto) 0.0, Basophils # (Auto) 0.0, Immature Granulocyte # (Auto) 0.4H, Sodium Level 139, Potassium Level 4.6, Chloride Level 101, Carbon Dioxide Level 24, Anion Gap 14, Blood Urea Nitrogen 42H, Creatinine 2.02H, Estimat Glomerular Filtration Rate 24, BUN/Creatinine Ratio 21, Glucose Level 374H, Calcium Level 8.7, Corrected Calcium 9.7, Phosphorus Level 1.9L, Magnesium Level 1.9, Total Bilirubin 0.3, Aspartate Amino Transf (AST/SGOT) 27, Alanine Aminotransferase (ALT/SGPT) 39, Alkaline Phosphatase 111, Total Protein 5.8L, Albumin 2.7L 09/05/22 10:46: Glucometer 308H Microbiology 09/03/22 Gram Stain - Final, Resulted 09/03/22 Anaerobic Culture, Resulted Pending 09/03/22 Body Fluid Culture - Preliminary, Resulted Culture In Progress 09/02/22 MRSA Screen - Final, Complete MRSA not isolated Laboratory Tests 09/03/22 19:40 09/04/22 03:21 09/05/22 04:28 A/P: Assessment: Ac resp failure, multifactorial (see below) Non-compliance with meds at home Ac diastolic CHF - Echocardiogram of Sep 30, 2020 showed LVEF 60-65%. PASP 35-40mmHg - Echocardiogram of 07-16-22 showed LVEF 50-55%. Mod calcified mitral valve annulus Marked anemia - managed by medical services - received 1 unit PRBC's overnight A Fib with RVR - rate improved - first dx on ECG of 07-13-22 - Holter 07/16/22: A fib with avg vent rate 96 bpm, frequent isolated and couple PVCs, no VT - MPI of Sep 25, 2020: No evidence of significant myocardial ischemia or infarction on this study. Normal regional wall motion. Normal global left ventricular systolic function with a calculated ejection fraction of 72%. - Recommend sleep eval for eval for YEISON. Discussed. She has refused in the past LLL Pneumonia? - see CXR report of DM II - managed by PCP Ac renal insuff on top of CKD-4 - ac component likely due to diuretic therapy Obesity - with BMI approx 39 Hypertension Hyperlipidemia - treated with statins and managed by pcp Colon CA - right hemicolectomy by Dr. Cardoza for stage IV colon, followed by Dr. Piedar Plan: * Hold diuretics for now because of deteriorating renal functin * Continue oral dilt to control ventricular rate * Monitor lab closely * Continue apixaban for stroke prophylaxis * Empiric therapy for pneumonia SHIN HERRERA MD FACP [facility] Sep 05, 2022 11:24
[2022-09-05] MEDS: 1/2 NS W/KCL 20 MEQ/L 1,000 ML IV SCH (12:37)
--- NOTE | 2022-09-05 12:43 | Physical Therapy Daily Note ---
PT Daily Note-Current Subjective Pt report she feels better today than yesterday. Encouraged to attempt to sit edge of bed but reports she does not want to try this due to SOB. Pain Section J - Health Conditions 1. Rarely or not at all 2. Occasionally 3. Frequently 4. Almost constantly 8. Unable to answer Pain Effect on Sleep: 2 Pain Interference with Therapy: 2 Pain Interference w/Day-to-Day: 2 Transfers SCALE: Activities may be completed with or without assistive devices. 7-Preesjthet-tjodbeq completes the activity by him/herself with no assistance from a helper. 5-Set-up or Clean-up Assistance-helper sets up or cleans up; patient completes activity. [place] assists only prior to or following the activity. 4-Supervision or Touching Assistance-helper provides verbal cues and/or touching/steadying and/or contact guard assistance as patient completes activity. Assistance may be provided throughout the activity or intermittently. 3-Partial/Moderate Assistance-helper does LESS THAN HALF the effort. [place] lifts, holds or supports trunk or limbs, but provides less than half the effort. 2-Substantial/Maximal Assistance-helper does MORE THAN HALF the effort. [place] lifts or holds trunk or limbs and provides more than half the effort. 1-Bufynwtqj-wosvdg does ALL the effort. Patient does none of the effort to complete the activity. Or, the assistance of 2 or more helpers is required for the patient to complete the activity. If activity was not attempted, code reason: 7-Patient Refused. 9-Not Applicable-not attempted and the patient did not perform the activity before the current illness, exacerbation or injury. 10-Not Attempted due to Environmental Limitations-(lack of equipment, weather restraints, etc.). 88-Not Attempted due to Medical Conditions or Safety Concerns. Exercises Supine Ex: Quad Set, Glut sets, Heel Slides, Short Arc Quads, Straight leg raise, Hip abd/add Supine Reps: 10 Assessment Current Status: Fair Progress Progress slow. Pt was very SOB with LE exercises and required rests to regain controlled breathing. Sitting edge of bed not attempted due to pt request and labored breathing. PT Circulation Sales Representative Goals Circulation Sales Representative Goals PT Prison Goals Time Frame: Sep 11, 2022 Roll Left & Right (QC): 4 (CGA) Sit to Lying (QC): 4 (CGA) Lying-Sitting on Side/Bed(QC): 4 (CGA) Sit to Stand (QC): 4 (CGA) Chair/Aov-xh-Ursrv Xfer(QC): 4 (CGA) Toilet Transfer (QC): 4 (CGA) Walk 10 feet (QC): 4 (CGA) Walk 50ft with 2 Turns (QC): 4 (CGA) PT Plan Treatment/Plan Treatment Plan: Continue Plan of Care Treatment Plan: Bed Mobility, Education, Functional Activity Reddy, Functional Strength, Gait, Safety, Therapeutic Exercise, Transfers Treatment Duration: Sep 11, 2022 Frequency: 6 times per week Estimated Hrs Per Day: .25 hour per day Patient and/or Family Agrees t: Yes Time Time In: 1110 Time Out: 1125 DATE: Sep 05, 2022 Total Billed Treatment Time: 15 Total Billed Treatment visit, exercise 15 min SHERMAN JENKINS PT Sep 05, 2022 12:43
--- NOTE | 2022-09-05 15:07 | Tele-ICU Progress Note ---
Subjective Date Seen by a Provider: Sep 05, 2022 Time Seen by a Provider: 15:03 Subjective/Events-last exam called for decreased UO, about 75 mL over 4 hours, did get dose of Lasix earlier Cr has slowly been going up, now 2.02, not on any nephrotoxic drugs, no IV contrast will give 500 mL of normal saline bolus Yonathan Perez MD Sepsis Event Evaluation Height, Weight, BMI Height: '" Weight: lbs. oz. kg; 40.27 BMI Method: Exam Exam Patient acknowledged, consented, and participated in this virtual visit which was conducted using real time audio/video Vital Signs Date Time Temp Pulse Resp B/P (MAP) Pulse Ox O2 Delivery O2 Flow Rate FiO2 09/05/22 14:42 95 Nasal Cannula 4.00 09/05/22 14:00 105 20 159/106 (123) 96 Nasal Cannula 4.00 09/05/22 13:00 100 21 143/85 (104) 97 Nasal Cannula 4.00 09/05/22 12:50 108 09/05/22 12:00 101 19 134/86 (102) 96 Nasal Cannula 4.00 09/05/22 12:00 93 Nasal Cannula 4.00 09/05/22 11:37 36.7 09/05/22 11:00 97 29 143/84 (103) 95 Nasal Cannula 4.00 09/05/22 10:05 96 Nasal Cannula 4.00 09/05/22 10:00 93 30 112/94 (100) 96 Nasal Cannula 4.00 09/05/22 09:00 88 28 90/64 (73) 98 Nasal Cannula 4.00 09/05/22 08:00 93 Nasal Cannula 4.00 09/05/22 08:00 86 145/92 (109) 95 Nasal Cannula 4.00 09/05/22 07:54 36.4 09/05/22 07:35 96 Nasal Cannula 4.00 09/05/22 07:00 95 09/05/22 07:00 105 143/76 (98) 96 Nasal Cannula 4.00 09/05/22 06:00 98 143/77 (99) 96 Nasal Cannula 4.00 09/05/22 05:00 101 148/80 (102) 95 Nasal Cannula 4.00 09/05/22 04:00 104 129/81 (97) 96 Nasal Cannula 4.00 09/05/22 04:00 93 Nasal Cannula 4.00 09/05/22 03:36 36.7 09/05/22 03:00 109 31 134/100 (111) 100 Nasal Cannula 4.00 09/05/22 02:58 96 Nasal Cannula 4.00 09/05/22 02:00 118 22 139/72 (94) 95 Nasal Cannula 4.00 09/05/22 01:06 Nasal Cannula 4.00 09/05/22 01:00 124 09/05/22 01:00 133 27 148/73 (98) 99 NIV Bilevel 50.00 09/05/22 00:05 36.1 09/05/22 00:00 118 26 124/95 (105) 99 NIV Bilevel 50.00 09/04/22 23:59 99 NIV Bilevel 50 09/04/22 23:00 106 26 127/107 (114) 99 NIV Bilevel 50.00 09/04/22 22:46 102 31 98 50.00 09/04/22 22:00 114 27 148/109 (122) 99 NIV Bilevel 50.00 09/04/22 21:00 100 20 142/128 (133) 99 NIV Bilevel 50.00 09/04/22 20:00 99 NIV Bilevel 50 09/04/22 20:00 97 25 142/71 (94) 99 NIV Bilevel 50.00 09/04/22 19:56 36.6 09/04/22 19:30 NIV Bilevel 50.00 09/04/22 19:22 107 29 99 50.00 09/04/22 19:00 109 09/04/22 19:00 Nasal Cannula 4.00 09/04/22 19:00 98 27 136/76 (96) 99 Nasal Cannula 4.00 09/04/22 18:00 110 27 144/67 (92) 98 Nasal Cannula 4.00 09/04/22 17:00 108 22 140/77 (98) 98 Nasal Cannula 4.00 09/04/22 16:00 37.2 09/04/22 16:00 96 Nasal Cannula 4.00 09/04/22 16:00 109 30 142/82 (102) 99 Nasal Cannula 4.00 I & O 09/05/22 07:00 Intake Total 770 ml Output Total 1425 ml Balance -655 ml Height & Weight Height: '" Weight: lbs. oz. kg; 40.27 BMI Method: General Appearance: Moderate Distress (respiratory) HEENT: PERRL/EOMI Neck: Supple Respiratory: Decreased Breath Sounds, Respiratory Distress, Wheezing Cardiovascular: Irregularly Irregular, Tachycardia, Other (No crackles according to RN) Capillary Refill: Less Than 3 Seconds Gastrointestinal: normal bowel sounds, non tender, soft, distended (probably body habitus), tenderness (epigastric and periumbilical with deep palpation ) Extremity: Non Tender, No Calf Tenderness, Pedal Edema (3 plus) Neurologic/Psychiatric: Disoriented (mildy obtunded) Skin: Warm/Dry Lymphatic: No Adenopathy Results Lab Laboratory Tests 09/03/22 19:40 09/04/22 03:21 09/05/22 04:28 Assessment/Plan Assessment/Plan oliguria, will give saline bolus Critical Care: Critically Ill Patient Time spent with patient (mins): 20 RUPINDER PEREZ MD Sep 05, 2022 15:07
[2022-09-05] MEDS ORDERED: NS IV 500 ML 500 ML IV ONE (15:45)
[2022-09-05 22:18] VITALS: BP 165/94
[2022-09-06] MEDS: methylPREDNISolone 40 MG/ML (Solu-MEDROL) VIAL IV SCH ×3 (00:23→20:43)
[2022-09-06] MEDS: 1/2 NS W/KCL 20 MEQ/L 1,000 ML IV SCH ×2 (02:57→17:30)
[2022-09-06] MEDS: RT-ALBUTEROL/IPRATROPIUM 3 ML (DUONEB) VIAL INH SCH ×3 (03:26→23:34)
[2022-09-06 05:04] LABS: BASOPHILS % (AUTO) 0 % (0-10); EOSINOPHILS % (AUTO) 0 % (0-10); HEMATOCRIT 29 % (35-52); LYMPHOCYTES # (AUTO) 0.3 10^3/uL (1.0-4.0); LYMPHOCYTES % (AUTO) 1 % (12-44); MEAN CORPUSCULAR HEMOGLOBIN 28 pg (25-34); MEAN CORPUSCULAR HGB CONC 31 g/dL (32-36); MEAN CORPUSCULAR VOLUME 92 fL (80-99); MEAN PLATELET VOLUME 11.2 fL (9.0-12.2); MONOCYTES # (AUTO) 0.5 10^3/uL (0.0-1.0); MONOCYTES % (AUTO) 2 % (0-12); NEUTROPHILS # (AUTO) 25.2 10^3/uL (1.8-7.8); NEUTROPHILS % (AUTO) 96 % (42-75); PLATELET COUNT 346 10^3/uL (130-400); WHITE BLOOD COUNT 26.4 10^3/uL (4.3-11.0)
[2022-09-06 05:28] LABS: ALBUMIN 2.9 GM/DL (3.2-4.5); BILIRUBIN,TOTAL 0.3 MG/DL (0.1-1.0); CALCIUM 8.8 MG/DL (8.5-10.1); CREATININE SERUM 2.06 MG/DL (0.60-1.30); PHOSPHORUS 2.5 MG/DL (2.3-4.7); POTASSIUM 4.8 MMOL/L (3.6-5.0)
[2022-09-06] MEDS: MAGNESIUM 1 GM/100 ML IVPB 100 ML IV SCH (05:31)
[2022-09-06] MEDS: POTASSIUM CL 10MEQ/50ML IVPB 50 ML IV SCH (05:31)
[2022-09-06] MEDS: KCL 20 MEQ TAB (K-DUR) PO SCH (05:31)
[2022-09-06] MEDS: inSUlin ASPART (NovoLOG) 1 UNIT/0.01 ML (CHARGE PER UNIT) SC SCH ×4 (05:37→20:43)
--- NOTE | 2022-09-06 08:45 | Progress Note ---
ANDREY FORD 09/06/22 0845: Subjective Date Seen by a Provider: Sep 06, 2022 Time Seen by a Provider: 08:15 Subjective/Events-last exam 82 F with pmh of matthias. fibb, chf, copd, and DMII on day five of admission for acute respiratory distress is resting comfortably in bed claiming she feels better th an yesterday. Pt was able to have and BM this morning with no complaints alleviating her mild abdominal discomfort. She denies any pain, fever, chills, N/V. Claims she is still SOB and weak but improved since yesterday. Pt did not receive incentive spirometer or partake in PT yesterday. Review of Systems General: No Chills, No Night Sweats HEENT: No Head Aches, No Dysphasia Pulmonary: Dyspnea; No Cough Cardiovascular: Edema; No: Chest Pain, Palpitations Gastrointestinal: No: Nausea, Vomiting, Abdominal Pain Genitourinary: No Dysuria, No Frequency Musculoskeletal: leg pain (mild) Neurological: Weakness; No: Change in speech Objective Exam Last Set of Vital Signs Vital Signs Date Time Temp Pulse Resp B/P (MAP) Pulse Ox O2 Delivery O2 Flow Rate FiO2 09/06/22 07:49 36.6 09/06/22 07:00 100 09/06/22 06:36 157/67 (97) 09/06/22 06:00 95 Nasal Cannula 4.00 09/06/22 05:11 39 09/05/22 23:59 50 Capillary Refill : Less Than 3 Seconds I&O Intake and Output 09/06/22 00:00 Intake Total 2280 ml Output Total 700 ml Balance 1580 ml Intake Oral 1630 ml IV Total 650 ml Output Urine Total 700 ml General: Alert, Cooperative HEENT: Atraumatic, EOMI Neck: Supple, No LAD Lungs: Other (mild diffuse crackles in all lung dillon, improvement on air movement ) Heart: Other (irregularly irregular ) Abdomen: No Tenderness, No Masses, Other (increase in bowel sounds compared to yesterday, decreased distention) Extremities: Other Skin: No Rashes, No Significant Lesion Neuro: Other (diffuse weakness in all extremities ) Psych/Mental Status: Mental Status NL, Mood NL Results Lab Laboratory Tests 09/05/22 10:46: Glucometer 308H 09/05/22 16:03: Glucometer 331H 09/06/22 04:44: White Blood Count 26.4H, Red Blood Count 3.20L, Hemoglobin 9.0L, Hematocrit 29L, Mean Corpuscular Volume 92, Mean Corpuscular Hemoglobin 28, Mean Corpuscular Hemoglobin Concent 31L, Red Cell Distribution Width 16.8H, Platelet Count 346, Mean Platelet Volume 11.2, Immature Granulocyte % (Auto) 2, Neutrophils (%) (Auto) 96H, Lymphocytes (%) (Auto) 1L, Monocytes (%) (Auto) 2, Eosinophils (%) (Auto) 0, Basophils (%) (Auto) 0, Neutrophils # (Auto) 25.2H, Lymphocytes # (Auto) 0.3L, Monocytes # (Auto) 0.5, Eosinophils # (Auto) 0.0, Basophils # (Auto) 0.0, Immature Granulocyte # (Auto) 0.4H, Sodium Level 135, Potassium Level 4.8, Chloride Level 100, Carbon Dioxide Level 23, Anion Gap 12, Blood Urea Nitrogen 44H, Creatinine 2.06H, Estimat Glomerular Filtration Rate 23, BUN/Creatinine Ratio 21, Glucose Level 328H, Calcium Level 8.8, Corrected Calcium 9.7, Phosphorus Level 2.5, Magnesium Level 2.0, Total Bilirubin 0.3, Aspartate Amino Transf (AST/SGOT) 35H, Alanine Aminotransferase (ALT/SGPT) 47, Alkaline Phosphatase 119, Total Protein 6.0L, Albumin 2.9L 09/06/22 08:30: Microbiology 09/03/22 Gram Stain - Final, Resulted 09/03/22 Anaerobic Culture, Resulted Pending 09/03/22 Body Fluid Culture - Preliminary, Resulted Culture In Progress 09/02/22 MRSA Screen - Final, Complete MRSA not isolated Assessment/Plan Assessment/Plan Assess & Plan/Chief Complaint 1. Acute on Chronic Respiratory Failure--continue supplemental O2 therapy 2. Atrial Fibrillation with RVR--continue oral cardizem, increase metoprolol to 50 mg for HTN and tachycardia 3. Decompensated Diastolic Congestive Heart Failure-- restart IV lasix and start oral lasix tomorrow and monitor BUN/Cr closely 4. Acute on Chronic Anemia- continue monitor H/H, transfuse if Hgb < 8 5. Dibetes mellitus--continue aspart and increase dosage of levemir to 45 units dur to continue elevated blood sugar, restart home dosage of gardiance 6. Acute on Chronic Renal Insufficiency--monitor BUN/Cr, continue IV fluids 7. Debility--continue PT/OT, increase ambulation to chair today 8. History of Colon Cancer--stopped treatment early, fecal occult blood +, increse protonix therapy 9. COPD--oxygen requiring, continue on MAT protocol 10. stroke prophylaxis- continue on eliquis per cardio and H/H has stabilized 11. PNA- continue on cefepime and azithromycin, decrease solu-medrol therapy to 40 q 12, continue Bipap as needed, start incentive spirometry, pleural cultures pending 12. Pleural effusion- monitor with repeat CXR tomorrow 13. Constipation- continue oral milk of magnesium and senna therapy TAO REED DO 09/06/22 1418: Supervisory-Addendum Brief Verification & Attestation Participated in pt care: history, physical Personally performed: exam, history, supervision of care Care discussed with: Medical Student Procedures: n/a Results interpretation: Verified all documentation Verification and Attestation of Medical Student E/M Service A medical student performed and documented this service in my presence. I reviewed and verified all information documented by the medical student and made modifications to such information, when appropriate. I personally performed the physical exam and medical decision making. Tao Reed, Sep 06, 2022,14:08 Feeling better today. Had BM this morning and is black and was hemoccult positive so will increase protonix and will discuss with cardiology on staying on low dose eliquis or not--H/H is stable post-transfusion and is up to 9.0. Blood sugar still elevated so will decrease solumedrol and increase levemir dose. Leukocytosis likely from solumedrol as well--pulmonary cultures still pending--just changed to cefepime yesterday. BUN/Cr stable so will give lasix 40mg IV this morning--her baseline Cr is usually 1.7-1.9. ANDREY FORD Sep 06, 2022 08:45 TAO REED DO Sep 06, 2022 14:18
[2022-09-06] MEDS: APIXABAN 2.5 MG (ELIQUIS) TABLET PO SCH ×2 (08:50→20:43)
[2022-09-06] MEDS: AZITHROMYCIN 250 MG TAB (ZITHROMAX) PO SCH (08:50)
[2022-09-06] MEDS: SENNA W/DOCUSATE (SENOKOT S) TABLET PO SCH ×2 (08:50→20:43)
[2022-09-06] MEDS: PANTOPRAZOLE 40 MG (PROTONIX) TAB PO SCH ×2 (08:50→20:43)
[2022-09-06] MEDS: meTOproloL SUCCINATE 50 MG (TOPROL XL) TAB PO SCH ×2 (08:50→20:42)
[2022-09-06] MEDS: CEFEPIME INJECTION 1,000 MG in NS (IVPB) 50 ML IV SCH ×2 (08:51→20:42)
--- NOTE | 2022-09-06 08:59 | Tele-ICU Progress Note ---
Progress Note video rounds completed 82 y/o female admitted with A fib/rvr and PNA On PO cardizem and metoprolol On cefipime and azithromycin for PNA Has hx of CHF, DM, COPD PE: looks comfortable sitting up in bed HR: 92-115, a fib BP 152/115 O2 sat 97% RR 16 IMP: acute on chronic respiratory insufficiency with PNA A fib with rate control on PO meds PLAN: continue antibiotics cardiology following Focused Exam Height, Weight, BMI Height: '" Weight: lbs. oz. kg; 41.36 BMI Method: Labs Laboratory Tests 09/06/22 04:44 Results Results/Procedures Lab Laboratory Tests 09/05/22 04:28 09/06/22 04:44 Results Labs Labs Laboratory Tests 09/05/22 10:46: Glucometer 308H 09/05/22 16:03: Glucometer 331H 09/06/22 04:44: White Blood Count 26.4H, Red Blood Count 3.20L, Hemoglobin 9.0L, Hematocrit 29L, Mean Corpuscular Volume 92, Mean Corpuscular Hemoglobin 28, Mean Corpuscular Hemoglobin Concent 31L, Red Cell Distribution Width 16.8H, Platelet Count 346, Mean Platelet Volume 11.2, Immature Granulocyte % (Auto) 2, Neutrophils (%) (Auto) 96H, Lymphocytes (%) (Auto) 1L, Monocytes (%) (Auto) 2, Eosinophils (%) (Auto) 0, Basophils (%) (Auto) 0, Neutrophils # (Auto) 25.2H, Lymphocytes # (Auto) 0.3L, Monocytes # (Auto) 0.5, Eosinophils # (Auto) 0.0, Basophils # (Auto) 0.0, Immature Granulocyte # (Auto) 0.4H, Sodium Level 135, Potassium Level 4.8, Chloride Level 100, Carbon Dioxide Level 23, Anion Gap 12, Blood Urea Nitrogen 44H, Creatinine 2.06H, Estimat Glomerular Filtration Rate 23, BUN/Creatinine Ratio 21, Glucose Level 328H, Calcium Level 8.8, Corrected Calcium 9.7, Phosphorus Level 2.5, Magnesium Level 2.0, Total Bilirubin 0.3, Aspartate Amino Transf (AST/SGOT) 35H, Alanine Aminotransferase (ALT/SGPT) 47, Alkaline Phosphatase 119, Total Protein 6.0L, Albumin 2.9L 09/06/22 08:30: Microbiology 09/03/22 Gram Stain - Final, Resulted 09/03/22 Anaerobic Culture, Resulted Pending 09/03/22 Body Fluid Culture - Preliminary, Resulted Culture In Progress 09/02/22 MRSA Screen - Final, Complete MRSA not isolated RUPINDER CHRISTY MD Sep 06, 2022 08:59
[2022-09-06] MEDS ORDERED: FUROSEMIDE 40 MG/4 ML INJ (LASIX) IVP NR (09:30)
[2022-09-06] MEDS ORDERED: EMPAGLIFLOZIN 10 MG TABLET (JARDIANCE) PO NR (09:30)
--- NOTE | 2022-09-06 09:56 | Diagnostic Imaging Report ---
CHEST 1 VIEW, AP/PA ONLY Indication: Pneumonia Comparison: 09/05/2022 Findings: Improved aeration within the right lung. Consolidations within left mid and lower lung zone are unchanged. Central small left pleural effusion. Stable cardiac enlargement. Impression: 1. No change in left lung consolidations. Dictated by: Dictated on workstation # [id number]
[2022-09-06 10:10] VITALS: BP 124/91
--- NOTE | 2022-09-06 14:49 | Progress Note - Cardiology ---
Cardiology SOAP Progress Note Subjective: Feels better today: less short of breath, less weak No cp or palp or syncope No n/v/d No focal weakness Objective: I&O/Vital Signs 09/06/22 09/06/22 09/06/22 09/06/22 03:00 03:26 04:00 04:00 Temp 36.4 Pulse 101 Resp 28 B/P (MAP) 167/81 (109) Pulse Ox 96 96 95 O2 Delivery Nasal Cannula Nasal Cannula Nasal Cannula O2 Flow Rate 4.00 4.00 4.00 09/06/22 09/06/22 09/06/22 09/06/22 04:00 05:11 06:00 06:36 Pulse 98 102 102 Resp 39 B/P (MAP) 154/90 (111) 109/92 (98) 172/84 (113) 157/67 (97) Pulse Ox 96 96 95 O2 Delivery Nasal Cannula Nasal Cannula Nasal Cannula O2 Flow Rate 4.00 4.00 4.00 09/06/22 09/06/22 09/06/22 09/06/22 07:00 07:00 07:49 08:00 Temp 36.6 Pulse 100 94 Resp 30 B/P (MAP) 139/101 (114) Pulse Ox 96 95 O2 Delivery Nasal Cannula Nasal Cannula O2 Flow Rate 4.00 4.00 09/06/22 09/06/22 09/06/22 09/06/22 08:00 09:00 10:00 10:10 Temp 36.6 Pulse 103 98 88 98 Resp 26 B/P (MAP) 153/115 (128) 124/91 (102) Pulse Ox 97 97 96 97 O2 Delivery Nasal Cannula Nasal Cannula Nasal Cannula O2 Flow Rate 4.00 4.00 4.00 09/06/22 09/06/22 09/06/22 09/06/22 11:58 12:00 12:00 13:00 Temp 37.0 37.0 Pulse 89 89 107 Resp 18 18 B/P (MAP) 168/97 (120) 168/97 (120) Pulse Ox 96 95 O2 Delivery Nasal Cannula Nasal Cannula High Flow N/C O2 Flow Rate 5.00 4.00 5.00 09/06/22 00:00 Intake Total 1580 ml Output Total 350 ml Balance 1230 ml Constitutional: AAO x 3, well-developed, other (on BiPAP) Respiratory: other (fair air entry, prolonged exp) Cardiovascular: irregularly irregular, tachycardia, S1 and S2, systolic murmur Gastrointestional: soft, audible bowel sounds Extremities: other Neurologic/Psychiatric: other (moves all limbs) Skin: No rash on exposed areas, No ulcerations on exposed areas Results/Procedures: Labs Laboratory Tests 09/05/22 16:03: Glucometer 331H 09/06/22 04:44: White Blood Count 26.4H, Red Blood Count 3.20L, Hemoglobin 9.0L, Hematocrit 29L, Mean Corpuscular Volume 92, Mean Corpuscular Hemoglobin 28, Mean Corpuscular Hemoglobin Concent 31L, Red Cell Distribution Width 16.8H, Platelet Count 346, Mean Platelet Volume 11.2, Immature Granulocyte % (Auto) 2, Neutrophils (%) (Auto) 96H, Lymphocytes (%) (Auto) 1L, Monocytes (%) (Auto) 2, Eosinophils (%) (Auto) 0, Basophils (%) (Auto) 0, Neutrophils # (Auto) 25.2H, Lymphocytes # (Auto) 0.3L, Monocytes # (Auto) 0.5, Eosinophils # (Auto) 0.0, Basophils # (Auto) 0.0, Immature Granulocyte # (Auto) 0.4H, Sodium Level 135, Potassium Level 4.8, Chloride Level 100, Carbon Dioxide Level 23, Anion Gap 12, Blood Urea Nitrogen 44H, Creatinine 2.06H, Estimat Glomerular Filtration Rate 23, BUN/Creatinine Ratio 21, Glucose Level 328H, Calcium Level 8.8, Corrected Calcium 9.7, Phosphorus Level 2.5, Magnesium Level 2.0, Total Bilirubin 0.3, Aspartate Amino Transf (AST/SGOT) 35H, Alanine Aminotransferase (ALT/SGPT) 47, Alkaline Phosphatase 119, Total Protein 6.0L, Albumin 2.9L 09/06/22 08:30: Stool Occult Blood Immunoassay POSITIVEH 09/06/22 09:25: Glucometer 241H 09/06/22 14:27: Glucometer 198H Microbiology 09/03/22 Gram Stain - Final, Resulted 09/03/22 Anaerobic Culture, Resulted Pending 09/03/22 Body Fluid Culture - Preliminary, Resulted Culture In Progress 09/02/22 MRSA Screen - Final, Complete MRSA not isolated Laboratory Tests 09/05/22 04:28 09/06/22 04:44 A/P: Assessment: Ac resp failure, multifactorial (see below) Non-compliance with meds at home Ac diastolic CHF - Echocardiogram of Sep 30, 2020 showed LVEF 60-65%. PASP 35-40mmHg - Echocardiogram of 07-16-22 showed LVEF 50-55%. Mod calcified mitral valve annulus Marked anemia - managed by the Medical services Marked leucocytosis: steroid therapy and/or infection - managed by the Med svce A Fib with RVR - rate improved - first dx on ECG of 07-13-22 - Holter 07/16/22: A fib with avg vent rate 96 bpm, frequent isolated and couple PVCs, no VT - MPI of Sep 25, 2020: No evidence of significant myocardial ischemia or infarction on this study. Normal regional wall motion. Normal global left ventricular systolic function with a calculated ejection fraction of 72%. - Recommend sleep eval for eval for YEISON. Discussed. She has refused in the past LLL Pneumonia? 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 Cardoza for stage IV colon, followed by Dr. Peidra Plan: * Hold diuretics for now because of deteriorating renal function * Continue oral dilt to control ventricular rate * Monitor lab closely * Continue apixaban for stroke prophylaxis * Empiric therapy for pneumonia SHIN HERRERA MD FACP FAC CCDS Sep 06, 2022 14:49
[2022-09-07] MEDS: 1/2 NS W/KCL 20 MEQ/L 1,000 ML IV SCH (02:14)
[2022-09-07] MEDS: RT-ALBUTEROL/IPRATROPIUM 3 ML (DUONEB) VIAL INH SCH ×4 (02:28→22:02)
[2022-09-07 05:33] LABS: BASOPHILS % (AUTO) 0 % (0-10); EOSINOPHILS % (AUTO) 0 % (0-10); HEMATOCRIT 31 % (35-52); HEMOGLOBIN 9.4 g/dL (11.5-16.0); LYMPHOCYTES # (AUTO) 0.4 10^3/uL (1.0-4.0); LYMPHOCYTES % (AUTO) 2 % (12-44); MEAN CORPUSCULAR HEMOGLOBIN 28 pg (25-34); MEAN CORPUSCULAR HGB CONC 31 g/dL (32-36); MEAN CORPUSCULAR VOLUME 92 fL (80-99); MEAN PLATELET VOLUME 10.9 fL (9.0-12.2); MONOCYTES # (AUTO) 0.7 10^3/uL (0.0-1.0); MONOCYTES % (AUTO) 3 % (0-12); NEUTROPHILS # (AUTO) 23.9 10^3/uL (1.8-7.8); NEUTROPHILS % (AUTO) 95 % (42-75); PLATELET COUNT 338 10^3/uL (130-400); WHITE BLOOD COUNT 25.2 10^3/uL (4.3-11.0)
[2022-09-07 05:55] LABS: ALBUMIN 2.8 GM/DL (3.2-4.5); BILIRUBIN,TOTAL 0.3 MG/DL (0.1-1.0); CREATININE SERUM 1.98 MG/DL (0.60-1.30); MAGNESIUM 2.2 MG/DL (1.6-2.4); PHOSPHORUS 3.2 MG/DL (2.3-4.7); POTASSIUM 4.6 MMOL/L (3.6-5.0); TOTAL PROTEIN 5.8 GM/DL (6.4-8.2)
[2022-09-07] MEDS: inSUlin ASPART (NovoLOG) 1 UNIT/0.01 ML (CHARGE PER UNIT) SC SCH ×4 (06:11→21:29)
[2022-09-07] MEDS: KCL 20 MEQ TAB (K-DUR) PO SCH (06:11)
[2022-09-07] MEDS: MAGNESIUM 1 GM/100 ML IVPB 100 ML IV SCH (06:12)
[2022-09-07] MEDS: POTASSIUM CL 10MEQ/50ML IVPB 50 ML IV SCH (06:12)
--- NOTE | 2022-09-07 08:10 | Progress Note ---
ANDREY FORD 09/07/22 0810: Subjective Date Seen by a Provider: Sep 07, 2022 Time Seen by a Provider: 07:45 Subjective/Events-last exam 82 F with pmh of copd, chf, a. fibb, and DMII on day 6 of admission for acute respiratory distress is continuing to improve in resp capabilities resting comfortably in bed. Pt reports that she is continuing to breath better compare to previous day. Pt denies any fever, chills, n/v, or pain. Still claims some difficulty breathing and weakness. Pt did not receive pt or incentive spirometer yesterday. Pt has not had another BM or flatus since yesterday but is w/o abdominal complaints. Review of Systems General: No Chills, No Night Sweats HEENT: No Head Aches, No Dysphasia Pulmonary: Dyspnea; No Cough Cardiovascular: Edema (worsening. 3+ BL LE); No: Chest Pain, Palpitations Gastrointestinal: No: Nausea, Vomiting Genitourinary: No Dysuria, No Frequency Musculoskeletal: No: leg pain, foot pain Neurological: Weakness Objective Exam Last Set of Vital Signs Vital Signs Date Time Temp Pulse Resp B/P (MAP) Pulse Ox O2 Delivery O2 Flow Rate FiO2 09/07/22 07:59 36.8 85 21 149/70 (96) 99 Nasal Cannula 4.00 09/05/22 23:59 50 Capillary Refill : Less Than 3 Seconds I&O Intake and Output 09/07/22 00:00 Intake Total 2490 ml Output Total 1275 ml Balance 1215 ml Intake Oral 1440 ml IV Total 1050 ml Output Urine Total 1275 ml General: Alert, Cooperative HEENT: Atraumatic, EOMI Neck: Supple, No LAD Lungs: Other (improved air in BL lung dillon) Heart: Other (irregularly irregular) Abdomen: Normal Bowel Sounds, No Tenderness, No Masses Extremities: Normal Pulses, Other (BL LE edema and wekaness ) Skin: No Rashes, No Significant Lesion Neuro: Other (weakness ) Psych/Mental Status: Mental Status NL, Mood NL Results Lab Laboratory Tests 09/06/22 08:30: Stool Occult Blood Immunoassay POSITIVEH 09/06/22 09:25: Glucometer 241H 09/06/22 14:27: Glucometer 198H 09/06/22 16:45: Glucometer 172H 09/06/22 20:35: Glucometer 239H 09/07/22 05:12: White Blood Count 25.2H, Red Blood Count 3.35L, Hemoglobin 9.4L, Hematocrit 31L, Mean Corpuscular Volume 92, Mean Corpuscular Hemoglobin 28, Mean Corpuscular Hemoglobin Concent 31L, Red Cell Distribution Width 16.6H, Platelet Count 338, Mean Platelet Volume 10.9, Immature Granulocyte % (Auto) 1, Neutrophils (%) (Auto) 95H, Lymphocytes (%) (Auto) 2L, Monocytes (%) (Auto) 3, Eosinophils (%) (Auto) 0, Basophils (%) (Auto) 0, Neutrophils # (Auto) 23.9H, Lymphocytes # (Auto) 0.4L, Monocytes # (Auto) 0.7, Eosinophils # (Auto) 0.0, Basophils # (Auto) 0.0, Immature Granulocyte # (Auto) 0.2H, Sodium Level 138, Potassium Level 4.6, Chloride Level 104, Carbon Dioxide Level 24, Anion Gap 10, Blood Urea Nitrogen 50H, Creatinine 1.98H, Estimat Glomerular Filtration Rate 25, BUN/Creatinine Ratio 25, Glucose Level 158H, Calcium Level 9.0, Corrected Calcium 10.0, Phosphorus Level 3.2, Magnesium Level 2.2, Total Bilirubin 0.3, Aspartate Amino Transf (AST/SGOT) 47H, Alanine Aminotransferase (ALT/SGPT) 57H, Alkaline Phosphatase 129, Total Protein 5.8L, Albumin 2.8L Microbiology 09/03/22 Gram Stain - Final, Resulted 09/03/22 Anaerobic Culture, Resulted Pending 09/03/22 Body Fluid Culture - Final, Resulted No growth 09/02/22 MRSA Screen - Final, Complete MRSA not isolated Assessment/Plan Assessment/Plan Assess & Plan/Chief Complaint 1. Acute on Chronic Respiratory Failure--continue supplemental O2 therapy 2. Atrial Fibrillation with RVR--continue oral cardizem, increase metoprolol to 50 mg for HTN and tachycardia 3. Decompensated Diastolic Congestive Heart Failure-- hold IV lasix and start oral lasix BID today due to worsening edema and monitor BUN/Cr closely 4. Acute on Chronic Anemia- continue monitor H/H, transfuse if Hgb < 8 5. Dibetes mellitus--continue aspart increased dosage of levemir to 45 units dur to continue elevated blood sugar, increase dosage of Jardiance to 25mg 6. Acute on Chronic Renal Insufficiency--monitor BUN/Cr, hold IV fluids, start hep lock, and increase oral fluids 7. Debility--continue PT/OT, increase ambulation and start OT today 8. History of Colon Cancer--stopped treatment early, fecal occult blood +, continue increased protonix therapy 9. COPD--oxygen requiring, continue on MAT protocol 10. stroke prophylaxis- continue on eliquis per cardio and H/H has stabilized 11. PNA- continue on cefepime and azithromycin, decrease solu-medrol therapy to 40 q 12, continue Bipap as needed, start incentive spirometry, BFA pleural cultures showed no growth, anaerobic pending 12. Pleural effusion- monitor with repeat CXR tomorrow 13. Constipation- continue oral milk of magnesium and senna therapy 14. Post-hospital care- consult director of social services TAO REED DO 09/07/22 1243: Supervisory-Addendum Brief Verification & Attestation Participated in pt care: history, physical Personally performed: exam, history, supervision of care Care discussed with: Medical Student Procedures: n/a Results interpretation: Verified all documentation Verification and Attestation of Medical Student E/M Service A medical student performed and documented this service in my presence. I reviewed and verified all information documented by the medical student and made modifications to such information, when appropriate. I personally performed the physical exam and medical decision making. Tao Reed, Sep 07, 2022,12:42 More edematous but feels better. H/H stable and blood sugar has came down. Will continue PT and start OT. Will need either inpatient rehab or SNF for DC so will get director of social services consult. ANDREY FORD Sep 07, 2022 08:10 TAO REED DO Sep 07, 2022 12:43
[2022-09-07] MEDS: meTOproloL SUCCINATE 50 MG (TOPROL XL) TAB PO SCH ×2 (08:34→21:07)
[2022-09-07] MEDS: FUROSEMIDE 40 MG (LASIX) TAB PO SCH ×2 (08:34→17:06)
[2022-09-07] MEDS: SENNA W/DOCUSATE (SENOKOT S) TABLET PO SCH ×2 (08:35→21:06)
[2022-09-07] MEDS: PANTOPRAZOLE 40 MG (PROTONIX) TAB PO SCH ×2 (08:35→21:06)
[2022-09-07] MEDS: methylPREDNISolone 40 MG/ML (Solu-MEDROL) VIAL IV SCH ×2 (08:36→21:07)
[2022-09-07] MEDS: CEFEPIME INJECTION 1,000 MG in NS (IVPB) 50 ML IV SCH ×2 (08:36→21:07)
[2022-09-07] MEDS: APIXABAN 2.5 MG (ELIQUIS) TABLET PO SCH ×2 (08:37→21:08)
--- NOTE | 2022-09-07 08:51 | Diagnostic Imaging Report ---
INDICATION: Pneumonia. Comparison is made with prior exam of 09/06/2022. FINDINGS: There is cardiomegaly. There is bilateral airspace disease, left greater than right. There is a left pleural effusion. No pneumothorax. Mediastinum is unremarkable. Some venous congestion cannot be excluded. IMPRESSION: Cardiomegaly and diffuse bilateral airspace disease left greater than right with left pleural effusion. Some underlying central pulmonary venous congestion cannot be excluded. Dictated by: Dictated on workstation # [id number]
[2022-09-07] MEDS ORDERED: EMPAGLIFLOZIN 10 MG TABLET (JARDIANCE) PO SCH ×2 (09:00)
[2022-09-07] MEDS ORDERED: FUROSEMIDE 40 MG (LASIX) TAB PO SCH (09:00)
--- NOTE | 2022-09-07 09:27 | Physical Therapy Daily Note ---
PT Daily Note-Current Subjective Patient in bed pre-tx, reports no pain but states she has to do a bowel movement, agrees to PT. Pain Section J - Health Conditions 1. Rarely or not at all 2. Occasionally 3. Frequently 4. Almost constantly 8. Unable to answer Pain Effect on Sleep: 2 Pain Interference with Therapy: 2 Pain Interference w/Day-to-Day: 2 Appearance Patient in bed post-tx with nurse call, phone, tray, all needs met, on bedpan Mental Status Patient Orientation: Person, Place, Situation Attachments: Oxygen, Samaniego Catheter, IV Transfers SCALE: Activities may be completed with or without assistive devices. 5-Licfkrddzm-wzfwgxp completes the activity by him/herself with no assistance from a helper. 5-Set-up or Clean-up Assistance-helper sets up or cleans up; patient completes activity. [place] assists only prior to or following the activity. 4-Supervision or Touching Assistance-helper provides verbal cues and/or touching/steadying and/or contact guard assistance as patient completes activity. Assistance may be provided throughout the activity or intermittently. 3-Partial/Moderate Assistance-helper does LESS THAN HALF the effort. [place] lift s, holds or supports trunk or limbs, but provides less than half the effort. 2-Substantial/Maximal Assistance-helper does MORE THAN HALF the effort. [place] lifts or holds trunk or limbs and provides more than half the effort. 4-Vamstfidi-lpandh does ALL the effort. Patient does none of the effort to complete the activity. Or, the assistance of 2 or more helpers is required for the patient to complete the activity. If activity was not attempted, code reason: 7-Patient Refused. 9-Not Applicable-not attempted and the patient did not perform the activity before the current illness, exacerbation or injury. 10-Not Attempted due to Environmental Limitations-(lack of equipment, weather restraints, etc.). 88-Not Attempted due to Medical Conditions or Safety Concerns. Roll Left & Right (QC): 1 Treatments rolling, attempted supine to sit Assessment Current Status: Fair Progress As we were getting patient ready to try vfh-cy-wdatw, she had a bowel movement in bed. We rolled patient to her side to clean her up, change lola, and rolled her to her back. Patient O2 drops into the 70s with movement in bed, verbal cueing to take deep breaths brings it back to low 90s. PT Chain Maker Machine Goals Chain Maker Machine Goals PT Senior Living Goals Time Frame: Sep 11, 2022 Roll Left & Right (QC): 4 (CGA) Sit to Lying (QC): 4 (CGA) Lying-Sitting on Side/Bed(QC): 4 (CGA) Sit to Stand (QC): 4 (CGA) Chair/Pxa-du-Yhqvl Xfer(QC): 4 (CGA) Toilet Transfer (QC): 4 (CGA) Walk 10 feet (QC): 4 (CGA) Walk 50ft with 2 Turns (QC): 4 (CGA) PT Plan Problem List Problem List: Activity Tolerance, Functional Strength, Safety, Balance, Gait, Transfer, Bed Mobility, ROM Treatment/Plan Treatment Plan: Continue Plan of Care Treatment Plan: Bed Mobility, Education, Functional Activity Reddy, Functional Strength, Gait, Safety, Therapeutic Exercise, Transfers Treatment Duration: Sep 11, 2022 Frequency: 6 times per week Estimated Hrs Per Day: .25 hour per day Patient and/or Family Agrees t: Yes Safety Risks/Education Patient Education: Correct Positioning, Safety Issues Teaching Recipient: Patient Teaching Methods: Demonstration, Discussion Response to Teaching: Reinforcement Needed Time Time In: 902 Time Out: 917 DATE: Sep 07, 2022 Total Billed Treatment Time: 15 Total Billed Treatment 1 visit FA JEREMIAS RUANO PT Sep 07, 2022 09:27
--- NOTE | 2022-09-07 11:40 | Occupational Therapy Eval ---
OT Evaluation-General/PLF Medical Diagnosis Admission Date Sep 02, 2022 at 14:39 Medical Diagnosis: Afib, hypoxia Onset Date: Sep 02, 2022 Therapy Diagnosis Therapy Diagnosis: reduced adl status Precautions Precautions/Isolations: Fall Prevention, Standard Precautions Referral Physician: Sd Referral Reason: Evaluation/Treatment Medical History Current History Pt presented to hospital with SOB. Per patient, she lives with her daughter in a double wide trailer. She has a ramp entrance. Pt states that her daughter assists with bathing and dressing but unable to give specifics on exactly how much assists she provides. It appears that daughter provides a lot of assist at home. Pt wears slip on shoes only, no socks. She uses a walker at baseline. Social History Home: Single Level Current Living Status: Children Entry Into Home: Ramp ADL-Prior Level of Function SCALE: Activities may be completed with or without assistive devices. 8-Npkkpgdhfo-odcjdfc completes the activity by him/herself with no assistance from a helper. 5-Set-up or Clean-up Assistance-helper sets up or cleans up; patient completes activity. [place] assists only prior to or following the activity. 4-Supervision or Touching Assistance-helper provides verbal cues and/or touching/steadying and/or contact guard assistance as patient completes activity. Assistance may be provided throughout the activity or intermittently. 3-Partial/Moderate Assistance-helper does LESS THAN HALF the effort. [place] lifts, holds or supports trunk or limbs, but provides less than half the effort. 2-Substantial/Maximal Assistance-helper does MORE THAN HALF the effort. [place]eller lifts or holds trunk or limbs and provides more than half the effort. 0-Ucjrsawhj-htnwdt does ALL the effort. Patient does none of the effort to complete the activity. Or, the assistance of 2 or more helpers is required for the patient to complete the activity. If activity was not attempted, code reason: 7-Patient Refused. 9-Not Applicable-not attempted and the patient did not perform the activity before the current illness, exacerbation or injury. 10-Not Attempted due to Environmental Limitations-(lack of equipment, weather restraints, etc.). 88-Not Attempted due to Medical Conditions or Safety Concerns. Self Care: Needed Some Help Functional Cognition: Needed Some Help DME/Equipment: Bath Chair, Shower Drive Self: No OT Current Status Subjective Pt reluctantly agreeable to participate. Very short with all responses. Appearance Pt left sitting in recliner, all needs within reach, RN notified. Mental Status/Objective Patient Orientation: Person, Situation Attachments: Samaniego Catheter, IV, Oxygen, Telemetry Current Glasses/Contacts: Yes Hearing Aids: No Dentures/Partials: No (No dentition ) Hand Dominance: Right Upper Extremity ROM Bilateral shoulder ~145 degrees AROM Elbow-distally WNL Upper Extremity Strength 3-/5 grossly ADL-Treatment Eating (QC): 5 Oral Hygiene (QC): 7 On/Off Footwear (QC): 7 (pt reports wearing slip on shoes only) Toileting Hygiene (QC): 1 (assist x2 per RN report) Pt sitting in recliner at OT arrival. She refuses any standing activities. Per RN, pt required assist x2 to stand from bed>commode>chair. Pt declines oral care as she reports having no teeth. Education on importance of oral care including cleaning gums. Pt still refuses. Oxygen remains >97% while seated in chair. Education OT Patient Education: Purpose of tx/functional activities, Rehab process, Safety issues Teaching Recipient: Patient Teaching Methods: Discussion OT Principal Architect Goals Snf Goals Time Frame: Sep 21, 2022 Toileting Hygiene (QC): 3 Shower/Bathe Self (QC): 3 Upper Body Dressing (QC): 3 Lower Body Dressing (QC): 3 On/Off Footwear (QC): 4 Additional Goals: 1-Demonstrate ADL Tasks, 2-Verbalize Understanding, 3-Improve Strength/Reddy 1=Demonstrate adherence to instructed precautions during ADL tasks. 2=Patient will verbalize/demonstrate understanding of assistive devices/modifications for ADL. 3=Patient will improve strength/tolerance for activity to enable patient to pe rform ADL's. OT Education/Plan Problem List/Assessment Assessment: Decreased Activ Tolerance, Decreased Safety Aware, Decreased UE Strength, Impaired Cognition, Impaired Self-Care Skills, Restricted Funct UE ROM Discharge Recommendations Plan/Recommendations: Continue POC Therapy Discharge Recommendati: Bath Aide, Post Acute OT Treatment Plan/Plan of Care Treatment,Training & Education: Yes Patient would benefit from OT for education, treatment and training to promote independence in ADL's, mobility, safety and/or upper extremity function for ADL's. Plan of Care: ADL Retraining, Caregiver Training, Functional Mobility, Group Exercise/Act as Ind, UE Funct Exercise/Act Treatment Duration: Sep 21, 2022 Frequency: 3 times per week Estimated Hrs Per Day: .25 hour per day Rehab Potential: Guarded Time Start Time: 11:15 Stop Time: 11:25 DATE: Sep 07, 2022 Total Time Billed (hr/min): 10 Billed Treatment Time 1 visit Sheryl Ambrose OT Sep 07, 2022 11:40
--- NOTE | 2022-09-07 12:50 | Progress Note - Cardiology ---
Cardiology SOAP Progress Note Subjective: Gen weakness and malaise Shortness of breath better No focal weakness No n/v/d No cp Swelling better Objective: I&O/Vital Signs 09/07/22 09/07/22 09/07/22 09/07/22 01:00 02:28 04:00 04:01 Temp 36.5 Pulse 90 83 Resp 25 B/P (MAP) 161/90 (113) Pulse Ox 100 99 O2 Delivery Nasal Cannula High Flow N/C O2 Flow Rate 4.00 5.00 09/07/22 09/07/22 09/07/22 09/07/22 06:46 07:34 07:59 08:00 Temp 36.8 Pulse 86 85 Resp 21 B/P (MAP) 149/70 (96) Pulse Ox 98 99 97 O2 Delivery Nasal Cannula Nasal Cannula Nasal Cannula O2 Flow Rate 4.00 4.00 4.00 09/07/22 09/07/22 09/07/22 09/07/22 08:00 09:00 10:00 11:00 Pulse 93 87 85 89 Resp 18 29 24 27 B/P (MAP) 160/68 (98) 123/99 (107) 172/89 (116) Pulse Ox 97 97 91 90 O2 Delivery Nasal Cannula Nasal Cannula Nasal Cannula Nasal Cannula O2 Flow Rate 4.00 4.00 4.00 4.00 09/07/22 11:58 Temp 36.6 Pulse 87 Resp 18 B/P (MAP) 172/89 (116) Pulse Ox 98 O2 Delivery Nasal Cannula O2 Flow Rate 5.00 09/07/22 00:00 Intake Total 1090 ml Output Total 850 ml Balance 240 ml Constitutional: AAO x 3, well-developed, other (on BiPAP) Respiratory: other (fair air entry, prolonged exp) Cardiovascular: irregularly irregular, tachycardia, S1 and S2, systolic murmur Gastrointestional: soft, audible bowel sounds Extremities: other Neurologic/Psychiatric: other (moves all limbs) Skin: No rash on exposed areas, No ulcerations on exposed areas Results/Procedures: Labs Laboratory Tests 09/06/22 14:27: Glucometer 198H 09/06/22 16:45: Glucometer 172H 09/06/22 20:35: Glucometer 239H 09/07/22 05:12: White Blood Count 25.2H, Red Blood Count 3.35L, Hemoglobin 9.4L, Hematocrit 31L, Mean Corpuscular Volume 92, Mean Corpuscular Hemoglobin 28, Mean Corpuscular Hemoglobin Concent 31L, Red Cell Distribution Width 16.6H, Platelet Count 338, Mean Platelet Volume 10.9, Immature Granulocyte % (Auto) 1, Neutrophils (%) (Auto) 95H, Lymphocytes (%) (Auto) 2L, Monocytes (%) (Auto) 3, Eosinophils (%) (Auto) 0, Basophils (%) (Auto) 0, Neutrophils # (Auto) 23.9H, Lymphocytes # (Auto) 0.4L, Monocytes # (Auto) 0.7, Eosinophils # (Auto) 0.0, Basophils # (Auto) 0.0, Immature Granulocyte # (Auto) 0.2H, Sodium Level 138, Potassium Level 4.6, Chloride Level 104, Carbon Dioxide Level 24, Anion Gap 10, Blood Urea Nitrogen 50H, Creatinine 1.98H, Estimat Glomerular Filtration Rate 25, BUN/Creatinine Ratio 25, Glucose Level 158H, Calcium Level 9.0, Corrected Calcium 10.0, Phosphorus Level 3.2, Magnesium Level 2.2, Total Bilirubin 0.3, Aspartate Amino Transf (AST/SGOT) 47H, Alanine Aminotransferase (ALT/SGPT) 57H, Alkaline Phosphatase 129, Total Protein 5.8L, Albumin 2.8L 09/07/22 10:30: Glucometer 175H Microbiology 09/03/22 Gram Stain - Final, Resulted 09/03/22 Anaerobic Culture, Resulted Pending 09/03/22 Body Fluid Culture - Final, Resulted No growth 09/02/22 MRSA Screen - Final, Complete MRSA not isolated Laboratory Tests 09/06/22 04:44 09/07/22 05:12 A/P: Assessment: Ac resp failure, multifactorial (see below) Non-compliance with meds at home Ac diastolic CHF - Echocardiogram of Sep 30, 2020 showed LVEF 60-65%. PASP 35-40mmHg - Echocardiogram of 07-16-22 showed LVEF 50-55%. Mod calcified mitral valve annulus Marked anemia - managed by the Medical services Marked leucocytosis: steroid therapy and/or infection - managed by the Med svce A Fib with RVR - rate improved - first dx on ECG of 07-13-22 - Holter 07/16/22: A fib with avg vent rate 96 bpm, frequent isolated and couple PVCs, no VT - MPI of Sep 25, 2020: No evidence of significant myocardial ischemia or infarction on this study. Normal regional wall motion. Normal global left ventricular systolic function with a calculated ejection fraction of 72%. - Recommend sleep eval for eval for YEISON. Discussed. She has refused in the past LLL Pneumonia? 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 Cardoza for stage IV colon, followed by Dr. Piedra Plan: * Renal function shows modest improvement after reducing diuretics * Continue oral dilt to control ventricular rate * Monitor lab closely * Continue apixaban for stroke prophylaxis * Empiric therapy for pneumonia SHIN HERRERA MD FACP FAC CCDS Sep 07, 2022 12:50
[2022-09-07 23:46] VITALS: BP 140/79
[2022-09-08 04:52] LABS: BASOPHILS % (AUTO) 0 % (0-10); EOSINOPHILS % (AUTO) 0 % (0-10); HEMATOCRIT 30 % (35-52); HEMOGLOBIN 9.4 g/dL (11.5-16.0); LYMPHOCYTES # (AUTO) 0.3 10^3/uL (1.0-4.0); LYMPHOCYTES % (AUTO) 1 % (12-44); MEAN CORPUSCULAR HEMOGLOBIN 28 pg (25-34); MEAN CORPUSCULAR HGB CONC 31 g/dL (32-36); MEAN CORPUSCULAR VOLUME 91 fL (80-99); MEAN PLATELET VOLUME 11.1 fL (9.0-12.2); MONOCYTES # (AUTO) 0.8 10^3/uL (0.0-1.0); MONOCYTES % (AUTO) 3 % (0-12); NEUTROPHILS # (AUTO) 22.9 10^3/uL (1.8-7.8); NEUTROPHILS % (AUTO) 94 % (42-75); PLATELET COUNT 304 10^3/uL (130-400); WHITE BLOOD COUNT 24.3 10^3/uL (4.3-11.0)
[2022-09-08 05:07] LABS: ALBUMIN 2.6 GM/DL (3.2-4.5); POTASSIUM 4.5 MMOL/L (3.6-5.0)
[2022-09-08 05:08] LABS: CALCIUM 8.8 MG/DL (8.5-10.1)
[2022-09-08 05:09] LABS: TOTAL PROTEIN 5.6 GM/DL (6.4-8.2)
[2022-09-08 05:11] LABS: BILIRUBIN,TOTAL 0.2 MG/DL (0.1-1.0)
[2022-09-08 05:12] LABS: PHOSPHORUS 3.1 MG/DL (2.3-4.7)
[2022-09-08 05:13] LABS: CREATININE SERUM 1.82 MG/DL (0.60-1.30)
[2022-09-08] MEDS: inSUlin ASPART (NovoLOG) 1 UNIT/0.01 ML (CHARGE PER UNIT) SC SCH ×4 (05:25→20:35)
[2022-09-08] MEDS: MAGNESIUM 1 GM/100 ML IVPB 100 ML IV SCH (05:37)
[2022-09-08] MEDS: POTASSIUM CL 10MEQ/50ML IVPB 50 ML IV SCH (05:37)
[2022-09-08] MEDS: KCL 20 MEQ TAB (K-DUR) PO SCH (05:38)
[2022-09-08 05:59] LABS: ANISOCYTOSIS SLIGHT; LYMPHOCYTES % (MANUAL) 4 %; MONOCYTES % (MANUAL) 2 %; NEUTROPHILS % (MANUAL) 94 %
[2022-09-08] MEDS: FUROSEMIDE 40 MG (LASIX) TAB PO SCH ×2 (06:05→17:15)
--- NOTE | 2022-09-08 08:00 | Progress Note ---
ANDREY FORD 09/08/22 0800: Subjective Date Seen by a Provider: Sep 08, 2022 Time Seen by a Provider: 07:45 Subjective/Events-last exam 82 F w/ PMH of a. fibb, CHF, copd, and DMII on day 7 of admission for acute respiratory failure resting comfortably in bed this morning. Pt reports improvement in ability to breath and mild increase in ambulation. Pt was seen by both PT and OT yesterday and was tolerated well. Had a BM yesterday afternoon w/o complaints. Pt reports using her incentive spirometer and feels like it is helping her with air flow. Denies any pain, fever, chills, n/v, CP or palpitations. Claims she is still SOB and weak but does claim she continues to feel better each day. Review of Systems General: No Chills, No Night Sweats HEENT: No Head Aches, No Dysphasia Pulmonary: Dyspnea; No Pleuritic Chest Pain Cardiovascular: Edema; No: Chest Pain, Palpitations Gastrointestinal: No: Nausea, Vomiting, Abdominal Pain Genitourinary: No Dysuria, No Frequency Musculoskeletal: No: leg pain, foot pain Neurological: Weakness Objective Exam Last Set of Vital Signs Vital Signs Date Time Temp Pulse Resp B/P (MAP) Pulse Ox O2 Delivery O2 Flow Rate FiO2 09/08/22 07:35 36.6 94 18 158/87 (110) 97 Nasal Cannula 09/08/22 04:00 4.00 09/05/22 23:59 50 Capillary Refill : Less Than 3 Seconds I&O Intake and Output 09/08/22 00:00 Intake Total 2585 ml Output Total 2050 ml Balance 535 ml Intake Oral 1535 ml IV Total 1050 ml Output Urine Total 2050 ml # Bowel Movements 1 General: Alert, Cooperative HEENT: Atraumatic, EOMI Neck: Supple, No LAD Lungs: Other (improved air flow in BL lung dillon, mild crackles noted in posterior lower lung dillon ) Heart: No Murmurs, Other (irreularly irregular) Abdomen: Normal Bowel Sounds, Soft, No Tenderness Extremities: Normal Pulses, Other (3+ BL LE edema ) Skin: No Rashes, No Significant Lesion Neuro: Other (weakness in all extermeties ) Psych/Mental Status: Mood NL Results Lab Laboratory Tests 09/07/22 10:30: Glucometer 175H 09/07/22 15:06: Glucometer 232H 09/07/22 21:03: Glucometer 232H 09/08/22 04:21: White Blood Count 24.3H, Red Blood Count 3.34L, Hemoglobin 9.4L, Hematocrit 30L, Mean Corpuscular Volume 91, Mean Corpuscular Hemoglobin 28, Mean Corpuscular Hemoglobin Concent 31L, Red Cell Distribution Width 16.2H, Platelet Count 304, Mean Platelet Volume 11.1, Immature Granulocyte % (Auto) 1, Neutrophils (%) (Auto) 94H, Lymphocytes (%) (Auto) 1L, Monocytes (%) (Auto) 3, Eosinophils (%) (Auto) 0, Basophils (%) (Auto) 0, Neutrophils # (Auto) 22.9H, Lymphocytes # (Auto) 0.3L, Monocytes # (Auto) 0.8, Eosinophils # (Auto) 0.0, Basophils # (Auto) 0.0, Immature Granulocyte # (Auto) 0.3H, Neutrophils % (Manual) 94, Lymphocytes % (Manual) 4, Monocytes % (Manual) 2, Anisocytosis SLIGHT, Sodium Level 138, Potassium Level 4.5, Chloride Level 103, Carbon Dioxide Level 24, Anion Gap 11, Blood Urea Nitrogen 49H, Creatinine 1.82H, Estimat Glomerular Josse tration Rate 27, BUN/Creatinine Ratio 27, Glucose Level 149H, Calcium Level 8.8, Corrected Calcium 9.9, Phosphorus Level 3.1, Total Bilirubin 0.2, Aspartate Amino Transf (AST/SGOT) 68H, Alanine Aminotransferase (ALT/SGPT) 71H, Alkaline Phosphatase 125, Total Protein 5.6L, Albumin 2.6L Microbiology 09/03/22 Gram Stain - Final, Complete 09/03/22 Anaerobic Culture - Final, Complete No anaerobes isolated 09/03/22 Body Fluid Culture - Final, Complete No growth 09/02/22 MRSA Screen - Final, Complete MRSA not isolated Assessment/Plan Assessment/Plan Assess & Plan/Chief Complaint 1. Acute on Chronic Respiratory Failure--continue supplemental O2 therapy 2. Atrial Fibrillation with RVR--continue oral cardizem, increase metoprolol to 50 mg for HTN and tachycardia 3. Decompensated Diastolic Congestive Heart Failure-- hold IV lasix and continue oral lasix BID due to worsening edema and monitor BUN/Cr closely 4. Acute on Chronic Anemia- continue monitor H/H, transfuse if Hgb < 8 5. Dibetes mellitus--continue aspart increased dosage of levemir to 45 units dur to continue elevated blood sugar, decrease dosage of Jardiance to 10mg due to worsening output 6. Acute on Chronic Renal Insufficiency--monitor BUN/Cr, hold IV fluids, start hep lock, and increase oral fluids 7. Debility--continue PT/OT, increase ambulation and continue OT today 8. History of Colon Cancer--stopped treatment early, fecal occult blood +, continue increased protonix therapy 9. COPD--oxygen requiring, continue on MAT protocol 10. stroke prophylaxis- continue on eliquis per cardio and H/H has stabilized 11. PNA- continue on cefepime, azithromycin completed, stop IV solu-medrol and start oral prednisone 40mg, continue Bipap as needed, continue incentive spirometry, aerobic and anaerobic cultures negative, add Eraxis for fungal coverage 12. Pleural effusion- monitor with repeat CXR tomorrow 13. Constipation- continue oral milk of magnesium and senna therapy 14. Post-hospital care- appreciate social worker palliative care consult after they speak with daughter TAO REED DO 09/08/22 1806: Supervisory-Addendum Brief Verification & Attestation Participated in pt care: history, physical Personally performed: exam, history, supervision of care Care discussed with: Medical Student Procedures: n/a Results interpretation: Verified all documentation Verification and Attestation of Medical Student E/M Service A medical student performed and documented this service in my presence. I reviewed and verified all information documented by the medical student and made modifications to such information, when appropriate. I personally performed the physical exam and medical decision making. Tao Reed, Sep 08, 2022,18:05 ANDREY FORD Sep 08, 2022 08:00 TAO REED DO Sep 08, 2022 18:06
[2022-09-08] MEDS ORDERED: predniSONE 20 MG TAB PO NR (09:00)
[2022-09-08] MEDS ORDERED: ANIDULAFUNGIN INJECTION 200 MG in NS (IVPB) 250 ML IV NR (09:00)
[2022-09-08] MEDS: RT-ALBUTEROL/IPRATROPIUM 3 ML (DUONEB) VIAL INH SCH ×3 (09:10→21:10)
[2022-09-08] MEDS: meTOproloL SUCCINATE 50 MG (TOPROL XL) TAB PO SCH (09:57)
[2022-09-08] MEDS: SENNA W/DOCUSATE (SENOKOT S) TABLET PO SCH ×2 (09:57→20:47)
[2022-09-08] MEDS: PANTOPRAZOLE 40 MG (PROTONIX) TAB PO SCH ×2 (09:57→20:47)
[2022-09-08] MEDS: EMPAGLIFLOZIN 10 MG TABLET (JARDIANCE) PO SCH (09:57)
[2022-09-08] MEDS: CEFEPIME INJECTION 1,000 MG in NS (IVPB) 50 ML IV SCH ×2 (09:58→20:42)
[2022-09-08] MEDS: APIXABAN 2.5 MG (ELIQUIS) TABLET PO SCH ×2 (10:01→20:47)
--- NOTE | 2022-09-08 10:57 | Occupational Ther Daily Note ---
OT Current Status-Daily Note Subjective Pt in bed, alert. Pt agrees to therapy. No pain at this time, c/o fatigue and weakness. Mental Status/Objective Patient Orientation: Person, Place, Time, Situation ADL-Treatment Pt eating breakfast on arrival. Pt able to eat independently, using silverware and opening all containers. Pt declines ADL's or ambulating. Pt provided set up for oral care at table and agreed to complete task by self after eating. Pt in bed post tx, phone call light in reach. All needs met. Therapy Code Descriptions/Definitions Functional [place] Measure: 0=Not Assessed/NA 4=Minimal Assistance 1=Total Assistance 5=Supervision or Setup 2=Maximal Assistance 6=Modified [place] 3=Moderate Assistance 7=Complete IndependenceSCALE: Activities may be completed with or without assistive devices. 1-Dcbgwdckfl-mfnzznj completes the activity by him/herself with no assistance from a helper. 5-Set-up or Clean-up Assistance-helper sets up or cleans up; patient completes activity. [place] assists only prior to or following the activity. 4-Supervision or Touching Assistance-helper provides verbal cues and/or touching/steadying and/or contact guard assistance as patient completes activity . Assistance may be provided throughout the activity or intermittently. 3-Partial/Moderate Assistance-helper does LESS THAN HALF the effort. [place] lifts, holds or supports trunk or limbs, but provides less than half the effort. 2-Substantial/Maximal Assistance-helper does MORE THAN HALF the effort. [place] lifts or holds trunk or limbs and provides more than half the effort. 1-Qvgqvxizz-ykjpgj does ALL the effort. Patient does none of the effort to complete the activity. Or, the assistance of 2 or more helpers is required for the patient to complete the activity. If activity was not attempted, code reason: 7-Patient Refused. 9-Not Applicable-not attempted and the patient did not perform the activity before the current illness, exacerbation or injury. 10-Not Attempted due to Environmental Limitations-(lack of equipment, weather restraints, etc.). 88-Not Attempted due to Medical Conditions or Safety Concerns. Eating (QC): 6 OT Drug Worker Goals Drug Worker Goals Time Frame: Sep 21, 2022 Toileting Hygiene (QC): 3 Shower/Bathe Self (QC): 3 Upper Body Dressing (QC): 3 Lower Body Dressing (QC): 3 On/Off Footwear (QC): 4 Additional Goals: 1-Demonstrate ADL Tasks, 2-Verbalize Understanding, 3- ImproveStrength/Reddy 1=Demonstrate adherence to instructed precautions during ADL tasks. 2=Patient will verbalize/demonstrate understanding of assistive devices/modifications for ADL. 3=Patient will improve strength/tolerance for activity to enable patient to perform ADL's. OT Education/Plan Problem List/Assessment Assessment: No Skilled OT Needs ID'd, Impaired Self-Care Skills Discharge Recommendations Plan/Recommendations: Continue POC Treatment Plan/Plan of Care Patient would benefit from OT for education, treatment and training to promote independence in ADL's, mobility, safety and/or upper extremity function for ADL's. Plan of Care: ADL Retraining, Caregiver Training, Functional Mobility, Group Exercise/Act as Ind, UE Funct Exercise/Act Treatment Duration: Sep 21, 2022 Frequency: 3 times per week Estimated Hrs Per Day: .25 hour per day Rehab Potential: Guarded Time Start Time: 09:45 Stop Time: 09:59 DATE: Sep 08, 2022 Total Time Billed (hr/min): 14 Billed Treatment Time 1 visit ADL (14 min) BRIANA RIOS Sep 08, 2022 10:57
--- NOTE | 2022-09-08 11:05 | Progress Note - Cardiology ---
Cardiology SOAP Progress Note Subjective: Sitting up in bed Remains SOB No c/o CP Objective: I&O/Vital Signs 09/08/22 09/08/22 09/08/22 09/08/22 04:00 06:53 07:00 07:35 Temp 36.8 36.6 Pulse 90 90 91 94 Resp 18 B/P (MAP) 151/70 (97) 158/87 (110) 158/87 (110) Pulse Ox 97 97 97 O2 Delivery Nasal Cannula Nasal Cannula Nasal Cannula O2 Flow Rate 4.00 4.00 09/08/22 09/08/22 09/08/22 09/08/22 08:00 09:00 09:10 11:52 Temp 37.1 Pulse 92 90 96 Resp 18 B/P (MAP) 157/80 (105) 150/79 (102) 144/89 (107) Pulse Ox 98 97 99 96 O2 Delivery Nasal Cannula Nasal Cannula Nasal Cannula Nasal Cannula O2 Flow Rate 4.00 4.00 4.00 3.00 09/08/22 13:00 Pulse 89 09/08/22 00:00 Intake Total 1385 ml Output Total 1450 ml Balance -65 ml Constitutional: AAO x 3, well-developed, other (on BiPAP) Respiratory: other (fair air entry, prolonged exp) Cardiovascular: irregularly irregular, tachycardia, S1 and S2, systolic murmur Gastrointestional: soft, audible bowel sounds Extremities: other Neurologic/Psychiatric: other (moves all limbs) Skin: No rash on exposed areas, No ulcerations on exposed areas Results/Procedures: Labs Laboratory Tests 09/07/22 15:06: Glucometer 232H 09/07/22 21:03: Glucometer 232H 09/08/22 04:21: White Blood Count 24.3H, Red Blood Count 3.34L, Hemoglobin 9.4L, Hematocrit 30L, Mean Corpuscular Volume 91, Mean Corpuscular Hemoglobin 28, Mean Corpuscular Hemoglobin Concent 31L, Red Cell Distribution Width 16.2H, Platelet Count 304, Mean Platelet Volume 11.1, Immature Granulocyte % (Auto) 1, Neutrophils (%) (Auto) 94H, Lymphocytes (%) (Auto) 1L, Monocytes (%) (Auto) 3, Eosinophils (%) (Auto) 0, Basophils (%) (Auto) 0, Neutrophils # (Auto) 22.9H, Lymphocytes # (Auto) 0.3L, Monocytes # (Auto) 0.8, Eosinophils # (Auto) 0.0, Basophils # (Auto) 0.0, Immature Granulocyte # (Auto) 0.3H, Neutrophils % (Manual) 94, Lymphocytes % (Manual) 4, Monocytes % (Manual) 2, Anisocytosis SLIGHT, Sodium Level 138, Potassium Level 4.5, Chloride Level 103, Carbon Dioxide Level 24, Anion Gap 11, Blood Urea Nitrogen 49H, Creatinine 1.82H, Estimat Glomerular Filtration Rate 27, BUN/Creatinine Ratio 27, Glucose Level 149H, Calcium Level 8.8, Corrected Calcium 9.9, Phosphorus Level 3.1, Total Bilirubin 0.2, Aspartate Amino Transf (AST/SGOT) 68H, Alanine Aminotransferase (ALT/SGPT) 71H, Alkaline Phosphatase 125, Total Protein 5.6L, Albumin 2.6L 09/08/22 11:59: Glucometer 108 Microbiology 09/03/22 Gram Stain - Final, Complete 09/03/22 Anaerobic Culture - Final, Complete No anaerobes isolated 09/03/22 Body Fluid Culture - Final, Complete No growth 09/02/22 MRSA Screen - Final, Complete MRSA not isolated A/P: Assessment: Ac resp failure, multifactorial (see below) Non-compliance with meds at home Ac diastolic CHF - Echocardiogram of Sep 30, 2020 showed LVEF 60-65%. PASP 35-40mmHg - Echocardiogram of 07-16-22 showed LVEF 50-55%. Mod calcified mitral valve annulus Marked anemia - managed by the Medical services Marked leucocytosis: steroid therapy and/or infection - managed by the Med svce A Fib with RVR - rate improved - first dx on ECG of 07-13-22 - Holter 07/16/22: A fib with avg vent rate 96 bpm, frequent isolated and couple PVCs, no VT - MPI of Sep 25, 2020: No evidence of significant myocardial ischemia or infarction on this study. Normal regional wall motion. Normal global left ventricular systolic function with a calculated ejection fraction of 72%. - Recommend sleep eval for eval for YEISON. Discussed. She has refused in the past LLL Pneumonia? 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 Cardoza for stage IV colon, followed by Dr. Piedra Plan: * Renal function shows modest improvement after reducing diuretics * Continue oral dilt to control ventricular rate * HR and BP not well controlled; increase BB * Monitor lab closely * Continue apixaban for stroke prophylaxis * Empiric therapy for pneumonia [facility] Sep 08, 2022 11:05
--- NOTE | 2022-09-08 13:26 | Physical Therapy Daily Note ---
PT Daily Note-Current Subjective Patient states, "I'm pooping in the bed." PT educates patient on up to commode for BM and not the bed. Patient agrees. Pain Section J - Health Conditions 1. Rarely or not at all 2. Occasionally 3. Frequently 4. Almost constantly 8. Unable to answer Pain Effect on Sleep: 2 Pain Interference with Therapy: 2 Pain Interference w/Day-to-Day: 2 Mental Status Patient Orientation: Person, Time Attachments: Oxygen, [place] Catheter, IV Transfers SCALE: Activities may be completed with or without assistive devices. 0-Hspefncnom-iozbwbw completes the activity by him/herself with no assistance from a helper. 5-Set-up or Clean-up Assistance-helper sets up or cleans up; patient completes activity. [place] assists only prior to or following the activity. 4-Supervision or Touching Assistance-helper provides verbal cues and/or touching/steadying and/or contact guard assistance as patient completes activity. Assistance may be provided throughout the activity or intermittently. 3-Partial/Moderate Assistance-helper does LESS THAN HALF the effort. [place] lifts, holds or supports trunk or limbs, but provides less than half the effort. 2-Substantial/Maximal Assistance-helper does MORE THAN HALF the effort. [place] lifts or holds trunk or limbs and provides more than half the effort. 6-Sihauvhcc-arxpzb does ALL the effort. Patient does none of the effort to complete the activity. Or, the assistance of 2 or more helpers is required for the patient to complete the activity. If activity was not attempted, code reason: 7-Patient Refused. 9-Not Applicable-not attempted and the patient did not perform the activity before the current illness, exacerbation or injury. 10-Not Attempted due to Environmental Limitations-(lack of equipment, weather restraints, etc.). 88-Not Attempted due to Medical Conditions or Safety Concerns. Lying to Sitting/Side of Bed(Q: 2 Sit to Stand (QC): 2 Chair/Xtc-zq-Nfdrb Xfer(QC): 2 Toilet Transfer (QC): 2 patient up to commode for BM. assist of PTC to cleanse as PT performs transfer training. Gait Training Does the Patient Walk?: No and Walking Goal IS indicated Gait Assistive Device: FWW Assessment Patient requires time and encouragement to actively participate with PT. Patient is very edematous total body. Patient did have a BM on the commode. PT instructed patient and nursing to have patient up to commode for all BM's. Patient voices understanding. PT to increase activity as tolerated by patient. PT Usp Goals Manager Engine Goals PT Manager Engine Goals Time Frame: Sep 11, 2022 Roll Left & Right (QC): 4 (CGA) Sit to Lying (QC): 4 (CGA) Lying-Sitting on Side/Bed(QC): 4 (CGA) Sit to Stand (QC): 4 (CGA) Chair/Gco-nz-Dntff Xfer(QC): 4 (CGA) Toilet Transfer (QC): 4 (CGA) Walk 10 feet (QC): 4 (CGA) Walk 50ft with 2 Turns (QC): 4 (CGA) PT Plan Treatment/Plan Treatment Plan: Continue Plan of Care Treatment Plan: Bed Mobility, Education, Functional Activity Reddy, Functional Strength, Gait, Safety, Therapeutic Exercise, Transfers Treatment Duration: Sep 11, 2022 Frequency: 6 times per week Estimated Hrs Per Day: .25 hour per day Patient and/or Family Agrees t: Yes Time Time In: 1245 Time Out: 1308 DATE: Sep 08, 2022 Total Billed Treatment Time: 23 Total Billed Treatment 1 visit FA x 2 23 min MIGUELITO CHANEL PT Sep 08, 2022 13:26
[2022-09-08] MEDS ORDERED: FUROSEMIDE 40 MG/4 ML INJ (LASIX) IVP NR (14:30)
--- NOTE | 2022-09-08 14:32 | Progress Note - Cardiology ---
Cardiology SOAP Progress Note Subjective: Gen malaise and weakness Shortness of breath with activity No palp or syncope No cp Bilat leg swelling No n/v/d Objective: I&O/Vital Signs 09/08/22 09/08/22 09/08/22 09/08/22 04:00 06:53 07:00 07:35 Temp 36.8 36.6 Pulse 90 90 91 94 Resp 18 B/P (MAP) 151/70 (97) 158/87 (110) 158/87 (110) Pulse Ox 97 97 97 O2 Delivery Nasal Cannula Nasal Cannula Nasal Cannula O2 Flow Rate 4.00 4.00 09/08/22 09/08/22 09/08/22 09/08/22 08:00 09:00 09:10 11:52 Temp 37.1 Pulse 92 90 96 Resp 18 B/P (MAP) 157/80 (105) 150/79 (102) 144/89 (107) Pulse Ox 98 97 99 96 O2 Delivery Nasal Cannula Nasal Cannula Nasal Cannula Nasal Cannula O2 Flow Rate 4.00 4.00 4.00 3.00 09/08/22 13:00 Pulse 89 09/08/22 00:00 Intake Total 1385 ml Output Total 1450 ml Balance -65 ml Constitutional: AAO x 3, well-developed, other (on BiPAP) Respiratory: other (fair air entry, prolonged exp) Cardiovascular: irregularly irregular, tachycardia, S1 and S2, systolic murmur Gastrointestional: soft, audible bowel sounds Extremities: significant edema (3-4+, bilat, pitting edema of legs) Neurologic/Psychiatric: other (moves all limbs) Skin: No rash on exposed areas, No ulcerations on exposed areas Results/Procedures: Labs Laboratory Tests 09/07/22 15:06: Glucometer 232H 09/07/22 21:03: Glucometer 232H 09/08/22 04:21: White Blood Count 24.3H, Red Blood Count 3.34L, Hemoglobin 9.4L, Hematocrit 30L, Mean Corpuscular Volume 91, Mean Corpuscular Hemoglobin 28, Mean Corpuscular Hemoglobin Concent 31L, Red Cell Distribution Width 16.2H, Platelet Count 304, Mean Platelet Volume 11.1, Immature Granulocyte % (Auto) 1, Neutrophils (%) ( Auto) 94H, Lymphocytes (%) (Auto) 1L, Monocytes (%) (Auto) 3, Eosinophils (%) (Auto) 0, Basophils (%) (Auto) 0, Neutrophils # (Auto) 22.9H, Lymphocytes # (Auto) 0.3L, Monocytes # (Auto) 0.8, Eosinophils # (Auto) 0.0, Basophils # (Auto) 0.0, Immature Granulocyte # (Auto) 0.3H, Neutrophils % (Manual) 94, Ly mphocytes % (Manual) 4, Monocytes % (Manual) 2, Anisocytosis SLIGHT, Sodium Level 138, Potassium Level 4.5, Chloride Level 103, Carbon Dioxide Level 24, Anion Gap 11, Blood Urea Nitrogen 49H, Creatinine 1.82H, Estimat Glomerular Filtration Rate 27, BUN/Creatinine Ratio 27, Glucose Level 149H, Calcium Level 8.8, Corrected Calcium 9.9, Phosphorus Level 3.1, Total Bilirubin 0.2, Aspartate Amino Transf (AST/SGOT) 68H, Alanine Aminotransferase (ALT/SGPT) 71H, Alkaline Phosphatase 125, Total Protein 5.6L, Albumin 2.6L 09/08/22 11:59: Glucometer 108 Microbiology 09/03/22 Gram Stain - Final, Complete 09/03/22 Anaerobic Culture - Final, Complete No anaerobes isolated 09/03/22 Body Fluid Culture - Final, Complete No growth 09/02/22 MRSA Screen - Final, Complete MRSA not isolated Laboratory Tests 09/07/22 05:12 09/08/22 04:21 A/P: Assessment: Ac resp failure, multifactorial (see below) Non-compliance with meds at home Ac diastolic CHF - Echocardiogram of Sep 30, 2020 showed LVEF 60-65%. PASP 35-40mmHg - Echocardiogram of 07-16-22 showed LVEF 50-55%. Mod calcified mitral valve annulus Marked anemia - managed by the Medical services Marked leucocytosis: steroid therapy and/or infection - managed by the Med svce A Fib with RVR - rate improved - first dx on ECG of 07-13-22 - Holter 07/16/22: A fib with avg vent rate 96 bpm, frequent isolated and couple PVCs, no VT - MPI of Sep 25, 2020: No evidence of significant myocardial ischemia or infarction on this study. Normal regional wall motion. Normal global left ventricular systolic function with a calculated ejection fraction of 72%. - Recommend sleep eval for eval for YEISON. Discussed. She has refused in the past LLL Pneumonia? 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 Cardoza for stage IV colon, followed by Dr. Piedra Plan: * Renal function shows modest improvement after reducing diuretics, but edema significant worse. Give diuretics today and prn * Continue oral dilt to control ventricular rate * HR and BP not well controlled; increase BB * Monitor lab closely * Continue apixaban for stroke prophylaxis * Empiric therapy for pneumonia SHIN HERRERA MD FACP FAC CCDS Sep 08, 2022 14:32
[2022-09-08] MEDS: meTOprolol SUCCINATE 100 MG (TOPROL XL) TAB PO SCH (20:47)
[2022-09-09] MEDS: RT-ALBUTEROL/IPRATROPIUM 3 ML (DUONEB) VIAL INH SCH ×4 (03:30→21:45)
[2022-09-09 05:05] LABS: BASOPHILS % (AUTO) 0 % (0-10); EOSINOPHILS % (AUTO) 0 % (0-10); HEMATOCRIT 30 % (35-52); HEMOGLOBIN 9.5 g/dL (11.5-16.0); LYMPHOCYTES # (AUTO) 0.7 10^3/uL (1.0-4.0); LYMPHOCYTES % (AUTO) 3 % (12-44); MEAN CORPUSCULAR HEMOGLOBIN 28 pg (25-34); MEAN CORPUSCULAR HGB CONC 31 g/dL (32-36); MEAN CORPUSCULAR VOLUME 89 fL (80-99); MONOCYTES # (AUTO) 1.2 10^3/uL (0.0-1.0); MONOCYTES % (AUTO) 5 % (0-12); NEUTROPHILS # (AUTO) 23.2 10^3/uL (1.8-7.8); NEUTROPHILS % (AUTO) 92 % (42-75); PLATELET COUNT 324 10^3/uL (130-400); WHITE BLOOD COUNT 25.4 10^3/uL (4.3-11.0)
[2022-09-09 05:21] LABS: ALBUMIN 2.6 GM/DL (3.2-4.5); POTASSIUM 3.8 MMOL/L (3.6-5.0)
[2022-09-09 05:23] LABS: CALCIUM 8.9 MG/DL (8.5-10.1)
[2022-09-09 05:24] LABS: TOTAL PROTEIN 5.5 GM/DL (6.4-8.2)
[2022-09-09 05:26] LABS: BILIRUBIN,TOTAL 0.2 MG/DL (0.1-1.0)
[2022-09-09 05:27] LABS: PHOSPHORUS 3.1 MG/DL (2.3-4.7)
[2022-09-09 05:28] LABS: CREATININE SERUM 1.91 MG/DL (0.60-1.30)
[2022-09-09] MEDS: POTASSIUM CL 10MEQ/50ML IVPB 50 ML IV SCH (05:31)
[2022-09-09] MEDS: MAGNESIUM 1 GM/100 ML IVPB 100 ML IV SCH (05:31)
[2022-09-09] MEDS: KCL 20 MEQ TAB (K-DUR) PO SCH (05:32)
[2022-09-09] MEDS: predniSONE 20 MG TAB PO SCH (06:09)
[2022-09-09] MEDS: FUROSEMIDE 40 MG (LASIX) TAB PO SCH ×2 (06:11→17:13)
[2022-09-09] MEDS: inSUlin ASPART (NovoLOG) 1 UNIT/0.01 ML (CHARGE PER UNIT) SC SCH ×4 (06:12→21:34)
[2022-09-09] MEDS ORDERED: ANIDULAFUNGIN INJECTION 100 MG in NS (IVPB) 100 ML IV SCH (09:00)
[2022-09-09] MEDS ORDERED: ALBUMIN 25% 25 GM/100 ML 50 ML IV NR ×2 (09:00→11:00)
--- NOTE | 2022-09-09 09:02 | Progress Note ---
ANDREY FORD 09/09/22 0902: Subjective Date Seen by a Provider: Sep 09, 2022 Time Seen by a Provider: 07:45 Subjective/Events-last exam 82 F on day 8 of admission for acute resp distress reports improvement in breathing today. Pt was able to have a BM w/o complaints. Claims she is still very weak and "swollen." Tolerated PT/OT well yesterday and is using incentive spirometer regularly. denies any pain, fever, chills, n/v, or lightheaded. Claims she is still SOB but improving. SS is currently working with family to develop a discharge plan. Review of Systems General: No Chills, No Night Sweats HEENT: No Head Aches, No Dysphasia Pulmonary: Dyspnea; No Cough Cardiovascular: No: Chest Pain, Palpitations Gastrointestinal: No: Nausea, Vomiting, Abdominal Pain Genitourinary: No Dysuria, No Frequency Musculoskeletal: leg pain, foot pain Neurological: Weakness Objective Exam Last Set of Vital Signs Vital Signs Date Time Temp Pulse Resp B/P (MAP) Pulse Ox O2 Delivery O2 Flow Rate FiO2 09/09/22 08:00 36.8 102 20 170/93 (118) 98 Nasal Cannula 4.00 09/05/22 23:59 50 Capillary Refill : Less Than 3 Seconds I&O Intake and Output 09/09/22 00:00 Intake Total 2235 ml Output Total 2825 ml Balance -590 ml Intake Oral 1885 ml IV Total 350 ml Output Urine Total 2825 ml # Bowel Movements 1 General: Alert, Oriented X3, Cooperative HEENT: Atraumatic, EOMI Neck: Supple, No LAD Lungs: Other (incresed air movement w/o abnormal breath sounds) Heart: Other (irregularly irregular) Abdomen: Normal Bowel Sounds, No Tenderness Extremities: No Clubbing, No Cyanosis Skin: No Rashes, No Significant Lesion Neuro: Other (2/5 LE and UE strength) Psych/Mental Status: Mental Status NL, Mood NL Results Lab Laboratory Tests 09/08/22 11:59: Glucometer 108 09/08/22 16:22: Glucometer 132H 09/08/22 19:42: Glucometer 176H 09/09/22 04:38: White Blood Count 25.4H, Red Blood Count 3.39L, Hemoglobin 9.5L, Hematocrit 30L, Mean Corpuscular Volume 89, Mean Corpuscular Hemoglobin 28, Mean Corpuscular Hemoglobin Concent 31L, Red Cell Distribution Width 15.9H, Platelet Count 324, Mean Platelet Volume 11.0, Immature Granulocyte % (Auto) 1, Neutrophils (%) ( Auto) 92H, Lymphocytes (%) (Auto) 3L, Monocytes (%) (Auto) 5, Eosinophils (%) (Auto) 0, Basophils (%) (Auto) 0, Neutrophils # (Auto) 23.2H, Lymphocytes # (Auto) 0.7L, Monocytes # (Auto) 1.2H, Eosinophils # (Auto) 0.0, Basophils # (Auto) 0.0, Immature Granulocyte # (Auto) 0.3H, Sodium Level 139, Potassium Level 3.8, Chloride Level 101, Carbon Dioxide Level 27, Anion Gap 11, Blood Urea Nitrogen 49H, Creatinine 1.91H, Estimat Glomerular Filtration Rate 26, BUN/Creatinine Ratio 26, Glucose Level 99, Calcium Level 8.9, Corrected Calcium 10.0, Phosphorus Level 3.1, Total Bilirubin 0.2, Aspartate Amino Transf (AST/SGOT) 87H, Alanine Aminotransferase (ALT/SGPT) 98H, Alkaline Phosphatase 129, Total Protein 5.5L, Albumin 2.6L Microbiology 09/03/22 Gram Stain - Final, Complete 09/03/22 Anaerobic Culture - Final, Complete No anaerobes isolated 09/03/22 Body Fluid Culture - Final, Complete No growth 09/02/22 MRSA Screen - Final, Complete MRSA not isolated Assessment/Plan Assessment/Plan Assess & Plan/Chief Complaint 1. Acute on Chronic Respiratory Failure--continue supplemental O2 therapy 2. Atrial Fibrillation with RVR--continue oral cardizem, increase metoprolol to100 mg for HTN and tachycardia 3. Decompensated Diastolic Congestive Heart Failure-- hold IV lasix and continue oral lasix BID due to worsening edema and monitor BUN/Cr closely, add spironolactone 25mg today to aid in dieresis, start BL leg wraps, add i basal dose of albumin to aid in 3rd spacing 4. Acute on Chronic Anemia- continue monitor H/H, transfuse if Hgb < 8 5. Dibetes mellitus--continue aspart decrease dosage of levemir to 40 units due to gain in control of fasting glucose, decrease dosage of Jardiance to 10mg due to worsening output 6. Acute on Chronic Renal Insufficiency--monitor BUN/Cr, hold IV fluids, start hep lock, and increase oral fluids, decrease KCl to 20meq 7. Debility--continue PT/OT, increase ambulation and continue OT today 8. History of Colon Cancer--stopped treatment early, fecal occult blood +, continue increased protonix therapy 9. COPD--oxygen requiring, continue on MAT protocol 10. stroke prophylaxis- continue on eliquis per cardio and H/H has stabilized 11. PNA- continue on cefepime, azithromycin completed, stop IV solu-medrol and start oral prednisone 40mg, continue Bipap as needed, continue incentive spirome try, aerobic and anaerobic cultures negative, add Eraxis for fungal coverage 12. Pleural effusion- monitor with repeat CXR tomorrow 13. Constipation- continue oral milk of magnesium and senna therapy 14. Post-hospital care- appreciate neonatal social worker consult after they speak with daughter TAO REED DO 09/09/22 1236: Supervisory-Addendum Brief Verification & Attestation Participated in pt care: history, physical Personally performed: exam, history, supervision of care Care discussed with: Medical Student Procedures: n/a Results interpretation: Verified all documentation Verification and Attestation of Medical Student E/M Service A medical student performed and documented this service in my presence. I re viewed and verified all information documented by the medical student and made modifications to such information, when appropriate. I personally performed the physical exam and medical decision making. Tao Reed, Sep 09, 2022,12:36 ANDREY FORD Sep 09, 2022 09:02 TAO REED DO Sep 09, 2022 12:36
[2022-09-09] MEDS: meTOprolol SUCCINATE 100 MG (TOPROL XL) TAB PO SCH ×2 (09:46→21:35)
[2022-09-09] MEDS: PANTOPRAZOLE 40 MG (PROTONIX) TAB PO SCH ×2 (09:46→21:35)
[2022-09-09] MEDS: CEFEPIME INJECTION 1,000 MG in NS (IVPB) 50 ML IV SCH ×2 (09:46→21:35)
[2022-09-09] MEDS: SENNA W/DOCUSATE (SENOKOT S) TABLET PO SCH ×2 (09:46→19:35)
[2022-09-09] MEDS: EMPAGLIFLOZIN 10 MG TABLET (JARDIANCE) PO SCH (09:46)
[2022-09-09] MEDS: SPIRONOLACTONE 25 MG (ALDACTONE) TAB PO SCH (09:46)
[2022-09-09] MEDS: APIXABAN 2.5 MG (ELIQUIS) TABLET PO SCH ×2 (09:50→21:35)
--- NOTE | 2022-09-09 10:29 | Physical Therapy Daily Note ---
PT Daily Note-Current Subjective Pt found seated upon entry. Agreed to PT. Does not rate or report any change in pain. During exercises she states she has a BM. Pain Numeric Pain Scale: 0-No Pain Section J - Health Conditions 1. Rarely or not at all 2. Occasionally 3. Frequently 4. Almost constantly 8. Unable to answer Pain Effect on Sleep: 2 Pain Interference with Therapy: 2 Pain Interference w/Day-to-Day: 2 Mental Status Patient Orientation: Normal For Age Attachments: Oxygen, [place] Catheter, IV Transfers SCALE: Activities may be completed with or without assistive devices. 4-Lmsqfumqds-llgpyuu completes the activity by him/herself with no assistance from a helper. 5-Set-up or Clean-up Assistance-helper sets up or cleans up; patient completes activity. [place] assists only prior to or following the activity. 4-Supervision or Touching Assistance-helper provides verbal cues and/or touching/steadying and/or contact guard assistance as patient completes activity. Assistance may be provided throughout the activity or intermittently. 3-Partial/Moderate Assistance-helper does LESS THAN HALF the effort. [place] lifts, holds or supports trunk or limbs, but provides less than half the effort. 2-Substantial/Maximal Assistance-helper does MORE THAN HALF the effort. [place] lifts or holds trunk or limbs and provides more than half the effort. 1-Efpjwoohj-bjewhb does ALL the effort. Patient does none of the effort to complete the activity. Or, the assistance of 2 or more helpers is required for the patient to complete the activity. If activity was not attempted, code reason: 7-Patient Refused. 9-Not Applicable-not attempted and the patient did not perform the activity before the current illness, exacerbation or injury. 10-Not Attempted due to Environmental Limitations-(lack of equipment, weather restraints, etc.). 88-Not Attempted due to Medical Conditions or Safety Concerns. Sit to Stand (QC): 1 Toilet Transfer (QC): 1 Pt is dependent 2-person assist /c trfs. Gait Training Does the Patient Walk?: No and Walking Goal IS indicated Gait Assistive Device: FWW Exercises Seated Therapy Exercises: Ankle pumps, Long arc quads, Hip flexion, Hip abd/add Seated Reps: 15 Pt tolerates exercises well /c no report of increased pain. Assessment Current Status: Fair Progress Pt is dependent 2-person assist /c trfs. Requires VC/TCs for correct limb placement during trfs. Continue to progress pt as tolerated per POC to increase strength and functional ability. PT Director Investor Relations Goals Director Investor Relations Goals PT Director Investor Relations Goals Time Frame: Sep 11, 2022 Roll Left & Right (QC): 4 (CGA) Sit to Lying (QC): 4 (CGA) Lying-Sitting on Side/Bed(QC): 4 (CGA) Sit to Stand (QC): 4 (CGA) Chair/Iku-bx-Vpguh Xfer(QC): 4 (CGA) Toilet Transfer (QC): 4 (CGA) Walk 10 feet (QC): 4 (CGA) Walk 50ft with 2 Turns (QC): 4 (CGA) PT Plan Treatment/Plan Treatment Plan: Continue Plan of Care Treatment Plan: Bed Mobility, Education, Functional Activity Reddy, Functional Strength, Gait, Safety, Therapeutic Exercise, Transfers Treatment Duration: Sep 11, 2022 Frequency: 6 times per week Estimated Hrs Per Day: .25 hour per day Patient and/or Family Agrees t: Yes Time Time In: 939 Time Out: 1020 DATE: Sep 09, 2022 Total Billed Treatment Time: 40 Total Billed Treatment 1 visit EX 1x FA 2x ROSCOE SIMEON STARTER MECHANIC Sep 09, 2022 10:29
--- NOTE | 2022-09-09 10:33 | Occupational Ther Daily Note ---
OT Current Status-Daily Note Subjective Pt in recliner, alert. Agrees to therapy. c/o no pain but weakness and fatigue. Mental Status/Objective Patient Orientation: Person, Place, Time, Situation Attachments: Samaniego Catheter, IV, Oxygen Pt 2 person assist for sit to stand transfer from recliner to [facility] with FWW. Pt 2 person assist with one therapist cleaning buttocks and another using max assist for standing with FWW. Pt stands for ~30 seconds before being fatigue and asking to sit down. 2 person assist to transfer back to recliner from [facility]. Requires VC's to reach for recliner before attempting to sit. In recliner post tx, phone/call light in reach. All needs met. ADL-Treatment Therapy Code Descriptions/Definitions Functional [place] Measure: 0=Not Assessed/NA 4=Minimal Assistance 1=Total Assistance 5=Supervision or Setup 2=Maximal Assistance 6=Modified [place] 3=Moderate Assistance 7=Complete IndependenceSCALE: Activities may be completed with or without assistive devices. 3-Mrqncbqnrf-lpvtbgr completes the activity by him/herself with no assistance from a helper. 5-Set-up or Clean-up Assistance-helper sets up or cleans up; patient completes activity. [place] assists only prior to or following the activity. 4-Supervision or Touching Assistance-helper provides verbal cues and/or touching/steadying and/or contact guard assistance as patient completes activity. Assistance may be provided throughout the activity or intermittently. 3-Partial/Moderate Assistance-helper does LESS THAN HALF the effort. [place] lifts, holds or supports trunk or limbs, but provides less than half the effort. 2-Substantial/Maximal Assistance-helper does MORE THAN HALF the effort. [place] lifts or holds trunk or limbs and provides more than half the effort. 3-Tyawxudzy-kfeiaa does ALL the effort. Patient does none of the effort to complete the activity. Or, the assistance of 2 or more helpers is required for the patient to complete the activity. If activity was not attempted, code reason: 7-Patient Refused. 9-Not Applicable-not attempted and the patient did not perform the activity before the current illness, exacerbation or injury. 10-Not Attempted due to Environmental Limitations-(lack of equipment, weather restraints, etc.). 88-Not Attempted due to Medical Conditions or Safety Concerns. Toileting Hygiene (QC): 1 Toilet Transfer (QC): 1 Education OT Patient Education: Safety issues, Transfer techniques Teaching Recipient: Patient Teaching Methods: Discussion Response to Teaching: Reinforcement Needed OT Bursar Goals Skilled Nursing Goals Time Frame: Sep 21, 2022 Toileting Hygiene (QC): 3 Shower/Bathe Self (QC): 3 Upper Body Dressing (QC): 3 Lower Body Dressing (QC): 3 On/Off Footwear (QC): 4 Additional Goals: 1-Demonstrate ADL Tasks, 2-Verbalize Understanding, 3- ImproveStrength/Reddy 1=Demonstrate adherence to instructed precautions during ADL tasks. 2=Patient will verbalize/demonstrate understanding of assistive devices/modifications for ADL. 3=Patient will improve strength/tolerance for activity to enable patient to perform ADL's. OT Education/Plan Problem List/Assessment Assessment: No Skilled OT Needs ID'd, Decreased Activ Tolerance, Decreased Safety Aware, Dependent Transfers, Impaired I ADL's, Impaired Self-Care Skills Discharge Recommendations Plan/Recommendations: Continue POC Treatment Plan/Plan of Care Patient would benefit from OT for education, treatment and training to promote independence in ADL's, mobility, safety and/or upper extremity function for ADL's. Plan of Care: ADL Retraining, Caregiver Training, Functional Mobility, Group Exercise/Act as Ind, UE Funct Exercise/Act Treatment Duration: Sep 21, 2022 Frequency: 3 times per week Estimated Hrs Per Day: .25 hour per day Rehab Potential: Guarded Time Start Time: 09:55 Stop Time: 10:20 DATE: Sep 09, 2022 Total Time Billed (hr/min): 25 Billed Treatment Time 1 visit ADL 2 (25 min) BRIANA RIOS Sep 09, 2022 10:33
[2022-09-09] MEDS: ANIDULAFUNGIN INJECTION 100 MG in NS (IVPB) 100 ML IV SCH (10:37)
--- NOTE | 2022-09-09 10:54 | Progress Note - Cardiology ---
Cardiology SOAP Progress Note Subjective: Sitting up in recliner at the bedside Continues to feel SOB Continues to report LE swelling No c/o CP or palpitations Objective: I&O/Vital Signs 09/10/22 09/10/22 09/10/22 09/10/22 00:00 00:26 03:23 03:27 Temp 36.7 36.4 Pulse 91 93 86 Resp 17 20 B/P (MAP) 145/65 (91) 117/52 (73) Pulse Ox 93 97 97 O2 Delivery Nasal Cannula Nasal Cannula Nasal Cannula O2 Flow Rate 4.00 4.00 3.00 09/10/22 09/10/22 09/10/22 07:36 08:00 08:00 Temp 37.0 Pulse 84 86 Resp 17 B/P (MAP) 128/72 (90) Pulse Ox 97 O2 Delivery Nasal Cannula Nasal Cannula O2 Flow Rate 4.00 3.00 09/10/22 00:00 Intake Total 1300 ml Output Total 3050 ml Balance -1750 ml Constitutional: AAO x 3, well-developed, other (on BiPAP) Respiratory: other (fair air entry, prolonged exp) Cardiovascular: irregularly irregular, S1 and S2, systolic murmur Gastrointestional: soft, audible bowel sounds Extremities: significant edema (3-4+, bilat, pitting edema of legs) Neurologic/Psychiatric: other (moves all limbs) Skin: No rash on exposed areas, No ulcerations on exposed areas Results/Procedures: Labs Laboratory Tests 09/09/22 10:40: Glucometer 98 09/09/22 15:57: Glucometer 225H 09/09/22 20:35: Glucometer 294H 09/10/22 05:20: White Blood Count 20.2H, Red Blood Count 3.28L, Hemoglobin 9.3L, Hematocrit 29L, Mean Corpuscular Volume 89, Mean Corpuscular Hemoglobin 28, Mean Corpuscular Hemoglobin Concent 32, Red Cell Distribution Width 15.8H, Platelet Count 314, Mean Platelet Volume 11.0, Immature Granulocyte % (Auto) 1, Neutrophils (%) (Auto) 90H, Lymphocytes (%) (Auto) 4L, Monocytes (%) (Auto) 6, Eosinophils (%) (Auto) 0, Basophils (%) (Auto) 0, Neutrophils # (Auto) 18.1H, Lymphocytes # (Auto) 0.8L, Monocytes # (Auto) 1.2H, Eosinophils # (Auto) 0.0, Basophils # (Auto) 0.0, Immature Granulocyte # (Auto) 0.1, Sodium Level 138, Potassium Level 3.9, Chloride Level 97L, Carbon Dioxide Level 30, Anion Gap 11, Blood Urea Nitrogen 47H, Creatinine 1.94H, Estimat Glomerular Filtration Rate 25, BUN/Creatinine Ratio 24, Glucose Level 146H, Calcium Level 8.8, Corrected Calcium 9.8, Phosphorus Level 2.8, Total Bilirubin 0.2, Aspartate Amino Transf (AST/SGOT) 77H, Alanine Aminotransferase (ALT/SGPT) 113H, Alkaline Phosphatase 128, Total Protein 5.6L, Albumin 2.8L 09/10/22 09:57: Glucometer 138H Microbiology 09/03/22 Gram Stain - Final, Complete 09/03/22 Anaerobic Culture - Final, Complete No anaerobes isolated 09/03/22 Body Fluid Culture - Final, Complete No growth 09/02/22 MRSA Screen - Final, Complete MRSA not isolated A/P: Assessment: Ac resp failure, multifactorial (see below) Non-compliance with meds at home Ac diastolic CHF - Echocardiogram of Sep 30, 2020 showed LVEF 60-65%. PASP 35-40mmHg - Echocardiogram of 07-16-22 showed LVEF 50-55%. Mod calcified mitral valve annulus Marked anemia - managed by the Medical services Marked leucocytosis: steroid therapy and/or infection - managed by the Med svce A Fib with RVR - rate improved - first dx on ECG of 07-13-22 - Holter 07/16/22: A fib with avg vent rate 96 bpm, frequent isolated and couple PVCs, no VT - MPI of Sep 25, 2020: No evidence of significant myocardial ischemia or infarction on this study. Normal regional wall motion. Normal global left ventricular systolic function with a calculated ejection fraction of 72%. - Recommend sleep eval for eval for YEISON. Discussed. She has refused in the past LLL Pneumonia? 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 Cardoza for stage IV colon, followed by Dr. Piedra Liver enzyme elevation - possible secondary to hepatobiliary congestion d/t CHF Plan: * Continues to have significant LE swelling * Continue oral dilt to control ventricular rate * HR has improved with increase dose of BB, however BP is not well controlled - add amlodipine * Monitor lab closely * Continue apixaban for stroke prophylaxis * Empiric therapy for pneumonia [facility] Sep 09, 2022 10:54
[2022-09-09] MEDS ORDERED: FUROSEMIDE 40 MG/4 ML INJ (LASIX) IVP NR (11:00)
[2022-09-09] MEDS ORDERED: amLODIPine 5 MG (NORVASC) TAB PO NR (11:00)
--- NOTE | 2022-09-09 11:29 | Diagnostic Imaging Report ---
INDICATION: Pneumonia. PA and lateral chest obtained at 08:57 a.m. FINDINGS: There is cardiomegaly. There is some patchy perihilar infiltrate on both sides which appears improved compared to 09/07/2022, especially on the left side, but not resolved. There is a small amount of left pleural fluid. IMPRESSION: There is cardiomegaly. There is poor inspiration. There is improving bilateral perihilar infiltrates, especially on the left, compatible with improving pneumonia. There is a minimal trace of pleural fluid on the left side. Dictated by: Dictated on workstation # [id number]
--- NOTE | 2022-09-09 16:22 | Progress Note - Cardiology ---
Cardiology SOAP Progress Note Subjective: Gen malaise Shortness of breath with activity Marked leg swelling No cp No palp No syncope No n/v/d No focal weakness Objective: I&O/Vital Signs 09/09/22 09/09/22 09/09/22 09/09/22 05:00 07:13 08:00 08:00 Temp 36.8 Pulse 87 86 102 Resp 18 20 B/P (MAP) 158/80 (106) 170/93 (118) Pulse Ox 98 95 98 O2 Delivery Nasal Cannula Nasal Cannula Nasal Cannula O2 Flow Rate 4.00 4.00 4.00 09/09/22 09/09/22 09/09/22 09/09/22 11:49 12:57 13:00 15:24 Temp 36.3 Pulse 98 89 89 Resp 16 13 B/P (MAP) 204/95 (131) 197/120 (145) Pulse Ox 98 99 98 O2 Delivery Nasal Cannula Nasal Cannula Nasal Cannula O2 Flow Rate 4.00 4.00 3.00 09/09/22 16:17 Temp 36.4 09/09/22 00:00 Intake Total 2065 ml Output Total 2050 ml Balance 15 ml Constitutional: AAO x 3, well-developed, other (on BiPAP) Respiratory: other (fair air entry, prolonged exp) Cardiovascular: irregularly irregular, S1 and S2, systolic murmur Gastrointestional: soft, audible bowel sounds Extremities: significant edema (3-4+, bilat, pitting edema of legs) Neurologic/Psychiatric: other (moves all limbs) Skin: No rash on exposed areas, No ulcerations on exposed areas Results/Procedures: Labs Laboratory Tests 09/08/22 16:22: Glucometer 132H 09/08/22 19:42: Glucometer 176H 09/09/22 04:38: White Blood Count 25.4H, Red Blood Count 3.39L, Hemoglobin 9.5L, Hematocrit 30L, Mean Corpuscular Volume 89, Mean Corpuscular Hemoglobin 28, Mean Corpuscular Hemoglobin Concent 31L, Red Cell Distribution Width 15.9H, Platelet Count 324, Mean Platelet Volume 11.0, Immature Granulocyte % (Auto) 1, Neutrophils (%) (Auto) 92H, Lymphocytes (%) (Auto) 3L, Monocytes (%) (Auto) 5, Eosinophils (%) (Auto) 0, Basophils (%) (Auto) 0, Neutrophils # (Auto) 23.2H, Lymphocytes # (Auto) 0.7L, Monocytes # (Auto) 1.2H, Eosinophils # (Auto) 0.0, Basophils # (Auto) 0.0, Immature Granulocyte # (Auto) 0.3H, Sodium Level 139, Potassium Level 3.8, Chloride Level 101, Carbon Dioxide Level 27, Anion Gap 11, Blood Urea Nitrogen 49H, Creatinine 1.91H, Estimat Glomerular Filtration Rate 26, BUN/Creatinine Ratio 26, Glucose Level 99, Calcium Level 8.9, Corrected Calcium 10.0, Phosphorus Level 3.1, Total Bilirubin 0.2, Aspartate Amino Transf (AST/SGOT) 87H, Alanine Aminotransferase (ALT/SGPT) 98H, Alkaline Phosphatase 129, Total Protein 5.5L, Albumin 2.6L 09/09/22 10:40: Glucometer 98 09/09/22 15:57: Glucometer 225H Microbiology 09/03/22 Gram Stain - Final, Complete 09/03/22 Anaerobic Culture - Final, Complete No anaerobes isolated 09/03/22 Body Fluid Culture - Final, Complete No growth 09/02/22 MRSA Screen - Final, Complete MRSA not isolated A/P: Assessment: Ac resp failure, multifactorial (see below) Non-compliance with meds at home Ac diastolic CHF - Echocardiogram of Sep 30, 2020 showed LVEF 60-65%. PASP 35-40mmHg - Echocardiogram of 07-16-22 showed LVEF 50-55%. Mod calcified mitral valve annulus Marked anemia - managed by the Medical services Marked leucocytosis: steroid therapy and/or infection - managed by the Med svce A Fib with RVR - rate improved - first dx on ECG of 07-13-22 - Holter 07/16/22: A fib with avg vent rate 96 bpm, frequent isolated and couple PVCs, no VT - MPI of Sep 25, 2020: No evidence of significant myocardial ischemia or infarction on this study. Normal regional wall motion. Normal global left ventricular systolic function with a calculated ejection fraction of 72%. - Recommend sleep eval for eval for YEISON. Discussed. She has refused in the past LLL Pneumonia? 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 Cardoza for stage IV colon, followed by Dr. Piedra Liver enzyme elevation - possible secondary to hepatobiliary congestion d/t CHF Plan: * Continues to have significant LE swelling * Continue oral dilt to control ventricular rate * HR has improved with increase dose of BB, however BP is not well controlled - add amlodipine * Add metolazone for edema (already on furosemide and spironolactone) * Monitor lab closely * Continue apixaban for stroke prophylaxis * Empiric therapy for pneumonia SHIN HERRERA MD FACP FAC CCDS Sep 09, 2022 16:22
[2022-09-09] MEDS: hydrALAZINE (APRESOLINE) 25 MG TAB PO SCH (21:35)
[2022-09-10] MEDS: RT-ALBUTEROL/IPRATROPIUM 3 ML (DUONEB) VIAL INH SCH ×4 (03:23→21:58)
[2022-09-10 05:43] LABS: BASOPHILS % (AUTO) 0 % (0-10); EOSINOPHILS % (AUTO) 0 % (0-10); HEMATOCRIT 29 % (35-52); HEMOGLOBIN 9.3 g/dL (11.5-16.0); LYMPHOCYTES # (AUTO) 0.8 10^3/uL (1.0-4.0); LYMPHOCYTES % (AUTO) 4 % (12-44); MEAN CORPUSCULAR HEMOGLOBIN 28 pg (25-34); MEAN CORPUSCULAR HGB CONC 32 g/dL (32-36); MEAN CORPUSCULAR VOLUME 89 fL (80-99); MONOCYTES # (AUTO) 1.2 10^3/uL (0.0-1.0); MONOCYTES % (AUTO) 6 % (0-12); NEUTROPHILS # (AUTO) 18.1 10^3/uL (1.8-7.8); NEUTROPHILS % (AUTO) 90 % (42-75); PLATELET COUNT 314 10^3/uL (130-400); WHITE BLOOD COUNT 20.2 10^3/uL (4.3-11.0)
[2022-09-10 06:03] LABS: ALBUMIN 2.8 GM/DL (3.2-4.5); POTASSIUM 3.9 MMOL/L (3.6-5.0)
[2022-09-10 06:04] LABS: CALCIUM 8.8 MG/DL (8.5-10.1)
[2022-09-10] MEDS: MAGNESIUM 1 GM/100 ML IVPB 100 ML IV SCH (06:05)
[2022-09-10] MEDS: POTASSIUM CL 10MEQ/50ML IVPB 50 ML IV SCH (06:05)
[2022-09-10 06:06] LABS: TOTAL PROTEIN 5.6 GM/DL (6.4-8.2)
[2022-09-10] MEDS: KCL 20 MEQ TAB (K-DUR) PO SCH (06:06)
[2022-09-10 06:07] LABS: BILIRUBIN,TOTAL 0.2 MG/DL (0.1-1.0)
[2022-09-10] MEDS: inSUlin ASPART (NovoLOG) 1 UNIT/0.01 ML (CHARGE PER UNIT) SC SCH ×4 (06:07→21:04)
[2022-09-10 06:09] LABS: CREATININE SERUM 1.94 MG/DL (0.60-1.30); PHOSPHORUS 2.8 MG/DL (2.3-4.7)
[2022-09-10] MEDS: hydrALAZINE (APRESOLINE) 25 MG TAB PO SCH ×3 (06:35→21:03)
[2022-09-10] MEDS: predniSONE 20 MG TAB PO SCH (06:35)
[2022-09-10] MEDS: FUROSEMIDE 40 MG (LASIX) TAB PO SCH ×2 (06:35→16:28)
--- NOTE | 2022-09-10 08:04 | Progress Note ---
ANDREY FORD 09/10/22 0804: Subjective Date Seen by a Provider: Sep 10, 2022 Time Seen by a Provider: 07:44 Subjective/Events-last exam 82 F on day 9 of admission for acute respiratory distress is resting comfortably in bed w/o complaints. LE wraps for edema are well tolerated. Pt states she fee ls like she is breathing much better compared to previous days. She tolerated pt/ot well yesterday. BMs are w/o complaints. Denies fever,chills, n/v, or pain. Claims she is still weak but has noticed and increase in ambulation. SS spoke with family and agreed on referral to intermediate home. Review of Systems General: No Chills, No Night Sweats HEENT: No Head Aches, No Dysphasia Pulmonary: Dyspnea; No Cough Cardiovascular: No: Chest Pain, Palpitations Gastrointestinal: No: Nausea, Vomiting, Abdominal Pain Genitourinary: No Dysuria, No Incontinence Musculoskeletal: No: leg pain, foot pain Neurological: Weakness Objective Exam Last Set of Vital Signs Vital Signs Date Time Temp Pulse Resp B/P (MAP) Pulse Ox O2 Delivery O2 Flow Rate FiO2 09/10/22 03:27 36.4 86 20 117/52 (73) 97 Nasal Cannula 3.00 09/05/22 23:59 50 Capillary Refill : Less Than 3 Seconds I&O Intake and Output 09/10/22 00:00 Intake Total 1480 ml Output Total 4600 ml Balance -3120 ml Intake Oral 1250 ml IV Total 230 ml Output Urine Total 4600 ml # Bowel Movements 3 General: Alert, Oriented X3, Cooperative HEENT: Atraumatic Neck: Supple, No LAD Lungs: Other (improved air movement in all lung dillon) Heart: Regular Rate, No Murmurs, Other Abdomen: Normal Bowel Sounds, No Tenderness Extremities: Normal Pulses, Other (BL 2+ LE edema) Skin: No Rashes, No Significant Lesion Neuro: Other (BL UE and LE strength 2/5) Psych/Mental Status: Mental Status NL, Mood NL Results Lab Laboratory Tests 09/09/22 10:40: Glucometer 98 09/09/22 15:57: Glucometer 225H 09/09/22 20:35: Glucometer 294H 09/10/22 05:20: White Blood Count 20.2H, Red Blood Count 3.28L, Hemoglobin 9.3L, Hematocrit 29L, Mean Corpuscular Volume 89, Mean Corpuscular Hemoglobin 28, Mean Corpuscular Hemoglobin Concent 32, Red Cell Distribution Width 15.8H, Platelet Count 314, Mean Platelet Volume 11.0, Immature Granulocyte % (Auto) 1, Neutrophils (%) (Auto) 90H, Lymphocytes (%) (Auto) 4L, Monocytes (%) (Auto) 6, Eosinophils (%) (Auto) 0, Basophils (%) (Auto) 0, Neutrophils # (Auto) 18.1H, Lymphocytes # (Auto) 0.8L, Monocytes # (Auto) 1.2H, Eosinophils # (Auto) 0.0, Basophils # (Auto) 0.0, Immature Granulocyte # (Auto) 0.1, Sodium Level 138, Potassium Level 3.9, Chloride Level 97L, Carbon Dioxide Level 30, Anion Gap 11, Blood Urea Nitrogen 47H, Creatinine 1.94H, Estimat Glomerular Filtration Rate 25, BUN/Creatinine Ratio 24, Glucose Level 146H, Calcium Level 8.8, Corrected Calcium 9.8, Phosphorus Level 2.8, Total Bilirubin 0.2, Aspartate Amino Transf (AST/SGOT) 77H, Alanine Aminotransferase (ALT/SGPT) 113H, Alkaline Phosphatase 128, Total Protein 5.6L, Albumin 2.8L Microbiology 09/03/22 Gram Stain - Final, Complete 09/03/22 Anaerobic Culture - Final, Complete No anaerobes isolated 09/03/22 Body Fluid Culture - Final, Complete No growth 09/02/22 MRSA Screen - Final, Complete MRSA not isolated Assessment/Plan Assessment/Plan Assess & Plan/Chief Complaint 1. Acute on Chronic Respiratory Failure--continue supplemental O2 therapy 2. Atrial Fibrillation with RVR--continue oral cardizem, increase metoprolol to100 mg for HTN and tachycardia 3. Decompensated Diastolic Congestive Heart Failure-- hold IV lasix and continue oral lasix BID due to worsening edema and monitor BUN/Cr closely, continue spironolactone 25mg today to aid in dieresis, continue BL leg wraps, continue metolazone, add one dose of albumin 4. Acute on Chronic Anemia- continue monitor H/H, transfuse if Hgb < 8 5. Dibetes mellitus--continue aspart increase dosage of levemir to 43 units due to increase in fasting glucose, decrease dosage of Jardiance to 10mg due to worsening output 6. Acute on Chronic Renal Insufficiency--monitor BUN/Cr, hold IV fluids, start hep lock, and increase oral fluids, decrease KCl to 20meq 7. Debility--continue PT/OT, increase ambulation and continue OT today 8. History of Colon Cancer--stopped treatment early, fecal occult blood +, continue increased protonix therapy 9. COPD--oxygen requiring, continue on MAT protocol 10. stroke prophylaxis- continue on eliquis per cardio and H/H has stabilized 11. PNA- continue on cefepime, azithromycin completed, stop IV solu-medrol and continue oral prednisone 20mg, continue Bipap as needed, continue incentive spirometry, aerobic and anaerobic cultures negative, continue Eraxis for fungal coverage 12. Pleural effusion- monitor with repeat CXR tomorrow 13. Constipation- continue oral milk of magnesium and senna therapy 14. Post-hospital care- possibly dc to intermediate tomorrow TAO REED DO 09/10/22 1756: Supervisory-Addendum Brief Verification & Attestation Participated in pt care: history, physical Personally performed: exam, history, supervision of care Care discussed with: Medical Student Procedures: n/a Results interpretation: Verified all documentation Verification and Attestation of Medical Student E/M Service A medical student performed and documented this service in my presence. I reviewed and verified all information documented by the medical student and made modifications to such information, when appropriate. I personally performed the physical exam and medical decision making. Tao Reed, Sep 10, 2022,17:55 Awaiting SNF placement. Patient is minimum 2-3 person assist. ANDREY FORD Sep 10, 2022 08:04 TAO REED DO Sep 10, 2022 17:56
[2022-09-10] MEDS: EMPAGLIFLOZIN 10 MG TABLET (JARDIANCE) PO SCH (08:29)
[2022-09-10] MEDS: SPIRONOLACTONE 25 MG (ALDACTONE) TAB PO SCH (08:29)
[2022-09-10] MEDS: METOLAZONE 2.5 MG (ZAROXOLYN) TAB PO SCH (08:29)
[2022-09-10] MEDS: amLODIPine 5 MG (NORVASC) TAB PO SCH (08:30)
[2022-09-10] MEDS: PANTOPRAZOLE 40 MG (PROTONIX) TAB PO SCH ×2 (08:30→21:03)
[2022-09-10] MEDS: SENNA W/DOCUSATE (SENOKOT S) TABLET PO SCH ×2 (08:30→21:03)
[2022-09-10] MEDS: meTOprolol SUCCINATE 100 MG (TOPROL XL) TAB PO SCH ×2 (08:30→21:03)
[2022-09-10] MEDS: APIXABAN 2.5 MG (ELIQUIS) TABLET PO SCH ×2 (08:32→21:15)
--- NOTE | 2022-09-10 09:57 | Occupational Ther Daily Note ---
OT Current Status-Daily Note Subjective Pt denies pain, agreeable to treatment. Appearance Pt left supine in bed, RN in room at OT departure. Mental Status/Objective Attachments: Samaniego Catheter, IV, Oxygen, Telemetry ADL-Treatment Therapy Code Descriptions/Definitions Functional [place] Measure: 0=Not Assessed/NA 4=Minimal Assistance 1=Total Assistance 5=Supervision or Setup 2=Maximal Assistance 6=Modified [place] 3=Moderate Assistance 7=Complete IndependenceSCALE: Activities may be completed with or without assistive devices. 6-Xunrofmcux-cktiwuz completes the activity by him/herself with no assistance from a helper. 5-Set-up or Clean-up Assistance-helper sets up or cleans up; patient completes activity. [place] assists only prior to or following the activity. 4-Supervision or Touching Assistance-helper provides verbal cues and/or touching/steadying and/or contact guard assistance as patient completes activity. Assistance may be provided throughout the activity or intermittently. 3-Partial/Moderate Assistance-helper does LESS THAN HALF the effort. [place] lifts, holds or supports trunk or limbs, but provides less than half the effort. 2-Substantial/Maximal Assistance-helper does MORE THAN HALF the effort. [place] lifts or holds trunk or limbs and provides more than half the effort. 6-Hbfgnoiyq-zerdym does ALL the effort. Patient does none of the effort to complete the activity. Or, the assistance of 2 or more helpers is required for the patient to complete the activity. If activity was not attempted, code reason: 7-Patient Refused. 9-Not Applicable-not attempted and the patient did not perform the activity before the current illness, exacerbation or injury. 10-Not Attempted due to Environmental Limitations-(lack of equipment, weather restraints, etc.). 88-Not Attempted due to Medical Conditions or Safety Concerns. Other Treatment Pt slid down in bed at OT arrival. Dependent x2 to supine scoot towards HOB. Pt reports she got up and used the commode with physical therapy prior to this therapist arrival. See PT note regarding level of assist. Agreeable to UE exercises. L shoulder flexion ~120 degrees. 1x10 shoulder, elbow and wrist flexion/extension. Pt often loses focus after 6-7 rep and needs cues to return to correct technique. Education OT Patient Education: Correct positioning, Exercise program, Purpose of tx/functional activities, Safety issues, Transfer techniques Teaching Recipient: Patient Teaching Methods: Demonstration, Discussion Response to Teaching: Verbalize Understanding, Return Demonstration, Reinforcement Needed OT Jail Goals Manager Technical Training Goals Time Frame: Sep 21, 2022 Toileting Hygiene (QC): 3 Shower/Bathe Self (QC): 3 Upper Body Dressing (QC): 3 Lower Body Dressing (QC): 3 On/Off Footwear (QC): 4 Additional Goals: 1-Demonstrate ADL Tasks, 2-Verbalize Understanding, 3- ImproveStrength/Reddy 1=Demonstrate adherence to instructed precautions during ADL tasks. 2=Patient will verbalize/demonstrate understanding of assistive devices/modifications for ADL. 3=Patient will improve strength/tolerance for activity to enable patient to perform ADL's. OT Education/Plan Problem List/Assessment Assessment: Decreased Activ Tolerance, Decreased Safety Aware, Decreased UE Strength, Dependent Transfers, Impaired Bed Mobility, Impaired Cognition, Impaired Funct Balance, Impaired Self-Care Skills, Restricted Funct UE ROM Discharge Recommendations Plan/Recommendations: Continue POC Therapy Discharge Recommendati: Post Acute OT Treatment Plan/Plan of Care Treatment,Training & Education: Yes Patient would benefit from OT for education, treatment and training to promote independence in ADL's, mobility, safety and/or upper extremity function for ADL's. Plan of Care: ADL Retraining, Caregiver Training, Functional Mobility, Group Exercise/Act as Ind, UE Funct Exercise/Act Treatment Duration: Sep 21, 2022 Frequency: 3 times per week Estimated Hrs Per Day: .25 hour per day Rehab Potential: Guarded Time Start Time: 09:42 Stop Time: 09:52 DATE: Sep 10, 2022 Total Time Billed (hr/min): 10 Billed Treatment Time 1 visit EX Sheryl Erazo OT Sep 10, 2022 09:56
[2022-09-10] MEDS ORDERED: CHLORASEPTIC SPRAY 177 ML LIQUID MM PRN (10:00)
[2022-09-10] MEDS ORDERED: ALBUMIN 25% 25 GM/100 ML 50 ML IV NR (10:00)
--- NOTE | 2022-09-10 10:38 | Progress Note - Cardiology ---
Cardiology SOAP Progress Note Subjective: Lying in bed Feels breathing is better today No c/o CP or palpitations Objective: I&O/Vital Signs 09/10/22 09/10/22 09/10/22 09/11/22 19:54 21:59 22:01 00:00 Temp 36.5 36.8 Pulse 88 101 Resp 27 B/P (MAP) 145/71 (95) Pulse Ox 96 96 97 O2 Delivery Nasal Cannula Nasal Cannula Nasal Cannula O2 Flow Rate 3.00 3.00 3.00 09/11/22 09/11/22 09/11/22 01:00 02:49 03:52 Temp 36.6 Pulse 93 93 Resp 23 B/P (MAP) 158/78 (104) Pulse Ox 95 96 O2 Delivery Nasal Cannula Nasal Cannula O2 Flow Rate 3.00 3.00 09/11/22 00:00 Intake Total 1040 ml Output Total 2450 ml Balance -1410 ml Constitutional: AAO x 3, well-developed, other (on BiPAP) Respiratory: other (fair air entry, prolonged exp) Cardiovascular: irregularly irregular, S1 and S2, systolic murmur Gastrointestional: soft, audible bowel sounds Extremities: significant edema (3-4+, bilat, pitting edema of legs) Neurologic/Psychiatric: other (moves all limbs) Skin: No rash on exposed areas, No ulcerations on exposed areas Results/Procedures: Labs Laboratory Tests 09/10/22 09:57: Glucometer 138H 09/10/22 15:27: Glucometer 308H 09/10/22 19:27: Glucometer 259H 09/11/22 05:25: White Blood Count 24.8H, Red Blood Count 3.57L, Hemoglobin 10.0L, Hematocrit 32L , Mean Corpuscular Volume 88, Mean Corpuscular Hemoglobin 28, Mean Corpuscular Hemoglobin Concent 32, Red Cell Distribution Width 15.6H, Platelet Count 356, Mean Platelet Volume 11.4, Immature Granulocyte % (Auto) 1, Neutrophils (%) (Auto) 87H, Lymphocytes (%) (Auto) 6L, Monocytes (%) (Auto) 6, Eosinophils (%) (Auto) 0, Basophils (%) (Auto) 0, Neutrophils # (Auto) 21.6H, Lymphocytes # (Auto) 1.4, Monocytes # (Auto) 1.5H, Eosinophils # (Auto) 0.0, Basophils # (Auto) 0.0, Immature Granulocyte # (Auto) 0.2H, Sodium Level 138, Potassium Level 3.4L, Chloride Level 95L, Carbon Dioxide Level 28, Anion Gap 15H, Blood Urea Nitrogen 47H, Creatinine 1.82H, Estimat Glomerular Filtration Rate 27, BUN/Creatinine Ratio 26, Glucose Level 39*L, Calcium Level 9.1, Corrected Calcium 9.9, Phosphorus Level 2.4, Total Bilirubin 0.3, Aspartate Amino Transf (AST/SGOT) 68H, Alanine Aminotransferase (ALT/SGPT) 118H, Alkaline Phosphatase 134, Total Protein 5.9L, Albumin 3.0L Microbiology 09/03/22 Gram Stain - Final, Complete 09/03/22 Anaerobic Culture - Final, Complete No anaerobes isolated 09/03/22 Body Fluid Culture - Final, Complete No growth 09/02/22 MRSA Screen - Final, Complete MRSA not isolated A/P: Assessment: Ac resp failure, multifactorial (see below) Non-compliance with meds at home Ac diastolic CHF - Echocardiogram of Sep 30, 2020 showed LVEF 60-65%. PASP 35-40mmHg - Echocardiogram of 07-16-22 showed LVEF 50-55%. Mod calcified mitral valve annulus Marked anemia - managed by the Medical services Marked leucocytosis: steroid therapy and/or infection - managed by the Med svce A Fib with RVR - rate improved - first dx on ECG of 07-13-22 - Holter 07/16/22: A fib with avg vent rate 96 bpm, frequent isolated and couple PVCs, no VT - MPI of Sep 25, 2020: No evidence of significant myocardial ischemia or infarction on this study. Normal regional wall motion. Normal global left vent ricular systolic function with a calculated ejection fraction of 72%. - Recommend sleep eval for eval for YEISON. Discussed. She has refused in the past LLL Pneumonia? 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 Cardoza for stage IV colon, followed by Dr. Piedra Liver enzyme elevation - possible secondary to hepatobiliary congestion d/t CHF Plan: * LE swelling has improved somewhat with increase in diuretics * Monitor renal function closely * Continue oral dilt to control ventricular rate * BP has improved * Add metolazone for edema (already on furosemide and spironolactone) * Monitor lab closely * Continue apixaban for stroke prophylaxis * Empiric therapy for pneumonia [facility] Sep 10, 2022 10:38
--- NOTE | 2022-09-10 10:48 | Physical Therapy Daily Note ---
PT Daily Note-Current Subjective Pt found lying in bed upon entry. Reports she needs to go to the bathroom. Does not rate or report any change in pain. Pain Section J - Health Conditions 1. Rarely or not at all 2. Occasionally 3. Frequently 4. Almost constantly 8. Unable to answer Pain Effect on Sleep: 2 Pain Interference with Therapy: 2 Pain Interference w/Day-to-Day: 2 Mental Status Patient Orientation: Person, Place, Time Attachments: Oxygen, [place] Catheter, IV Transfers SCALE: Activities may be completed with or without assistive devices. 6-Csizogfozz-vvovosv completes the activity by him/herself with no assistance from a helper. 5-Set-up or Clean-up Assistance-helper sets up or cleans up; patient completes activity. [place] assists only prior to or following the activity. 4-Supervision or Touching Assistance-helper provides verbal cues and/or touching/steadying and/or contact guard assistance as patient completes acti vity. Assistance may be provided throughout the activity or intermittently. 3-Partial/Moderate Assistance-helper does LESS THAN HALF the effort. [place] lifts, holds or supports trunk or limbs, but provides less than half the effort. 2-Substantial/Maximal Assistance-helper does MORE THAN HALF the effort. [place] lifts or holds trunk or limbs and provides more than half the effort. 2-Puhzbmayr-xxrkes does ALL the effort. Patient does none of the effort to complete the activity. Or, the assistance of 2 or more helpers is required for the patient to complete the activity. If activity was not attempted, code reason: 7-Patient Refused. 9-Not Applicable-not attempted and the patient did not perform the activity before the current illness, exacerbation or injury. 10-Not Attempted due to Environmental Limitations-(lack of equipment, weather restraints, etc.). 88-Not Attempted due to Medical Conditions or Safety Concerns. Roll Left & Right (QC): 2 Lying to Sitting/Side of Bed(Q: 2 Sit to Stand (QC): 2 Toilet Transfer (QC): 2 Pt MAX assist /c bed mobility and trfs. Gait Training Does the Patient Walk?: No and Walking Goal IS indicated Gait Assistive Device: FWW Assessment Current Status: Fair Progress Pt requires TC/VCs to complete trfs. Requires MAX assistance /c trfs and bed mobility. Continue to progress pt as tolerated per POC to increase functional ability, strength, and endurance. PT Nursing Home Goals Nursing Home Goals PT [employer] Goals Time Frame: Sep 11, 2022 Roll Left & Right (QC): 4 (CGA) Sit to Lying (QC): 4 (CGA) Lying-Sitting on Side/Bed(QC): 4 (CGA) Sit to Stand (QC): 4 (CGA) Chair/Pzl-nu-Xbeal Xfer(QC): 4 (CGA) Toilet Transfer (QC): 4 (CGA) Walk 10 feet (QC): 4 (CGA) Walk 50ft with 2 Turns (QC): 4 (CGA) PT Plan Treatment/Plan Treatment Plan: Continue Plan of Care Treatment Plan: Bed Mobility, Education, Functional Activity Reddy, Functional Strength, Gait, Safety, Therapeutic Exercise, Transfers Treatment Duration: Sep 11, 2022 Frequency: 6 times per week Estimated Hrs Per Day: .25 hour per day Patient and/or Family Agrees t: Yes Time Time In: 904 Time Out: 934 DATE: Sep 10, 2022 Total Billed Treatment Time: 30 Total Billed Treatment 1 visit FA ROSCOE Ceballos F[employer]O [employer] OPERATOR Sep 10, 2022 10:48
[2022-09-10] MEDS: ANIDULAFUNGIN INJECTION 100 MG in NS (IVPB) 100 ML IV SCH (10:56)
--- NOTE | 2022-09-10 12:58 | Progress Note - Cardiology ---
Cardiology SOAP Progress Note Subjective: No cp or palp or syncope No shortness of breath No n/v/d Weakness and malaise are present but modestly improved No focal weakness Objective: I&O/Vital Signs 09/10/22 09/10/22 09/10/22 09/10/22 03:23 03:27 07:36 08:00 Temp 36.4 Pulse 86 84 Resp 20 B/P (MAP) 117/52 (73) Pulse Ox 97 97 O2 Delivery Nasal Cannula Nasal Cannula Nasal Cannula O2 Flow Rate 4.00 3.00 4.00 09/10/22 09/10/22 09/10/22 08:00 10:31 11:49 Temp 37.0 37.0 Pulse 86 88 Resp 17 15 B/P (MAP) 128/72 (90) 146/66 (92) Pulse Ox 97 95 97 O2 Delivery Nasal Cannula Nasal Cannula Nasal Cannula O2 Flow Rate 3.00 3.00 3.00 09/10/22 00:00 Intake Total 1300 ml Output Total 3050 ml Balance -1750 ml Constitutional: AAO x 3, well-developed, other (on BiPAP) Respiratory: other (fair air entry, prolonged exp) Cardiovascular: irregularly irregular, S1 and S2, systolic murmur Gastrointestional: soft, audible bowel sounds Extremities: significant edema (bilat pitting edema of legs) Neurologic/Psychiatric: other (moves all limbs) Skin: No rash on exposed areas, No ulcerations on exposed areas Results/Procedures: Labs Laboratory Tests 09/09/22 15:57: Glucometer 225H 09/09/22 20:35: Glucometer 294H 09/10/22 05:20: White Blood Count 20.2H, Red Blood Count 3.28L, Hemoglobin 9.3L, Hematocrit 29L, Mean Corpuscular Volume 89, Mean Corpuscular Hemoglobin 28, Mean Corpuscular Hemoglobin Concent 32, Red Cell Distribution Width 15.8H, Platelet Count 314, Mean Platelet Volume 11.0, Immature Granulocyte % (Auto) 1, Neutrophils (%) (Auto) 90H, Lymphocytes (%) (Auto) 4L, Monocytes (%) (Auto) 6, Eosinophils (%) (Auto) 0, Basophils (%) (Auto) 0, Neutrophils # (Auto) 18.1H, Lymphocytes # (Auto) 0.8L, Monocytes # (Auto) 1.2H, Eosinophils # (Auto) 0.0, Basophils # (Auto) 0.0, Immature Granulocyte # (Auto) 0.1, Sodium Level 138, Potassium Level 3.9, Chloride Level 97L, Carbon Dioxide Level 30, Anion Gap 11, Blood Urea Nitrogen 47H, Creatinine 1.94H, Estimat Glomerular Filtration Rate 25, BUN/Creatinine Ratio 24, Glucose Level 146H, Calcium Level 8.8, Corrected Calcium 9.8, Phosphorus Level 2.8, Total Bilirubin 0.2, Aspartate Amino Transf (AST/SGOT) 77H, Alanine Aminotransferase (ALT/SGPT) 113H, Alkaline Phosphatase 128, Total Protein 5.6L, Albumin 2.8L 09/10/22 09:57: Glucometer 138H Microbiology 09/03/22 Gram Stain - Final, Complete 09/03/22 Anaerobic Culture - Final, Complete No anaerobes isolated 09/03/22 Body Fluid Culture - Final, Complete No growth 09/02/22 MRSA Screen - Final, Complete MRSA not isolated Laboratory Tests 09/09/22 04:38 09/10/22 05:20 A/P: Assessment: Ac resp failure, multifactorial (see below) Non-compliance with meds at home Ac diastolic CHF - Echocardiogram of Sep 30, 2020 showed LVEF 60-65%. PASP 35-40mmHg - Echocardiogram of 07-16-22 showed LVEF 50-55%. Mod calcified mitral valve annulus Marked anemia - managed by the Medical services Marked leucocytosis: steroid therapy and/or infection - managed by the Med svce A Fib with RVR - rate improved - first dx on ECG of 07-13-22 - Holter 07/16/22: A fib with avg vent rate 96 bpm, frequent isolated and couple PVCs, no VT - MPI of Sep 25, 2020: No evidence of significant myocardial ischemia or infarction on this study. Normal regional wall motion. Normal global left ventricular systolic function with a calculated ejection fraction of 72%. - Recommend sleep eval for eval for YEISON. Discussed. She has refused in the past LLL Pneumonia? 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 Cardoza for stage IV colon, followed by Dr. Piedra Liver enzyme elevation - possible secondary to hepatobiliary congestion d/t CHF Plan: * LE swelling has improved somewhat with increase in diuretics * Monitor renal function closely * Continue oral dilt to control ventricular rate * BP has improved * Added metolazone for edema (already on furosemide and spironolactone) * Monitor lab closely * Continue apixaban for stroke prophylaxis * Empiric therapy for pneumonia SHIN HERRERA MD FACP FAC CCDS Sep 10, 2022 12:58
[2022-09-10 22:01] VITALS: BP 135/65
[2022-09-11] MEDS: RT-ALBUTEROL/IPRATROPIUM 3 ML (DUONEB) VIAL INH SCH ×3 (02:49→21:45)
[2022-09-11 06:14] LABS: BASOPHILS % (AUTO) 0 % (0-10); EOSINOPHILS % (AUTO) 0 % (0-10); HEMATOCRIT 32 % (35-52); LYMPHOCYTES # (AUTO) 1.4 10^3/uL (1.0-4.0); LYMPHOCYTES % (AUTO) 6 % (12-44); MEAN CORPUSCULAR HEMOGLOBIN 28 pg (25-34); MEAN CORPUSCULAR HGB CONC 32 g/dL (32-36); MEAN CORPUSCULAR VOLUME 88 fL (80-99); MEAN PLATELET VOLUME 11.4 fL (9.0-12.2); MONOCYTES # (AUTO) 1.5 10^3/uL (0.0-1.0); MONOCYTES % (AUTO) 6 % (0-12); NEUTROPHILS # (AUTO) 21.6 10^3/uL (1.8-7.8); NEUTROPHILS % (AUTO) 87 % (42-75); PLATELET COUNT 356 10^3/uL (130-400); WHITE BLOOD COUNT 24.8 10^3/uL (4.3-11.0)
[2022-09-11 06:25] LABS: BILIRUBIN,TOTAL 0.3 MG/DL (0.1-1.0); CALCIUM 9.1 MG/DL (8.5-10.1); CREATININE SERUM 1.82 MG/DL (0.60-1.30); PHOSPHORUS 2.4 MG/DL (2.3-4.7); POTASSIUM 3.4 MMOL/L (3.6-5.0); TOTAL PROTEIN 5.9 GM/DL (6.4-8.2)
[2022-09-11] MEDS: KCL 20 MEQ TAB (K-DUR) PO SCH (06:34)
[2022-09-11] MEDS: MAGNESIUM 1 GM/100 ML IVPB 100 ML IV SCH (06:34)
[2022-09-11] MEDS: POTASSIUM CL 10MEQ/50ML IVPB 50 ML IV SCH (06:34)
[2022-09-11] MEDS: predniSONE 20 MG TAB PO SCH (06:41)
[2022-09-11] MEDS: hydrALAZINE (APRESOLINE) 25 MG TAB PO SCH ×3 (06:41→20:50)
[2022-09-11] MEDS: inSUlin ASPART (NovoLOG) 1 UNIT/0.01 ML (CHARGE PER UNIT) SC SCH ×4 (06:41→20:50)
[2022-09-11] MEDS: FUROSEMIDE 40 MG (LASIX) TAB PO SCH ×2 (06:41→18:12)
[2022-09-11] MEDS: PANTOPRAZOLE 40 MG (PROTONIX) TAB PO SCH ×2 (08:07→20:50)
[2022-09-11] MEDS: EMPAGLIFLOZIN 10 MG TABLET (JARDIANCE) PO SCH (08:07)
[2022-09-11] MEDS: SENNA W/DOCUSATE (SENOKOT S) TABLET PO SCH ×2 (08:07→20:53)
[2022-09-11] MEDS: SPIRONOLACTONE 25 MG (ALDACTONE) TAB PO SCH (08:07)
[2022-09-11] MEDS: meTOprolol SUCCINATE 100 MG (TOPROL XL) TAB PO SCH ×2 (08:07→20:50)
[2022-09-11] MEDS: amLODIPine 5 MG (NORVASC) TAB PO SCH (08:07)
[2022-09-11] MEDS: METOLAZONE 2.5 MG (ZAROXOLYN) TAB PO SCH (08:07)
[2022-09-11] MEDS: APIXABAN 2.5 MG (ELIQUIS) TABLET PO SCH ×2 (08:21→20:51)
--- NOTE | 2022-09-11 08:52 | Progress Note ---
ANDREY FORD 09/11/22 0852: Subjective Date Seen by a Provider: Sep 11, 2022 Time Seen by a Provider: 07:45 Subjective/Events-last exam 82 F on day 10 of acute respiratory distress is resting comfortably in bed. Pt denies any pain, n/v, fever, chills. Still claims SOB and weakness. Was able to tolerate pt/ot yesterday but feels its not working well. Pt is able to pass BMs w/o complaints. Per SS, pt is to return home with daughter and have at home therapy. Review of Systems General: No Chills, No Night Sweats HEENT: No Head Aches, No Dysphasia Pulmonary: Dyspnea; No Cough Cardiovascular: No: Chest Pain, Palpitations Gastrointestinal: No: Nausea, Vomiting, Abdominal Pain Genitourinary: No Dysuria, No Incontinence Musculoskeletal: No: leg pain, foot pain Neurological: Weakness Objective Exam Last Set of Vital Signs Vital Signs Date Time Temp Pulse Resp B/P (MAP) Pulse Ox O2 Delivery O2 Flow Rate FiO2 09/11/22 07:51 36.1 92 16 139/79 (99) 98 Nasal Cannula 3.00 09/05/22 23:59 50 Capillary Refill : Less Than 3 Seconds I&O Intake and Output 09/11/22 00:00 Intake Total 1190 ml Output Total 3625 ml Balance -2435 ml Intake Oral 1190 ml Output Urine Total 3625 ml # Bowel Movements 3 General: Alert, Cooperative HEENT: Atraumatic, EOMI Neck: Supple, No LAD Lungs: Normal Air Movement Heart: Regular Rate, No Murmurs Abdomen: Normal Bowel Sounds, No Tenderness Extremities: Normal Pulses, Other (2+ LE edema ) Skin: No Rashes, No Significant Lesion Neuro: Other (2/5 strength UE and LE BL ) Psych/Mental Status: Mood NL Results Lab Laboratory Tests 09/10/22 09:57: Glucometer 138H 09/10/22 15:27: Glucometer 308H 09/10/22 19:27: Glucometer 259H 09/11/22 05:25: White Blood Count 24.8H, Red Blood Count 3.57L, Hemoglobin 10.0L, Hematocrit 32L , Mean Corpuscular Volume 88, Mean Corpuscular Hemoglobin 28, Mean Corpuscular Hemoglobin Concent 32, Red Cell Distribution Width 15.6H, Platelet Count 356, Mean Platelet Volume 11.4, Immature Granulocyte % (Auto) 1, Neutrophils (%) (Auto) 87H, Lymphocytes (%) (Auto) 6L, Monocytes (%) (Auto) 6, Eosinophils (%) (Auto) 0, Basophils (%) (Auto) 0, Neutrophils # (Auto) 21.6H, Lymphocytes # (Auto) 1.4, Monocytes # (Auto) 1.5H, Eosinophils # (Auto) 0.0, Basophils # (Auto) 0.0, Immature Granulocyte # (Auto) 0.2H, Sodium Level 138, Potassium Level 3.4L, Chloride Level 95L, Carbon Dioxide Level 28, Anion Gap 15H, Blood Urea Nitrogen 47H, Creatinine 1.82H, Estimat Glomerular Filtration Rate 27, BUN/Creatinine Ratio 26, Glucose Level 39*L, Calcium Level 9.1, Corrected Calcium 9.9, Phosphorus Level 2.4, Total Bilirubin 0.3, Aspartate Amino Transf (AST/SGOT) 68H, Alanine Aminotransferase (ALT/SGPT) 118H, Alkaline Phosphatase 134, Total Protein 5.9L, Albumin 3.0L Microbiology 09/03/22 Gram Stain - Final, Complete 09/03/22 Anaerobic Culture - Final, Complete No anaerobes isolated 09/03/22 Body Fluid Culture - Final, Complete No growth 09/02/22 MRSA Screen - Final, Complete MRSA not isolated Assessment/Plan Assessment/Plan Assess & Plan/Chief Complaint 1. Acute on Chronic Respiratory Failure--continue supplemental O2 therapy 2. Atrial Fibrillation with RVR--continue oral cardizem, increase metoprolol to100 mg for HTN and tachycardia 3. Decompensated Diastolic Congestive Heart Failure-- hold IV lasix and continue oral lasix BID due to worsening edema and monitor BUN/Cr closely, continue spironolactone 25mg today to aid in dieresis, continue BL leg wraps, stop metolazone, add 10meq KCl, remove hale cath 4. Acute on Chronic Anemia- continue monitor H/H, transfuse if Hgb < 8 5. Dibetes mellitus--continue aspart decrease dosage of levemir to 35 units due to decrease in fasting glucose, decrease dosage of Jardiance to 10mg due to worsening output 6. Acute on Chronic Renal Insufficiency--monitor BUN/Cr, hold IV fluids, start hep lock, and increase oral fluids, decrease KCl to 20meq 7. Debility--continue PT/OT, increase ambulation and continue OT today 8. History of Colon Cancer--stopped treatment early, fecal occult blood +, continue increased protonix therapy 9. COPD--oxygen requiring, continue on MAT protocol 10. stroke prophylaxis- continue on eliquis per cardio and H/H has stabilized 11. PNA- continue on cefepime, azithromycin completed, stop IV solu-medrol and continue oral prednisone 20mg, continue Bipap as needed, continue incentive spirometry, aerobic and anaerobic cultures negative, continue Eraxis for fungal coverage 12. Pleural effusion- monitor with repeat CXR tomorrow 13. Constipation- continue oral milk of magnesium and senna therapy 14. Post-hospital care- obtain swing bed examination today TAO REED DO 09/11/22 1136: Supervisory-Addendum Brief Verification & Attestation Participated in pt care: history, physical, procedure Personally performed: exam, history, supervision of care Care discussed with: Medical Student Procedures: n/a Results interpretation: Verified all documentation Verification and Attestation of Medical Student E/M Service A medical student performed and documented this service in my presence. I reviewed and verified all information documented by the medical student and made modifications to such information, when appropriate. I personally performed the physical exam and medical decision making. Tao Reed, Sep 11, 2022,11:34 Clinically improving but not getting up to chair and still at least 2 person assist. Discussed with patient that she is not able to go home at this point and recommend SNF for ongoing PT/OT and strengthening. Patient and family now agreeable to looking at other SNFs in the area. ANDREY FORD Sep 11, 2022 08:52 TAO REED DO Sep 11, 2022 11:36
--- NOTE | 2022-09-11 09:17 | Progress Note - Cardiology ---
Cardiology SOAP Progress Note Subjective: She reports her SOB is better this morning No c/o CP or palpitations Continued gen weakness Objective: I&O/Vital Signs 09/11/22 09/11/22 09/11/22 09/11/22 01:00 02:49 03:52 07:00 Temp 36.6 Pulse 93 93 95 Resp 23 B/P (MAP) 158/78 (104) Pulse Ox 95 96 O2 Delivery Nasal Cannula Nasal Cannula O2 Flow Rate 3.00 3.00 09/11/22 09/11/22 09/11/22 09/11/22 07:51 10:25 10:26 11:59 Temp 36.1 36.1 36.0 Pulse 92 92 88 Resp 16 18 B/P (MAP) 139/79 (99) 140/58 (85) Pulse Ox 98 95 95 98 O2 Delivery Nasal Cannula Nasal Cannula Nasal Cannula O2 Flow Rate 3.00 3.00 3.00 FiO2 32 09/11/22 00:00 Intake Total 1040 ml Output Total 2450 ml Balance -1410 ml Constitutional: AAO x 3, well-developed, other (on BiPAP) Respiratory: other (fair air entry, prolonged exp) Cardiovascular: irregularly irregular, S1 and S2, systolic murmur Gastrointestional: soft, audible bowel sounds Extremities: significant edema (bilat pitting edema of legs) Neurologic/Psychiatric: other (moves all limbs) Skin: No rash on exposed areas, No ulcerations on exposed areas Results/Procedures: Labs Laboratory Tests 09/10/22 15:27: Glucometer 308H 09/10/22 19:27: Glucometer 259H 09/11/22 05:25: White Blood Count 24.8H, Red Blood Count 3.57L, Hemoglobin 10.0L, Hematocrit 32L , Mean Corpuscular Volume 88, Mean Corpuscular Hemoglobin 28, Mean Corpuscular Hemoglobin Concent 32, Red Cell Distribution Width 15.6H, Platelet Count 356, Mean Platelet Volume 11.4, Immature Granulocyte % (Auto) 1, Neutrophils (%) (Auto) 87H, Lymphocytes (%) (Auto) 6L, Monocytes (%) (Auto) 6, Eosinophils (%) (Auto) 0, Basophils (%) (Auto) 0, Neutrophils # (Auto) 21.6H, Lymphocytes # (Auto) 1.4, Monocytes # (Auto) 1.5H, Eosinophils # (Auto) 0.0, Basophils # (Auto) 0.0, Immature Granulocyte # (Auto) 0.2H, Sodium Level 138, Potassium Level 3.4L, Chloride Level 95L, Carbon Dioxide Level 28, Anion Gap 15H, Blood Urea Nitrogen 47H, Creatinine 1.82H, Estimat Glomerular Filtration Rate 27, BUN/Creatinine Ratio 26, Glucose Level 39*L, Calcium Level 9.1, Corrected Calcium 9.9, Phosphorus Level 2.4, Total Bilirubin 0.3, Aspartate Amino Transf (AST/SGOT) 68H, Alanine Aminotransferase (ALT/SGPT) 118H, Alkaline Phosphatase 134, Total Protein 5.9L, Albumin 3.0L 09/11/22 07:13: Glucometer 47*L 09/11/22 09:39: Glucometer 146H Microbiology 09/03/22 Gram Stain - Final, Complete 09/03/22 Anaerobic Culture - Final, Complete No anaerobes isolated 09/03/22 Body Fluid Culture - Final, Complete No growth 09/02/22 MRSA Screen - Final, Complete MRSA not isolated A/P: Assessment: Ac resp failure, multifactorial (see below) Non-compliance with meds at home Ac diastolic CHF - Echocardiogram of Sep 30, 2020 showed LVEF 60-65%. PASP 35-40mmHg - Echocardiogram of 07-16-22 showed LVEF 50-55%. Mod calcified mitral valve annulus Marked anemia - managed by the Medical services Marked leucocytosis: steroid therapy and/or infection - managed by the Med svce A Fib with RVR - rate improved - first dx on ECG of 07-13-22 - Holter 07/16/22: A fib with avg vent rate 96 bpm, frequent isolated and couple PVCs, no VT - MPI of Sep 25, 2020: No evidence of significant myocardial ischemia or infarction on this study. Normal regional wall motion. Normal global left ventricular systolic function with a calculated ejection fraction of 72%. - Recommend sleep eval for eval for YEISON. Discussed. She has refused in the past LLL Pneumonia? 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 Cardoza for stage IV colon, followed by Dr. Piedra Liver enzyme elevation - possible secondary to hepatobiliary congestion d/t CHF Plan: * LE swelling and SOB has improved with increase in diuretics * Monitor renal function closely * Continue oral dilt to control ventricular rate * BP has improved * Added metolazone for edema (already on furosemide and spironolactone) * Monitor lab closely * Continue apixaban for stroke prophylaxis * Empiric therapy for pneumonia [facility] Sep 11, 2022 09:17
--- NOTE | 2022-09-11 09:59 | Progress Note - Cardiology ---
Cardiology SOAP Progress Note Subjective: Gen weakness and shortness of breath are improving No n/v/d No focal weakness Leg swelling better Objective: I&O/Vital Signs 09/10/22 09/10/22 09/11/22 09/11/22 21:59 22:01 00:00 01:00 Temp 36.5 36.8 Pulse 88 101 93 Resp 27 B/P (MAP) 145/71 (95) Pulse Ox 96 96 97 O2 Delivery Nasal Cannula Nasal Cannula O2 Flow Rate 3.00 3.00 09/11/22 09/11/22 09/11/22 09/11/22 02:49 03:52 07:00 07:51 Temp 36.6 36.1 Pulse 93 95 92 Resp 23 16 B/P (MAP) 158/78 (104) 139/79 (99) Pulse Ox 95 96 98 O2 Delivery Nasal Cannula Nasal Cannula Nasal Cannula O2 Flow Rate 3.00 3.00 3.00 09/11/22 00:00 Intake Total 1040 ml Output Total 2450 ml Balance -1410 ml Constitutional: AAO x 3, well-developed, other (on BiPAP) Respiratory: other (fair air entry, prolonged exp) Cardiovascular: irregularly irregular, S1 and S2, systolic murmur Gastrointestional: soft, audible bowel sounds Extremities: significant edema (bilat pitting edema of legs) Neurologic/Psychiatric: other (moves all limbs) Skin: No rash on exposed areas, No ulcerations on exposed areas Results/Procedures: Labs Laboratory Tests 09/10/22 09:57: Glucometer 138H 09/10/22 15:27: Glucometer 308H 09/10/22 19:27: Glucometer 259H 09/11/22 05:25: White Blood Count 24.8H, Red Blood Count 3.57L, Hemoglobin 10.0L, Hematocrit 32L , Mean Corpuscular Volume 88, Mean Corpuscular Hemoglobin 28, Mean Corpuscular Hemoglobin Concent 32, Red Cell Distribution Width 15.6H, Platelet Count 356, Mean Platelet Volume 11.4, Immature Granulocyte % (Auto) 1, Neutrophils (%) (Auto) 87H, Lymphocytes (%) (Auto) 6L, Monocytes (%) (Auto) 6, Eosinophils (%) (Auto) 0, Basophils (%) (Auto) 0, Neutrophils # (Auto) 21.6H, Lymphocytes # (Auto) 1.4, Monocytes # (Auto) 1.5H, Eosinophils # (Auto) 0.0, Basophils # (Auto) 0.0, Immature Granulocyte # (Auto) 0.2H, Sodium Level 138, Potassium Level 3.4L, Chloride Level 95L, Carbon Dioxide Level 28, Anion Gap 15H, Blood Urea Nitrogen 47H, Creatinine 1.82H, Estimat Glomerular Filtration Rate 27, BUN/Creatinine Ratio 26, Glucose Level 39*L, Calcium Level 9.1, Corrected Calcium 9.9, Phosphorus Level 2.4, Total Bilirubin 0.3, Aspartate Amino Transf (AST/SGOT) 68H, Alanine Aminotransferase (ALT/SGPT) 118H, Alkaline Phosphatase 134, Total Protein 5.9L, Albumin 3.0L 09/11/22 07:13: Glucometer 47*L 09/11/22 09:39: Glucometer 146H Microbiology 09/03/22 Gram Stain - Final, Complete 09/03/22 Anaerobic Culture - Final, Complete No anaerobes isolated 09/03/22 Body Fluid Culture - Final, Complete No growth 09/02/22 MRSA Screen - Final, Complete MRSA not isolated Laboratory Tests 09/10/22 05:20 09/11/22 05:25 A/P: Assessment: Ac resp failure, multifactorial (see below) Non-compliance with meds at home diastolic CHF - Echocardiogram of Sep 30, 2020 showed LVEF 60-65%. PASP 35-40mmHg - Echocardiogram of 07-16-22 showed LVEF 50-55%. Mod calcified mitral valve annulus Marked anemia - managed by the Medical services Marked leucocytosis: steroid therapy and/or infection - managed by the Med svce A Fib with RVR - rate improved - first dx on ECG of 07-13-22 - Holter 07/16/22: A fib with avg vent rate 96 bpm, frequent isolated and couple PVCs, no VT - MPI of Sep 25, 2020: No evidence of significant myocardial ischemia or in farction on this study. Normal regional wall motion. Normal global left ventricular systolic function with a calculated ejection fraction of 72%. - Recommend sleep eval for eval for YEISON. Discussed. She has refused in the past LLL Pneumonia? 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 Cardoza for stage IV colon, followed by Dr. Piedra Liver enzyme elevation - possible secondary to hepatobiliary congestion d/t CHF Marked leucocytosis of undetermined etiology Plan: * LE swelling and SOB has improved with increase in diuretics * Monitor renal function closely * Continue oral dilt to control ventricular rate * BP has improved * Added metolazone for edema (already on furosemide and spironolactone) * Monitor lab closely * Continue apixaban for stroke prophylaxis * Dr Beaver managing marked leucocytosis/possible pneumonia * Replenish K * Ok to d/c from cardiac standpoint on the current regimen. Advised close outpt f/u SHIN HERRERA MD FACP FAC [facility] Sep 11, 2022 09:59
[2022-09-11] MEDS ORDERED: KCL 20 MEQ TAB (K-DUR) PO NR (10:00)
[2022-09-11 10:26] VITALS: BP 139/79
--- NOTE | 2022-09-11 10:30 | Occupational Ther Daily Note ---
OT Current Status-Daily Note Subjective Pt up at EOB with PT, planning to transfer to BSC for BM. Mental Status/Objective Patient Orientation: Person, Place, Situation Attachments: Samaniego Catheter, Oxygen, Telemetry ADL-Treatment Therapy Code Descriptions/Definitions Functional [place] Measure: 0=Not Assessed/NA 4=Minimal Assistance 1=Total Assistance 5=Supervision or Setup 2=Maximal Assistance 6=Modified [place] 3=Moderate Assistance 7=Complete IndependenceSCALE: Activities may be completed with or without assistive devices. 2-Tqfxopcxom-krvjqfs completes the activity by him/herself with no assistance from a helper. 5-Set-up or Clean-up Assistance-helper sets up or cleans up; patient completes activity. [place] assists only prior to or following the activity. 4-Supervision or Touching Assistance-helper provides verbal cues and/or touching/steadying and/or contact guard assistance as patient completes activity. Assistance may be provided throughout the activity or intermittently. 3-Partial/Moderate Assistance-helper does LESS THAN HALF the effort. [place] lifts, holds or supports trunk or limbs, but provides less than half the effort. 2-Substantial/Maximal Assistance-helper does MORE THAN HALF the effort. [place] lifts or holds trunk or limbs and provides more than half the effort. 8-Flrdsixeb-dgtwvc does ALL the effort. Patient does none of the effort to complete the activity. Or, the assistance of 2 or more helpers is required for the patient to complete the activity. If activity was not attempted, code reason: 7-Patient Refused. 9-Not Applicable-not attempted and the patient did not perform the activity before the current illness, exacerbation or injury. 10-Not Attempted due to Environmental Limitations-(lack of equipment, weather restraints, etc.). 88-Not Attempted due to Medical Conditions or Safety Concerns. Toileting Hygiene (QC): 1 (2 person assist for hygiene.) Other Treatment Pt at EOB with PT, OT assisted pt with transferring to BSC, cues for UE placement with transfers. Pt sat on BSC to complete toileting, noted pt incontinent of bowels prior to transfer. Pt completed toileting, assist x2 in stand for hygiene. Pt transferred to EOB as recliner was set up for next transfer. Pt transferred from EOB to recliner, cues for UE placement. Pt edu cated on positioning in recliner to comfort, pt states she feels okay. Post tx, pt in recliner, call light in reach and all needs met. Min A and instruction with transfers, O2 saturation dropped to 80% with activity, but pt recovered quickly with sats 97% at rest. Education OT Patient Education: Correct positioning, Energy conservation, Modified ADL techniques, Progress toward Goal/Update tx plan, Purpose of tx/functional activities Teaching Recipient: Patient Teaching Methods: Discussion Response to Teaching: Verbalize Understanding OT Ship Unloader Goals Ship Unloader Goals Time Frame: Sep 21, 2022 Toileting Hygiene (QC): 3 Shower/Bathe Self (QC): 3 Upper Body Dressing (QC): 3 Lower Body Dressing (QC): 3 On/Off Footwear (QC): 4 Additional Goals: 1-Demonstrate ADL Tasks, 2-Verbalize Understanding, 3- ImproveStrength/Reddy 1=Demonstrate adherence to instructed precautions during ADL tasks. 2=Patient will verbalize/demonstrate understanding of assistive devices/modifications for ADL. 3=Patient will improve strength/tolerance for activity to enable patient to perform ADL's. OT Education/Plan Problem List/Assessment Assessment: Decreased Activ Tolerance, Decreased UE Strength, Impaired Funct Balance, Impaired I ADL's, Impaired Self-Care Skills Discharge Recommendations Plan/Recommendations: Continue POC Treatment Plan/Plan of Care Patient would benefit from OT for education, treatment and training to promote independence in ADL's, mobility, safety and/or upper extremity function for ADL's. Plan of Care: ADL Retraining, Caregiver Training, Functional Mobility, Group Exercise/Act as Ind, UE Funct Exercise/Act Treatment Duration: Sep 21, 2022 Frequency: 3 times per week Estimated Hrs Per Day: .25 hour per day Rehab Potential: Guarded Time Start Time: 10:00 Stop Time: 10:23 DATE: Sep 11, 2022 Total Time Billed (hr/min): 23 Billed Treatment Time 1, ADL 2 JORGE A SALAZAR OT Sep 11, 2022 10:30
--- NOTE | 2022-09-11 10:31 | Physical Therapy Daily Note ---
PT Daily Note-Current Subjective Pt. in bed, at 1st invitation pt declined Rx but with persuasion agreed after discussion where pt. shared that she is jpgqytsv0e bc she will have her dtr caring for her at [place] and worries her dtr wont be able to do it. Pt.had no c/p pain but did c/o weakness and SOB. Pain Location: No Pain Reported Section J - Health Conditions 1. Rarely or not at all 2. Occasionally 3. Frequently 4. Almost constantly 8. Unable to answer Pain Effect on Sleep: 1 Pain Interference with Therapy: 1 Pain Interference w/Day-to-Day: 1 Appearance Pt. dyspneic with activity Mental Status Patient Orientation: Normal For Age Attachments: Oxygen (3L), Samaniego Catheter, Other-See Comments (BP, O2 sat mon) Transfers SCALE: Activities may be completed with or without assistive devices. 1-Kbddvhmvkb-fefprdo completes the activity by him/herself with no assistance from a helper. 5-Set-up or Clean-up Assistance-helper sets up or cleans up; patient completes activity. [place] assists only prior to or following the activity. 4-Supervision or Touching Assistance-helper provides verbal cues and/or touching/steadying and/or contact guard assistance as patient completes activity. Assistance may be provided throughout the activity or intermittently. 3-Partial/Moderate Assistance-helper does LESS THAN HALF the effort. [place] lifts, holds or supports trunk or limbs, but provides less than half the effort. 2-Substantial/Maximal Assistance-helper does MORE THAN HALF the effort. [place] lifts or holds trunk or limbs and provides more than half the effort. 6-Necfnwipb-avmucg does ALL the effort. Patient does none of the effort to complete the activity. Or, the assistance of 2 or more helpers is required for the patient to complete the activity. If activity was not attempted, code reason: 7-Patient Refused. 9-Not Applicable-not attempted and the patient did not perform the activity befo re the current illness, exacerbation or injury. 10-Not Attempted due to Environmental Limitations-(lack of equipment, weather re straints, etc.). 88-Not Attempted due to Medical Conditions or Safety Concerns. Roll Left & Right (QC): 4 Lying to Sitting/Side of Bed(Q: 4 Sit to Stand (QC): 3 Chair/Akd-vn-Hschk Xfer(QC): 4 Toilet Transfer (QC): 4 pt. required min assist and instruction for safe technique for TRFs and use of hands etc, assist of 2 was needed for safe TRFs Gait Training Does the Patient Walk?: Yes Gait Assistive Device: FWW only 5-6 feet bed to BSC, BSC to bed and bed to recliner , pt. dyspneic , O2 sats monitor working sporadically but one reading during activity 80% with noted dyspnea, pt. recovered quickly with sats 97% with rest. Exercises Supine Ex: Ankle pumps, Quad Set, Heel Slides, Hip abd/add Supine Reps: 8 Treatments bed TRF, SPTs, toileted with BM on BSC, assist of 2 required for safe TRF and to manage loose BM and clean up, LE ex and TRF to reclner, gait 6 steps x 3 with noted desat Assessment Current Status: Good Progress slightly more strength and tolerance for activity than yesterday PT [facility]cf Goals Venue Attendant Goals PT Venue Attendant Goals Time Frame: Sep 11, 2022 Roll Left & Right (QC): 4 (CGA) Sit to Lying (QC): 4 (CGA) Lying-Sitting on Side/Bed(QC): 4 (CGA) Sit to Stand (QC): 4 (CGA) Chair/Irm-wx-Fxdkp Xfer(QC): 4 (CGA) Toilet Transfer (QC): 4 (CGA) Walk 10 feet (QC): 4 (CGA) Walk 50ft with 2 Turns (QC): 4 (CGA) PT Plan Treatment/Plan Treatment Plan: Continue Plan of Care Treatment Plan: Bed Mobility, Education, Functional Activity [place], Functional Strength, Gait, Safety, Therapeutic Exercise, Transfers Treatment Duration: Sep 11, 2022 Frequency: 6 times per week Estimated Hrs Per Day: .25 hour per day Patient and/or Family Agrees t: Yes Safety Risks/Education Patient Education: Gait Training, Transfer Techniques, Correct Positioning, Disease Process, Safety Issues Teaching Recipient: Patient Teaching Methods: Demonstration, Discussion Response to Teaching: Verbalize Understanding, Return Demonstration, Reinforcement Needed Time Time In: 1005 Time Out: 1030 DATE: Sep 11, 2022 Total Billed Treatment Time: 25 Total Billed Treatment 1,FA25m SLOAN BARRIGA CRAWLER TRACTOR OPERATOR Sep 11, 2022 10:31
--- NOTE | 2022-09-11 11:03 | Diagnostic Imaging Report ---
INDICATION: Pneumonia, follow-up. TIME OF EXAM: 10:55 AM Correlation is made with prior chest 09/09/2022. FINDINGS: The heart is enlarged. There has been improved aeration bilaterally. There continues to be some questionable infiltrate and pleural fluid in the left base. Right lung is clear. There is no pneumothorax. IMPRESSION: There has been some improved aeration since 2 days earlier although there does continue to be some probable infiltrate pleural fluid left base. Dictated by: Dictated on workstation # [id number]
[2022-09-11] MEDS: ANIDULAFUNGIN INJECTION 100 MG in NS (IVPB) 100 ML IV SCH (11:46)
[2022-09-11] MEDS: CEFEPIME INJECTION 1,000 MG in NS (IVPB) 50 ML IV SCH (14:03)
[2022-09-12] MEDS: CEFEPIME INJECTION 1,000 MG in NS (IVPB) 50 ML IV SCH ×3 (00:46→23:25)
[2022-09-12] MEDS: inSUlin ASPART (NovoLOG) 1 UNIT/0.01 ML (CHARGE PER UNIT) SC SCH ×4 (05:20→20:33)
[2022-09-12 05:50] LABS: BASOPHILS % (AUTO) 0 % (0-10); EOSINOPHILS # (AUTO) 0.2 10^3/uL (0.0-0.3); EOSINOPHILS % (AUTO) 1 % (0-10); HEMATOCRIT 36 % (35-52); HEMOGLOBIN 11.3 g/dL (11.5-16.0); LYMPHOCYTES # (AUTO) 0.8 10^3/uL (1.0-4.0); LYMPHOCYTES % (AUTO) 6 % (12-44); MEAN CORPUSCULAR HEMOGLOBIN 28 pg (25-34); MEAN CORPUSCULAR HGB CONC 32 g/dL (32-36); MEAN CORPUSCULAR VOLUME 88 fL (80-99); MEAN PLATELET VOLUME 11.3 fL (9.0-12.2); MONOCYTES # (AUTO) 0.2 10^3/uL (0.0-1.0); MONOCYTES % (AUTO) 1 % (0-12); NEUTROPHILS # (AUTO) 13.8 10^3/uL (1.8-7.8); NEUTROPHILS % (AUTO) 91 % (42-75); PLATELET COUNT 430 10^3/uL (130-400); WHITE BLOOD COUNT 15.2 10^3/uL (4.3-11.0)
[2022-09-12 06:13] LABS: ALBUMIN 3.4 GM/DL (3.2-4.5); BILIRUBIN,TOTAL 0.4 MG/DL (0.1-1.0); CALCIUM 9.8 MG/DL (8.5-10.1); CREATININE SERUM 1.91 MG/DL (0.60-1.30); PHOSPHORUS 2.6 MG/DL (2.3-4.7); POTASSIUM 4.3 MMOL/L (3.6-5.0); TOTAL PROTEIN 6.6 GM/DL (6.4-8.2)
[2022-09-12] MEDS: KCL 20 MEQ TAB (K-DUR) PO SCH (06:43)
[2022-09-12] MEDS: POTASSIUM CL 10MEQ/50ML IVPB 50 ML IV SCH (06:43)
[2022-09-12] MEDS: FUROSEMIDE 40 MG (LASIX) TAB PO SCH ×2 (06:46→16:18)
[2022-09-12] MEDS: hydrALAZINE (APRESOLINE) 25 MG TAB PO SCH ×3 (06:46→23:25)
[2022-09-12] MEDS: predniSONE 20 MG TAB PO SCH (06:46)
[2022-09-12] MEDS: MAGNESIUM 1 GM/100 ML IVPB 100 ML IV SCH (07:20)
[2022-09-12 07:23] VITALS: BP 120/55
[2022-09-12] MEDS: RT-ALBUTEROL/IPRATROPIUM 3 ML (DUONEB) VIAL INH SCH ×2 (07:57→21:19)
[2022-09-12] MEDS: EMPAGLIFLOZIN 10 MG TABLET (JARDIANCE) PO SCH (09:45)
[2022-09-12] MEDS: meTOprolol SUCCINATE 100 MG (TOPROL XL) TAB PO SCH ×2 (09:45→20:40)
[2022-09-12] MEDS: SPIRONOLACTONE 25 MG (ALDACTONE) TAB PO SCH (09:45)
[2022-09-12] MEDS: amLODIPine 5 MG (NORVASC) TAB PO SCH (09:45)
[2022-09-12] MEDS: PANTOPRAZOLE 40 MG (PROTONIX) TAB PO SCH ×2 (09:46→20:40)
[2022-09-12] MEDS: SENNA W/DOCUSATE (SENOKOT S) TABLET PO SCH ×2 (09:46→20:40)
[2022-09-12] MEDS: METOLAZONE 2.5 MG (ZAROXOLYN) TAB PO SCH (09:48)
[2022-09-12] MEDS ORDERED: APIXABAN 2.5 MG (ELIQUIS) TABLET ONE (09:50)
[2022-09-12] MEDS: ANIDULAFUNGIN INJECTION 100 MG in NS (IVPB) 100 ML IV SCH (09:52)
[2022-09-12] MEDS: APIXABAN 2.5 MG (ELIQUIS) TABLET PO SCH ×2 (09:52→20:40)
[2022-09-12 11:26] VITALS: BP 168/72
--- NOTE | 2022-09-12 12:36 | Progress Note - Hospitalist ---
Subjective HPI/CC On Admission Date Seen by Provider: Sep 12, 2022 Time Seen by Provider: 11:45 Subjective/Events-last exam Patient was sleeping on arrival arouses easily. She has a rather flat affect but voices no complaints. Denies chest pain or shortness of breath at rest. Objective Exam Vital Signs Vital Signs Date Time Temp Pulse Resp B/P (MAP) Pulse Ox O2 Delivery O2 Flow Rate FiO2 09/12/22 11:26 36.3 87 18 168/72 (104) 100 Nasal Cannula 3.00 09/11/22 10:26 32 Capillary Refill : Less Than 3 Seconds General Appearance: No Apparent Distress, Chronically ill Respiratory: No Accessory Muscle Use, No Respiratory Distress, Other (Diminished breath sounds which are slightly coarse no focal findings noted.) Cardiovascular: Irregularly Irregular (Heart rate controlled in the 70-80 range during auscultation.), Other (Distant heart sounds no murmur appreciated) Results/Procedures Lab Laboratory Tests 09/12/22 05:37 Patient resulted labs reviewed. Assessment/Plan Assessment and Plan Assess & Plan/Chief Complaint 1. Acute on Chronic Respiratory Failure--continue supplemental O2 therapy 2. Atrial Fibrillation with RVR--continue oral cardizem, increase metoprolol to 100 mg for HTN and tachycardia 3. Decompensated Diastolic Congestive Heart Failure-- hold IV lasix and continue oral lasix BID due to worsening edema and monitor BUN/Cr closely, continue spironolactone 25mg today to aid in dieresis, continue BL leg wraps, stop metolazone, add 10meq KCl, remove hale cath 4. Acute on Chronic Anemia- continue monitor H/H, transfuse if Hgb < 8 5. Dibetes mellitus--continue aspart decrease dosage of levemir to 35 units due to decrease in fasting glucose, decrease dosage of Jardiance to 10mg due to worsening output 6. Acute on Chronic Renal Insufficiency--monitor BUN/Cr, hold IV fluids, start hep lock, and increase oral fluids, decrease KCl to 20meq 7. Debility--continue PT/OT, increase ambulation and continue OT today 8. History of Colon Cancer--stopped treatment early, fecal occult blood +, continue increased protonix therapy 9. COPD--oxygen requiring, continue on MAT protocol 10. stroke prophylaxis- continue on eliquis per cardio and H/H has stabilized 11. PNA- continue on cefepime, azithromycin completed, stop IV solu-medrol and continue oral prednisone 20mg, continue Bipap as needed, continue incentive spirometry, aerobic and anaerobic cultures negative, continue Eraxis for fungal coverage 12. Pleural effusion- monitor with repeat CXR tomorrow 13. Constipation- continue oral milk of magnesium and senna therapy 14. Post-hospital care- obtain swing bed examination today 09/12/2022 Patient back to baseline oxygenation status with good heart rate control underlying atrial fibrillation. environmental field services technician and family looking into fci placement the beginning of the week. Critical Care Critically Ill Patient ANA COTA MD Sep 12, 2022 12:36
--- NOTE | 2022-09-12 13:57 | Physical Therapy Daily Note ---
PT Daily Note-Current Subjective This LAUNDRY BAG PUNCH OPERATOR spoke to nurse before entering the room. Nurse wants to make sure this LAUNDRY BAG PUNCH OPERATOR makes this pt. get up as she has already walked to the [facility] with the nurse. Upon entering pt. in bed, and states she is not getting up to walk but will set up edge of bed, stand and lay back down. However upon sitting edge of bed pt. states she needs to have BM. Pt. walked to [facility] , noted very dyspneic and badly needed to rest after the 8 ft walk. pt. had soiled brief, LAUNDRY BAG PUNCH OPERATOR changed and cleaned pt and she had another BM in toilet, Upon attempt to stand pt. had difficulty and weakness and assist was called of PT tech, LAUNDRY BAG PUNCH OPERATOR had tech bring O2 sat monitor. Upon attempt to stand after approx 5 steps and just in middle of doorway between room and [facility] pt. began to go down, this LAUNDRY BAG PUNCH OPERATOR and tech barely manuevering to get chair from room and try to get pts bottom into the chair. Pt. denied any pain but stated she is so weak and SOB, sats 99% HR 85, pt. clammy, all reported to nursing . pt. was scooted in chair max asst 2 to side of bed and TRFd SPT to bed. pt. was noted to have blood on right elbow area and small skin tgear, this was also reported to nurse, as much as possible was cleaned on closed skin area with alchohol swabs and clean wash cloth placed under arm and arm elevated on pillow, pt. left with call valente at left hand, needs met Pain Location: No Pain Reported Section J - Health Conditions 1. Rarely or not at all 2. Occasionally 3. Frequently 4. Almost constantly 8. Unable to answer Pain Effect on Sleep: 1 Pain Interference with Therapy: 1 Pain Interference w/Day-to-Day: 1 Mental Status Patient Orientation: Normal For Age Attachments: Oxygen (3L) Transfers SCALE: Activities may be completed with or without assistive devices. 3-Tqmtlesvka-qpshpep completes the activity by him/herself with no assistance from a helper. 5-Set-up or Clean-up Assistance-helper sets up or cleans up; patient completes activity. [place] assists only prior to or following the activity. 4-Supervision or Touching Assistance-helper provides verbal cues and/or touching/steadying and/or contact guard assistance as patient completes activity. Assistance may be provided throughout the activity or intermittently. 3-Partial/Moderate Assistance-helper does LESS THAN HALF the effort. [place] li fts, holds or supports trunk or limbs, but provides less than half the effort. 2-Substantial/Maximal Assistance-helper does MORE THAN HALF the effort. [place] lifts or holds trunk or limbs and provides more than half the effort. 4-Oyauiaoxh-akrmdr does ALL the effort. Patient does none of the effort to complete the activity. Or, the assistance of 2 or more helpers is required for the patient to complete the activity. If activity was not attempted, code reason: 7-Patient Refused. 9-Not Applicable-not attempted and the patient did not perform the activity before the current illness, exacerbation or injury. 10-Not Attempted due to Environmental Limitations-(lack of equipment, weather restraints, etc.). 88-Not Attempted due to Medical Conditions or Safety Concerns. Roll Left & Right (QC): 3 Sit to Lying (QC): 3 Lying to Sitting/Side of Bed(Q: 3 Sit to Stand (QC): 1 Chair/Xba-cg-Mxtaf Xfer(QC): 1 Toilet Transfer (QC): 1 see above TRFs Gait Training Does the Patient Walk?: Yes Walk 10 feet (QC): 3 Gait Persons Needed: 2 Gait Assistive Device: FWW pt. walked 10 ft with mod asst 1st trial, second trial aborted secondary to extreme weakness and SOB, see above Treatments TRFs, gait, toileting, change of brief and cleaning , SPTs, bed mob, in bed after with valente at hand Assessment Current Status: Poor Progress weakness and SOB with incident requiring max asst of 2 to prevent fall, sats unbelievably 98%, pt. at risk for fall secondary to extreme weakness. PT Fci Goals Fci Goals PT Fci Goals Time Frame: Sep 11, 2022 Roll Left & Right (QC): 4 (CGA) Sit to Lying (QC): 4 (CGA) Lying-Sitting on Side/Bed(QC): 4 (CGA) Sit to Stand (QC): 4 (CGA) Chair/Zmk-uh-Qaazt Xfer(QC): 4 (CGA) Toilet Transfer (QC): 4 (CGA) Walk 10 feet (QC): 4 (CGA) Walk 50ft with 2 Turns (QC): 4 (CGA) PT Plan Treatment/Plan Treatment Plan: Continue Plan of Care Treatment Plan: Bed Mobility, Education, Functional Activity [place], Functional Strength, Gait, Safety, Therapeutic Exercise, Transfers Treatment Duration: Sep 11, 2022 Frequency: 6 times per week Estimated Hrs Per Day: .25 hour per day Patient and/or Family Agrees t: Yes Safety Risks/Education Patient Education: Gait Training, Transfer Techniques, Correct Positioning, Disease Process, Safety Issues Teaching Recipient: Patient Teaching Methods: Demonstration, Discussion Response to Teaching: Unable to Return Demonstration, Reinforcement Needed Time Time In: 1305 Time Out: 1345 DATE: Sep 12, 2022 Total Billed Treatment Time: 40 Total Billed Treatment 1,FA40m SLOAN BARRIGA LAUNDRY BAG PUNCH OPERATOR Sep 12, 2022 13:57
[2022-09-12 15:57] VITALS: BP 126/77
[2022-09-12] MEDS: D5 NS 1000 ML IV SOLUTION 1,000 ML IV SCH (16:43)
[2022-09-12 20:12] VITALS: BP 136/75
[2022-09-12 23:22] VITALS: BP 137/64
[2022-09-13 03:22] VITALS: BP 137/72
[2022-09-13] MEDS: inSUlin ASPART (NovoLOG) 1 UNIT/0.01 ML (CHARGE PER UNIT) SC SCH ×4 (06:01→20:11)
[2022-09-13] MEDS: hydrALAZINE (APRESOLINE) 25 MG TAB PO SCH ×3 (06:03→20:11)
[2022-09-13] MEDS: FUROSEMIDE 40 MG (LASIX) TAB PO SCH (06:03)
[2022-09-13] MEDS: KCL 8 MEQ (MICRO K) TABLET PO SCH (06:03)
[2022-09-13] MEDS: predniSONE 20 MG TAB PO SCH (06:03)
[2022-09-13] MEDS: D5 NS 1000 ML IV SOLUTION 1,000 ML IV SCH (06:05)
[2022-09-13 07:06] LABS: ALBUMIN 2.9 GM/DL (3.2-4.5); BILIRUBIN,TOTAL 0.5 MG/DL (0.1-1.0); CALCIUM 8.8 MG/DL (8.5-10.1); CREATININE SERUM 2.16 MG/DL (0.60-1.30); PHOSPHORUS 4.1 MG/DL (2.3-4.7); TOTAL PROTEIN 5.6 GM/DL (6.4-8.2)
[2022-09-13 07:17] LABS: BASOPHILS % (AUTO) 0 % (0-10); EOSINOPHILS % (AUTO) 0 % (0-10); HEMATOCRIT 32 % (35-52); HEMOGLOBIN 9.8 g/dL (11.5-16.0); LYMPHOCYTES # (AUTO) 0.9 10^3/uL (1.0-4.0); LYMPHOCYTES % (AUTO) 6 % (12-44); MEAN CORPUSCULAR HEMOGLOBIN 27 pg (25-34); MEAN CORPUSCULAR HGB CONC 31 g/dL (32-36); MEAN CORPUSCULAR VOLUME 88 fL (80-99); MEAN PLATELET VOLUME 11.9 fL (9.0-12.2); MONOCYTES % (AUTO) 7 % (0-12); NEUTROPHILS # (AUTO) 13.5 10^3/uL (1.8-7.8); NEUTROPHILS % (AUTO) 86 % (42-75); PLATELET COUNT 339 10^3/uL (130-400); WHITE BLOOD COUNT 15.7 10^3/uL (4.3-11.0)
[2022-09-13 07:24] VITALS: BP 171/71
[2022-09-13] MEDS: POTASSIUM CL 10MEQ/50ML IVPB 50 ML IV SCH (07:37)
[2022-09-13] MEDS: meTOprolol SUCCINATE 100 MG (TOPROL XL) TAB PO SCH ×2 (08:11→20:14)
[2022-09-13] MEDS: SENNA W/DOCUSATE (SENOKOT S) TABLET PO SCH ×2 (08:11→19:59)
[2022-09-13] MEDS: SPIRONOLACTONE 25 MG (ALDACTONE) TAB PO SCH (08:11)
[2022-09-13] MEDS: METOLAZONE 2.5 MG (ZAROXOLYN) TAB PO SCH (08:11)
[2022-09-13] MEDS: PANTOPRAZOLE 40 MG (PROTONIX) TAB PO SCH ×2 (08:11→20:11)
[2022-09-13] MEDS: EMPAGLIFLOZIN 10 MG TABLET (JARDIANCE) PO SCH (08:11)
[2022-09-13] MEDS: APIXABAN 2.5 MG (ELIQUIS) TABLET PO SCH ×2 (08:14→20:10)
[2022-09-13] MEDS: RT-ALBUTEROL/IPRATROPIUM 3 ML (DUONEB) VIAL INH SCH ×2 (08:40→20:15)
[2022-09-13] MEDS: ANIDULAFUNGIN INJECTION 100 MG in NS (IVPB) 100 ML IV SCH (09:24)
--- NOTE | 2022-09-13 11:54 | Progress Note - Hospitalist ---
Subjective HPI/CC On Admission Date Seen by Provider: Sep 13, 2022 Time Seen by Provider: 11:50 Subjective/Events-last exam Patient's p.o. intake has been poor. Her only complaint is increase in belching especially in the morning. She denies abdominal pain nausea chills fever cough shortness of breath at rest. She denies pain. Objective Exam Vital Signs Vital Signs Date Time Temp Pulse Resp B/P (MAP) Pulse Ox O2 Delivery O2 Flow Rate FiO2 09/13/22 08:42 98 Nasal Cannula 3.00 09/13/22 07:24 36.2 90 18 171/71 (104) 09/11/22 10:26 32 Capillary Refill : Less Than 3 Seconds General Appearance: No Apparent Distress, Chronically ill Respiratory: Lungs Clear, No Accessory Muscle Use, No Respiratory Distress Cardiovascular: No Murmur, Irregularly Irregular Gastrointestinal: Normal Bowel Sounds, No Organomegaly, No Pulsatile Mass, Non Tender, Soft Results/Procedures Lab Laboratory Tests 09/13/22 05:36 Patient resulted labs reviewed. Assessment/Plan Assessment and Plan Assess & Plan/Chief Complaint 1. Acute on Chronic Respiratory Failure--continue supplemental O2 therapy 2. Atrial Fibrillation with RVR--continue oral cardizem, increase metoprolol to100 mg for HTN and tachycardia 3. Decompensated Diastolic Congestive Heart Failure-- hold IV lasix and continue oral lasix BID due to worsening edema and monitor BUN/Cr closely, continue spironolactone 25mg today to aid in dieresis, continue BL leg wraps, stop metolazone, add 10meq KCl, remove hale cath 4. Acute on Chronic Anemia- continue monitor H/H, transfuse if Hgb < 8 5. Dibetes mellitus--continue aspart decrease dosage of levemir to 35 units due to decrease in fasting glucose, decrease dosage of Jardiance to 10mg due to worsening output 6. Acute on Chronic Renal Insufficiency--monitor BUN/Cr, hold IV fluids, start hep lock, and increase oral fluids, decrease KCl to 20meq 7. Debility--continue PT/OT, increase ambulation and continue OT today 8. History of Colon Cancer--stopped treatment early, fecal occult blood +, continue increased protonix therapy 9. COPD--oxygen requiring, continue on MAT protocol 10. stroke prophylaxis- continue on eliquis per cardio and H/H has stabilized 11. PNA- continue on cefepime, azithromycin completed, stop IV solu-medrol and continue oral prednisone 20mg, continue Bipap as needed, continue incentive spirometry, aerobic and anaerobic cultures negative, continue Eraxis for fungal coverage 12. Pleural effusion- monitor with repeat CXR tomorrow 13. Constipation- continue oral milk of magnesium and senna therapy 14. Post-hospital care- obtain swing bed examination today 09/12/2022 Patient back to baseline oxygenation status with good heart rate control underlying atrial fibrillation. 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 09/13/2022 P.o. intake has been poor with increased BUN to creatinine ratio. Will discontinue metolazone and hold furosemide today with repeat labs in the morning. Respiratory status appears to be back to baseline we will continue prednisone taper decreasing to 10 mg every morning daily. Patient has flat affect clinically appears to be depressed. Critical Care Critically Ill Patient ANA COTA MD Sep 13, 2022 11:54
[2022-09-13 12:00] VITALS: BP 150/67
[2022-09-13] MEDS: CEFEPIME INJECTION 1,000 MG in NS (IVPB) 50 ML IV SCH ×2 (12:41→23:28)
[2022-09-13 16:00] VITALS: BP 137/61
[2022-09-13 20:14] VITALS: BP 142/65
[2022-09-13 23:25] VITALS: BP 142/65
[2022-09-14 01:25] VITALS: BP 142/65
[2022-09-14 03:07] VITALS: BP 139/61
[2022-09-14 05:45] LABS: BASOPHILS % (AUTO) 0 % (0-10); EOSINOPHILS # (AUTO) 0.1 10^3/uL (0.0-0.3); EOSINOPHILS % (AUTO) 1 % (0-10); HEMATOCRIT 30 % (35-52); HEMOGLOBIN 9.5 g/dL (11.5-16.0); LYMPHOCYTES # (AUTO) 0.9 10^3/uL (1.0-4.0); LYMPHOCYTES % (AUTO) 5 % (12-44); MEAN CORPUSCULAR HEMOGLOBIN 28 pg (25-34); MEAN CORPUSCULAR HGB CONC 32 g/dL (32-36); MEAN CORPUSCULAR VOLUME 88 fL (80-99); MEAN PLATELET VOLUME 11.3 fL (9.0-12.2); MONOCYTES % (AUTO) 6 % (0-12); NEUTROPHILS # (AUTO) 15.3 10^3/uL (1.8-7.8); NEUTROPHILS % (AUTO) 87 % (42-75); PLATELET COUNT 337 10^3/uL (130-400); WHITE BLOOD COUNT 17.5 10^3/uL (4.3-11.0)
[2022-09-14] MEDS: hydrALAZINE (APRESOLINE) 25 MG TAB PO SCH (05:46)
[2022-09-14] MEDS: KCL 8 MEQ (MICRO K) TABLET PO SCH (05:48)
[2022-09-14] MEDS: inSUlin ASPART (NovoLOG) 1 UNIT/0.01 ML (CHARGE PER UNIT) SC SCH ×2 (05:48→09:30)
[2022-09-14 06:08] LABS: ALBUMIN 2.9 GM/DL (3.2-4.5); BILIRUBIN,TOTAL 0.3 MG/DL (0.1-1.0); CALCIUM 8.6 MG/DL (8.5-10.1); CREATININE SERUM 2.23 MG/DL (0.60-1.30); MAGNESIUM 2.3 MG/DL (1.6-2.4); POTASSIUM 3.7 MMOL/L (3.6-5.0); TOTAL PROTEIN 5.6 GM/DL (6.4-8.2)
[2022-09-14] MEDS: POTASSIUM CL 10MEQ/50ML IVPB 50 ML IV SCH (06:10)
[2022-09-14] MEDS: MAGNESIUM 1 GM/100 ML IVPB 100 ML IV SCH ×2 (06:10→06:11)
[2022-09-14 06:36] LABS: ANISOCYTOSIS SLIGHT; HYPOCHROMASIA SLIGHT; LYMPHOCYTES % (MANUAL) 10 %; MICROCYTOSIS SLIGHT; MONOCYTES % (MANUAL) 7 %; NEUTROPHILS % (MANUAL) 83 %; PLATELET CLUMPS OCCASIONAL
[2022-09-14] MEDS ORDERED: predniSONE 10 MG TAB PO SCH (07:00)
[2022-09-14 07:58] VITALS: BP 136/63
[2022-09-14] MEDS: RT-ALBUTEROL/IPRATROPIUM 3 ML (DUONEB) VIAL INH SCH (08:02)
--- NOTE | 2022-09-14 08:14 | Progress Note ---
ANDREY FORD 09/14/22 0814: Subjective Date Seen by a Provider: Sep 14, 2022 Time Seen by a Provider: 07:45 Subjective/Events-last exam 82 F on day 13 of admission for acute resp distress. Pt resting comfortably in bed w/o complaints. Pt denies any pain, fever, chills, n/v. Pt reports she is a ble to breathe better than previous day. Pt is able to void and BMs w/o complaints. Tolerating PT/OT well. Review of Systems General: No Chills, No Night Sweats HEENT: No Head Aches, No Dysphasia Pulmonary: Dyspnea; No Cough Cardiovascular: Edema; No: Chest Pain, Palpitations Gastrointestinal: No: Nausea, Vomiting, Abdominal Pain Genitourinary: No Dysuria, No Incontinence Musculoskeletal: No: leg pain, foot pain Neurological: Weakness Objective Exam Last Set of Vital Signs Vital Signs Date Time Temp Pulse Resp B/P (MAP) Pulse Ox O2 Delivery O2 Flow Rate FiO2 09/14/22 08:03 99 Nasal Cannula 3.00 09/14/22 07:58 36.2 77 18 136/63 (87) 09/14/22 01:25 32 Capillary Refill : Less Than 3 Seconds I&O Intake and Output 09/14/22 00:00 Intake Total 1945 ml Output Total 950 ml Balance 995 ml Intake Oral 1540 ml IV Total 405 ml Output Urine Total 950 ml # Voids 5 # Bowel Movements 3 General: Alert, Oriented X3, Cooperative HEENT: Atraumatic, EOMI Neck: Supple, No LAD Lungs: Normal Air Movement (no crackles or rales ), Other Heart: Regular Rate, No Murmurs Abdomen: Normal Bowel Sounds, No Tenderness, No Hepatosplenomegaly Extremities: Normal Pulses, Other (BL LE 2+ edema ) Neuro: Normal Speech Psych/Mental Status: Mental Status NL, Mood NL Results Lab Laboratory Tests 09/13/22 09:33: Glucometer 234H 09/13/22 14:16: Glucometer 178H 09/13/22 16:16: Glucometer 212H 09/13/22 19:45: Glucometer 310H 09/14/22 05:30: White Blood Count 17.5H, Red Blood Count 3.41L, Hemoglobin 9.5L, Hematocrit 30L, Mean Corpuscular Volume 88, Mean Corpuscular Hemoglobin 28, Mean Corpuscular Hemoglobin Concent 32, Red Cell Distribution Width 15.6H, Platelet Count 337, Mean Platelet Volume 11.3, Immature Granulocyte % (Auto) 1, Neutrophils (%) (Auto) 87H, Lymphocytes (%) (Auto) 5L, Monocytes (%) (Auto) 6, Eosinophils (%) (Auto) 1, Basophils (%) (Auto) 0, Neutrophils # (Auto) 15.3H, Lymphocytes # (Auto) 0.9L, Monocytes # (Auto) 1.0, Eosinophils # (Auto) 0.1, Basophils # (Auto) 0.0, Immature Granulocyte # (Auto) 0.2H, Neutrophils % (Manual) 83, Lymphocytes % (Manual) 10, Monocytes % (Manual) 7, Clumped Platelets OCCASIONAL, Hypochromasia SLIGHT, Anisocytosis SLIGHT, Microcytosis SLIGHT, Sodium Level 136, Potassium Level 3.7, Chloride Level 94L, Carbon Dioxide Level 27, Anion Gap 15H, Blood Urea Nitrogen 60H, Creatinine 2.23H, Estimat Glomerular Filtration Rate 21, BUN/Creatinine Ratio 27, Glucose Level 107H, Calcium Level 8.6, Corrected Calcium 9.5, Phosphorus Level 4.0, Magnesium Level 2.3, Total Bilirubin 0.3, Aspartate Amino Transf (AST/SGOT) 32, Alanine Aminotransferase (ALT/SGPT) 90H, Alkaline Phosphatase 117, Total Protein 5.6L, Albumin 2.9L 09/14/22 05:41: Glucometer 95 Microbiology 09/03/22 Gram Stain - Final, Complete 09/03/22 Anaerobic Culture - Final, Complete No anaerobes isolated 09/03/22 Body Fluid Culture - Final, Complete No growth 09/02/22 MRSA Screen - Final, Complete MRSA not isolated Assessment/Plan Assessment/Plan Assess & Plan/Chief Complaint 1. Acute on Chronic Respiratory Failure--continue supplemental O2 therapy 2. Atrial Fibrillation with RVR--continue oral cardizem, continue metoprolol to 100 mg for HTN and tachycardia 3. Decompensated Diastolic Congestive Heart Failure-- hold IV lasix and continue oral bumetanide BID due to worsening edema and monitor BUN/Cr closely, continue spironolactone 25mg today to aid in dieresis, continue BL leg wraps, stop metolazone, continue KCl, remove hale cath 4. Acute on Chronic Anemia- continue monitor H/H, transfuse if Hgb < 8 5. Dibetes mellitus--continue aspart decrease dosage of levemir to 25 units due to decrease in fasting glucose, decrease dosage of Jardiance to 10mg due to worsening output 6. Acute on Chronic Renal Insufficiency--monitor BUN/Cr, hold IV fluids, start hep lock, and increase oral fluids, 7. Debility--continue PT/OT, increase ambulation and continue OT today 8. History of Colon Cancer--stopped treatment early, fecal occult blood +, continue increased protonix therapy, convert to oral omeperazole outpt 9. COPD--oxygen requiring, continue on MAT protocol 10. stroke prophylaxis- continue on eliquis per cardio and H/H has stabilized 11. PNA- continue on cefepime, azithromycin completed, stop IV solu-medrol and oral prednisone, continue Bipap as needed, continue incentive spirometry, aerobic and anaerobic cultures negative, continue Eraxis for fungal coverage, DC IV abx and continue 7 days outpt oral Fluconazole 12. Pleural effusion- resolved 13. Constipation- continue oral milk of magnesium and senna therapy 09/12/2022 Patient back to baseline oxygenation status with good heart rate control underlying atrial fibrillation. services host and family looking into [facility] placement the beginning of the week. 09/13/2022 P.o. intake has been poor with increased BUN to creatinine ratio. Will discontinue metolazone and hold furosemide today with repeat labs in the morning. Respiratory status appears to be back to baseline we will continue prednisone taper decreasing to 10 mg every morning daily. Patient has flat affect clinically appears to be depressed. 14) Pt to DC to [facility] today. f/u with Dr. Beaver in 2 weeks TAO BEAVER DO 09/14/22 1303: Supervisory-Addendum Brief Verification & Attestation Participated in pt care: history, physical Personally performed: exam, history, supervision of care Care discussed with: Medical Student Procedures: n/a Results interpretation: Verified all documentation Verification and Attestation of Medical Student E/M Service A medical student performed and documented this service in my presence. I reviewed and verified all information documented by the medical student and made modifications to such information, when appropriate. I personally performed the physical exam and medical decision making. Tao Beaver, Sep 14, 2022,13:02 To SNF today at [facility]--I will see her in 2 weeks in up--see DC summary. ANDREY FORD Sep 14, 2022 08:14 TAO BEAVER DO Sep 14, 2022 13:03
[2022-09-14] MEDS ORDERED: EMPA10TA PO (08:45)
[2022-09-14] MEDS ORDERED: DILT240C91 PO (08:45)
[2022-09-14] MEDS ORDERED: AMOX-355 PO (08:45)
[2022-09-14] MEDS ORDERED: FLUC100T PO (08:45)
[2022-09-14] MEDS ORDERED: MTP100TCR PO (08:45)
[2022-09-14] MEDS ORDERED: POTA8CAP20 PO (08:45)
[2022-09-14] MEDS ORDERED: SENN1TAB76 PO (08:45)
[2022-09-14] MEDS ORDERED: ACET325T49 PO (08:45)
[2022-09-14] MEDS ORDERED: PANT40TA52 PO (08:45)
--- NOTE | 2022-09-14 08:47 | Discharge Inst-Skilled Nursing ---
Discharge Inst-Skilled NF Reconcile Patient Problems Problems Reviewed?: Yes Patient Instructions Patient Problems: CHF Pneumonia HTN DMII Weakness Goal: Strengthening to go back home Consult/Follow Up/Orders Follow Up Appt.: 2 weeks Skilled NF Admit to: [facility] Certification (SNF) I certify that SNF services are required to be given on an inpatient basis because of the above named patient's need for group home care on a continuing basis for the conditions(s) for which he/she was receiving inpatient hospital services prior to his/her transfer to the SNF. Assisted Facility Order: Nursing Services, Elevator Operator-Evaluate & Treat, Physical Therapy-Evaluate & Treat Oxygen Delivery Method: Nasal Cannula Oxygen Flow Rate L/min (Range): 2 Discharge Diet: ADA Diet, Cardiac Diet Daily Activity as Tolerated: Yes Resuscitation Status: Do Not Resuscitate New & Resume Previous Orders Vanesa Beaver Sep 14, 2022 08:46 VANESA BEAVER DO Sep 14, 2022 08:47
[2022-09-14] MEDS: ANIDULAFUNGIN INJECTION 100 MG in NS (IVPB) 100 ML IV SCH (09:18)
[2022-09-14] MEDS: meTOprolol SUCCINATE 100 MG (TOPROL XL) TAB PO SCH (09:19)
[2022-09-14] MEDS: PANTOPRAZOLE 40 MG (PROTONIX) TAB PO SCH (09:19)
[2022-09-14] MEDS: EMPAGLIFLOZIN 10 MG TABLET (JARDIANCE) PO SCH (09:19)
[2022-09-14] MEDS: SPIRONOLACTONE 25 MG (ALDACTONE) TAB PO SCH (09:19)
[2022-09-14] MEDS: APIXABAN 2.5 MG (ELIQUIS) TABLET PO SCH (09:21)
[2022-09-14] MEDS: SENNA W/DOCUSATE (SENOKOT S) TABLET PO SCH (10:05)
--- NOTE | 2022-09-14 10:18 | Physical Therapy Daily Note ---
PT Daily Note-Current Subjective Pt found laying in bed upon entry. Agreed to PT. States that she has been doing better since entering the hospital. Does not rate or report any change in pain. Pain Section J - Health Conditions 1. Rarely or not at all 2. Occasionally 3. Frequently 4. Almost constantly 8. Unable to answer Pain Effect on Sleep: 1 Pain Interference with Therapy: 1 Pain Interference w/Day-to-Day: 1 Mental Status Patient Orientation: Normal For Age Attachments: Oxygen Transfers SCALE: Activities may be completed with or without assistive devices. 1-Qrkabuxoyp-aqnkowq completes the activity by him/herself with no assistance from a helper. 5-Set-up or Clean-up Assistance-helper sets up or cleans up; patient completes activity. [place] assists only prior to or following the activity. 4-Supervision or Touching Assistance-helper provides verbal cues and/or touching/steadying and/or contact guard assistance as patient completes activity. Assistance may be provided throughout the activity or intermittently. 3-Partial/Moderate Assistance-helper does LESS THAN HALF the effort. [place] lifts, holds or supports trunk or limbs, but provides less than half the effort. 2-Substantial/Maximal Assistance-helper does MORE THAN HALF the effort. [place] lifts or holds trunk or limbs and provides more than half the effort. 1-Szbzedxnq-mocbjz does ALL the effort. Patient does none of the effort to complete the activity. Or, the assistance of 2 or more helpers is required for the patient to complete the activity. If activity was not attempted, code reason: 7-Patient Refused. 9-Not Applicable-not attempted and the patient did not perform the activity before the current illness, exacerbation or injury. 10-Not Attempted due to Environmental Limitations-(lack of equipment, weather restraints, etc.). 88-Not Attempted due to Medical Conditions or Safety Concerns. Roll Left & Right (QC): 2 Sit to Lying (QC): 2 Lying to Sitting/Side of Bed(Q: 2 Pt MAX assist /c all trfs. Gait Training Does the Patient Walk?: No and Walking Goal IS indicated Wheelchair Training Does the Pt Use a Wheelchair?: No Exercises Supine Ex: Ankle pumps, Quad Set, Glut sets, Heel Slides, Scooting, Straight leg raise Supine Reps: 10 Pt demonstrates fatigue throughout exercises. Requires VC/TC's to complete. MIN assist /c SLRs. Assessment Current Status: Poor Progress Pt MAX assist /c all trfs. Completes exercises very slowly and demonstrates SOB throughout Tx. Pt left laying in bed post-Tx /c nurse present. Continue to progress pt as tolerated per POC to increase strength, functional ability, and endurance. PT Nursing Home Goals Nursing Home Goals PT Nursing Home Goals Time Frame: Sep 11, 2022 Roll Left & Right (QC): 4 (CGA) Sit to Lying (QC): 4 (CGA) Lying-Sitting on Side/Bed(QC): 4 (CGA) Sit to Stand (QC): 4 (CGA) Chair/Zjp-tb-Jjlih Xfer(QC): 4 (CGA) Toilet Transfer (QC): 4 (CGA) Walk 10 feet (QC): 4 (CGA) Walk 50ft with 2 Turns (QC): 4 (CGA) PT Plan Treatment/Plan Treatment Plan: Continue Plan of Care Treatment Plan: Bed Mobility, Education, Functional Activity Reddy, Functional Strength, Gait, Safety, Therapeutic Exercise, Transfers Treatment Duration: Sep 11, 2022 Frequency: 6 times per week Estimated Hrs Per Day: .25 hour per day Patient and/or Family Agrees t: Yes Time Time In: 902 Time Out: 920 DATE: Sep 14, 2022 Total Billed Treatment Time: 18 Total Billed Treatment 1 visit FA ROSCOE Hitchcock PTA Sep 14, 2022 10:18
--- NOTE | 2022-09-16 17:09 | Discharge Summary ---
Diagnosis/Chief Complaint Date of Admission Sep 02, 2022 at 14:39 Date of Discharge Sep 14, 2022 at 11:06 Discharge Date: Sep 14, 2022 Discharge Diagnosis 1. Acute on Chronic Respiratory Failure--continue supplemental O2 therapy 2. Atrial Fibrillation with RVR--improved 3. Decompensated Diastolic Congestive Heart Failure--improved 4. Acute on Chronic Anemia- continue monitor H/H, transfuse if Hgb < 8 5. Diabetes mellitus with hyperglycemia due to steroids 6. Acute on Chronic Renal Insufficiency--monitor BUN/Cr 7. Debility--continue PT/OT, increase ambulation 8. History of Colon Cancer--stopped treatment early, fecal occult blood +, continue increased protonix therapy, convert to oral omeperazole outpt 9. COPD with acute exacerbation--oxygen requiring 10. Bilateral Pneumonia 7 days outpt oral Fluconazole and augmentin 12. Pleural effusion- resolved, S/P thoracentesis 13. Constipation 14. Hypertension--improved 15. GERD--home on omeprazole Reason Hospital Visit This is a 82 year old female with a known history of atrial fibrillation, CHF, and COPD who presented to my office with worsening shortness of breath and edema. She has not been taking any of her medications for at least 2 weeks according to her daughter. Her oxygen saturation was 84% on 4L in my office. She was also found to be in atrial fibrillation with RVR. She will be directly admitted to the ICU for further evaluation and treatment. She has a history of noncompliance with medications. She states that she threw away her medications and that is why she has not been taking them. Discharge Summary Hospital Course Was the Problem List Reviewed?: Yes Hospital Course This is a 82 year old female with a known history of atrial fibrillation, CHF, and COPD who presented to my office with worsening shortness of breath and edema. She had not been taking any of her medications for at least 2 weeks according to her daughter. Her oxygen saturation was 84% on 4L in my office. She was also found to be in atrial fibrillation with RVR. She was directly admitted to the ICU for further evaluation and treatment. She has a history of noncompliance with medications. She states that she threw away her medications and that is why she has not been taking them. She was found to have bilateral pulmonary edema with a large left sided pleural effusion. Her WBC count was also elevated and she was anemic with a hemoglobin and hematocrit of 7.1 and 24 respectively. After 1u pRBCs, her H/H were up to 7.6 and 25. She was given another unit of packed RBCs and her H/H delonte to 8.7 and 28. She did have hemoccult positive stools so her protonix was increased to 40mg po BID and her eliquis was decreased to 2.5mg po BID. She required no further blood transfusio ns and her H/H was stable at 9.5/30 by discharge. She did require left thoracentesis which improved her CXR and breathing. She was started on antibiotics for bilateral infiltrates and ongoing elevated WBC count. She was initially given rocephin and zithromax but her WBC count continued to rise so she the rocephin was switched to cefepime and eraxis was added. She also required IV solumedrol for wheezing and COPD exacerbation. By the time of discharge she had been weaned to oral prednisone. Her WBC count was trending down from a high of 26.4 to 17.5 on discharge. Her CXR was improved with the pleural fluid being negative for both aerobic and anaerobic pathogens. She was afebrile and feeling much better. Her blood sugar had spiked with the IV steroids so levemir was increased but has been decreased back to her home dose of 25units daily by discharge. She remained in atrial fibrillation but her rate improved with adding cardizem and adjusting her metoprolol dose as well as post- transfusion. Her blood pressure remained high so hydralazine was added. She did diurese with IV lasix and this improved after adding metolazone. However, her BUN and Cr worsened after adding metolazone so this was discontinued prior to discharge. PT and OT were started due to weakness which had been ongoing since home. The patient was requiring at least a 2 person assist for safety so it was felt that [facility] was needed for discharge. She and her family were initially agreeable to SNF placement but when there first 2 choices did not have beds available they wanted to take her home with home health. After explaining to the patient and daughter that it was unsafe for the patient to go home due to still requiring maximum assistance they agreed to going to [facility]. She will be discharged there with PT and OT and fwup with me in 2 weeks. Labs Laboratory Tests 09/13/22 19:45: Glucometer 310H 09/14/22 05:30: White Blood Count 17.5H, Red Blood Count 3.41L, Hemoglobin 9.5L, Hematocrit 30L, Red Cell Distribution Width 15.6H, Neutrophils (%) (Auto) 87H, Lymphocytes (%) (Auto) 5L, Neutrophils # (Auto) 15.3H, Lymphocytes # (Auto) 0.9L, Immature Granulocyte # (Auto) 0.2H, Chloride Level 94L, Anion Gap 15H, Blood Urea Nitrogen 60H, Creatinine 2.23H, Glucose Level 107H, Alanine Aminotransferase (ALT/SGPT) 90H, Total Protein 5.6L, Albumin 2.9L 09/14/22 05:41: 09/14/22 09:21: Glucometer 116H 09/14/22 19:37: Procedures None. Discharge Physical Examination Allergies: Coded Allergies: No Known Drug Allergies (Unverified , 05/28/21) Vitals & I&Os Vital Signs Date Time Temp Pulse Resp B/P (MAP) Pulse Ox O2 Delivery O2 Flow Rate FiO2 09/14/22 11:06 09/14/22 09:00 Nasal Cannula 3.00 09/14/22 08:03 99 09/14/22 07:58 36.2 77 18 09/14/22 01:25 32 General Appearance: Alert, Oriented X3 Respiratory: Clear to Auscultation Cardiovascular: Regular Rate Abdominal: Normal Bowel Sounds, Soft, No Tenderness Extremities: No Clubbing, No Cyanosis, No Edema Psych/Mental Status: Mental Status NL Discharge Home Medications Reviewed and agree with Discharge Medication list on patient's Discharge Instruction sheet Instructions to Patient/Family Please see electronic discharge instructions given to patient. TAO REED DO Sep 16, 2022 17:09
== END 2022-09-14 11:06 | DRG 291 ==
LOC: ICU 14:39 → CSD 09-06 10:27 → 4TH 09-11 22:22
PROVIDERS: ADMIT Family Medicine; ATTEND Family Medicine
PROC: 0W9B3ZZ Drainage of Left Pleural Cavity, Percutaneous Approach (ICD-10-PCS; principal; 2022-09-03)
PROC: 5A09357 Assistance with Respiratory Ventilation, Less than 24 Consecutive Hours, Continuous Positive Airway Pressure (ICD-10-PCS; 2022-09-04)
DX: I13.0 Hypertensive heart and chronic kidney disease with heart failure and stage 1 through stage 4 chronic kidney disease, or unspecified chronic kidney disease (principal); I50.31 Acute diastolic (congestive) heart failure; J96.20 Acute and chronic respiratory failure, unspecified whether with hypoxia or hypercapnia; J18.9 Pneumonia, unspecified organism; N18.4 Chronic kidney disease, stage 4 (severe); J44.0 Chronic obstructive pulmonary disease with (acute) lower respiratory infection; C79.9 Secondary malignant neoplasm of unspecified site; J90 Pleural effusion, not elsewhere classified; Z66 Do not resuscitate; E11.22 Type 2 diabetes mellitus with diabetic chronic kidney disease; I48.91 Unspecified atrial fibrillation; E66.9 Obesity, unspecified; Z68.37 Body mass index [BMI] 37.0-37.9, adult; T50.916A Underdosing of multiple unspecified drugs, medicaments and biological substances, initial encounter; Z91.128 Patient's intentional underdosing of medication regimen for other reason; E78.00 Pure hypercholesterolemia, unspecified; K21.9 Gastro-esophageal reflux disease without esophagitis; D64.9 Anemia, unspecified; H91.90 Unspecified hearing loss, unspecified ear; F32.A Depression, unspecified; Z79.4 Long term (current) use of insulin; Z79.84 Long term (current) use of oral hypoglycemic drugs; Z99.81 Dependence on supplemental oxygen; Z85.038 Personal history of other malignant neoplasm of large intestine; Z90.49 Acquired absence of other specified parts of digestive tract
CPT/HCPCS: 36415; 71045; 71046; 80053; 82274; 82805; 82945; 82947; 83735; 83880; 84100; 84157; 85007; 85014; 85018; 85025; 85027; 86850; 86900; 86901; 86920; 87070; 87075; 87081; 87205; 88112; 88305; 88342; 89051; 93005; 94640; 94660; 94664; 94760

== ENCOUNTER 2022-09-24 10:03 | Inpatient (IN) | payer MEDICARE ==
[~2022-09-24] VITALS: Ht 162.6 cm; Wt 94.4 kg
[~2022-09-24 10:03] MED LIST changes: +ACET325T49 PO; +ALBU2.5V4 NEB; +AMOX-355 PO; +APIX2.5T PO; +BUME1TAB8 PO; +DILT240C91 PO; +EMPA10TA PO; +FLUC100T PO; +METO50TA7 PO; +MTP100TCR PO; +PANT40TA52 PO; +POTA8CAP20 PO; +SENN1TAB76 PO
[2022-09-24 10:21] LABS: BASOPHILS % (AUTO) 0 % (0-10); EOSINOPHILS % (AUTO) 0 % (0-10); HEMATOCRIT 30 % (35-52); HEMOGLOBIN 9.6 g/dL (11.5-16.0); LYMPHOCYTES # (AUTO) 0.8 10^3/uL (1.0-4.0); LYMPHOCYTES % (AUTO) 8 % (12-44); MEAN CORPUSCULAR HEMOGLOBIN 28 pg (25-34); MEAN CORPUSCULAR HGB CONC 32 g/dL (32-36); MEAN CORPUSCULAR VOLUME 87 fL (80-99); MEAN PLATELET VOLUME 11.3 fL (9.0-12.2); MONOCYTES # (AUTO) 0.5 10^3/uL (0.0-1.0); MONOCYTES % (AUTO) 4 % (0-12); NEUTROPHILS # (AUTO) 8.8 10^3/uL (1.8-7.8); NEUTROPHILS % (AUTO) 87 % (42-75); PLATELET COUNT 284 10^3/uL (130-400); WHITE BLOOD COUNT 10.2 10^3/uL (4.3-11.0)
--- NOTE | 2022-09-24 10:21 | ED Abdominal Pain ---
General Stated Complaint: ABD PAIN Source of Information: Patient Exam Limitations: No Limitations History of Present Illness Date Seen by Provider: Sep 24, 2022 Time Seen by Provider: 10:08 Initial Comments 82-year-old female presents from [facility] for abdominal distention, pain decreased bowel movements and vomiting. They thought she might have vomited feculent material this morning. Emesis was just x1. She states she has not had a bowel movement for 2 or 3 days and typically has a bowel movement daily. She is taking pain medications and does not know if she is taking stool softeners. She was recently admitted to our facility for decompensated heart failure, A. fib with RVR. She denies any fevers or chills. No chest pain or shortness of breath at present. No urinary symptoms. No Vaginal symptoms. Notably record review shows the patient has a history of colon cancer for which she stopped treatment. Allergies and Home Medications Allergies Coded Allergies: No Known Drug Allergies (Unverified , 05/28/21) Patient Home Medication List Home Medication List Reviewed: Yes Acetaminophen (Tylenol 8 Hour) 650 Mg Tablet.er, 650 MG PO Q4H PRN for PAIN-MILD (1-4), (Reported) Entered as Reported by: STEPHANIE FULLER on 09/24/22 704 Last Action: Reviewed Albuterol Sulfate (Albuterol Sulfate) 2.5 Mg/3 Ml (0.083 %) Vial.neb, 3 ML NEB Q6H PRN for SHORTNESS OF BREATH, (Reported) Entered as Reported by: STEPHANIE FULLER on 09/03/221336 Last Action: Reviewed Apixaban (Eliquis) 2.5 Mg Tablet, 2.5 MG PO BID, (Reported) Entered as Reported by: STEPHANIE FULLER on 09/03/221336 Last Action: Reviewed Bumetanide (Bumetanide) 1 Mg Tablet, 1 MG PO DAILY, (Reported) Entered as Reported by: STEPHANIE FULLER on 09/03/221336 Last Action: Reviewed Diltiazem HCl (Diltiazem 24Hr ER) 240 Mg Cap.er.24h, 240 MG PO 1200, (Reported) Entered as Reported by: STEPHANIE FULLER on 09/24/22 688 Last Action: Reviewed Empagliflozin (Jardiance) 10 Mg Tablet, 10 MG PO DAILY, (Reported) Entered as Reported by: STEPHANIE FULLER on 09/24/221528 Last Action: Reviewed Insulin Glargine/Lixisenatide (Soliqua 100 Unit-33 Mcg/ml Pen) 100 Unit-33 Mcg/Ml (3 Ml) Insuln.pen, 25 UNITS SQ DAILY, (Reported) Entered as Reported by: JOHNIE GODFREY on 04/22/211311 Last Action: Reviewed Metoprolol Succinate (Metoprolol Succinate) 100 Mg Tab.er.24h, 100 MG PO 0600,1800, (Reported) Entered as Reported by: STEPHANIE FULLER on 09/24/221528 Last Action: Reviewed Ondansetron HCl (Ondansetron HCl) 4 Mg Tablet, 4 MG PO Q4H PRN for NAUSEA/VOMITING-1ST LINE, (Reported) Entered as Reported by: STEPHANIE FULLER on 09/24/221528 Last Action: Reviewed Pantoprazole Sodium (Pantoprazole Sodium) 40 Mg Tablet.dr, 40 MG PO 0600,1800, (Reported) Entered as Reported by: STEPHANIE FULLER on 09/24/221528 Last Action: Reviewed Potassium Chloride (Potassium Chloride) 8 Meq Capsule.er, 8 MEQ PO 0700, (Reported) Entered as Reported by: STEPHANIE FULLER on 09/24/221528 Last Action: Reviewed Sennosides/Docusate Sodium (Senna S Tablet) 8.6 Mg-50 Mg Tablet, 1 EACH PO 0600,1800, (Reported) Entered as Reported by: STEPHANIE FULLER on 09/24/221528 Last Action: Reviewed Sertraline HCl (Sertraline HCl) 100 Mg Tablet, 100 MG PO DAILY, (Reported) Entered as Reported by: JOHNIE GODFREY on 04/22/211311 Last Action: Reviewed Simvastatin (Simvastatin) 20 Mg Tablet, 20 MG PO DAILY, (Reported) Entered as Reported by: JOHNIE GODFREY on 04/22/211311 Last Action: Reviewed Sitagliptin Phosphate (Januvia) 100 Mg Tablet, 100 MG PO DAILY, (Reported) Entered as Reported by: JOHNIE GODFREY on 04/22/211311 Last Action: Reviewed Discontinued Medications Acetaminophen (Acetaminophen) 325 Mg Tablet, 650 MG PO Q4H PRN for PAIN-MILD (1- 4) Discontinued Reason: Duplicate Order Prescribed by: TAO REED on 09/14/22844 Last Action: Discontinued Amoxicillin/Potassium Clav (Augmentin 500-125 Tablet) 500 Mg-125 Mg Tablet, 1 EACH PO BID Discontinued Reason: Duplicate Order Prescribed by: TAO REED on 09/14/22844 Last Action: Discontinued Diltiazem HCl (Diltiazem 24Hr ER) 240 Mg Cap.er.24h, 240 MG PO DAILY Discontinued Reason: Duplicate Order Prescribed by: TAO REED on 09/14/22844 Last Action: Discontinued Empagliflozin (Jardiance) 10 Mg Tablet, 10 MG PO DAILY Discontinued Reason: Duplicate Order Prescribed by: TAO REED on 09/14/22844 Last Action: Discontinued Fluconazole (Diflucan) 100 Mg Tablet, 100 MG PO DAILY Discontinued Reason: Duplicate Order Prescribed by: TAO REED on 09/14/22844 Last Action: Discontinued Metoprolol Succinate (Metoprolol Succinate) 100 Mg Tab.er.24h, 100 MG PO BID Discontinued Reason: Duplicate Order Prescribed by: TAO REED on 09/14/22844 Last Action: Discontinued Pantoprazole Sodium (Pantoprazole Sodium) 40 Mg Tablet.dr, 40 MG PO BID Discontinued Reason: Duplicate Order Prescribed by: TOA REED on 09/14/22844 Last Action: Discontinued Potassium Chloride (Potassium Chloride) 8 Meq Capsule.er, 8 MEQ PO DAILY@0700 Discontinued Reason: Duplicate Order Prescribed by: TAO REED on 09/14/22844 Last Action: Discontinued Sennosides/Docusate Sodium (Stool Softener-Laxative Tablet) 8.6 Mg-50 Mg Tablet, 1 EA PO BID Discontinued Reason: Duplicate Order Prescribed by: TAO REED on 09/14/22844 Last Action: Discontinued Review of Systems Review of Systems Constitutional: no symptoms reported EENTM: No Symptoms Reported Respiratory: No Symptoms Reported Cardiovascular: No Symptoms Reported Gastrointestinal: Abdominal Pain, Vomiting Genitourinary: No Symptoms Reported Musculoskeletal: no symptoms reported Skin: no symptoms reported Psychiatric/Neurological: No Symptoms Reported Endocrine: No Symptoms Reported Hematologic/Lymphatic: No Symptoms Reported Past Rkjudjq-Iccpvo-Oqnesi Hx Patient Social History Tobacco Use?: No Use of E-Cig and/or Vaping dev: No Substance use?: No Alcohol Use?: No Immunizations Up To Date First/Initial COVID19 Vaccinat: APRIL 2021 Second COVID19 Vaccination Sanjay: APRIL 2021 Third COVID19 Vaccination Date: NA Seasonal Allergies Seasonal Allergies: No Past Medical History Surgeries: Yes (EGD and Colonoscopy) Abdominal, Gallbladder, Joint Replacement Respiratory: Yes Sleep Apnea, COPD Cardiac: Yes (CHF) Hypertension 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: 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 Genitourinary: Yes Renal Failure Gastrointestinal: Yes (Colon CA) Gastroesophageal Reflux, Hemorrhoids, Polyps, Gall Bladder Disease Musculoskeletal: Yes Arthritis, Chronic Back Pain Endocrine: Yes (OBESITY) Diabetes, Insulin dep HEENT: Yes Glaucoma Loss of Vision: Bilateral Hearing Impairment: Hard of Hearing Cancer: Yes Colon Did You Recieve Any Treatments: Yes What Type of Treatment Did You: Surgical Intervention Psychosocial: No Integumentary: No Blood Disorders: Yes (ANEMIA) Family Medical History Reviewed Nursing Family Hx Cancer, Diabetes PAST SURGICAL HISTORY: -EGD/COLONOSCOPY 04/25/21 -COLON RESECTION / RIGHT HEMICOLECTOMY 05/[address] PATIÑO -CHOLECYSTECTOMY -KNEE SURGERY Physical Exam Vital Signs Vital Signs - First Documented 09/24/22 10:04 Temp 36.3 Pulse 91 Resp 20 B/P (MAP) 135/65 (88) Pulse Ox 98 O2 Delivery Nasal Cannula O2 Flow Rate 2.00 Capillary Refill : Height/Weight/BMI Height: '" Weight: lbs. oz. kg; 37.22 BMI Method: General Appearance: WD/WN, no apparent distress HEENT: normal ENT inspection, pharynx normal Neck: non-tender, supple Respiratory: chest non-tender, lungs clear, normal breath sounds, no respiratory distress, no accessory muscle use Cardiovascular: regular rate, rhythm, no edema, no gallop, no JVD, no murmur Gastrointestinal: no organomegaly, other (Hypoactive bowel sounds. Diffuse abdominal tenderness with voluntary guarding. No rebound tenderness. No mass organomegaly. There are some slight distention. No fluid wave.) Extremities: normal range of motion, normal inspection, normal capillary refill Neurologic/Psychiatric: alert, normal mood/affect, oriented x 3 Progress/Results/Core Measures Results/Orders Lab Results Laboratory Tests Test 09/24/22 10:16 Range/Units White Blood Count 10.2 4.3-11.0 10^3/uL Red Blood Count 3.39 L 3.80-5.11 10^6/uL Hemoglobin 9.6 L 11.5-16.0 g/dL Hematocrit 30 L 35-52 % Mean Corpuscular Volume 87 80-99 fL Mean Corpuscular Hemoglobin 28 25-34 pg Mean Corpuscular Hemoglobin Concent 32 32-36 g/dL Red Cell Distribution Width 16.6 H 10.0-14.5 % Platelet Count 284 130-400 10^3/uL Mean Platelet Volume 11.3 9.0-12.2 fL Immature Granulocyte % (Auto) 1 % Neutrophils (%) (Auto) 87 H 42-75 % Lymphocytes (%) (Auto) 8 L 12-44 % Monocytes (%) (Auto) 4 0-12 % Eosinophils (%) (Auto) 0 0-10 % Basophils (%) (Auto) 0 0-10 % Neutrophils # (Auto) 8.8 H 1.8-7.8 10^3/uL Lymphocytes # (Auto) 0.8 L 1.0-4.0 10^3/uL Monocytes # (Auto) 0.5 0.0-1.0 10^3/uL Eosinophils # (Auto) 0.0 0.0-0.3 10^3/uL Basophils # (Auto) 0.0 0.0-0.1 10^3/uL Immature Granulocyte # (Auto) 0.1 0.0-0.1 10^3/uL Neutrophils % (Manual) 83 % Lymphocytes % (Manual) 10 % Monocytes % (Manual) 6 % Eosinophils % (Manual) 1 % Polychromasia SLIGHT Stomatocytes SLIGHT Sodium Level 137 135-145 MMOL/L Potassium Level 4.5 3.6-5.0 MMOL/L Chloride Level 94 L 98-107 MMOL/L Carbon Dioxide Level 24 21-32 MMOL/L Anion Gap 19 H 5-14 MMOL/L Blood Urea Nitrogen 64 H 7-18 MG/DL Creatinine 4.26 H 0.60-1.30 MG/DL Estimat Glomerular Filtration Rate 10 BUN/Creatinine Ratio 15 Glucose Level 92 70-105 MG/DL Calcium Level 8.9 8.5-10.1 MG/DL Corrected Calcium 9.7 8.5-10.1 MG/DL Total Bilirubin 0.6 0.1-1.0 MG/DL Aspartate Amino Transf (AST/SGOT) 23 5-34 U/L Alanine Aminotransferase (ALT/SGPT) 37 0-55 U/L Alkaline Phosphatase 113 40-136 U/L Total Protein 6.0 L 6.4-8.2 GM/DL Albumin 3.0 L 3.2-4.5 GM/DL Lipase 14 8-78 U/L My Orders Orders - CELE LAZO Epifanio DO Lipase (09/24/22 10:15) Cbc With Automated Diff (09/24/22 10:15) Comprehensive Metabolic Panel (09/24/22 10:15) Ondansetron Injection (Zofran Injectio (09/24/22 10:30) Manual Differential (09/24/22 10:16) Di Iv Start (Assessment) .IV start (09/24/22 10:35) Ct Abdomen/Pelvis Wo (09/24/22 10:45) Ns Iv 1000 Ml (Sodium Chloride 0.9%) (09/24/22 11:00) Medications Given in ED Vital Signs/I&O 09/24/22 10:04 Temp 36.3 Pulse 91 Resp 20 B/P (MAP) 135/65 (88) Pulse Ox 98 O2 Delivery Nasal Cannula O2 Flow Rate 2.00 Departure Communication (Admissions) Patient is hemodynamically stable. She has a small bowel obstruction, presumably from carcinomatosis based on CT scan findings. She did have known cancer but stopped treatments. She is very reasonable during discussion that we will likely not be able to treat or cure her cancer but we would like to try to make her comfortable by compressing her bowel which will help with her vomiting and pain. She is amenable to this. She again affirms that she is a DNR/DNI at the bedside today. She does have worsening acute kidney injury. She has a hist ory of CHF so being judicious with fluids. I spoke with Dr. REED who agrees to continue the 100 cc/h that I had previously ordered. I spoke with Dr. Stewart who will see the patient once he is done in the operating room. Patient is comfortable agreeable with admission at this time Impression Primary Impression: Small bowel obstruction Additional Impressions: KAITLYN (acute kidney injury) Carcinomatosis Disposition: XF S[facility]-TRM HOSP Condition: Stable Admissions Decision to Admit Reason: Admit from ER (General) Departure-Patient Inst. Referrals: TAO REED DO (PCP/Family) Primary Care Physician CELE LAZO DO Sep 24, 2022 10:21
[2022-09-24] MEDS ORDERED: ONDANSETRON 4 MG/2 ML (SDV) Z0FRAN IVP ONE (10:30)
[2022-09-24 10:41] LABS: BILIRUBIN,TOTAL 0.6 MG/DL (0.1-1.0); CALCIUM 8.9 MG/DL (8.5-10.1); CREATININE SERUM 4.26 MG/DL (0.60-1.30); POTASSIUM 4.5 MMOL/L (3.6-5.0)
[2022-09-24] MEDS ORDERED: HOLD METFORMIN - RECEIVED CONTRAST 20 ML VIAL IV SCH (10:45)
[2022-09-24] MEDS ORDERED: CATHETER FLUSH 10 ML SYR IV PRN (10:45)
[2022-09-24] MEDS ORDERED: IOHEXOL 350 MG/ML 100 ML (OMNIPAQUE 350) VIAL IV ONE (10:45)
[2022-09-24] MEDS ORDERED: NS 100 ML (IVPB) BAG IV ONE (10:45)
[2022-09-24 10:59] LABS: EOSINOPHILS % (MANUAL) 1 %; LYMPHOCYTES % (MANUAL) 10 %; MONOCYTES % (MANUAL) 6 %; NEUTROPHILS % (MANUAL) 83 %; POLYCHROMASIA SLIGHT; STOMATOCYTES SLIGHT
[2022-09-24] MEDS ORDERED: NS IV 1000 ML 1,000 ML IV SCH ×2 (11:00→14:00)
--- NOTE | 2022-09-24 11:47 | Diagnostic Imaging Report ---
EXAMINATION: CT abdomen and pelvis without contrast. TECHNIQUE: Multiple contiguous axial images were obtained through the abdomen and pelvis without the use of intravenous contrast. All CT scans use one or more of the following dose optimizing techniques: automated exposure control, MA and/or KvP adjustment based on patient size and exam type or iterative reconstruction. HISTORY: Abdominal pain COMPARISON: 05/20/2021 FINDINGS: Lung bases: There is a left pleural effusion with bibasilar atelectasis or consolidation. Solid organs: The liver is normal. Gallbladder is nonvisualized. There is no biliary ductal dilation. Pancreas is normal. Spleen is normal. There is mild thickening of the adrenal glands. There is a right renal cyst which requires no follow-up. No visualized renal calculus or hydronephrosis. Bowel: There are multiple dilated loops of air and fluid-filled small bowel. Possible transition point along the right anterior abdominal wall (series 2 image 109). Surgical changes of the colon. Peritoneum: There is mild free fluid in the abdomen or pelvis. There are numerous soft tissue nodules and masses throughout the omentum and mesentery. The largest measures 5.3 x 6.5 cm in the anterior abdomen (series 2 image 107). Multiple nodules are seen along the bowel and the liver. Vasculature: Calcification of the aorta without aneurysm. Musculoskeletal: There is a new compression fracture of the L1 vertebral body. No suspicious osseous lesion. Pelvis: The uterus and adnexa are normal. The urinary bladder is normal. IMPRESSION: 1. 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 2. Multiple soft tissue implants along the small bowel likely resulting in a small bowel obstruction with a possible transition point along the right anterior abdominal wall. 3. Left pleural effusion with bibasilar atelectasis or consolidation. 4. New L1 compression fracture. Dictated by: Dictated on workstation # [id number]
[2022-09-24] MEDS ORDERED: MIDAZOLAM 2 MG/2 ML (VERSED) VIAL IM ONE (12:30)
--- NOTE | 2022-09-24 12:30 | History & Physical ---
ANDREY FORD 09/24/22 1230: History of Present Illness History of Present Illness Reason for visit/HPI CC: Abdominal Pain HPI: 82 F with pmh of COPD , CHF, A Fibb, DMII was brought to ER for worsening abdominal pain, distention, and n/v. Pt had one bout of emesis that resembled stool, denies any blood. Pt has not had a bowel movement since dc last week to [facility]. Pt claims shes SOB with progressive weakness. Denies any fever chills LOC. Pt has a dx of colon cancer that she stopped treatment early on. CT shows mets to abdominal cavity and possible obstruction. NG tube in place. Surgery to consult later today. Date of Admission 09/24/2022 Date Seen by a Provider: Sep 24, 2022 Time Seen by a Provider: 12:15 I consulted on this patient on 09/24/22 12:24 Attending Physician Tao Beaver DO Admitting Physician Admitting Physician: Attending Physician: Consult Allergies and Home Medications Allergies Coded Allergies: No Known Drug Allergies (Unverified , 05/28/21) Patient Home Medication List Home Medication List Reviewed: Yes Acetaminophen (Tylenol 8 Hour) 650 Mg Tablet.er, 650 MG PO Q4H PRN for PAIN-MILD (1-4), (Reported) Entered as Reported by: STEPHANIE FULLER on 09/24/22 1529 Last Action: Reviewed Albuterol Sulfate (Albuterol Sulfate) 2.5 Mg/3 Ml (0.083 %) Vial.neb, 3 ML NEB Q6H PRN for SHORTNESS OF BREATH, (Reported) Entered as Reported by: STEPHANIE FULLER on 09/03/221336 Last Action: Reviewed Apixaban (Eliquis) 2.5 Mg Tablet, 2.5 MG PO BID, (Reported) Entered as Reported by: STEPHANIE FULLER on 09/03/221336 Last Action: Reviewed Bumetanide (Bumetanide) 1 Mg Tablet, 1 MG PO DAILY, (Reported) Entered as Reported by: STEPHANIE FULLER on 09/03/221336 Last Action: Reviewed Diltiazem HCl (Diltiazem 24Hr ER) 240 Mg Cap.er.24h, 240 MG PO 1200, (Reported) Entered as Reported by: STEPHANIE FULLER on 09/24/221528 Last Action: Reviewed Empagliflozin (Jardiance) 10 Mg Tablet, 10 MG PO DAILY, (Reported) Entered as Reported by: STEPHANIE FULLER on 09/24/221528 Last Action: Reviewed Insulin Glargine/Lixisenatide (Soliqua 100 Unit-33 Mcg/ml Pen) 100 Unit-33 Mcg/Ml (3 Ml) Insuln.pen, 25 UNITS SQ DAILY, (Reported) Entered as Reported by: JOHNIE GODFREY on 04/22/211311 Last Action: Reviewed Metoprolol Succinate (Metoprolol Succinate) 100 Mg Tab.er.24h, 100 MG PO 0600,1800, (Reported) Entered as Reported by: STEPHANIE FULLER on 09/24/221528 Last Action: Reviewed Ondansetron HCl (Ondansetron HCl) 4 Mg Tablet, 4 MG PO Q4H PRN for NAUSEA/VOMITING-1ST LINE, (Reported) Entered as Reported by: STEPHANIE FULLER on 09/24/221528 Last Action: Reviewed Pantoprazole Sodium (Pantoprazole Sodium) 40 Mg Tablet.dr, 40 MG PO 0600,1800, (Reported) Entered as Reported by: STEPHANIE FULLER on 09/24/221528 Last Action: Reviewed Potassium Chloride (Potassium Chloride) 8 Meq Capsule.er, 8 MEQ PO 0700, (Reported) Entered as Reported by: STEPHANIE FULLER on 09/24/221528 Last Action: Reviewed Sennosides/Docusate Sodium (Senna S Tablet) 8.6 Mg-50 Mg Tablet, 1 EACH PO 0600,1800, (Reported) Entered as Reported by: STEPHANIE FULLER on 09/24/221528 Last Action: Reviewed Sertraline HCl (Sertraline HCl) 100 Mg Tablet, 100 MG PO DAILY, (Reported) Entered as Reported by: JOHNIE GODFREY on 04/22/211311 Last Action: Reviewed Simvastatin (Simvastatin) 20 Mg Tablet, 20 MG PO DAILY, (Reported) Entered as Reported by: JOHNIE GODFREY on 04/22/211311 Last Action: Reviewed Sitagliptin Phosphate (Januvia) 100 Mg Tablet, 100 MG PO DAILY, (Reported) Entered as Reported by: JOHNIE GODFREY on 04/22/211311 Last Action: Reviewed Discontinued Medications Acetaminophen (Acetaminophen) 325 Mg Tablet, 650 MG PO Q4H PRN for PAIN-MILD (1- 4) Discontinued Reason: Duplicate Order Prescribed by: TAO BEAVER on 09/14/22844 Last Action: Discontinued Amoxicillin/Potassium Clav (Augmentin 500-125 Tablet) 500 Mg-125 Mg Tablet, 1 EACH PO BID Discontinued Reason: Duplicate Order Prescribed by: TAO BEAVER on 09/14/22844 Last Action: Discontinued Diltiazem HCl (Diltiazem 24Hr ER) 240 Mg Cap.er.24h, 240 MG PO DAILY Discontinued Reason: Duplicate Order Prescribed by: TAO BEAVER on 09/14/22844 Last Action: Discontinued Empagliflozin (Jardiance) 10 Mg Tablet, 10 MG PO DAILY Discontinued Reason: Duplicate Order Prescribed by: TAO BEAVER on 09/14/22844 Last Action: Discontinued Fluconazole (Diflucan) 100 Mg Tablet, 100 MG PO DAILY Discontinued Reason: Duplicate Order Prescribed by: TAO BEAVER on 09/14/22844 Last Action: Discontinued Metoprolol Succinate (Metoprolol Succinate) 100 Mg Tab.er.24h, 100 MG PO BID Discontinued Reason: Duplicate Order Prescribed by: TAO BEAVER on 09/14/22844 Last Action: Discontinued Pantoprazole Sodium (Pantoprazole Sodium) 40 Mg Tablet.dr, 40 MG PO BID Discontinued Reason: Duplicate Order Prescribed by: TAO BEAVER on 09/14/22844 Last Action: Discontinued Potassium Chloride (Potassium Chloride) 8 Meq Capsule.er, 8 MEQ PO DAILY@0700 Discontinued Reason: Duplicate Order Prescribed by: TAO BEAVER on 09/14/22844 Last Action: Discontinued Sennosides/Docusate Sodium (Stool Softener-Laxative Tablet) 8.6 Mg-50 Mg Tablet, 1 EA PO BID Discontinued Reason: Duplicate Order Prescribed by: TAO BEAVER on 09/14/22844 Last Action: Discontinued Past Mgovrxk-Hyflnw-Xcmwxy Hx Patient Social History Marrital Status: single Employed/Student: unemployed Tobacco Use?: No Use of E-Cig and/or Vaping dev: No Substance use?: No Alcohol Use?: No Immunizations Up To Date First/Initial COVID19 Vaccinat: APRIL 2021 Second COVID19 Vaccination Sanjay: APRIL 2021 Seasonal Allergies Seasonal Allergies: No Current Status Advance Directives: No Communicates: Verbally Primary Language: Korean Preferred Spoken Language: Korean Is interpretation needed?: No Past Medical History Surgeries: Abdominal, Gallbladder, Joint Replacement Sleep Apnea, COPD Hypertension [employer] History: Menopausal Renal Failure Gastroesophageal Reflux, Hemorrhoids, Polyps, Gall Bladder Disease Arthritis, Chronic Back Pain Diabetes, Insulin dep Glaucoma Loss of Vision: Bilateral Hearing Impairment: Hard of Hearing Colon Did You Recieve Any Treatments: Yes What Type of Treatment Did You: Surgical Intervention Blood Disorders: Yes (ANEMIA) Family Medical History Reviewed Nursing Family Hx Cancer, Diabetes PAST SURGICAL HISTORY: -EGD/COLONOSCOPY 04/25/21 -COLON RESECTION / RIGHT HEMICOLECTOMY 05/[address] PATIÑO -CHOLECYSTECTOMY -KNEE SURGERY Review of Systems Constitutional: No chills, No fever; weakness EENTM: No hearing loss, No blurred vision Respiratory: cough, dyspnea on exertion, short of breath Cardiovascular: No chest pain; edema; No syncope Gastrointestinal: abdominal pain (x4 ), constipation; No loss of appetite; nausea, vomiting Genitourinary: No dysuria, No frequency, No hematuria, No incontinence : No Musculoskeletal: No muscle pain; muscle weakness Skin: dryness; No lesions, No lumps Psychiatric/Neurological: No Symptoms Reported Physical Exam Vital Signs Vital Signs - First Documented 09/24/22 10:04 Temp 36.3 Pulse 91 Resp 20 B/P (MAP) 135/65 (88) Pulse Ox 98 O2 Delivery Nasal Cannula O2 Flow Rate 2.00 Capillary Refill : Less Than 3 Seconds Height, Weight, BMI Height: '" Weight: lbs. oz. kg; 34.00 BMI Method: General Appearance: Chronically ill Eyes: Bilateral Eye Normal Inspection, Bilateral Eye PERRL HEENT: PERRL/EOMI, Normal ENT Inspection Neck: Normal Inspection, Non Tender, Supple Respiratory: Chest Non Tender, No Accessory Muscle Use, No Respiratory Distress, Crackles (diffuse in all lung dillon ) Cardiovascular: Normal Peripheral Pulses, Irregularly Irregular Gastrointestinal: Abnormal Bowel Sounds (hypoactive in lower quadrents, high pitched sounds noted over RUQ), Distended, Tenderness Back: Normal Inspection, No CVA Tenderness Extremity: Calf Tenderness, Swelling (BL LE 3+ pitting edema ) Neurologic/Psychiatric: Alert, Oriented x3, Normal Mood/Affect Skin: Normal Color, Cool Lymphatic: No Adenopathy Assessment/Plan Assessment and Plan 1) Small Bowel Obstruction: consult surgery, continue NG tube with suction, NPO until after surgery has met with pt, 2) DM II : start sliding scale insulin, hold home regimen due to decreased GI functions 3) dehydration: continue IV fluids 4) CKD - hold oral lasix and continue to monitor kidney function 5) A fibb -continue oral cardizem 6) CHF- obtain serial chest x-rays to access fluid level, possible consult surgery for repeat thoracentesis 7) COPD: continue supplemental O2, start MAT protocol 8) consult SS and speak with family on future treatment goals and therapies Admission Diagnosis Admission Status: Inpatient Order (span 2 midnights) Reason for Inpatient Admission: Small bowel obstruction TAO BEAVER DO 09/24/22 181: Allergies and Home Medications Allergies Coded Allergies: No Known Drug Allergies (Unverified , 05/28/21) Patient Home Medication List Acetaminophen (Tylenol 8 Hour) 650 Mg Tablet.er, 650 MG PO Q4H PRN for PAIN-MILD (1-4), (Reported) Entered as Reported by: STEPHANIE FULLER on 09/24/221528 Last Action: Reviewed Albuterol Sulfate (Albuterol Sulfate) 2.5 Mg/3 Ml (0.083 %) Vial.neb, 3 ML NEB Q6H PRN for SHORTNESS OF BREATH, (Reported) Entered as Reported by: STEPHANIE FULLER on 09/03/221336 Last Action: Reviewed Apixaban (Eliquis) 2.5 Mg Tablet, 2.5 MG PO BID, (Reported) Entered as Reported by: STEPHANIE FULLER on 09/03/221336 Last Action: Reviewed Bumetanide (Bumetanide) 1 Mg Tablet, 1 MG PO DAILY, (Reported) Entered as Reported by: STEPHANIE FULLER on 09/03/221336 Last Action: Reviewed Diltiazem HCl (Diltiazem 24Hr ER) 240 Mg Cap.er.24h, 240 MG PO 1200, (Reported) Entered as Reported by: STEPHANIE FULLER on 09/24/221528 Last Action: Reviewed Empagliflozin (Jardiance) 10 Mg Tablet, 10 MG PO DAILY, (Reported) Entered as Reported by: STEPHANIE FULLER on 09/24/221528 Last Action: Reviewed Insulin Glargine/Lixisenatide (Soliqua 100 Unit-33 Mcg/ml Pen) 100 Unit-33 Mcg/Ml (3 Ml) Insuln.pen, 25 UNITS SQ DAILY, (Reported) Entered as Reported by: JOHNIE GODFREY on 04/22/211311 Last Action: Reviewed Metoprolol Succinate (Metoprolol Succinate) 100 Mg Tab.er.24h, 100 MG PO 0600,1800, (Reported) Entered as Reported by: STEPHANIE FULLER on 09/24/221528 Last Action: Reviewed Ondansetron HCl (Ondansetron HCl) 4 Mg Tablet, 4 MG PO Q4H PRN for NAUSEA/VOMITING-1ST LINE, (Reported) Entered as Reported by: STEPHANIE FULLER on 09/24/221528 Last Action: Reviewed Pantoprazole Sodium (Pantoprazole Sodium) 40 Mg Tablet.dr, 40 MG PO 0600,1800, (Reported) Entered as Reported by: STEPHANIE FULLER on 09/24/221528 Last Action: Reviewed Potassium Chloride (Potassium Chloride) 8 Meq Capsule.er, 8 MEQ PO 0700, (Reported) Entered as Reported by: STEPHANIE FULLER on 09/24/221528 Last Action: Reviewed Sennosides/Docusate Sodium (Senna S Tablet) 8.6 Mg-50 Mg Tablet, 1 EACH PO 0600,1800, (Reported) Entered as Reported by: STEPHANIE FULLER on 09/24/221528 Last Action: Reviewed Sertraline HCl (Sertraline HCl) 100 Mg Tablet, 100 MG PO DAILY, (Reported) Entered as Reported by: JOHNIE GODFREY on 04/22/211311 Last Action: Reviewed Simvastatin (Simvastatin) 20 Mg Tablet, 20 MG PO DAILY, (Reported) Entered as Reported by: JOHNIE GODFREY on 04/22/211311 Last Action: Reviewed Sitagliptin Phosphate (Januvia) 100 Mg Tablet, 100 MG PO DAILY, (Reported) Entered as Reported by: JOHNIE GODFREY on 04/22/211311 Last Action: Reviewed Discontinued Medications Acetaminophen (Acetaminophen) 325 Mg Tablet, 650 MG PO Q4H PRN for PAIN-MILD (1- 4) Discontinued Reason: Duplicate Order Prescribed by: TAO BEAVER on 09/14/22844 Last Action: Discontinued Amoxicillin/Potassium Clav (Augmentin 500-125 Tablet) 500 Mg-125 Mg Tablet, 1 EACH PO BID Discontinued Reason: Duplicate Order Prescribed by: TAO BEAVER on 09/14/22844 Last Action: Discontinued Diltiazem HCl (Diltiazem 24Hr ER) 240 Mg Cap.er.24h, 240 MG PO DAILY Discontinued Reason: Duplicate Order Prescribed by: TAO BEAVER on 09/14/22844 Last Action: Discontinued Empagliflozin (Jardiance) 10 Mg Tablet, 10 MG PO DAILY Discontinued Reason: Duplicate Order Prescribed by: TAO BEAVER on 09/14/22844 Last Action: Discontinued Fluconazole (Diflucan) 100 Mg Tablet, 100 MG PO DAILY Discontinued Reason: Duplicate Order Prescribed by: TAO BEAVER on 09/14/22844 Last Action: Discontinued Metoprolol Succinate (Metoprolol Succinate) 100 Mg Tab.er.24h, 100 MG PO BID Discontinued Reason: Duplicate Order Prescribed by: TAO BEAVER on 09/14/22844 Last Action: Discontinued Pantoprazole Sodium (Pantoprazole Sodium) 40 Mg Tablet.dr, 40 MG PO BID Discontinued Reason: Duplicate Order Prescribed by: TAO BEAVER on 09/14/22844 Last Action: Discontinued Potassium Chloride (Potassium Chloride) 8 Meq Capsule.er, 8 MEQ PO DAILY@0700 Discontinued Reason: Duplicate Order Prescribed by: TAO BEAVER on 09/14/22844 Last Action: Discontinued Sennosides/Docusate Sodium (Stool Softener-Laxative Tablet) 8.6 Mg-50 Mg Tablet, 1 EA PO BID Discontinued Reason: Duplicate Order Prescribed by: TAO BEAVER on 09/14/22844 Last Action: Discontinued Supervisory-Addendum Brief Verification & Attestation Participated in pt care: history, physical Personally performed: exam, history, supervision of care Care discussed with: Medical Student Procedures: n/a Results interpretation: Verified all documentation Verification and Attestation of Medical Student E/M Service A medical student performed and documented this service in my presence. I reviewed and verified all information documented by the medical student and made modifications to such information, when appropriate. I personally performed the physical exam and medical decision making. Tao Beaver, Sep 24, 2022,18:[address] scan so prognosis very poor. Patient stopped treatment for her colon cancer in the past due to side effects and just not wanting to do the treatment anymore. I discussed her case with Dr. Christianson and she states that is she recovers from this acute episode that she would see her and discuss restarting chemo for palliative care. ANDREY FORD Sep 24, 2022 12:30 TAO BEAVER DO Sep 24, 2022 18:11
--- NOTE | 2022-09-24 12:50 | Consultation - Surgery ---
GRACE GOLDEN 09/24/22 1250: History of Present Illness History of Present Illness Patient Consulted On(joel/time) 09/24/22 12:45 Date Seen by Provider: Sep 24, 2022 Time Seen by Provider: 12:45 History of Present Illness Consult requested for SBO 82yo F with h/o Colon cancer, CHF, chronic renal insufficiency, afib, and COPD with O2 dependence was admitted for SBO after presenting with worsening abd distention and new onset of nausea and vomiting. Pt was recently discharged from [facility] last week to a retirement facility in [place] after a prolonged stay for acute on chronic CHF. Pt has a h/o colon cancer and stopped treatment last month . Pt history is limited due to pt being upset and vomiting. Pt states that she has been experiencing abd "fullness" and distention since her DC last week. Pt states that it has been worsening since then and she has had a decreased appetite. Pt states that she has been able to eat but feels like it has been less. Last meal was oatmeal this morning. Pt states that she has experienced vomiting and nausea during this time. Pt was unable to clarify when these symptoms began or how often it has occurred since onset. Pt does state that it has been a dark yellow/brown color. Pt denies coffee ground emesis. ED note states that pt may have been vomiting feculent material this morning. Pt states that her last BM was 2 days ago and contained dark blood, this is normal for her since her colon cancer diagnosis. CT abd/pelvis today showed multiple soft tissue implants along the SB that were likely the cause of the SBO with a possible transition point along the right anterior abd wall. 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 In room, pt is in moderate distress and vomited dark yellow/brown liquid numerous times during the encounter. Pt had NG tube placed while I was in the room. Pt also started to gag up 2-3 dark brown/red chunks after NG placement. Unsure if they are clots or possible fecal matter. Pt states that her SOB has worsened during this time and is visibly tachypneic in the room. Pt is on a blood thinner and states that she believes her last dose was yesterday. Pt denies current abd pain or nausea. Allergies and Home Medications Allergies Coded Allergies: No Known Drug Allergies (Unverified , 05/28/21) Patient Home Medication List Home Medication List Reviewed: Yes Acetaminophen (Acetaminophen) 325 Mg Tablet, 650 MG PO Q4H PRN for PAIN-MILD (1- 4) Prescribed by: TAO REED on 09/14/22 0845 Albuterol Sulfate (Albuterol Sulfate) 2.5 Mg/3 Ml (0.083 %) Vial.neb, 3 ML NEB Q6H PRN for SHORTNESS OF BREATH, (Reported) Entered as Reported by: STEPHANIE FULLER on 09/03/22 1337 Amoxicillin/Potassium Clav (Augmentin 500-125 Tablet) 500 Mg-125 Mg Tablet, 1 EACH PO BID Prescribed by: TAO REED on 09/14/22 0845 Apixaban (Eliquis) 2.5 Mg Tablet, 2.5 MG PO BID, (Reported) Entered as Reported by: STEPHANIE FULLER on 09/03/22 1337 Bumetanide (Bumetanide) 1 Mg Tablet, 1 MG PO DAILY, (Reported) Entered as Reported by: STEPHANIE FULLER on 09/03/22 1337 Diltiazem HCl (Diltiazem 24Hr ER) 240 Mg Cap.er.24h, 240 MG PO DAILY Prescribed by: TAO REED on 09/14/22 0845 Empagliflozin (Jardiance) 10 Mg Tablet, 10 MG PO DAILY Prescribed by: TAO REED on 09/14/22 0845 Fluconazole (Diflucan) 100 Mg Tablet, 100 MG PO DAILY Prescribed by: TAO REED on 09/14/22 0845 Insulin Glargine/Lixisenatide (Soliqua 100 Unit-33 Mcg/ml Pen) 100 Unit-33 Mcg/Ml (3 Ml) Insuln.pen, 25 UNITS SQ DAILY, (Reported) Entered as Reported by: JOHNIE GODFREY on 04/22/21 1312 Metoprolol Succinate (Metoprolol Succinate) 100 Mg Tab.er.24h, 100 MG PO BID Prescribed by: TAO REED on 09/14/22 0845 Pantoprazole Sodium (Pantoprazole Sodium) 40 Mg Tablet.dr, 40 MG PO BID Prescribed by: TAO REED on 09/14/22 0845 Potassium Chloride (Potassium Chloride) 8 Meq Capsule.er, 8 MEQ PO DAILY@0700 Prescribed by: TAO REED on 09/14/22 0845 Sennosides/Docusate Sodium (Stool Softener-Laxative Tablet) 8.6 Mg-50 Mg Tablet, 1 EA PO BID Prescribed by: TAO REED on 09/14/22 0845 Sertraline HCl (Sertraline HCl) 100 Mg Tablet, 100 MG PO DAILY, (Reported) Entered as Reported by: JOHNIE GODFREY on 04/22/21 131 Simvastatin (Simvastatin) 20 Mg Tablet, 20 MG PO DAILY, (Reported) Entered as Reported by: JOHNIE GODFREY on 04/22/21 131 Sitagliptin Phosphate (Januvia) 100 Mg Tablet, 100 MG PO DAILY, (Reported) Entered as Reported by: JOHNIE GODFREY on 04/22/21 131 Past Ndboddb-Vubwvo-Rddivr Hx Patient Social History Smoking Status: Never a Smoker 2nd Hand Smoke Exposure: No Recent Hopitalizations: No Alcohol Use?: No Have you traveled recently?: No Seasonal Allergies Seasonal Allergies: No Surgeries History of Surgeries: Yes (EGD and Colonoscopy) Surgeries: Abdominal, Gallbladder, Joint Replacement Respiratory History of Respiratory Disorde: Yes Respiratory Disorders: Sleep Apnea, COPD Cardiovascular History of Cardiac Disorders: Yes (CHF) Cardiac Disorders: Hypertension Neurological History of Neurological Disord: No 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 History: Menopausal Genitourinary History of Genitourinary Disor: Yes Genitourinary Disorders: Renal Failure Gastrointestinal History of Gastrointestinal Di: Yes (Colon CA) Gastrointestinal Disorders: Gastroesophageal Reflux, Hemorrhoids, Polyps, Gall Bladder Disease Musculoskeletal History of Musculoskeletal Dis: Yes Musculoskeletal Disorders: Arthritis, Chronic Back Pain Endocrine History of Endocrine Disorders: Yes (OBESITY) Endocrine Disorders: Diabetes, Insulin dep HEENT History of HEENT Disorders: Yes HEENT Disorders: Glaucoma Loss of Vision: Bilateral Hearing Impairment: Hard of Hearing Cancer History of Cancer: Yes Cancer: Colon Psychosocial History of Psychiatric Problem: No Integumentary History of Skin or Integumenta: No Blood Transfusions History of Blood Disorders: Yes (ANEMIA) Family Medical History Significant Family History: Cancer (denied any in her family), Diabetes Review of Systems-General ROS-Unable to Obtain: limited due to pt condition Respiratory: short of breath Cardiovascular: No chest pain Gastrointestinal: No abdominal pain, No hematemesis; loss of appetite, melena ( chronic), nausea, vomiting Musculoskeletal: back pain (chronic) Physical Exam-General Problems Physical Exam Vital Signs Vital Signs - First Documented 09/24/22 10:04 Temp 36.3 Pulse 91 Resp 20 B/P (MAP) 135/65 (88) Pulse Ox 98 O2 Delivery Nasal Cannula O2 Flow Rate 2.00 Capillary Refill : Less Than 3 Seconds General Appearance: moderate distress (secondary to vomiting and mild respiratory ), obese HEENT: PERRL/EOMI Respiratory: accessory muscle use Cardiovascular: no murmur, irregularly irregular Gastrointestinal: normal bowel sounds, distended; No tenderness Extremities: no calf tenderness, pedal edema Neurologic/Psychiatric: alert, oriented x 3 Skin: normal color, warm/dry Data Review Labs Laboratory Tests 09/24/22 10:16: White Blood Count 10.2, Red Blood Count 3.39L, Hemoglobin 9.6L, Hematocrit 30L, Mean Corpuscular Volume 87, Mean Corpuscular Hemoglobin 28, Mean Corpuscular Hemoglobin Concent 32, Red Cell Distribution Width 16.6H, Platelet Count 284, Mean Platelet Volume 11.3, Immature Granulocyte % (Auto) 1, Neutrophils (%) (Auto) 87H, Lymphocytes (%) (Auto) 8L, Monocytes (%) (Auto) 4, Eosinophils (%) (Auto) 0, Basophils (%) (Auto) 0, Neutrophils # (Auto) 8.8H, Lymphocytes # (Auto) 0.8L, Monocytes # (Auto) 0.5, Eosinophils # (Auto) 0.0, Basophils # (Auto) 0.0, Immature Granulocyte # (Auto) 0.1, Neutrophils % (Manual) 83, Lymphocytes % (Manual) 10, Monocytes % (Manual) 6, Eosinophils % (Manual) 1, Polychromasia SLIGHT, Stomatocytes SLIGHT, Sodium Level 137, Potassium Level 4.5, Chloride Level 94L, Carbon Dioxide Level 24, Anion Gap 19H, Blood Urea Nitrogen 64H, Creatinine 4.26H, Estimat Glomerular Filtration Rate 10, BUN/Creatinine Ratio 15, Glucose Level 92, Calcium Level 8.9, Corrected Calcium 9.7, Total Bilirubin 0.6, Aspartate Amino Transf (AST/SGOT) 23, Alanine Aminotransferase (ALT/SGPT) 37, Alkaline Phosphatase 113, Total Protein 6.0L, Albumin 3.0L, Lipase 14 Radiology ADMIT DATE: 09/24/22/ER Signed Date of Exam:09/24/22 CT ABDOMEN/PELVIS WO EXAMINATION: CT abdomen and pelvis without contrast. TECHNIQUE: Multiple contiguous axial images were obtained through the abdomen and pelvis without the use of intravenous contrast. All CT scans use one or more of the following dose optimizing techniques: automated exposure control, MA and/or KvP adjustment based on patient size and exam type or iterative reconstruction. HISTORY: Abdominal pain COMPARISON: 05/20/2021 FINDINGS: Lung bases: There is a left pleural effusion with bibasilar atelectasis or consolidation. Solid organs: The liver is normal. Gallbladder is nonvisualized. There is no biliary ductal dilation. Pancreas is normal. Spleen is normal. There is mild thickening of the adrenal glands. There is a right renal cyst which requires no follow-up. No visualized renal calculus or hydronephrosis. Bowel: There are multiple dilated loops of air and fluid-filled small bowel. Possible transition point along the right anterior abdominal wall (series 2 image 109). Surgical changes of the colon. Peritoneum: There is mild free fluid in the abdomen or pelvis. There are numerous soft tissue nodules and masses throughout the omentum and mesentery. The largest measures 5.3 x 6.5 cm in the anterior abdomen (series 2 image 107). Multiple nodules are seen along the bowel and the liver. Vasculature: Calcification of the aorta without aneurysm. Musculoskeletal: There is a new compression fracture of the L1 vertebral body. No suspicious osseous lesion. Pelvis: The uterus and adnexa are normal. The urinary bladder is normal. IMPRESSION: 1. 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 2. Multiple soft tissue implants along the small bowel likely resulting in a small bowel obstruction with a possible transition point along the right anterior abdominal wall. 3. Left pleural effusion with bibasilar atelectasis or consolidation. 4. New L1 compression fracture. Dictated by: Dictated on workstation # [id number] Dict: 09/24/22 1137 Trans: 09/24/22 1147 [facility] [id number] Interpreted by: REYNALDO,JONATHAN C DO Electronically signed by: JONATHAN JACOBS DO 09/24/22 5788 Assessment/Plan Assessment/Plan Assessment/Plan 1. SBO 2. Colon cancer 3. COPD on 4L 4. Chronic renal failure Pt is in moderate distress in the room after NG placement. She was visibly angry and tearful, refusing to answer questions, hitting the bedside rails, and shouting in room. 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 NG tube was placed in room and was getting good output, though unsure if this will alleviate pt's symptoms due to underlying metastatic disease possibly causing SBO. When asked if she would want surgery if needed, pt said she would. Due to possible widespread metastasis, would possibly consider pt transfer to tertiary care center for specialized care if she would like to pursue surgery. Recommend conservative management at this time. Will continue to monitor. NPO, IV fluids, anti-emetics, and pain medication prn. ANDREW HOBBS DO 09/24/22 1431: History of Present Illness History of Present Illness Time Seen by Provider: 13:34 History of Present Illness Surgery asked to consult regarding SBO. HPI per ED: 82-year-old female presents from [facility] for abdominal distention, pain decreased bowel movements and vomiting. They thought she might have vomited feculent material this morning. Emesis was just x1. She states she has not had a bowel movement for 2 or 3 days and typically has a bowel movement daily. She is taking pain medications and does not know if she is taking stool softeners. She was recently admitted to our facility for decompensated heart failure, A. fib with RVR. She denies any fevers or chills. No chest pain or shortness of breath at present. No urinary symptoms. No Vaginal symptoms. Notably record review shows the patient has a history of colon cancer for which she stopped treatment. When I saw pt she had just come up to the floor. She started vomiting up greenish almost feculent material, before they could rug hooker her NGT. She states she has not slept in 3 days, but she couldn't tell me why. Her pain is diffuse and she complains of bloating. Allergies and Home Medications Allergies Coded Allergies: No Known Drug Allergies (Unverified , 05/28/21) Patient Home Medication List Home Medication List Reviewed: Yes Acetaminophen (Acetaminophen) 325 Mg Tablet, 650 MG PO Q4H PRN for PAIN-MILD (1- 4) Prescribed by: TAO REED on 09/14/22 08 Albuterol Sulfate (Albuterol Sulfate) 2.5 Mg/3 Ml (0.083 %) Vial.neb, 3 ML NEB Q6H PRN for SHORTNESS OF BREATH, (Reported) Entered as Reported by: STEPHANIE FULLER on 09/03/22 1337 Amoxicillin/Potassium Clav (Augmentin 500-125 Tablet) 500 Mg-125 Mg Tablet, 1 EACH PO BID Prescribed by: TAO REED on 09/14/22 08 Apixaban (Eliquis) 2.5 Mg Tablet, 2.5 MG PO BID, (Reported) Entered as Reported by: STEPHANIE FULLER on 09/03/22 1337 Bumetanide (Bumetanide) 1 Mg Tablet, 1 MG PO DAILY, (Reported) Entered as Reported by: STEPHANIE FULLER on 09/03/22 133 Diltiazem HCl (Diltiazem 24Hr ER) 240 Mg Cap.er.24h, 240 MG PO DAILY Prescribed by: TAO REED on 09/14/22844 Empagliflozin (Jardiance) 10 Mg Tablet, 10 MG PO DAILY Prescribed by: TAO REED on 09/14/22 08 Fluconazole (Diflucan) 100 Mg Tablet, 100 MG PO DAILY Prescribed by: TAO REED on 09/14/22 08 Insulin Glargine/Lixisenatide (Soliqua 100 Unit-33 Mcg/ml Pen) 100 Unit-33 Mcg/Ml (3 Ml) Insuln.pen, 25 UNITS SQ DAILY, (Reported) Entered as Reported by: JOHNIE GODFREY on 04/22/21 1312 Metoprolol Succinate (Metoprolol Succinate) 100 Mg Tab.er.24h, 100 MG PO BID Prescribed by: TAO REED on 09/14/22 0845 Pantoprazole Sodium (Pantoprazole Sodium) 40 Mg Tablet.dr, 40 MG PO BID Prescribed by: TAO REED on 09/14/22 0845 Potassium Chloride (Potassium Chloride) 8 Meq Capsule.er, 8 MEQ PO DAILY@0700 Prescribed by: TAO REED on 09/14/22 0845 Sennosides/Docusate Sodium (Stool Softener-Laxative Tablet) 8.6 Mg-50 Mg Tablet, 1 EA PO BID Prescribed by: TAO REED on 09/14/22 0845 Sertraline HCl (Sertraline HCl) 100 Mg Tablet, 100 MG PO DAILY, (Reported) Entered as Reported by: JOHNIE GODFREY on 04/22/21 131 Simvastatin (Simvastatin) 20 Mg Tablet, 20 MG PO DAILY, (Reported) Entered as Reported by: JOHNIE GODFREY on 04/22/21 131 Sitagliptin Phosphate (Januvia) 100 Mg Tablet, 100 MG PO DAILY, (Reported) Entered as Reported by: JOHINE GODFREY on 04/22/21 131 Past Emvpzik-Cuueaf-Mlysuh Hx Patient Social History Smoking Status: Never a Smoker Alcohol Use?: No Surgeries History of Surgeries: Yes Surgeries: Abdominal Respiratory History of Respiratory Disorde: Yes Respiratory Disorders: COPD Cardiovascular History of Cardiac Disorders: Yes Cardiac Disorders: Hypertension Neurological History of Neurological Disord: No Genitourinary History of Genitourinary Disor: Yes Genitourinary Disorders: Renal Failure, UTI-Chronic Gastrointestinal History of Gastrointestinal Di: Yes Gastrointestinal Disorders: Gastroesophageal Reflux, Obstructive Bowel, Polyps, Gall Bladder Disease Musculoskeletal History of Musculoskeletal Dis: Yes Musculoskeletal Disorders: Arthritis, Chronic Back Pain Endocrine History of Endocrine Disorders: Yes Endocrine Disorders: Diabetes, Insulin dep HEENT History of HEENT Disorders: Yes Hearing Impairment: Hard of Hearing Cancer History of Cancer: Yes Cancer: Colon Psychosocial History of Psychiatric Problem: No Integumentary History of Skin or Integumenta: No Family Medical History Significant Family History: Cancer (denied any in her family), Diabetes Review of Systems-General Constitutional: No chills; malaise, weakness EENTM: No mouth pain, No mouth swelling, No epistaxis Respiratory: dyspnea on exertion, short of breath Cardiovascular: No chest pain Gastrointestinal: abdominal pain; No hematemesis; loss of appetite, melena (chronic), nausea, vomiting Genitourinary: frequency; No hematuria; incontinence Musculoskeletal: back pain (chronic), joint pain, joint swelling, muscle stiffn ess Skin: No change in color, No change in hair/nails Psychiatric/Neurological: Anxiety, Depressed; Denies Seizure Physical Exam-General Problems Physical Exam General Appearance: moderate distress (secondary to vomiting and mild respiratory ), obese Eyes: Bilateral Eye PERRL, Bilateral Eye EOMI HEENT: pharynx normal; No scleral icterus (R), No scleral icterus (L) Neck: non-tender, supple Respiratory: no respiratory distress, no accessory muscle use, accessory muscle use Cardiovascular: no murmur, irregularly irregular Gastrointestinal: no organomegaly, distended, tenderness; No hernia Rectal: deferred Extremities: no calf tenderness, pedal edema Neurologic/Psychiatric: alert, oriented x 3 Skin: normal color, warm/dry Lymphatic: no adenopathy (neck, axilla) Assessment/Plan Assessment/Plan Assessment/Plan 1. SBO 2. Colon cancer 3. COPD on 4L 4. Chronic renal failure Pt is in moderate distress in the room after NG placement. She was visibly angry and tearful, refusing to answer questions, hitting the bedside rails, and shouting in room. 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 NG tube was placed in room and was getting good output, though unsure if this will alleviate pt's symptoms due to underlying metastatic disease possibly causing SBO. When asked if she would want surgery if needed, pt said she would. Due to possible widespread metastasis, would possibly consider pt transfer to tertiary care center for specialized care if she would like to pursue surgery. Recommend conservative management at this time. Will continue to monitor. NPO, IV fluids, anti-emetics, and pain medication prn. Pt is not a good surgical candidate and if there is omental caking or carcin omatosis, then there is no surgery that can be done. I did review the CT myself and spoke to the ED physician regarding her case. I think the first option if she needs surgery is to put a scope in to check for metastatic cancer. Will try to hold off on surgery, unless she does not improve. Supervisory-Addendum Brief Verification & Attestation Participated in pt care: history, MDM, physical Personally performed: exam, history, MDM, supervision of care Care discussed with: Medical Student Procedures: n/a Verification and Attestation of Medical Student E/M Service A medical student performed and documented this service. I then reviewed and verified all information documented by the medical student and made modifications to such information, when appropriate. I personally performed a physical exam, medical decision making and then discussed any differences between the notes and made revisions as necessary to create one note. Andrew Hobbs , 09/24/22 , 14:49 GRACE GOLDEN Sep 24, 2022 12:50 ANDREW HOBBS DO Sep 24, 2022 14:31
[2022-09-24 14:15] VITALS: BP 138/65
[2022-09-24] MEDS ORDERED: EMPA10TA PO (15:29)
[2022-09-24] MEDS ORDERED: DILT240C91 PO (15:29)
[2022-09-24] MEDS ORDERED: SENN-145 PO (15:29)
[2022-09-24] MEDS ORDERED: MTP100TCR PO (15:29)
[2022-09-24] MEDS ORDERED: PANT40TA52 PO (15:29)
[2022-09-24] MEDS ORDERED: ACET-2840 PO (15:29)
[2022-09-24] MEDS ORDERED: POTA8CAP20 PO (15:29)
[2022-09-24] MEDS ORDERED: ONDA-105 PO (15:29)
[2022-09-24 16:36] VITALS: BP 124/74
[2022-09-24] MEDS: ONDANSETRON 4 MG/2 ML (SDV) Z0FRAN IV PRN (19:33)
[2022-09-24] MEDS: PANTOPRAZOLE 40 MG (PROTONIX) VIAL IV SCH (20:24)
[2022-09-24 20:32] VITALS: BP 118/69
[2022-09-24] MEDS: inSUlin ASPART (NovoLOG) 1 UNIT/0.01 ML (CHARGE PER UNIT) SC SCH (20:53)
[2022-09-24] MEDS: D5 1/2 NS 1000 ML IV SOLUTION 1,000 ML IV SCH (21:18)
[2022-09-25 00:22] VITALS: BP 133/60
[2022-09-25] MEDS: ONDANSETRON 4 MG/2 ML (SDV) Z0FRAN IV PRN ×3 (01:16→20:21)
[2022-09-25 04:00] VITALS: BP 121/56
[2022-09-25 05:47] LABS: HEMATOCRIT 28 % (35-52); HEMOGLOBIN 8.8 g/dL (11.5-16.0); MEAN CORPUSCULAR HEMOGLOBIN 28 pg (25-34); MEAN CORPUSCULAR HGB CONC 32 g/dL (32-36); MEAN CORPUSCULAR VOLUME 87 fL (80-99); MEAN PLATELET VOLUME 11.2 fL (9.0-12.2); PLATELET COUNT 277 10^3/uL (130-400); WHITE BLOOD COUNT 6.5 10^3/uL (4.3-11.0)
[2022-09-25 06:08] LABS: ALBUMIN 2.6 GM/DL (3.2-4.5); POTASSIUM 3.8 MMOL/L (3.6-5.0)
[2022-09-25 06:10] LABS: CALCIUM 8.1 MG/DL (8.5-10.1)
[2022-09-25 06:11] LABS: TOTAL PROTEIN 5.3 GM/DL (6.4-8.2)
[2022-09-25] MEDS: inSUlin ASPART (NovoLOG) 1 UNIT/0.01 ML (CHARGE PER UNIT) SC SCH ×4 (06:12→20:18)
[2022-09-25] MEDS: D5 1/2 NS 1000 ML IV SOLUTION 1,000 ML IV SCH ×3 (06:12→20:23)
[2022-09-25 06:13] LABS: BILIRUBIN,TOTAL 0.4 MG/DL (0.1-1.0)
[2022-09-25 06:14] LABS: CREATININE SERUM 4.28 MG/DL (0.60-1.30)
--- NOTE | 2022-09-25 08:05 | Progress Note - Surgery ---
CHICOGRACE 09/25/22 0805: Subjective Date Seen by a Provider: Sep 25, 2022 Time Seen by a Provider: 06:47 Subjective/Events-last exam Pt is sleeping in bed comfortably but seems angry and frustrated when asked questions. NG tube output was 300mLs over 15hrs of dark yellow liquid, continues to be draining dark yellow liquid this morning as well. Per nurse, pt experienced one episode of dark yellow emesis late afternoon yesterday but had none overnight. Pt denies flatus but does state that she feels like she needs to have a BM. Pt was placed on a bedpan but was unable to have a BM. Per nurse, pt is asking to try a laxative. Pt c/o unchanged abd distention and nausea this morning. Pt continues to void without issue. Pt denies abd pain, CP, chills, hematuria, and worsening SOB. Review of Systems General: No Chills, No Night Sweats HEENT: No Head Aches, No Eye Pain Pulmonary: Dyspnea (chronic-unchanged); No Cough Cardiovascular: No: Chest Pain, Lt Headedness Gastrointestinal: Nausea, Vomiting; No: Abdominal Pain Genitourinary: No Dysuria, No Hematuria Musculoskeletal: No: neck pain, shoulder pain Neurological: No: Weakness, Numbness Objective Exam Vital Signs Date Time Temp Pulse Resp B/P (MAP) Pulse Ox O2 Delivery O2 Flow Rate FiO2 09/25/22 04:00 36.9 99 16 121/56 (77) 93 Room Air 09/25/22 00:22 36.7 92 16 133/60 (84) 95 Room Air 09/24/22 20:32 36.1 101 18 118/69 (85) 93 Room Air 09/24/22 20:24 Room Air 09/24/22 16:36 36.6 94 16 124/74 (91) 93 Room Air 09/24/22 15:58 Room Air 09/24/22 14:15 36.2 92 18 138/65 (89) 95 Room Air 09/24/22 13:13 72 20 105/65 97 Room Air 09/24/22 10:04 36.3 91 20 135/65 (88) 98 Nasal Cannula 2.00 I & O 09/25/22 07:00 Intake Total 0 ml Output Total 300 ml Balance -300 ml Capillary Refill : Less Than 3 Seconds General Appearance: Chronically ill, Obese HEENT: PERRL/EOMI Respiratory: No Respiratory Distress, Accessory Muscle Use, Crackles (diffuse in all lung dillon ) Cardiovascular: Irregularly Irregular, Tachycardia Gastrointestinal: abnormal bowel sounds (hypoactive all quadrants), distended, hernia (small paraumbilical hernia) Extremity: No Calf Tenderness, Pedal Edema (B/L) Neurologic/Psychiatric: Alert, Oriented x3 Skin: Warm/Dry, Other (large bruise over R shoulder) Results Lab Laboratory Tests 09/24/22 10:16: White Blood Count 10.2, Red Blood Count 3.39L, Hemoglobin 9.6L, Hematocrit 30L, Mean Corpuscular Volume 87, Mean Corpuscular Hemoglobin 28, Mean Corpuscular Hemoglobin Concent 32, Red Cell Distribution Width 16.6H, Platelet Count 284, Mean Platelet Volume 11.3, Immature Granulocyte % (Auto) 1, Neutrophils (%) (Auto) 87H, Lymphocytes (%) (Auto) 8L, Monocytes (%) (Auto) 4, Eosinophils (%) (Auto) 0, Basophils (%) (Auto) 0, Neutrophils # (Auto) 8.8H, Lymphocytes # (Auto) 0.8L, Monocytes # (Auto) 0.5, Eosinophils # (Auto) 0.0, Basophils # (Auto) 0.0, Immature Granulocyte # (Auto) 0.1, Neutrophils % (Manual) 83, Lymphocytes % (Manual) 10, Monocytes % (Manual) 6, Eosinophils % (Manual) 1, Polychromasia SLIGHT, Stomatocytes SLIGHT, Sodium Level 137, Potassium Level 4.5, Chloride Level 94L, Carbon Dioxide Level 24, Anion Gap 19H, Blood Urea Nitrogen 64H, Creatinine 4.26H, Estimat Glomerular Filtration Rate 10, BUN/Creatinine Ratio 15, Glucose Level 92, Calcium Level 8.9, Corrected Calcium 9.7, Total Bilirubin 0.6, Aspartate Amino Transf (AST/SGOT) 23, Alanine Aminotransferase (ALT/SGPT) 37, Alkaline Phosphatase 113, Total Protein 6.0L, Albumin 3.0L, Lipase 14 09/24/22 20:38: Glucometer 69L 09/25/22 05:30: White Blood Count 6.5, Red Blood Count 3.18L, Hemoglobin 8.8L, Hematocrit 28L, Mean Corpuscular Volume 87, Mean Corpuscular Hemoglobin 28, Mean Corpuscular Hemoglobin Concent 32, Red Cell Distribution Width 16.7H, Platelet Count 277, Mean Platelet Volume 11.2, Sodium Level 134L, Potassium Level 3.8, Chloride Level 97L, Carbon Dioxide Level 22, Anion Gap 15H, Blood Urea Nitrogen 62H, Creatinine 4.28H, Estimat Glomerular Filtration Rate 10, BUN/Creatinine Ratio 14, Glucose Level 119H, Calcium Level 8.1L, Corrected Calcium 9.2, Total Bilirubin 0.4, Aspartate Amino Transf (AST/SGOT) 24, Alanine Aminotransferase (ALT/SGPT) 31, Alkaline Phosphatase 91, Total Protein 5.3L, Albumin 2.6L 09/25/22 05:49: Glucometer 117H Assessment/Plan Assessment/Plan Assessment/Plan 1. SBO 2. Colon cancer 3. COPD on 4L 4. Chronic renal failure Pt still seems frustrated when questioned but prior to questioning seemed to be sleeping comfortably and in no distress. 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 Recommend keeping NG tube placed until good BM/flatus or improvement of abd distention. Pt asked nurse for a laxative but is contraindicated for SBO. Pt was switched to Dextrose d/t low blood sugar. Continue with IV fluids, anti-emetics prn, and pain medication prn. NPO. HERNAN RENEE DO 09/25/22 1408: Subjective Time Seen by a Provider: 12:19 Subjective/Events-last exam Pt seen down getting her SBFT, she is still having pain, nausea and vomiting. When I asked her she said she didn't wan't surgery, but also asked to talk to her daughter. Review of Systems General: No Chills, No Night Sweats; Fatigue Pulmonary: Dyspnea (chronic-unchanged); No Cough Cardiovascular: No: Chest Pain Gastrointestinal: Nausea, Vomiting, Abdominal Pain Genitourinary: No Dysuria, No Hematuria Objective Exam General Appearance: Chronically ill, Obese HEENT: PERRL/EOMI, Other (NGT in place) Respiratory: No Respiratory Distress, Accessory Muscle Use, Crackles (diffuse in all lung dillon ) Cardiovascular: Irregularly Irregular, Tachycardia Gastrointestinal: abnormal bowel sounds (hypoactive all quadrants), distended, hernia (small paraumbilical hernia) Extremity: Pedal Edema (B/L) Assessment/Plan Assessment/Plan Assessment/Plan 1. SBO 2. Colon cancer 3. COPD on 4L 4. Chronic renal failure Pt still seems frustrated when questioned but prior to questioning seemed to be sleeping comfortably and in no distress. 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 Recommend keeping NG tube placed until good BM/flatus or improvement of abd distention. Pt asked nurse for a laxative but is contraindicated for SBO. Pt was switched to Dextrose d/t low blood sugar. Continue with IV fluids, anti-emetics prn, and pain medication prn. NPO. When I first saw pt, nurse stated the there was talk of hospice and palliative care. I wanted to at least finish the SBFT, talk to daughter and pt's primary care doctor. As I am writing this pt had a large BM and feels better, but I am still going to wait to see what the next Abd film looks like. I do agree that holding off is probably in pt's best interest. Will get final answer from pt, daughter and primary physician once we have all the information. Supervisory-Addendum Brief Verification & Attestation Participated in pt care: history, MDM, physical Personally performed: exam, history, MDM, supervision of care Care discussed with: Medical Student Procedures: n/a Verification and Attestation of Medical Student E/M Service A medical student performed and documented this service. I then reviewed and verified all information documented by the medical student and made modifications to such information, when appropriate. I personally performed a physical exam, medical decision making and then discussed any differences between the notes and made revisions as necessary to create one note. Hernan Renee , 09/25/22 , 14:12 GRACE GOLDEN Sep 25, 2022 08:05 HERNAN RENEE DO Sep 25, 2022 14:08
[2022-09-25] MEDS: PANTOPRAZOLE 40 MG (PROTONIX) VIAL IV SCH ×2 (08:16→20:21)
[2022-09-25] MEDS: PROMETHAZINE INJ 25 MG/ML (PHENERGAN) AMP IVP PRN (08:16)
[2022-09-25 08:42] VITALS: BP 116/68
--- NOTE | 2022-09-25 09:54 | Progress Note ---
Subjective Date Seen by a Provider: Sep 25, 2022 Time Seen by a Provider: 09:46 Subjective/Events-last exam Fwup SBO, colon cancer with mets/carcinomatosis, DMII, COPD, HTN, Chronic atrial fibrillation. Still with NG tube in place. Discussed palliative care vs hospice with patient. She states the only thing she wants is "this thing gone!"--referring to her SBO. Objective Exam Vital Signs Date Time Temp Pulse Resp B/P (MAP) Pulse Ox O2 Delivery O2 Flow Rate FiO2 09/25/22 08:42 37.1 100 21 116/68 (84) 91 Room Air 09/25/22 08:00 Room Air 09/25/22 04:00 36.9 99 16 121/56 (77) 93 Room Air 09/25/22 00:22 36.7 92 16 133/60 (84) 95 Room Air 09/24/22 20:32 36.1 101 18 118/69 (85) 93 Room Air 09/24/22 20:24 Room Air 09/24/22 16:36 36.6 94 16 124/74 (91) 93 Room Air 09/24/22 15:58 Room Air 09/24/22 14:15 36.2 92 18 138/65 (89) 95 Room Air 09/24/22 13:13 72 20 105/65 97 Room Air 09/24/22 10:04 36.3 91 20 135/65 (88) 98 Nasal Cannula 2.00 I & O 09/25/22 07:00 Intake Total 0 ml Output Total 300 ml Balance -300 ml Capillary Refill : Less Than 3 Seconds General Appearance: Mild Distress Neck: Supple Respiratory: Lungs Clear, Crackles Cardiovascular: Systolic Murmur, Irregularly Irregular Gastrointestinal: abnormal bowel sounds, distended Extremity: Non Tender, No Calf Tenderness, No Pedal Edema Neurologic/Psychiatric: Alert, Oriented x3 Skin: Warm/Dry Results Lab Laboratory Tests 09/24/22 10:16: White Blood Count 10.2, Red Blood Count 3.39L, Hemoglobin 9.6L, Hematocrit 30L, Mean Corpuscular Volume 87, Mean Corpuscular Hemoglobin 28, Mean Corpuscular Hemoglobin Concent 32, Red Cell Distribution Width 16.6H, Platelet Count 284, Mean Platelet Volume 11.3, Immature Granulocyte % (Auto) 1, Neutrophils (%) (Auto) 87H, Lymphocytes (%) (Auto) 8L, Monocytes (%) (Auto) 4, Eosinophils (%) (Auto) 0, Basophils (%) (Auto) 0, Neutrophils # (Auto) 8.8H, Lymphocytes # (Auto) 0.8L, Monocytes # (Auto) 0.5, Eosinophils # (Auto) 0.0, Basophils # (Auto) 0.0, Immature Granulocyte # (Auto) 0.1, Neutrophils % (Manual) 83, Lymphocytes % (Manual) 10, Monocytes % (Manual) 6, Eosinophils % (Manual) 1, Polychromasia SLIGHT, Stomatocytes SLIGHT, Sodium Level 137, Potassium Level 4.5, Chloride Level 94L, Carbon Dioxide Level 24, Anion Gap 19H, Blood Urea Nitrogen 64H, Creatinine 4.26H, Estimat Glomerular Filtration Rate 10, BUN/Creatinine Ratio 15, Glucose Level 92, Calcium Level 8.9, Corrected Calcium 9.7, Total Bilirubin 0.6, Aspartate Amino Transf (AST/SGOT) 23, Alanine Aminotransferase (ALT/SGPT) 37, Alkaline Phosphatase 113, Total Protein 6.0L, Albumin 3.0L, Lipase 14 09/24/22 20:38: Glucometer 69L 09/25/22 05:30: White Blood Count 6.5, Red Blood Count 3.18L, Hemoglobin 8.8L, Hematocrit 28L, Mean Corpuscular Volume 87, Mean Corpuscular Hemoglobin 28, Mean Corpuscular Hemoglobin Concent 32, Red Cell Distribution Width 16.7H, Platelet Count 277, Mean Platelet Volume 11.2, Sodium Level 134L, Potassium Level 3.8, Chloride Level 97L, Carbon Dioxide Level 22, Anion Gap 15H, Blood Urea Nitrogen 62H, Crea tinine 4.28H, Estimat Glomerular Filtration Rate 10, BUN/Creatinine Ratio 14, Glucose Level 119H, Calcium Level 8.1L, Corrected Calcium 9.2, Total Bilirubin 0.4, Aspartate Amino Transf (AST/SGOT) 24, Alanine Aminotransferase (ALT/SGPT) 31, Alkaline Phosphatase 91, Total Protein 5.3L, Albumin 2.6L 09/25/22 05:49: Glucometer 117H Assessment/Plan Assessment/Plan Assess & Plan/Chief Complaint 1. SBO--going for SBFT now, NG tube still in place, pain control, antiemetics, add lovenox 2. Colon Cancer with Mets/Carcinomatosis--Discussed case with Dr. Christianson and she states that if patient recovers from this illness can consider palliative care but if she was not tolerating chemo and stopped her treatment early before she is not likely to tolerate chemo this time either, I did discuss hospice with the patient as well--she agrees to a palliative care consult then asks if her daughter is coming today 3. COPD--start SVNS with duoneb, continue oxygen 4. Atrial Fibrillation--hold eliquis due to colon cancer and risk of bleed, currently rate controlled, will restart meds via IV if/when needed 5. Hypertension--currently BP stable so will resume meds if needed 6. Chronic Anemia--monitor H/H 7. Acute on Chronic Renal Failure--likely from dehydration/obstruction--hydrate and monitor BUN/Cr 8. DMII with hypoglycemia yestereday--on D51/2NS and monitoring accuchecks Prognosis very guarded/poor TAO REED DO Sep 25, 2022 09:54
[2022-09-25] MEDS ORDERED: DIATRIZOATE MEGLUM/SODIUM 37% 120 ML (GASTROGRAFIN) NG NR (10:00)
[2022-09-25 12:23] VITALS: BP 121/78
[2022-09-25] MEDS: RT-ALBUTEROL/IPRATROPIUM 3 ML (DUONEB) VIAL INH SCH ×4 (12:43→22:54)
[2022-09-25] MEDS: ENOXAPARIN INJECTION 30 MG/0.3 ML SYR SC SCH (13:24)
--- NOTE | 2022-09-25 14:50 | Diagnostic Imaging Report ---
INDICATION: Small bowel obstruction. Preliminary radiograph does show an indwelling NG tube. Contrast was injected through an indwelling NG tube, and serial radiographs of the abdomen were obtained. Initial images demonstrate contrast within the stomach with prompt emptying into the small bowel loops. The proximal small bowel loops appear to be fairly normal caliber. The more distal small bowel loops do appear to be dilated. There was some delay in the transition to the colon, but contrast does reach the colon at approximately 4-1/2 hours. Contrast is seen throughout the transverse and descending colon. No focal stricture is seen. The mucosal fold pattern is unremarkable. IMPRESSION: There is some dilatation of the mid to distal small bowel loops as well as some delay in contrast transit. Contrast, however, does reach the colon at approximately 4-1/2 hours. No complete obstruction is identified. Partial obstruction cannot be entirely excluded. Dictated by: Dictated on workstation # [id number]
[2022-09-25 15:45] VITALS: BP 122/76
[2022-09-25 19:41] VITALS: BP 111/63
[2022-09-26] VITALS (7 sets, daily range): BP systolic 104–150; BP diastolic 53–78
[2022-09-26] MEDS: RT-ALBUTEROL/IPRATROPIUM 3 ML (DUONEB) VIAL INH SCH ×6 (02:28→21:45)
[2022-09-26] MEDS: inSUlin ASPART (NovoLOG) 1 UNIT/0.01 ML (CHARGE PER UNIT) SC SCH ×4 (06:48→20:07)
[2022-09-26] MEDS: D5 1/2 NS 1000 ML IV SOLUTION 1,000 ML IV SCH (06:50)
[2022-09-26] MEDS: ONDANSETRON 4 MG/2 ML (SDV) Z0FRAN IV PRN (06:50)
[2022-09-26 07:07] LABS: HEMATOCRIT 29 % (35-52); HEMOGLOBIN 9.2 g/dL (11.5-16.0); MEAN CORPUSCULAR HEMOGLOBIN 28 pg (25-34); MEAN CORPUSCULAR HGB CONC 32 g/dL (32-36); MEAN CORPUSCULAR VOLUME 88 fL (80-99); MEAN PLATELET VOLUME 11.5 fL (9.0-12.2); PLATELET COUNT 297 10^3/uL (130-400)
[2022-09-26 07:26] LABS: ALBUMIN 2.6 GM/DL (3.2-4.5); BILIRUBIN,TOTAL 0.4 MG/DL (0.1-1.0); CALCIUM 8.1 MG/DL (8.5-10.1); CREATININE SERUM 4.05 MG/DL (0.60-1.30); POTASSIUM 3.4 MMOL/L (3.6-5.0); TOTAL PROTEIN 5.4 GM/DL (6.4-8.2)
[2022-09-26] MEDS: ENOXAPARIN INJECTION 30 MG/0.3 ML SYR SC SCH (09:50)
[2022-09-26] MEDS: PANTOPRAZOLE 40 MG (PROTONIX) VIAL IV SCH ×2 (09:50→20:04)
--- NOTE | 2022-09-26 11:38 | Progress Note ---
Subjective Date Seen by a Provider: Sep 26, 2022 Time Seen by a Provider: 10:55 Subjective/Events-last exam Patient seen with Dr. Cardoza. Patient reports that she would like to have NG out but denies any flatus however had BM yesterday. Denies any abdominal pain but does report some nausea. Objective Exam Vital Signs Date Time Temp Pulse Resp B/P (MAP) Pulse Ox O2 Delivery O2 Flow Rate FiO2 09/26/22 11:06 36.5 123 20 123/75 (91) 95 Room Air 09/26/22 08:02 96 Room Air 09/26/22 08:00 Room Air 09/26/22 07:12 36.6 123 18 115/77 (90) 96 Room Air 09/26/22 03:35 36.3 127 20 150/53 (85) 93 Room Air 09/26/22 02:29 96 Room Air 09/26/22 00:25 36.5 128 18 141/62 (88) 92 Room Air 09/25/22 20:00 Room Air 09/25/22 19:41 36.2 121 20 111/63 (79) 93 Room Air 09/25/22 19:26 96 Room Air 09/25/22 15:45 36.3 119 20 122/76 (91) 94 Room Air 09/25/22 15:17 92 Room Air 09/25/22 12:23 36.5 100 23 121/78 (92) 92 Room Air I & O 09/26/22 07:00 Intake Total 0 ml Output Total 920 ml Balance -920 ml Capillary Refill : Less Than 3 Seconds General Appearance: No Apparent Distress, WD/WN Neck: Normal Inspection, Supple Respiratory: No Accessory Muscle Use, No Respiratory Distress Gastrointestinal: non tender, soft Extremity: Normal Inspection, Normal Range of Motion Neurologic/Psychiatric: Alert, Oriented x3 Skin: Normal Color, Warm/Dry Results Lab Laboratory Tests 09/25/22 14:15: Glucometer 136H 09/26/22 00:12: Glucometer 182H 09/26/22 06:00: White Blood Count 8.0, Red Blood Count 3.32L, Hemoglobin 9.2L, Hematocrit 29L, Mean Corpuscular Volume 88, Mean Corpuscular Hemoglobin 28, Mean Corpuscular Hemoglobin Concent 32, Red Cell Distribution Width 17.1H, Platelet Count 297, Mean Platelet Volume 11.5, Sodium Level 137, Potassium Level 3.4L, Chloride Level 100, Carbon Dioxide Level 21, Anion Gap 16H, Blood Urea Nitrogen 56H, Creatinine 4.05H, Estimat Glomerular Filtration Rate 10, BUN/Creatinine Ratio 14, Glucose Level 224H, Calcium Level 8.1L, Corrected Calcium 9.2, Total Bilirubin 0.4, Aspartate Amino Transf (AST/SGOT) 19, Alanine Aminotransferase (ALT/SGPT) 31, Alkaline Phosphatase 118, Total Protein 5.4L, Albumin 2.6L 09/26/22 06:02: Glucometer 215H 09/26/22 10:06: Glucometer 169H Assessment/Plan Assessment/Plan Assess & Plan/Chief Complaint An 82 year old female with PSBO, metastatic colon cancer, KAITLYN VSS EBC 8.0 Hgb 9.2 Will clamp NG and proceed with a trial of ice chips to see if patient can tolerate SCARLETT LUIS APRN Sep 26, 2022 11:38
--- NOTE | 2022-09-26 11:46 | Progress Note ---
Subjective Date Seen by a Provider: Sep 26, 2022 Time Seen by a Provider: 11:42 Subjective/Events-last exam Fwup SBO, colon cancer with mets/carcinomatosis, DMII, COPD, HTN, Chronic atrial fibrillation. SBFT contrast did pass through. No flatus. NG tube clamped with ice chips per surgery. Patient complains of vomiting and wanting to eat. Objective Exam Vital Signs Date Time Temp Pulse Resp B/P (MAP) Pulse Ox O2 Delivery O2 Flow Rate FiO2 09/26/22 11:06 36.5 123 20 123/75 (91) 95 Room Air 09/26/22 08:02 96 Room Air 09/26/22 08:00 Room Air 09/26/22 07:12 36.6 123 18 115/77 (90) 96 Room Air 09/26/22 03:35 36.3 127 20 150/53 (85) 93 Room Air 09/26/22 02:29 96 Room Air 09/26/22 00:25 36.5 128 18 141/62 (88) 92 Room Air 09/25/22 20:00 Room Air 09/25/22 19:41 36.2 121 20 111/63 (79) 93 Room Air 09/25/22 19:26 96 Room Air 09/25/22 15:45 36.3 119 20 122/76 (91) 94 Room Air 09/25/22 15:17 92 Room Air 09/25/22 12:23 36.5 100 23 121/78 (92) 92 Room Air I & O 09/26/22 07:00 Intake Total 0 ml Output Total 920 ml Balance -920 ml Capillary Refill : Less Than 3 Seconds General Appearance: No Apparent Distress Neck: Supple Respiratory: Lungs Clear, Decreased Breath Sounds Cardiovascular: Systolic Murmur, Gallop/S4, Irregularly Irregular, Tachycardia Gastrointestinal: non tender, soft (less distended today), abnormal bowel sounds (hypoactive) Extremity: Non Tender, No Calf Tenderness, No Pedal Edema Neurologic/Psychiatric: Alert, Oriented x3 Results Lab Laboratory Tests 09/25/22 14:15: Glucometer 136H 09/26/22 00:12: Glucometer 182H 09/26/22 06:00: White Blood Count 8.0, Red Blood Count 3.32L, Hemoglobin 9.2L, Hematocrit 29L, Mean Corpuscular Volume 88, Mean Corpuscular Hemoglobin 28, Mean Corpuscular Hemoglobin Concent 32, Red Cell Distribution Width 17.1H, Platelet Count 297, Mean Platelet Volume 11.5, Sodium Level 137, Potassium Level 3.4L, Chloride Level 100, Carbon Dioxide Level 21, Anion Gap 16H, Blood Urea Nitrogen 56H, Creatinine 4.05H, Estimat Glomerular Filtration Rate 10, BUN/Creatinine Ratio 14, Glucose Level 224H, Calcium Level 8.1L, Corrected Calcium 9.2, Total Bilirubin 0.4, Aspartate Amino Transf (AST/SGOT) 19, Alanine Aminotransferase (ALT/SGPT) 31, Alkaline Phosphatase 118, Total Protein 5.4L, Albumin 2.6L 09/26/22 06:02: Glucometer 215H 09/26/22 10:06: Glucometer 169H Assessment/Plan Assessment/Plan Assess & Plan/Chief Complaint 1. SBO--NG tube still in place but clamped and getting ice chips, pain control, antiemetics--will add reglan, continue lovenox for DVT prophylaxis 2. Colon Cancer with Mets/Carcinomatosis--Discussed case with Dr. Christianson and she states that if patient recovers from this illness can consider palliative care but if she was not tolerating chemo and stopped her treatment early before she is not likely to tolerate chemo this time either, I did discuss hospice with the patient as well--she agrees to a palliative care consult 3. COPD--start SVNS with duoneb, continue oxygen 4. Atrial Fibrillation--hold eliquis due to colon cancer and risk of bleed, start IV metoprolol due to HR in 120s 5. Hypertension--currently BP stable so will resume meds if needed 6. Chronic Anemia--monitor H/H 7. Acute on Chronic Renal Failure--likely from dehydration/obstruction--hydrate and monitor BUN/Cr 8. DMII with hypoglycemia--improved with change of IVFs to D5 9. Hypokalemia--replace potassium Prognosis very guarded/poor TAO REED DO Sep 26, 2022 11:46
[2022-09-26] MEDS: D5 1/2 NS W/KCL 20 MEQ/L 1,000 ML IV SCH ×2 (12:20→20:49)
[2022-09-26] MEDS: meTOprolol 5 MG/5 ML (LOPRESSOR) VIAL IV SCH ×3 (12:20→23:45)
[2022-09-26] MEDS: METOCLOPRAMIDE INJ 10 MG/2 ML (REGLAN) IVP SCH ×3 (12:20→23:44)
[2022-09-26] MEDS: LORazepam INJ 2 MG/ML (ATIVAN) VIAL IVP PRN (20:46)
[2022-09-27] VITALS (8 sets, daily range): BP systolic 102–133; BP diastolic 53–71
[2022-09-27] MEDS: RT-ALBUTEROL/IPRATROPIUM 3 ML (DUONEB) VIAL INH SCH ×6 (03:28→22:07)
[2022-09-27 04:51] LABS: BILIRUBIN,URINE NEGATIVE (NEGATIVE); CLARITY,URINE SL CLOUDY; COLOR,URINE YELLOW; GLUCOSE, URINE (UA) 2+ (NEGATIVE); KETONES,URINE NEGATIVE (NEGATIVE); LEUKOCYTE ESTERASE ,URINE 1+ (NEGATIVE); NITRITE,URINE NEGATIVE (NEGATIVE); PROTEIN,URINE TRACE (NEGATIVE)
[2022-09-27] MEDS: METOCLOPRAMIDE INJ 10 MG/2 ML (REGLAN) IVP SCH (04:51)
[2022-09-27] MEDS: meTOprolol 5 MG/5 ML (LOPRESSOR) VIAL IV SCH (04:51)
[2022-09-27 05:05] LABS: BACTERIA,URINE FEW /HPF; RBC,URINE RARE /HPF
[2022-09-27 05:14] LABS: HEMATOCRIT 30 % (35-52); HEMOGLOBIN 9.4 g/dL (11.5-16.0); MEAN CORPUSCULAR HEMOGLOBIN 28 pg (25-34); MEAN CORPUSCULAR HGB CONC 32 g/dL (32-36); MEAN CORPUSCULAR VOLUME 88 fL (80-99); MEAN PLATELET VOLUME 10.8 fL (9.0-12.2); PLATELET COUNT 324 10^3/uL (130-400); WHITE BLOOD COUNT 9.5 10^3/uL (4.3-11.0)
[2022-09-27 05:25] LABS: ALBUMIN 2.5 GM/DL (3.2-4.5)
[2022-09-27 05:26] LABS: POTASSIUM 3.7 MMOL/L (3.6-5.0)
[2022-09-27 05:27] LABS: CALCIUM 7.9 MG/DL (8.5-10.1)
[2022-09-27 05:30] LABS: BILIRUBIN,TOTAL 0.4 MG/DL (0.1-1.0)
[2022-09-27 05:32] LABS: CREATININE SERUM 3.62 MG/DL (0.60-1.30)
[2022-09-27] MEDS: inSUlin ASPART (NovoLOG) 1 UNIT/0.01 ML (CHARGE PER UNIT) SC SCH ×4 (06:18→20:41)
[2022-09-27] MEDS: D5 1/2 NS W/KCL 20 MEQ/L 1,000 ML IV SCH (07:42)
[2022-09-27] MEDS: PANTOPRAZOLE 40 MG (PROTONIX) VIAL IV SCH ×2 (08:48→20:42)
[2022-09-27] MEDS: ENOXAPARIN INJECTION 30 MG/0.3 ML SYR SC SCH (09:21)
--- NOTE | 2022-09-27 09:42 | Progress Note ---
Subjective Date Seen by a Provider: Sep 27, 2022 Time Seen by a Provider: 09:05 Subjective/Events-last exam Patient seen with Dr. Cardoza. Patient denies any abdominal pain, nausea, or vomiting. She does report that she is tired. Having bowel movements. Tolerating clear liquid diet Objective Exam Vital Signs Date Time Temp Pulse Resp B/P (MAP) Pulse Ox O2 Delivery O2 Flow Rate FiO2 09/27/22 07:36 111 09/27/22 07:25 36.7 108 24 116/71 (86) 92 Room Air 09/27/22 06:23 90 Room Air 09/27/22 04:37 36.3 109 20 133/69 (90) 93 Room Air 09/27/22 03:28 95 Room Air 09/27/22 01:00 82 09/26/22 23:35 36.4 93 18 141/71 (94) 92 Room Air 09/26/22 20:07 Room Air 09/26/22 19:36 36.4 122 17 132/78 (96) 94 Room Air 09/26/22 19:00 117 09/26/22 17:34 110 09/26/22 15:35 36.7 122 22 104/66 (79) 92 Room Air 09/26/22 12:50 120 09/26/22 11:06 36.5 123 20 123/75 (91) 95 Room Air I & O 09/27/22 07:00 Intake Total 1910 ml Output Total 700 ml Balance 1210 ml Capillary Refill : Less Than 3 Seconds General Appearance: No Apparent Distress, WD/WN Neck: Normal Inspection, Supple Respiratory: No Accessory Muscle Use, No Respiratory Distress Gastrointestinal: normal bowel sounds, non tender, soft Extremity: Normal Inspection, Normal Range of Motion Neurologic/Psychiatric: Alert Skin: Normal Color, Warm/Dry Results Lab Laboratory Tests 09/26/22 10:06: Glucometer 169H 09/26/22 14:18: Glucometer 197H 09/26/22 19:35: Glucometer 200H 09/27/22 04:42: Urine Color YELLOW, Urine Clarity SL CLOUDY, Urine pH 5.0, Urine Specific [place] 1.025H, Urine Protein TRACEH, Urine Glucose (UA) 2+H, Urine Ketones NEGATIVE, Urine Nitrite NEGATIVE, Urine Bilirubin NEGATIVE, Urine Urobilinogen 0.2, Urine Leukocyte Esterase 1+H, Urine RBC (Auto) 1+H, Urine RBC RARE, Urine WBC 5-10H, Urine Squamous Epithelial Cells 2-5, Urine Renal Epithelial Cells 2- 5, Urine Crystals NONE, Urine Bacteria FEWH, Urine Casts NONE, Urine Mucus NEGATIVE, Urine Culture Indicated YES 09/27/22 05:00: White Blood Count 9.5, Red Blood Count 3.37L, Hemoglobin 9.4L, Hematocrit 30L, Mean Corpuscular Volume 88, Mean Corpuscular Hemoglobin 28, Mean Corpuscular Hemoglobin Concent 32, Red Cell Distribution Width 17.1H, Platelet Count 324, Mean Platelet Volume 10.8, Sodium Level 135, Potassium Level 3.7, Chloride Level 102, Carbon Dioxide Level 18L, Anion Gap 15H, Blood Urea Nitrogen 49H, Creatinine 3.62#H, Estimat Glomerular Filtration Rate 12, BUN/Creatinine Ratio 14, Glucose Level 202H, Calcium Level 7.9L, Corrected Calcium 9.1, Total Bilirubin 0.4, Aspartate Amino Transf (AST/SGOT) 17, Alanine Aminotransferase (ALT/SGPT) 31, Alkaline Phosphatase 93, Total Protein 5.0L, Albumin 2.5L 09/27/22 07:00: Glucometer 182H 09/27/22 09:27: Glucometer 165H Assessment/Plan Assessment/Plan Assess & Plan/Chief Complaint An 82 year old female with PSBO, metastatic colon cancer, KAITLYN VSS NGT DC'd and tolerating clear liquid diet Having bowel movements Will advance diet as tolerated SCARLETT LUIS APRN Sep 27, 2022 09:42
[2022-09-27] MEDS ORDERED: dilTIAZem120 MG (CARDIZEM CD) CAP PO NR (12:30)
[2022-09-27] MEDS ORDERED: ACETAMINOPHEN 325 MG TABLET PO PRN (12:30)
--- NOTE | 2022-09-27 12:46 | Progress Note ---
Subjective Date Seen by a Provider: Sep 27, 2022 Time Seen by a Provider: 12:43 Subjective/Events-last exam Fwup SBO, colon cancer with mets/carcinomatosis, DMII, COPD, HTN, Chronic atrial fibrillation. NG tube out. On mixed/moist diet. Denies flatus. No N/V since yesterday. Objective Exam Vital Signs Date Time Temp Pulse Resp B/P (MAP) Pulse Ox O2 Delivery O2 Flow Rate FiO2 09/27/22 10:56 90 Room Air 09/27/22 08:00 Room Air 09/27/22 07:36 111 09/27/22 07:25 36.7 108 24 116/71 (86) 92 Room Air 09/27/22 06:23 90 Room Air 09/27/22 04:37 36.3 109 20 133/69 (90) 93 Room Air 09/27/22 03:28 95 Room Air 09/27/22 01:00 82 09/26/22 23:35 36.4 93 18 141/71 (94) 92 Room Air 09/26/22 20:07 Room Air 09/26/22 19:36 36.4 122 17 132/78 (96) 94 Room Air 09/26/22 19:00 117 09/26/22 17:34 110 09/26/22 15:35 36.7 122 22 104/66 (79) 92 Room Air 09/26/22 12:50 120 I & O 09/27/22 07:00 Intake Total 1910 ml Output Total 700 ml Balance 1210 ml Capillary Refill : Less Than 3 Seconds General Appearance: No Apparent Distress Neck: Supple Respiratory: Lungs Clear Cardiovascular: Systolic Murmur, Irregularly Irregular Gastrointestinal: soft, abnormal bowel sounds (hypoactive), distended Extremity: Non Tender, No Calf Tenderness, No Pedal Edema Neurologic/Psychiatric: Alert, Oriented x3 Results Lab Laboratory Tests 09/26/22 14:18: Glucometer 197H 09/26/22 19:35: Glucometer 200H 09/27/22 04:42: Urine Color YELLOW, Urine Clarity SL CLOUDY, Urine pH 5.0, Urine Specific [place] 1.025H, Urine Protein TRACEH, Urine Glucose (UA) 2+H, Urine Ketones NEGATIVE, Urine Nitrite NEGATIVE, Urine Bilirubin NEGATIVE, Urine Urobilinogen 0.2, Urine Leukocyte Esterase 1+H, Urine RBC (Auto) 1+H, Urine RBC RARE, Urine WBC 5-10H, Urine Squamous Epithelial Cells 2-5, Urine Renal Epithelial Cells 2- 5, Urine Crystals NONE, Urine Bacteria FEWH, Urine Casts NONE, Urine Mucus NEGATIVE, Urine Culture Indicated YES 09/27/22 05:00: White Blood Count 9.5, Red Blood Count 3.37L, Hemoglobin 9.4L, Hematocrit 30L, Mean Corpuscular Volume 88, Mean Corpuscular Hemoglobin 28, Mean Corpuscular Hemoglobin Concent 32, Red Cell Distribution Width 17.1H, Platelet Count 324, Mean Platelet Volume 10.8, Sodium Level 135, Potassium Level 3.7, Chloride Level 102, Carbon Dioxide Level 18L, Anion Gap 15H, Blood Urea Nitrogen 49H, Creatinine 3.62#H, Estimat Glomerular Filtration Rate 12, BUN/Creatinine Ratio 14, Glucose Level 202H, Calcium Level 7.9L, Corrected Calcium 9.1, Total Bilirubin 0.4, Aspartate Amino Transf (AST/SGOT) 17, Alanine Aminotransferase (ALT/SGPT) 31, Alkaline Phosphatase 93, Total Protein 5.0L, Albumin 2.5L 09/27/22 07:00: Glucometer 182H 09/27/22 09:27: Glucometer 165H 09/27/22 11:34: Glucometer 180H Assessment/Plan Assessment/Plan Assess & Plan/Chief Complaint 1. SBO--NG tube out and on mixed/moist diet, pain control, antiemetics, continue lovenox for DVT prophylaxis 2. Colon Cancer with Mets/Carcinomatosis--Discussed case with Dr. Christianson and she states that if patient recovers from this illness can consider palliative care but if she was not tolerating chemo and stopped her treatment early before she is not likely to tolerate chemo this time either, I did discuss hospice with the patient as well--she agrees to a palliative care consult 3. COPD--continue SVNS with duoneb, continue oxygen 4. Atrial Fibrillation--hold eliquis due to colon cancer and risk of bleed, start oral cardizem and metoprolol 5. Hypertension--start cardizem and metroprolol as above 6. Chronic Anemia--monitor H/H 7. Acute on Chronic Renal Failure--likely from dehydration/obstruction--hydrate and monitor BUN/Cr--improved some this morning 8. DMII with hypoglycemia--resolved now that eating so will change IVFs back to 1/2NS with KCL 9. Hypokalemia--replace potassium Prognosis very guarded/poor TAO REED DO Sep 27, 2022 12:46
[2022-09-27] MEDS: cefTRIAXone 1 GM PRE-MIX 50 ML IV SCH (13:15)
[2022-09-27] MEDS: 1/2 NS W/KCL 20 MEQ/L 1,000 ML IV SCH ×2 (13:19→21:53)
[2022-09-27] MEDS: LORazepam INJ 2 MG/ML (ATIVAN) VIAL IVP PRN (17:17)
[2022-09-27] MEDS: PROMETHAZINE INJ 25 MG/ML (PHENERGAN) AMP IVP PRN (20:42)
[2022-09-27] MEDS: SERTRALINE 100 MG (ZOLOFT) TAB PO SCH (20:42)
[2022-09-27] MEDS ORDERED: meTOproloL SUCCINATE 50 MG (TOPROL XL) TAB PO SCH ×2 (21:00→21:45)
[2022-09-28] VITALS (7 sets, daily range): BP systolic 107–128; BP diastolic 67–76
[2022-09-28] MEDS: RT-ALBUTEROL/IPRATROPIUM 3 ML (DUONEB) VIAL INH SCH ×2 (02:09→19:46)
[2022-09-28] MEDS: LORazepam INJ 2 MG/ML (ATIVAN) VIAL IVP PRN ×2 (04:37→20:19)
[2022-09-28] MEDS: fentaNYL INJ 100 MCG/2 ML AMP IV PRN (04:37)
[2022-09-28 05:49] LABS: HEMATOCRIT 30 % (35-52); HEMOGLOBIN 9.1 g/dL (11.5-16.0); MEAN CORPUSCULAR HEMOGLOBIN 27 pg (25-34); MEAN CORPUSCULAR HGB CONC 31 g/dL (32-36); MEAN CORPUSCULAR VOLUME 88 fL (80-99); MEAN PLATELET VOLUME 10.8 fL (9.0-12.2); PLATELET COUNT 348 10^3/uL (130-400); WHITE BLOOD COUNT 5.3 10^3/uL (4.3-11.0)
[2022-09-28] MEDS: inSUlin ASPART (NovoLOG) 1 UNIT/0.01 ML (CHARGE PER UNIT) SC SCH ×5 (06:03→20:19)
[2022-09-28 06:16] LABS: ALBUMIN 2.5 GM/DL (3.2-4.5); BILIRUBIN,TOTAL 0.4 MG/DL (0.1-1.0); CALCIUM 7.9 MG/DL (8.5-10.1); CREATININE SERUM 3.35 MG/DL (0.60-1.30); POTASSIUM 4.3 MMOL/L (3.6-5.0); TOTAL PROTEIN 5.2 GM/DL (6.4-8.2)
[2022-09-28] MEDS: PANTOPRAZOLE 40 MG (PROTONIX) VIAL IV SCH ×2 (07:54→20:19)
[2022-09-28] MEDS: 1/2 NS W/KCL 20 MEQ/L 1,000 ML IV SCH ×2 (07:54→18:02)
[2022-09-28] MEDS ORDERED: dilTIAZem120 MG (CARDIZEM CD) CAP PO SCH (09:00)
[2022-09-28] MEDS ORDERED: dilTIAZem120 MG (CARDIZEM CD) CAP PO NR (10:00)
--- NOTE | 2022-09-28 10:23 | Progress Note ---
Subjective Date Seen by a Provider: Sep 28, 2022 Time Seen by a Provider: 10:19 Subjective/Events-last exam Fwup SBO, colon cancer with mets/carcinomatosis, DMII, COPD, HTN, Chronic atrial fibrillation. C/O mild nausea. Had flatus yesterday but no bowel movement. Objective Exam Vital Signs Date Time Temp Pulse Resp B/P (MAP) Pulse Ox O2 Delivery O2 Flow Rate FiO2 09/28/22 08:55 36.5 113 92 21 09/28/22 08:14 36.5 113 20 115/67 (83) 92 Room Air 09/28/22 07:33 Room Air 09/28/22 07:00 103 09/28/22 04:31 36.5 126 18 107/71 (83) 94 Room Air 09/28/22 02:09 93 Room Air 09/28/22 01:00 132 09/27/22 23:35 36.8 132 20 110/59 (76) Room Air 09/27/22 22:07 92 Room Air 09/27/22 20:50 36.8 125 20 125/58 (80) Room Air 09/27/22 20:00 Room Air 09/27/22 19:29 136 09/27/22 18:41 92 Room Air 09/27/22 17:25 130 20 102/67 (79) 92 Room Air 09/27/22 16:18 36.4 125 20 125/64 (84) 96 Room Air 09/27/22 14:47 91 Room Air 09/27/22 13:34 116 09/27/22 13:00 36.8 95 20 94 Room Air 09/27/22 12:00 36.8 130 20 106/53 (70) 94 Room Air 09/27/22 10:56 90 Room Air I & O 09/28/22 07:00 Intake Total 2300 ml Output Total 650 ml Balance 1650 ml Capillary Refill : Less Than 3 Seconds General Appearance: Mild Distress Neck: Supple Respiratory: Lungs Clear Cardiovascular: Systolic Murmur, Irregularly Irregular, Tachycardia Gastrointestinal: soft, abnormal bowel sounds (hypoactive), distended Extremity: Non Tender, No Calf Tenderness, No Pedal Edema Neurologic/Psychiatric: Alert, Oriented x3 Results Lab Laboratory Tests 09/27/22 11:34: Glucometer 180H 09/27/22 13:40: Glucometer 224H 09/27/22 20:03: Glucometer 201H 09/28/22 05:20: White Blood Count 5.3, Red Blood Count 3.36L, Hemoglobin 9.1L, Hematocrit 30L, Mean Corpuscular Volume 88, Mean Corpuscular Hemoglobin 27, Mean Corpuscular Hemoglobin Concent 31L, Red Cell Distribution Width 17.3H, Platelet Count 348, Mean Platelet Volume 10.8, Sodium Level 132L, Potassium Level 4.3, Chloride Level 101, Carbon Dioxide Level 16L, Anion Gap 15H, Blood Urea Nitrogen 47H, Creatinine 3.35H, Estimat Glomerular Filtration Rate 13, BUN/Creatinine Ratio 14, Glucose Level 175H, Calcium Level 7.9L, Corrected Calcium 9.1, Total Bilirubin 0.4, Aspartate Amino Transf (AST/SGOT) 13, Alanine Aminotransferase (ALT/SGPT) 30, Alkaline Phosphatase 93, Total Protein 5.2L, Albumin 2.5L 09/28/22 05:46: Glucometer 167H Assessment/Plan Assessment/Plan Assess & Plan/Chief Complaint 1. SBO--NG tube out and on mixed/moist diet, pain control, antiemetics, contin ue lovenox for DVT prophylaxis 2. Colon Cancer with Mets/Carcinomatosis--Discussed case with Dr. Christianson and she states that if patient recovers from this illness can consider palliative care but if she was not tolerating chemo and stopped her treatment early before she is not likely to tolerate chemo this time either, I did discuss hospice with the patient as well--she agrees to a palliative care consult 3. COPD--continue SVNS with duoneb, continue oxygen 4. Atrial Fibrillation--restart low dose eliquis due to renal function and colon cancer, increase oral cardizem to 240mg in AM and metoprolol to 100mg po q HS 5. Hypertension--adjust cardizem and metroprolol as above 6. Chronic Anemia--monitor H/H 7. Acute on Chronic Renal Failure--likely from dehydration/obstruction--hydrate and monitor BUN/Cr--improving slowly 8. DMII with hypoglycemia--resolved, change accuchecks to AC and HS with SSI A 9. Hypokalemia--improved 10. Weakness--start PT/OT Prognosis very guarded/poor TAO REED DO Sep 28, 2022 10:23
[2022-09-28] MEDS ORDERED: SENNA W/DOCUSATE (SENOKOT S) TABLET PO NR (11:00)
--- NOTE | 2022-09-28 11:05 | Progress Note - Surgery ---
Subjective Time Seen by a Provider: 10:36 Subjective/Events-last exam Pt seen and examined, states she is thirsty with mild abdominal pain and ??distention. According to nurse she is still having BMs daily. Review of Systems General: Fatigue, Malaise Pulmonary: No Dyspnea, No Cough Cardiovascular: No: Chest Pain, Palpitations Gastrointestinal: Nausea (occasional), Abdominal Pain (minimal); No: Vomiting Objective Exam Vital Signs Date Time Temp Pulse Resp B/P (MAP) Pulse Ox O2 Delivery O2 Flow Rate FiO2 09/28/22 08:55 36.5 113 92 21 09/28/22 08:14 36.5 113 20 115/67 (83) 92 Room Air 09/28/22 07:33 Room Air 09/28/22 07:00 103 09/28/22 04:31 36.5 126 18 107/71 (83) 94 Room Air 09/28/22 02:09 93 Room Air 09/28/22 01:00 132 09/27/22 23:35 36.8 132 20 110/59 (76) Room Air 09/27/22 22:07 92 Room Air 09/27/22 20:50 36.8 125 20 125/58 (80) Room Air 09/27/22 20:00 Room Air 09/27/22 19:29 136 09/27/22 18:41 92 Room Air 09/27/22 17:25 130 20 102/67 (79) 92 Room Air 09/27/22 16:18 36.4 125 20 125/64 (84) 96 Room Air 09/27/22 14:47 91 Room Air 09/27/22 13:34 116 09/27/22 13:00 36.8 95 20 94 Room Air 09/27/22 12:00 36.8 130 20 106/53 (70) 94 Room Air I & O 09/28/22 07:00 Intake Total 2300 ml Output Total 650 ml Balance 1650 ml Capillary Refill : Less Than 3 Seconds General Appearance: No Apparent Distress, Anxious, Obese HEENT: PERRL/EOMI, Other (NGT in place) Neck: Supple Respiratory: Lungs Clear, No Accessory Muscle Use, No Respiratory Distress Cardiovascular: Systolic Murmur, Irregularly Irregular, Tachycardia Gastrointestinal: soft, abnormal bowel sounds (hypoactive), distended Extremity: No Pedal Edema Neurologic/Psychiatric: Depressed Affect Results Lab Laboratory Tests 12/25/22 11:34: Glucometer 180H 09/27/22 13:40: Glucometer 224H 09/27/22 20:03: Glucometer 201H 09/28/22 05:20: White Blood Count 5.3, Red Blood Count 3.36L, Hemoglobin 9.1L, Hematocrit 30L, Mean Corpuscular Volume 88, Mean Corpuscular Hemoglobin 27, Mean Corpuscular Hemoglobin Concent 31L, Red Cell Distribution Width 17.3H, Platelet Count 348, Mean Platelet Volume 10.8, Sodium Level 132L, Potassium Level 4.3, Chloride Level 101, Carbon Dioxide Level 16L, Anion Gap 15H, Blood Urea Nitrogen 47H, Creatinine 3.35H, Estimat Glomerular Filtration Rate 13, BUN/Creatinine Ratio 14, Glucose Level 175H, Calcium Level 7.9L, Corrected Calcium 9.1, Total Bilirubin 0.4, Aspartate Amino Transf (AST/SGOT) 13, Alanine Aminotransferase (ALT/SGPT) 30, Alkaline Phosphatase 93, Total Protein 5.2L, Albumin 2.5L 09/28/22 05:46: Glucometer 167H Assessment/Plan Assessment/Plan Assessment/Plan 1. SBO--NG tube out and on minced/moist diet, continue pain control and antiemetics as needed. Lovenox for DVT prophylaxis 2. Colon Cancer with Mets/Carcinomatosis--Discussed case with Dr. Christianson and she states that if patient recovers from this illness can consider palliative care but if she was not tolerating chemo and stopped her treatment early before she is not likely to tolerate chemo this time either, I did discuss hospice with the patient as well--she agrees to a palliative care consult 3. COPD--continue SVNS with duoneb, continue oxygen 4. Atrial Fibrillation--restart low dose eliquis due to renal function and colon cancer, increase oral cardizem to 240mg in AM and metoprolol to 100mg po q HS 5. Hypertension--adjust cardizem and metroprolol as above 6. Chronic Anemia--monitor H/H 7. Acute on Chronic Renal Failure--likely from dehydration/obstruction--hydrate and monitor BUN/Cr--improving slowly 8. DMII with hypoglycemia--resolved, change accuchecks to AC and HS with SSI A 9. Hypokalemia--improved 10. Weakness--start PT/OT Pt did not want surgery before and she started to improve, not sure if she is getting worse again. Will monitor and assess as needed. I spoke with Dr. Beaver today and plan is to get her back to SNF. Pt is a poor surgical candidate and didn't want surgery when she was last asked. ANDREW HOBBS DO Sep 28, 2022 11:05
--- NOTE | 2022-09-28 11:25 | Physical Therapy Evaluation ---
PT Evaluation-General Medical Diagnosis Admission Date Sep 24, 2022 at 12:00 Medical Diagnosis: acute kidney injury/small bowel obstruction Onset Date: Sep 24, 2022 Therapy Diagnosis Therapy Diagnosis: generalized weakness/debility Precautions Precautions/Isolations: Fall Prevention, Standard Precautions Referral Physician: Sd Reason for Referral: Evaluation/Treatment Medical History Pertinent Medical History: Atrial Fib, COPD, DM, Heart Failure, HTN Additional Medical History obesity/colon cancer Current History EMS from [place] due to abdominal distention Reviewed History: Yes Social History Home: [facility] Prior Prior Level of Function SCALE: Activities may be completed with or without assistive devices. 4-Wjkpzithta-zndenpw completes the activity by him/herself with no assistance from a helper. 5-Set-up or Clean-up Assistance-helper sets up or cleans up; patient completes activity. [place] assists only prior to or following the activity. 4-Supervision or Touching Assistance-helper provides verbal cues and/or touching/steadying and/or contact guard assistance as patient completes activity. Assistance may be provided throughout the activity or intermittently. 3-Partial/Moderate Assistance-helper does LESS THAN HALF the effort. [place] lif ts, holds or supports trunk or limbs, but provides less than half the effort. 2-Substantial/Maximal Assistance-helper does MORE THAN HALF the effort. [place] lifts or holds trunk or limbs and provides more than half the effort. 2-Krnskeskd-sfaodk does ALL the effort. Patient does none of the effort to complete the activity. Or, the assistance of 2 or more helpers is required for the patient to complete the activity. If activity was not attempted, code reason: 7-Patient Refused. 9-Not Applicable-not attempted and the patient did not perform the activity before the current illness, exacerbation or injury. 10-Not Attempted due to Environmental Limitations-(lack of equipment, weather restraints, etc.). 88-Not Attempted due to Medical Conditions or Safety Concerns. Bed Mobility: 2 Transfers (B,C,W/C): 2 Gait: 2 Stairs: 9 Wheelchair Mobility: 2 Indoor Mobility (Ambulation): Needed Some Help Stairs: Not [place] Prior Devices Use: Manual wheelchair, Walker PT Evaluation-Current Subjective Patient agrees to PT. Noted total body edema Objective Patient Orientation: Person, Time Attachments: [place] Catheter, IV ROM/Strength ROM Lower Extremities bilateral LE WFL Strength Lower Extremities 3-/5 grossly bilateral LE all planes Integumentary/Posture Integumentary refer to nursing notes Bladder Incontinence: [place] Cath Posture slight trunk flexed posture Neuromuscular (Tone, Coordination, Reflexes) diminished with all Sensory Vision: Functional Hearing: Functional Transfers Lying to Sitting/Side of Bed(Q: 2 Sit to Stand (QC): 2 Chair/Nbb-bm-Aieoy Xfer(QC): 2 Gait Does the Patient Walk?: No and Walking Goal IS indicated Distance: 3 steps Gait Assistive Device: FWW Comments/Gait Description max assist to maintain stand due to weakness Balance Sitting Static: Poor Sitting Dynamic: Poor Standing Static: Poor Standing Dynamic: Poor Assessment/Needs Patient will benefit from skilled PT to address functional strength and mobility to improve current LOF. Patient is severely debilitated. Rehab Potential: Poor PT Outside Cutter Goals Mcfp Goals PT Mcfp Goals Time Frame: Oct 17, 2022 Roll Left & Right (QC): 3 Sit to Lying (QC): 3 Lying-Sitting on Side/Bed(QC): 3 Sit to Stand (QC): 3 Chair/Aux-ar-Rgszv Xfer(QC): 3 Toilet Transfer (QC): 3 Walk 10 feet (QC): 3 PT Plan Problem List Problem List: Activity Tolerance, Functional Strength, Safety, Balance, Gait, Transfer, Bed Mobility Treatment/Plan Treatment Plan: Continue Plan of Care Treatment Plan: Bed Mobility, Education, Functional Activity Reddy, Functional Strength, Gait, Safety, Therapeutic Exercise, Transfers Treatment Duration: Oct 17, 2022 Frequency: 6 times per week Estimated Hrs Per Day: .25 hour per day Patient and/or Family Agrees t: Yes Time Time In: 1055 Time Out: 1108 DATE: Sep 28, 2022 Total Billed Treatment Time: 13 Total Billed Treatment 1 visit [facility] 13 min MIGUELITO CHANEL PT Sep 28, 2022 11:25
[2022-09-28] MEDS: ONDANSETRON 4 MG/2 ML (SDV) Z0FRAN IV PRN (11:34)
[2022-09-28] MEDS: ENOXAPARIN INJECTION 30 MG/0.3 ML SYR SC SCH (11:35)
[2022-09-28] MEDS: cefTRIAXone 1 GM PRE-MIX 50 ML IV SCH (13:24)
--- NOTE | 2022-09-28 15:23 | Occupational Therapy Eval ---
OT Evaluation-General/PLF Medical Diagnosis Admission Date Sep 24, 2022 at 12:00 Medical Diagnosis: acute kidney injury/small bowel obstruction Onset Date: Sep 24, 2022 Therapy Diagnosis Therapy Diagnosis: Weakness/decreased ADL skills Precautions Precautions/Isolations: Fall Prevention, Standard Precautions Weight Bear Status Weight Bearing Restriction: Weight Bearing/Tolerated Referral Physician: Sd [place] Reason: Activity Tolerance, Self Care, Evaluation/Treatment, Strengthening/ROM Medical History Pertinent Medical History: Atrial Fib, COPD, DM, Heart Failure, HTN Additional Medical History CHF Current History Pt. to hospital with abdominal pain, distention/small bowel obstruction. Found to have colon CA with METS. Reviewed History: Yes Social History Home: [facility] Pt. indicates that she lives with her daughter, but has difficulty answering other questions during treatment. Keeps eyes closed and reports immediately that she needs cleaned up. ADL-Prior Level of Function SCALE: Activities may be completed with or without assistive devices. 7-Hkeenhcmmy-xxspqom completes the activity by him/herself with no assistance from a helper. 5-Set-up or Clean-up Assistance-helper sets up or cleans up; patient completes activity. [place] assists only prior to or following the activity. 4-Supervision or Touching Assistance-helper provides verbal cues and/or touching/steadying and/or contact guard assistance as patient completes activity. Assistance may be provided throughout the activity or intermittently. 3-Partial/Moderate Assistance-helper does LESS THAN HALF the effort. [place] lifts, holds or supports trunk or limbs, but provides less than half the effort. 2-Substantial/Maximal Assistance-helper does MORE THAN HALF the effort. [place] lifts or holds trunk or limbs and provides more than half the effort. 6-Xanzuyxau-hrmefw does ALL the effort. Patient does none of the effort to complete the activity. Or, the assistance of 2 or more helpers is required for the patient to complete the activity. If activity was not attempted, code reason: 7-Patient Refused. 9-Not Applicable-not attempted and the patient did not perform the activity before the current illness, exacerbation or injury. 10-Not Attempted due to Environmental Limitations-(lack of equipment, weather restraints, etc.). 88-Not Attempted due to Medical Conditions or Safety Concerns. Self Care: Unknown Functional Cognition: Unknown OT Current Status Subjective Pt. indicates pain when standing but does not report pain level. Nursing aware. Mental Status/Objective Patient Orientation: Person Current Upper Extremity ROM Pt. is able to lift bilateral UE to approximately 90* at shoulder level. ADL-Treatment On/Off Footwear (QC): 1 Toileting Hygiene (QC): 1 Other Treatments Pt. indicates that she has been incontinent of BM and needs cleaned up. Nursing comes into room and assists OT with cleansing pt. Pt. requires max assist x 2-3 for sit-stand. Pt. able to stand approximately 2 minutes while therapy and nursing cleanse rear and front meredith area and change pads in chair. Pt. indicates that she can't "stand anymore." Pt. back in chair with all needs met, LE elevated. Education OT Patient Education: Correct positioning, Modified ADL techniques, Progress toward Goal/Update tx plan, Purpose of tx/functional activities, Reviewed precautions, Rehab process, Transfer techniques Teaching Recipient: Patient Teaching Methods: Demonstration, Discussion Response to Teaching: Verbalize Understanding, Return Demonstration, Reinforcement Needed OT Short Term Goals Short Term Goals Time Frame: Oct 12, 2022 Eatin Oral hygiene: 3 Toileting hygiene: 2 Shower/bathe self: 2 Upper body dressin Lower body dressin Putting on/taking off footwear: 3 OT Penitentiary Goals Penitentiary Goals Time Frame: Oct 26, 2022 Eating (QC): 6 Oral Hygiene (QC): 5 Toileting Hygiene (QC): 4 Shower/Bathe Self (QC): 3 Upper Body Dressing (QC): 4 Lower Body Dressing (QC): 3 On/Off Footwear (QC): 4 Additional Goals: 1-Demonstrate ADL Tasks, 2-Verbalize Understanding, 3-ImproveStrength/Reddy 1=Demonstrate adherence to instructed precautions during ADL tasks. 2=Patient will verbalize/demonstrate understanding of assistive devices/modifications for ADL. 3=Patient will improve strength/tolerance for activity to enable patient to perform ADL's. OT Education/Plan Problem List/Assessment Assessment: Decreased Activ Tolerance, Dependent Transfers, Impaired Bed Mobility, Impaired Funct Balance, Impaired I ADL's, Impaired Self-Care Skills Discharge Recommendations Plan/Recommendations: Continue POC Therapy Discharge Recommendati: 24 Hour Supervision, Post Acute OT Treatment Plan/Plan of Care Treatment,Training & Education: Yes Patient would benefit from OT for education, treatment and training to promote independence in ADL's, mobility, safety and/or upper extremity function for ADL's. Plan of Care: ADL Retraining, Functional Mobility, UE Funct Exercise/Act Treatment Duration: Oct 26, 2022 Frequency: 3 times per week (3-5x/week) Estimated Hrs Per Day: .25 hour per day Agreement: Yes Rehab Potential: Guarded Time Start Time: 14:10 Stop Time: 14:30 DATE: Sep 28, 2022 Total Time Billed (hr/min): 20 Billed Treatment Time 1, BENJAMIN PEREZ OT Sep 28, 2022 15:23
[2022-09-28] MEDS: SENNA W/DOCUSATE (SENOKOT S) TABLET PO SCH (20:19)
[2022-09-28] MEDS: PROMETHAZINE INJ 25 MG/ML (PHENERGAN) AMP IVP PRN (20:19)
[2022-09-28] MEDS: APIXABAN 2.5 MG (ELIQUIS) TABLET PO SCH (20:19)
[2022-09-28] MEDS: meTOprolol SUCCINATE 100 MG (TOPROL XL) TAB PO SCH (20:19)
[2022-09-28] MEDS: SERTRALINE 100 MG (ZOLOFT) TAB PO SCH (20:19)
[2022-09-29] VITALS (7 sets, daily range): BP systolic 93–147; BP diastolic 53–82
[2022-09-29] MEDS: LORazepam INJ 2 MG/ML (ATIVAN) VIAL IVP PRN ×2 (00:17→15:52)
[2022-09-29] MEDS: 1/2 NS W/KCL 20 MEQ/L 1,000 ML IV SCH (03:38)
[2022-09-29 05:28] LABS: HEMATOCRIT 29 % (35-52); MEAN CORPUSCULAR HEMOGLOBIN 28 pg (25-34); MEAN CORPUSCULAR HGB CONC 32 g/dL (32-36); MEAN CORPUSCULAR VOLUME 88 fL (80-99); MEAN PLATELET VOLUME 10.4 fL (9.0-12.2); PLATELET COUNT 344 10^3/uL (130-400); WHITE BLOOD COUNT 6.9 10^3/uL (4.3-11.0)
[2022-09-29] MEDS: inSUlin ASPART (NovoLOG) 1 UNIT/0.01 ML (CHARGE PER UNIT) SC SCH ×4 (05:42→20:34)
[2022-09-29 05:47] LABS: CALCIUM 7.8 MG/DL (8.5-10.1); CREATININE SERUM 3.3 MG/DL (0.60-1.30)
--- NOTE | 2022-09-29 07:34 | Progress Note - Surgery ---
KOKOSARAHGRACE Gaines 09/29/22 0734: Subjective Date Seen by a Provider: Sep 29, 2022 Time Seen by a Provider: 07:00 Subjective/Events-last exam Pt is sleeping in bed. Pt states that she has no pain or complaints at this time. States that she has been tolerating diet well. Pt notes that she has been experiencing flatus and nurse states that pt had a BM this morning. Pt denies nausea, vomiting, CP, chills, and abd pain. Review of Systems General: No Chills, No Night Sweats HEENT: No Head Aches, No Eye Pain Pulmonary: Dyspnea (chronic); No Cough Cardiovascular: No: Chest Pain, Palpitations, Lt Headedness Gastrointestinal: No: Nausea, Vomiting, Abdominal Pain Genitourinary: No Dysuria, No Hematuria Musculoskeletal: No: neck pain, shoulder pain Neurological: No: Weakness, Numbness Objective Exam Vital Signs Date Time Temp Pulse Resp B/P (MAP) Pulse Ox O2 Delivery O2 Flow Rate FiO2 09/29/22 03:39 37.0 107 30 107/61 (76) 94 Room Air 09/29/22 01:00 100 09/29/22 00:00 36.3 114 30 147/82 (103) 92 Room Air 09/28/22 20:00 Room Air 09/28/22 19:47 93 Room Air 09/28/22 19:23 36.9 104 19 128/76 (93) 93 Room Air 09/28/22 19:00 102 09/28/22 16:00 36.5 103 19 108/71 (83) 93 Room Air 09/28/22 12:54 116 09/28/22 12:30 36.8 115 20 117/74 (88) 94 Room Air 09/28/22 08:55 36.5 113 92 21 09/28/22 08:14 36.5 113 20 115/67 (83) 92 Room Air 09/28/22 07:33 Room Air I & O 09/29/22 07:00 Intake Total 810 ml Output Total 350 ml Balance 460 ml Capillary Refill : Less Than 3 Seconds General Appearance: No Apparent Distress, Obese HEENT: PERRL/EOMI Respiratory: No Accessory Muscle Use, No Respiratory Distress, Crackles (L>R ), Other (tachypneic) Cardiovascular: Irregularly Irregular, Tachycardia Peripheral Pulses: 2+ Dorsalis Pedis (R), 2+ Left Dors-Pedis (L) Gastrointestinal: abnormal bowel sounds (hypoactive), distended Extremity: No Calf Tenderness, Pedal Edema (R 2/3+ pitting, L 1+ pitting) Neurologic/Psychiatric: Depressed Affect Skin: Damp, Erythema (R anterior nam from dorsum of foot extending a few inches above foot, with associated warmth ) Results Lab Laboratory Tests 09/28/22 11:36: Glucometer 304H 09/28/22 16:24: Glucometer 123H 09/28/22 20:07: Glucometer 136H 09/29/22 05:10: White Blood Count 6.9, Red Blood Count 3.25L, Hemoglobin 9.0L, Hematocrit 29L, Mean Corpuscular Volume 88, Mean Corpuscular Hemoglobin 28, Mean Corpuscular Hemoglobin Concent 32, Red Cell Distribution Width 17.3H, Platelet Count 344, Mean Platelet Volume 10.4, Sodium Level 131L, Potassium Level 5.0, Chloride Level 103, Carbon Dioxide Level 16L, Anion Gap 12, Blood Urea Nitrogen 48H, Creatinine 3.30H, Estimat Glomerular Filtration Rate 13, BUN/Creatinine Ratio 15, Glucose Level 137H, Calcium Level 7.8L 09/29/22 05:35: Glucometer 126H Microbiology 09/27/22 Urine Culture - Final, Complete 3 or more isolates Assessment/Plan Assessment/Plan Assessment/Plan 1. SBO 2. Colon cancer with mets/carcinomatosis 3. COPD on 4L 4. Chronic renal failure 5. Afib Pt had a BM today per nurse and continues to have flatus, abd still distended. Pt not in any pain at this time but will continue to monitor and assess as needed. Pt still a poor surgical candidate and did not want surgery when last asked. Pt's R leg seems slightly more swollen today with some mild erythema present over anterior nam, venous stasis dermatitis vs possible cellulitis. Pt is currently afebrile and WBC is within normal range. Pt is still receiving IV ceftriaxone, will continue to monitor and reassess as needed. Per past note, plan is to have pt return to SNF. ANDREW HOBBS DO 09/29/22 1148: Subjective Time Seen by a Provider: 11:08 Subjective/Events-last exam Pt seen and examined, she denied pain and stated she was still having BM. Review of Systems General: No Chills, No Night Sweats; Fatigue HEENT: No Head Aches, No Eye Pain Pulmonary: Dyspnea (chronic); No Cough Cardiovascular: No: Chest Pain, Palpitations Gastrointestinal: No: Nausea, Vomiting, Abdominal Pain Objective Exam General Appearance: No Apparent Distress, Obese HEENT: PERRL/EOMI Respiratory: No Accessory Muscle Use, No Respiratory Distress, Crackles (L>R ), Other (tachypneic) Cardiovascular: Irregularly Irregular, Other Gastrointestinal: abnormal bowel sounds (hypoactive), distended Extremity: No Calf Tenderness, Pedal Edema (R 2/3+ pitting, L 1+ pitting) Neurologic/Psychiatric: Depressed Affect Skin: Damp, Erythema (R anterior nam from dorsum of foot extending a few inches above foot, with associated warmth ) Assessment/Plan Assessment/Plan Assessment/Plan 1. SBO - resolved 2. Colon cancer with possible mets/carcinomatosis 3. COPD on 4L 4. Chronic renal failure 5. Afib Pt had a BM today per nurse and continues to have flatus, abd still distended. Pt not in any pain at this time but will continue to monitor and assess as needed. Pt still a poor surgical candidate and did not want surgery when last asked. Pt's R leg seems slightly more swollen today with some mild erythema present over anterior nam, venous stasis dermatitis vs possible cellulitis. Pt is currently afebrile and WBC is within normal range. Pt is still receiving IV ceftriaxone, will continue to monitor and reassess as needed. Per past note, plan is to have pt return to SNF. Supervisory-Addendum Brief Verification & Attestation Participated in pt care: history, MDM, physical Personally performed: exam, history, MDM, supervision of care Care discussed with: Medical Student Procedures: n/a Verification and Attestation of Medical Student E/M Service A medical student performed and documented this service. I then reviewed and verified all information documented by the medical student and made modifications to such information, when appropriate. I personally performed a physical exam, medical decision making and then discussed any differences between the notes and made revisions as necessary to create one note. Andrew Hobbs , 09/29/22 , 11:48 GRACE GOLDEN Sep 29, 2022 07:34 ANDREW HOBBS DO Sep 29, 2022 11:48
--- NOTE | 2022-09-29 07:50 | Progress Note ---
ANDREY FORD 09/29/22 0750: Subjective Date Seen by a Provider: Sep 29, 2022 Time Seen by a Provider: 07:30 Subjective/Events-last exam 82 F w/ pmh of colon cancer w/ mets/carcinomatosis CHF COPD A fibb DMII HTN on day 5 of admission for suspected SBO. Pt was unable to be aroused much during encounter with minimal communication. Pt denies any fever, chills, n/v, or pain. Pt claims she is tolerating her soft diet w/o complaints. Pt denies having any BM but did pass some flatus. pt continues to complain of weakness and debility with PT/OT Review of Systems General: No Chills, No Night Sweats HEENT: No Head Aches, No Dysphasia Pulmonary: Dyspnea; No Cough Cardiovascular: Edema; No: Chest Pain Gastrointestinal: No: Nausea, Vomiting, Abdominal Pain Genitourinary: No Dysuria, No Incontinence Musculoskeletal: No: leg pain, foot pain Neurological: Weakness Objective Exam Last Set of Vital Signs Vital Signs Date Time Temp Pulse Resp B/P (MAP) Pulse Ox O2 Delivery O2 Flow Rate FiO2 09/29/22 07:07 89 09/29/22 03:39 37.0 30 107/61 (76) 94 Room Air 09/28/22 08:55 21 09/24/22 10:04 2.00 Capillary Refill : Less Than 3 Seconds I&O Intake and Output 09/29/22 00:00 Intake Total 810 ml Output Total 650 ml Balance 160 ml Intake Oral 810 ml Output Urine Total 650 ml # Bowel Movements 2 General: Alert, Cooperative HEENT: Atraumatic Neck: Supple, No LAD Lungs: Normal Air Movement Heart: Other (irruglarly irregular ) Abdomen: No Tenderness, Other (distended, hypoactive bowel sounds x 4) Extremities: Normal Pulses, Other (BL LE 3+ edema) Skin: Other (errythema of R foot with associated warmth) Neuro: Normal Speech Psych/Mental Status: Mental Status NL Results Lab Laboratory Tests 09/28/22 11:36: Glucometer 304H 09/28/22 16:24: Glucometer 123H 09/28/22 20:07: Glucometer 136H 09/29/22 05:10: White Blood Count 6.9, Red Blood Count 3.25L, Hemoglobin 9.0L, Hematocrit 29L, Mean Corpuscular Volume 88, Mean Corpuscular Hemoglobin 28, Mean Corpuscular Hemoglobin Concent 32, Red Cell Distribution Width 17.3H, Platelet Count 344, M luz maria Platelet Volume 10.4, Sodium Level 131L, Potassium Level 5.0, Chloride Level 103, Carbon Dioxide Level 16L, Anion Gap 12, Blood Urea Nitrogen 48H, Creatinine 3.30H, Estimat Glomerular Filtration Rate 13, BUN/Creatinine Ratio 15, Glucose Level 137H, Calcium Level 7.8L 09/29/22 05:35: Glucometer 126H Microbiology 09/27/22 Urine Culture - Final, Complete 3 or more isolates Assessment/Plan Assessment/Plan Assess & Plan/Chief Complaint 1. SBO--NG tube out and on mixed/moist diet, pain control, antiemetics, continue lovenox for DVT prophylaxis 2. Colon Cancer with Mets/Carcinomatosis--Discussed case with Dr. Christianson and she states that if patient recovers from this illness can consider palliative care but if she was not tolerating chemo and stopped her treatment early before she is not likely to tolerate chemo this time either, I did discuss hospice with the patient as well--she agrees to a palliative care consult 3. COPD--continue SVNS with duoneb, continue oxygen, CXR tomorrow to access resp status 4. Atrial Fibrillation--continue low dose eliquis due to renal function and colon cancer, continue oral cardizem at 240mg in AM and metoprolol to 100mg po q HS 5. Hypertension--adjust cardizem and metroprolol as above 6. Chronic Anemia--monitor H/H 7. Acute on Chronic Renal Failure--likely from dehydration/obstruction--hydrate and monitor BUN/Cr--improving slowly 8. DMII with hypoglycemia--resolved, change accuchecks to AC and HS with SSI A 9. Hypokalemia--improved 10. Weakness--continue PT/OT, increase ambulation to chair today 11. Hyponatremia- stop NCl/KCl and start IV NS with KCl to improve hydration and sodium levels, continue to monitor electrolytes Prognosis very guarded/poor Plans to continue to try and contact family about palliative care and future treatment goals Clinical Quality Measures Admission Status Admission Dx 1) Small Bowel Obstruction: consult surgery, continue NG tube with suction, NPO until after surgery has met with pt, 2) DM II : start sliding scale insulin, hold home regimen due to decreased GI functions 3) dehydration: continue IV fluids 4) CKD - hold oral lasix and continue to monitor kidney function 5) A fibb -continue oral cardizem 6) CHF- obtain serial chest x-rays to access fluid level, possible consult surgery for repeat thoracentesis 7) COPD: continue supplemental O2, start MAT protocol 8) consult SS and speak with family on future treatment goals and therapies TAO REED DO 09/29/22 1711: Supervisory-Addendum Brief Verification & Attestation Participated in pt care: history, physical Personally performed: exam, history, supervision of care Care discussed with: Medical Student Procedures: n/a Results interpretation: Verified all documentation Verification and Attestation of Medical Student E/M Service A medical student performed and documented this service in my presence. I reviewed and verified all information documented by the medical student and made modifications to such information, when appropriate. I personally performed the physical exam and medical decision making. Tao Reed, Sep 29, 2022,17:09 Patient refusing PT and OT. Discussed with daughter, Roselyn. She does not want mother to go back to a NH and feels like her mom will no do chemo even for palliative care as she stopped before because she just didn't want to do chemo anymore. Discussed that patient's best option is to go home with hospice for comfort then so will get palliative care nurse back on board to coordinate hospice for discharge. ANDREY FORD Sep 29, 2022 07:50 TAO REED DO Sep 29, 2022 17:11
[2022-09-29] MEDS: RT-ALBUTEROL/IPRATROPIUM 3 ML (DUONEB) VIAL INH SCH ×2 (08:19→20:06)
[2022-09-29] MEDS: PANTOPRAZOLE 40 MG (PROTONIX) VIAL IV SCH (08:21)
[2022-09-29] MEDS: APIXABAN 2.5 MG (ELIQUIS) TABLET PO SCH ×2 (08:22→20:01)
[2022-09-29] MEDS: SENNA W/DOCUSATE (SENOKOT S) TABLET PO SCH ×2 (08:22→20:11)
[2022-09-29] MEDS: fentaNYL INJ 100 MCG/2 ML AMP IV PRN ×2 (08:22→15:55)
--- NOTE | 2022-09-29 08:56 | Diagnostic Imaging Report ---
EXAMINATION: Chest radiograph, portable AP view. DATE: 09/29/2022 8:53 AM INDICATION: 82-year-old female, dyspnea. COMPARISON: September 07, 2022. FINDINGS: Heart size and mediastinal contours are unchanged. There is no identified pneumothorax. There is nonspecific left basilar airspace consolidation. Lung volumes are somewhat low. There are mildly prominent pulmonary vascular markings. This appears improved since the comparison study. There is interval decreased alveolar consolidation in the left upper lobe since the prior study. IMPRESSION: 1. Bilateral predominantly interstitial appearing opacities which do appear improved since prior study. This may reflect pulmonary edema. Atypical infection and pneumonitis are also differential diagnostic considerations. 2. Left basilar airspace consolidation which is essentially unchanged and may reflect pleural effusion, atelectasis, and/or infiltrate. 3. Interval decreased alveolar consolidation in the left upper lobe since the prior study. Dictated by: Dictated on workstation # [id number]
--- NOTE | 2022-09-29 09:46 | Physical Therapy Progress Note ---
Therapy Progress Note Patient declined PT at this time due to abdominal discomfort without rating. PT attempted to encourage/educate patient on importance of OOB activity, however, patient continued to keep her eyes closed and refused. PT will attempt later today if time/schedule allow or resume tomorrow a.m. 1 ref MIGUELITO CHANEL PT Sep 29, 2022 09:46
--- NOTE | 2022-09-29 11:09 | Occ Therapy Progress Note ---
Therapy Progress Note At OT arrival, pt reports difficulty breathing. Oxygen: 94-97%. HR: 103-128 at rest, RN notified. Pt reports not feeling well and declines all OOB and bed activities. Per RN, pt with possible hospice consult. OT will attempt again tomorrow if medically appropriate. 1 visit, ref Sheryl Erazo OT Sep 29, 2022 11:09
[2022-09-29] MEDS: cefTRIAXone 1 GM PRE-MIX 50 ML IV SCH (13:55)
[2022-09-29] MEDS: NS W/KCL 20 MEQ/L 1,000 ML IV SCH ×3 (13:55→23:49)
[2022-09-29] MEDS: PROMETHAZINE INJ 25 MG/ML (PHENERGAN) AMP IVP PRN (15:55)
[2022-09-29] MEDS ORDERED: FUROSEMIDE 40 MG/4 ML INJ (LASIX) IVP NR (17:00)
[2022-09-29] MEDS: PANTOPRAZOLE 40 MG (PROTONIX) TAB PO SCH (20:01)
[2022-09-29] MEDS: meTOprolol SUCCINATE 100 MG (TOPROL XL) TAB PO SCH (20:01)
[2022-09-29] MEDS: SERTRALINE 100 MG (ZOLOFT) TAB PO SCH (20:01)
[2022-09-30 03:54] VITALS: BP 128/60
[2022-09-30] MEDS: inSUlin ASPART (NovoLOG) 1 UNIT/0.01 ML (CHARGE PER UNIT) SC SCH ×4 (05:37→21:01)
[2022-09-30 06:02] LABS: BASOPHILS % (AUTO) 0 % (0-10); EOSINOPHILS # (AUTO) 0.1 10^3/uL (0.0-0.3); EOSINOPHILS % (AUTO) 1 % (0-10); HEMATOCRIT 31 % (35-52); HEMOGLOBIN 9.7 g/dL (11.5-16.0); LYMPHOCYTES # (AUTO) 1.7 10^3/uL (1.0-4.0); LYMPHOCYTES % (AUTO) 17 % (12-44); MEAN CORPUSCULAR HEMOGLOBIN 28 pg (25-34); MEAN CORPUSCULAR HGB CONC 32 g/dL (32-36); MEAN CORPUSCULAR VOLUME 88 fL (80-99); MEAN PLATELET VOLUME 10.7 fL (9.0-12.2); MONOCYTES # (AUTO) 0.7 10^3/uL (0.0-1.0); MONOCYTES % (AUTO) 7 % (0-12); NEUTROPHILS # (AUTO) 6.5 10^3/uL (1.8-7.8); NEUTROPHILS % (AUTO) 68 % (42-75); PLATELET COUNT 370 10^3/uL (130-400); WHITE BLOOD COUNT 9.6 10^3/uL (4.3-11.0)
[2022-09-30 06:09] LABS: SMEAR SCAN COMMENT YES
[2022-09-30 06:24] LABS: CREATININE SERUM 3.51 MG/DL (0.60-1.30); POTASSIUM 5.1 MMOL/L (3.6-5.0)
--- NOTE | 2022-09-30 07:22 | Progress Note - Surgery ---
CHICOGRACE 09/30/22 0722: Subjective Date Seen by a Provider: Sep 30, 2022 Time Seen by a Provider: 07:00 Subjective/Events-last exam Pt is sleeping in bed, seems upset and uncomfortably, visibly tachypneic. Pt states that "feels bad today" but is unable to tell me why. Pt states that she has been experiencing "very bad" CP intermittently but is unable to tell me when she experienced it, rate it, or characterize it. Pt states that she does not currently have CP. Pt states that she has been tolerating diet well but nurse notes that pt has not been eating very often and needed to be encouraged yesterday to eat. Nurse states that pt had a small, soft, BM this morning. Pt denies flatus. Pt had a CXR on 09/29 that showed improving bilateral interstitial appearing opacities, left basilar airspace consolidation which is essentially unchanged, and interval decreased alveolar consolidation in the DANIS lobe since prior study. Pt states that she feels like SOB is unchanged from baseline when asked. Pt denies any nausea, vomiting, worsening SOB, abd pain, chills, and lightheadedness. Review of Systems General: No Chills, No Night Sweats HEENT: No Head Aches, No Eye Pain Pulmonary: Dyspnea (chronic), Cough (chronic) Cardiovascular: Chest Pain; No: Lt Headedness Gastrointestinal: No: Nausea, Vomiting, Abdominal Pain Genitourinary: No Dysuria, No Hematuria Musculoskeletal: leg pain (B/L calf pain ); No: neck pain Neurological: No: Weakness, Numbness Objective Exam Vital Signs Date Time Temp Pulse Resp B/P (MAP) Pulse Ox O2 Delivery O2 Flow Rate FiO2 09/30/22 03:54 36.2 77 20 128/60 (82) 93 Room Air 09/30/22 01:00 85 09/29/22 23:59 36.6 89 20 130/64 (86) 94 Room Air 09/29/22 20:06 95 Room Air 09/29/22 20:03 Room Air 09/29/22 19:44 36.7 81 18 138/62 (87) 93 Room Air 09/29/22 19:00 92 09/29/22 16:44 37.2 88 20 106/64 (78) 92 Room Air 12/27/22 12:40 88 09/29/22 11:49 37.0 99 18 109/75 (86) 94 Room Air 09/29/22 08:29 96 Room Air 09/29/22 08:06 37.1 100 20 109/58 (75) 94 Room Air 09/29/22 08:00 Room Air I & O 09/30/22 07:00 Intake Total 1400 ml Output Total 400 ml Balance 1000 ml Capillary Refill : Less Than 3 Seconds General Appearance: No Apparent Distress, Anxious, Obese HEENT: PERRL/EOMI Respiratory: No Respiratory Distress, Accessory Muscle Use, Crackles (L>R ), Other (tachypneic) Cardiovascular: Irregularly Irregular, Other Peripheral Pulses: 2+ Dorsalis Pedis (R), 2+ Left Dors-Pedis (L) Gastrointestinal: abnormal bowel sounds (hypoactive), distended, tenderness (RUQ) Extremity: Calf Tenderness (B/L with palpation extending up leg to just below pelvis-may be secondary to swelling), Pedal Edema (pitting B/L LE), Swelling (anasarca) Neurologic/Psychiatric: Depressed Affect Skin: Erythema (R anterior nam from dorsum of foot extending a few inches above foot, with associated warmth -improved ) Results Lab Laboratory Tests 09/29/22 15:55: Glucometer 155H 09/29/22 20:26: Glucometer 118H 09/30/22 05:34: Glucometer 131H 09/30/22 05:57: White Blood Count 9.6, Red Blood Count 3.48L, Hemoglobin 9.7L, Hematocrit 31L, Mean Corpuscular Volume 88, Mean Corpuscular Hemoglobin 28, Mean Corpuscular Hemoglobin Concent 32, Red Cell Distribution Width 17.9H, Platelet Count 370, Mean Platelet Volume 10.7, Immature Granulocyte % (Auto) 6, Neutrophils (%) (Auto) 68, Lymphocytes (%) (Auto) 17, Monocytes (%) (Auto) 7, Eosinophils (%) (Auto) 1, Basophils (%) (Auto) 0, Neutrophils # (Auto) 6.5, Lymphocytes # (Auto) 1.7, Monocytes # (Auto) 0.7, Eosinophils # (Auto) 0.1, Basophils # (Auto) 0.0, Immature Granulocyte # (Auto) 0.6H, Sodium Level 134L, Potassium Level 5.1H, Chloride Level 104, Carbon Dioxide Level 16L, Anion Gap 14, Blood Urea Nitrogen 51H, Creatinine 3.51H, Estimat Glomerular Filtration Rate 12, BUN/Creatinine Ratio 15, Glucose Level 132H, Calcium Level 8.0L, Smear Scan YES Microbiology 09/27/22 Urine Culture - Final, Complete 3 or more isolates Radiology Date of Exam:09/29/22 CHEST 1 VIEW, AP/PA ONLY EXAMINATION: Chest radiograph, portable AP view. DATE: 09/29/2022 8:53 AM INDICATION: 82-year-old female, dyspnea. COMPARISON: September 07, 2022. FINDINGS: Heart size and mediastinal contours are unchanged. There is no identified pneumothorax. There is nonspecific left basilar airspace consolidation. Lung volumes are somewhat low. There are mildly prominent pulmonary vascular markings. This appears improved since the comparison study. There is interval decreased alveolar consolidation in the left upper lobe since the prior study. IMPRESSION: 1. Bilateral predominantly interstitial appearing opacities which do appear improved since prior study. This may reflect pulmonary edema. Atypical infection and pneumonitis are also differential diagnostic considerations. 2. Left basilar airspace consolidation which is essentially unchanged and may reflect pleural effusion, atelectasis, and/or infiltrate. 3. Interval decreased alveolar consolidation in the left upper lobe since the prior study. Dictated by: Dictated on workstation # [id number] Dict: 09/29/22 [id number] Trans: 09/29/22 1439 [facility] [id number] Interpreted by: JULIUS PAULSON MD Electronically signed by: JULIUS PAULSON MD 09/29/22 1439 Assessment/Plan Assessment/Plan Assessment/Plan 1. SBO - resolved 2. Colon cancer with possible mets/carcinomatosis 3. COPD on 4L 4. Chronic renal failure 5. Afib Pt had a small BM today per nurse. Pt states that she does not have abd pain but does have some RUQ pain with palpation and is still distended. Pt also noted some ambiguous CP that was not current, pt was sleeping in room and does not seem to be in distress at this time. Pt had a CXR yesterday that showed improving bilateral interstitial appearing opacities, left basilar airspace c onsolidation which is essentially unchanged, and interval decreased alveolar consolidation in the DANIS lobe since prior study, per radiology read. Will continue to monitor and reassess as needed. Pt still a poor surgical candidate and did not want surgery when last asked. Pt's has anasarca today, would recommend possibly DC or reducing IVFs and encourage PO fluid intake. Per social media strategist note, daughter does not want pt to return to [facility] and is currently setting hospice care at home. ANDREW HOBBS DO 09/30/22 1300: Subjective Time Seen by a Provider: 12:51 Subjective/Events-last exam Pt seen and examined, sleeping comfortably. Spoke with nurse and plan is to go home on hospice. Review of Systems Pulmonary: Dyspnea (chronic), Cough (chronic) Cardiovascular: Chest Pain Gastrointestinal: No: Nausea, Vomiting, Abdominal Pain Objective Exam General Appearance: No Apparent Distress, Anxious, Obese Respiratory: Accessory Muscle Use, Crackles (L>R ), Other (tachypneic) Cardiovascular: Irregularly Irregular, Other Gastrointestinal: abnormal bowel sounds (hypoactive), distended, tenderness (RUQ) Assessment/Plan Assessment/Plan Assessment/Plan 1. SBO - resolved 2. Colon cancer with possible mets/carcinomatosis 3. COPD on 4L 4. Chronic renal failure 5. Afib Pt had a small BM today per nurse. Pt states that she does not have abd pain but does have some RUQ pain with palpation and is still distended. Pt also noted some ambiguous CP that was not current, pt was sleeping in room and does not seem to be in distress at this time. Pt had a CXR yesterday that showed improving bilateral interstitial appearing opacities, left basilar airspace consolidation which is essentially unchanged, and interval decreased alveolar consolidation in the DANIS lobe since prior study, per radiology read. Will continue to monitor and reassess as needed. Pt still a poor surgical candidate and did not want surgery when last asked. Pt's has anasarca today, would recommend possibly DC or reducing IVFs and encourage PO fluid intake. Per social media strategist note, daughter does not want pt to return to [facility] and is currently setting hospice care at home. Supervisory-Addendum Brief Verification & Attestation Participated in pt care: history, MDM, physical Personally performed: exam, history, MDM, supervision of care Care discussed with: Medical Student Procedures: n/a Verification and Attestation of Medical Student E/M Service A medical student performed and documented this service. I then reviewed and verified all information documented by the medical student and made modifications to such information, when appropriate. I personally performed a physical exam, medical decision making and then discussed any differences between the notes and made revisions as necessary to create one note. Andrew Hobbs , 09/30/22 , 13:00 GRACE GOLDEN Sep 30, 2022 07:22 ANDREW HOBBS DO Sep 30, 2022 13:00
[2022-09-30] MEDS: RT-ALBUTEROL/IPRATROPIUM 3 ML (DUONEB) VIAL INH SCH ×2 (07:27→19:21)
[2022-09-30 07:48] VITALS: BP 88/53
--- NOTE | 2022-09-30 07:57 | Progress Note ---
ANDREY FORD 09/30/22 0757: Subjective Date Seen by a Provider: Sep 30, 2022 Time Seen by a Provider: 07:30 Subjective/Events-last exam 82 F pmh of colon cancer with mets, COPD, CHF, A fibb, DMII HTN on day 6 of admission for SBO. Pt reports she is in no pain at the moment. Denies n/v, worsening SOB, CP, fever, chills. Pt had a small soft BM this morning. Pt continues to deny therapy and complains of worsening fatigue. Pt noted that food is becoming more difficult to swallow. Family present today in room. Review of Systems General: No Chills, No Night Sweats HEENT: No Head Aches; Dysphasia Pulmonary: Dyspnea; No Cough Cardiovascular: Edema; No: Chest Pain Gastrointestinal: No: Nausea, Vomiting, Abdominal Pain Genitourinary: No Dysuria, No Frequency Musculoskeletal: No: leg pain, foot pain Neurological: Weakness Objective Exam Last Set of Vital Signs Vital Signs Date Time Temp Pulse Resp B/P (MAP) Pulse Ox O2 Delivery O2 Flow Rate FiO2 09/30/22 07:27 91 Room Air 09/30/22 03:54 36.2 77 20 128/60 (82) 09/29/22 08:06 09/28/22 08:55 21 Capillary Refill : Less Than 3 Seconds I&O Intake and Output 09/30/22 00:00 Intake Total 1400 ml Output Total 200 ml Balance 1200 ml Intake Oral 400 ml IV Total 1000 ml Output Urine Total 200 ml # Urine Diapers 3 # Bowel Movements 2 General: Alert, Cooperative HEENT: Atraumatic, EOMI Neck: Supple, No LAD Lungs: Other (diffuse crackels in all lung dillon ) Heart: Other (irregularly irregular ) Abdomen: No Tenderness, Other (hypoactive BS x4, distension) Extremities: Normal Pulses, Other (3+ BL LE edema ) Skin: No Rashes, No Significant Lesion Neuro: Other (strength 1/5 in UE and LE BL) Psych/Mental Status: Other (depressed affect ) Results Lab Laboratory Tests 09/29/22 15:55: Glucometer 155H 09/29/22 20:26: Glucometer 118H 09/30/22 05:34: Glucometer 131H 09/30/22 05:57: White Blood Count 9.6, Red Blood Count 3.48L, Hemoglobin 9.7L, Hematocrit 31L, Mean Corpuscular Volume 88, Mean Corpuscular Hemoglobin 28, Mean Corpuscular Hemoglobin Concent 32, Red Cell Distribution Width 17.9H, Platelet Count 370, Mean Platelet Volume 10.7, Immature Granulocyte % (Auto) 6, Neutrophils (%) (Auto) 68, Lymphocytes (%) (Auto) 17, Monocytes (%) (Auto) 7, Eosinophils (%) (Auto) 1, Basophils (%) (Auto) 0, Neutrophils # (Auto) 6.5, Lymphocytes # (Auto) 1.7, Monocytes # (Auto) 0.7, Eosinophils # (Auto) 0.1, Basophils # (Auto) 0.0, Immature Granulocyte # (Auto) 0.6H, Sodium Level 134L, Potassium Level 5.1H, Chloride Level 104, Carbon Dioxide Level 16L, Anion Gap 14, Blood Urea Nitrogen 51H, Creatinine 3.51H, Estimat Glomerular Filtration Rate 12, BUN/Creatinine Ratio 15, Glucose Level 132H, Calcium Level 8.0L, Smear Scan YES Microbiology 09/27/22 Urine Culture - Final, Complete 3 or more isolates Assessment/Plan Assessment/Plan Assess & Plan/Chief Complaint 1. SBO--NG tube out and on mixed/moist diet, pain control, antiemetics, continue lovenox for DVT prophylaxis 2. Colon Cancer with Mets/Carcinomatosis--Discussed case with Dr. Christianson and she states that if patient recovers from this illness can consider palliative care but if she was not tolerating chemo and stopped her treatment early before she is not likely to tolerate chemo this time either, I did discuss hospice with the patient as well--she agrees to a palliative care consult 3. COPD--continue SVNS with duoneb, continue oxygen, CXR tomorrow to access resp status 4. Atrial Fibrillation--continue low dose eliquis due to renal function and colon cancer, continue oral cardizem at 240mg in AM and metoprolol to 100mg po q HS 5. Hypertension--adjust cardizem and metroprolol as above 6. Chronic Anemia--monitor H/H 7. Acute on Chronic Renal Failure--likely from dehydration/obstruction--hydrate and monitor BUN/Cr--improving slowly, stop lasix due to worsening renal fxn 8. DMII with hypoglycemia--resolved, change accuchecks to AC and HS with SSI A 9. Hypokalemia--improved 10. Weakness--continue PT/OT, increase ambulation to chair today 11. Hyponatremia- stop NCl/KCl and continue IV NS with KCl to improve hydration and sodium levels, continue to monitor electrolytes Prognosis very guarded/poor spoke with family about treatment options, both pt and family agree to go home on hospice. SS to be contacted today for arrangements for DC Clinical Quality Measures Admission Status Admission Dx 1) Small Bowel Obstruction: consult surgery, continue NG tube with suction, NPO until after surgery has met with pt, 2) DM II : start sliding scale insulin, hold home regimen due to decreased GI functions 3) dehydration: continue IV fluids 4) CKD - hold oral lasix and continue to monitor kidney function 5) A fibb -continue oral cardizem 6) CHF- obtain serial chest x-rays to access fluid level, possible consult surgery for repeat thoracentesis 7) COPD: continue supplemental O2, start MAT protocol 8) consult SS and speak with family on future treatment goals and therapies TAO BEAVER DO 09/30/22 1741: Supervisory-Addendum Brief Verification & Attestation Participated in pt care: history, physical Personally performed: exam, history, supervision of care Care discussed with: Medical Student Procedures: n/a Results interpretation: Verified all documentation Verification and Attestation of Medical Student E/M Service A medical student performed and documented this service in my presence. I reviewed and verified all information documented by the medical student and made modifications to such information, when appropriate. I personally performed the physical exam and medical decision making. Tao Beaver Sep 30, 2022,17:40 Patient's sister in room and discussed poor prognosis with patient and sister. Patient agreeable to home with hospice. Has been refusing meds and therapy. ANDREY FORD Sep 30, 2022 07:57 TAO BEAVER DO Sep 30, 2022 17:41
[2022-09-30] MEDS: fentaNYL INJ 100 MCG/2 ML AMP IV PRN (09:47)
[2022-09-30] MEDS: LORazepam INJ 2 MG/ML (ATIVAN) VIAL IVP PRN (09:48)
[2022-09-30] MEDS: APIXABAN 2.5 MG (ELIQUIS) TABLET PO SCH ×2 (09:48→20:57)
[2022-09-30] MEDS: PANTOPRAZOLE 40 MG (PROTONIX) TAB PO SCH ×2 (09:49→20:57)
[2022-09-30] MEDS: SENNA W/DOCUSATE (SENOKOT S) TABLET PO SCH ×3 (09:49→21:21)
--- NOTE | 2022-09-30 10:20 | Physical Therapy Daily Note ---
PT Daily Note-Current Subjective Patient in bed pre tx, doesn't talk or communicate, will open eyes for a few seconds at a time. Pain Section J - Health Conditions 1. Rarely or not at all 2. Occasionally 3. Frequently 4. Almost constantly 8. Unable to answer Pain Effect on Sleep: 8 Pain Interference with Therapy: 8 Pain Interference w/Day-to-Day: 8 Appearance Patient in bed post tx with nurse call, phone, tray, all needs met. Legs on pillow with heel float for pressure relief. Mental Status Patient Orientation: Person, Unable to Assess Attachments: IV Transfers SCALE: Activities may be completed with or without assistive devices. 3-Yvxlbhczfb-tnehjqy completes the activity by him/herself with no assistance from a helper. 5-Set-up or Clean-up Assistance-helper sets up or cleans up; patient completes activity. [place] assists only prior to or following the activity. 4-Supervision or Touching Assistance-helper provides verbal cues and/or touching/steadying and/or contact guard assistance as patient completes activity. Assistance may be provided throughout the activity or intermittently. 3-Partial/Moderate Assistance-helper does LESS THAN HALF the effort. [place] lifts, holds or supports trunk or limbs, but provides less than half the effort. 2-Substantial/Maximal Assistance-helper does MORE THAN HALF the effort. [place] lifts or holds trunk or limbs and provides more than half the effort. 3-Wwoakckwn-vnadcr does ALL the effort. Patient does none of the effort to complete the activity. Or, the assistance of 2 or more helpers is required for the patient to complete the activity. If activity was not attempted, code reason: 7-Patient Refused. 9-Not Applicable-not attempted and the patient did not perform the activity before the current illness, exacerbation or injury. 10-Not Attempted due to Environmental Limitations-(lack of equipment, weather restraints, etc.). 88-Not Attempted due to Medical Conditions or Safety Concerns. Roll Left & Right (QC): 1 Sit to Lying (QC): 1 Lying to Sitting/Side of Bed(Q: 1 Assist of 2 for supine to sit, patient was able to sit for a few minutes and perform a few LE exercise before laying back down with assist of 2 and scooting up in bed with assist of 2. Exercises Seated Therapy Exercises: Ankle pumps, Long arc quads Seated Reps: 15 Treatments sitting, LE ROM Assessment Current Status: Poor Progress patient cannot tolerate much activity PT Assistant Service Manager Goals Half-Way Goals PT Half-Way Goals Time Frame: Oct 17, 2022 Roll Left & Right (QC): 3 Sit to Lying (QC): 3 Lying-Sitting on Side/Bed(QC): 3 Sit to Stand (QC): 3 Chair/Fcf-yo-Twrje Xfer(QC): 3 Toilet Transfer (QC): 3 Walk 10 feet (QC): 3 PT Plan Problem List Problem List: Activity Tolerance, Functional Strength, Safety, Balance, Gait, Transfer, Bed Mobility, ROM Treatment/Plan Treatment Plan: Continue Plan of Care Treatment Plan: Bed Mobility, Education, Functional Activity Reddy, Functional Strength, Gait, Safety, Therapeutic Exercise, Transfers Treatment Duration: Oct 17, 2022 Frequency: 6 times per week Estimated Hrs Per Day: .25 hour per day Patient and/or Family Agrees t: Yes Safety Risks/Education Patient Education: Correct Positioning, Safety Issues Teaching Recipient: Patient Teaching Methods: Demonstration, Discussion Response to Teaching: Reinforcement Needed Time Time In: 0957 Time Out: 1008 DATE: Sep 30, 2022 Total Billed Treatment Time: 11 Total Billed Treatment 1 visit FA 11' JEREMIAS EMERY PT Sep 30, 2022 10:20
--- NOTE | 2022-09-30 10:20 | Occupational Ther Daily Note ---
OT Current Status-Daily Note Subjective Pt sleeping in bed, difficult to wake. Nrsg reported she had just had medication that will make her very sleepy. Granddaughter in room. Nrsg stated that pt will be going home on hospice today. Mental Status/Objective Patient Orientation: Person, Unable to Assess Attachments: IV ADL-Treatment Therapy Code Descriptions/Definitions Functional Warner Measure: 0=Not Assessed/NA 4=Minimal Assistance 1=Total Assistance 5=Supervision or Setup 2=Maximal Assistance 6=Modified Warner 3=Moderate Assistance 7=Complete IndependenceSCALE: Activities may be completed with or without assistive devices. 1-Xzgnwxihbb-bevpzvk completes the activity by him/herself with no assistance from a helper. 5-Set-up or Clean-up Assistance-helper sets up or cleans up; patient completes activity. [place] assists only prior to or following the activity. 4-Supervision or Touching Assistance-helper provides verbal cues and/or touching/steadying and/or contact guard assistance as patient completes activity. Assistance may be provided throughout the activity or intermittently. 3-Partial/Moderate Assistance-helper does LESS THAN HALF the effort. [place] lifts, holds or supports trunk or limbs, but provides less than half the effort. 2-Substantial/Maximal Assistance-helper does MORE THAN HALF the effort. [place] lifts or holds trunk or limbs and provides more than half the effort. 8-Tlodvlkdl-etixvo does ALL the effort. Patient does none of the effort to complete the activity. Or, the assistance of 2 or more helpers is required for the patient to complete the activity. If activity was not attempted, code reason: 7-Patient Refused. 9-Not Applicable-not attempted and the patient did not perform the activity before the current illness, exacerbation or injury. 10-Not Attempted due to Environmental Limitations-(lack of equipment, weather restraints, etc.). 88-Not Attempted due to Medical Conditions or Safety Concerns. Other Treatment Dependent with bed mobility. Min A to close SBA to sit EOB. Pt followed direction to do a few B LE exercises. OT to dismiss pt from services at this time. After therapy, pt lying in bed with call light/phone in reach. Nrsg aware of pt's position. All needs met. OT Short Term Goals Short Term Goals Time Frame: Oct 12, 2022 Eatin Oral hygiene: 3 Toileting hygiene: 2 Shower/bathe self: 2 Upper body dressin Lower body dressin Putting on/taking off footwear: 3 OT Operations Research Engineer Goals Mcfp Goals Time Frame: Oct 26, 2022 Eating (QC): 6 Oral Hygiene (QC): 5 Toileting Hygiene (QC): 4 Shower/Bathe Self (QC): 3 Upper Body Dressing (QC): 4 Lower Body Dressing (QC): 3 On/Off Footwear (QC): 4 Additional Goals: 1-Demonstrate ADL Tasks, 2-Verbalize Understanding, 3- ImproveStrength/Reddy 1=Demonstrate adherence to instructed precautions during ADL tasks. 2=Patient will verbalize/demonstrate understanding of assistive devices/modifi cations for ADL. 3=Patient will improve strength/tolerance for activity to enable patient to perform ADL's. OT Education/Plan Problem List/Assessment Assessment: Decreased Activ Tolerance, Decreased Safety Aware, Decreased UE Strength, Dependent Transfers, Impaired Bed Mobility, Impaired Cognition, Impaired Self-Care Skills, Restricted Funct UE ROM Discharge Recommendations Plan/Recommendations: Discontinue OT (Pt being placed on hospice. Discharging to home.) Treatment Plan/Plan of Care Patient would benefit from OT for education, treatment and training to promote independence in ADL's, mobility, safety and/or upper extremity function for ADL's. Plan of Care: ADL Retraining, Functional Mobility, UE Funct Exercise/Act Treatment Duration: Oct 26, 2022 Frequency: 3 times per week (3-5x/week) Estimated Hrs Per Day: .25 hour per day Agreement: Yes Rehab Potential: Guarded Time Start Time: 10:00 Stop Time: 10:11 DATE: Sep 30, 2022 Total Time Billed (hr/min): 11 Billed Treatment Time 1 visit-FA 1 (11 min) BRIANA RIOS Sep 30, 2022 10:19
[2022-09-30 11:33] VITALS: BP 106/61
[2022-09-30] MEDS: cefTRIAXone 1 GM PRE-MIX 50 ML IV SCH (13:20)
[2022-09-30 16:10] VITALS: BP 122/68
[2022-09-30] MEDS: NS W/KCL 20 MEQ/L 1,000 ML IV SCH (17:40)
[2022-09-30 19:50] VITALS: BP 138/76
[2022-09-30] MEDS: meTOprolol SUCCINATE 100 MG (TOPROL XL) TAB PO SCH (20:57)
[2022-09-30] MEDS: SERTRALINE 100 MG (ZOLOFT) TAB PO SCH (20:57)
[2022-09-30 23:07] VITALS: BP 126/74
[2022-10-01] MEDS: NS W/KCL 20 MEQ/L 1,000 ML IV SCH (00:30)
[2022-10-01] MEDS: LORazepam INJ 2 MG/ML (ATIVAN) VIAL IVP PRN (03:13)
[2022-10-01 03:14] VITALS: BP 101/65
[2022-10-01] MEDS: inSUlin ASPART (NovoLOG) 1 UNIT/0.01 ML (CHARGE PER UNIT) SC SCH (05:29)
[2022-10-01 07:51] VITALS: BP 123/55
--- NOTE | 2022-10-01 07:54 | Progress Note - Surgery ---
Subjective Date Seen by a Provider: Oct 01, 2022 Time Seen by a Provider: 07:15 Subjective/Events-last exam Pt is laying in bed sleeping. Is rousable but only answers some questions. Pt has no complaints at this time. Nurses state that pt has started refusing PO medication and food. Per nurses, pt had very small amount BMs overnight. Pt denies flatus. Pt denies nausea, vomiting, abd pain, CP, worsening SOB, chills, or hematuria. Review of Systems General: No Chills, No Night Sweats HEENT: No Head Aches, No Eye Pain Pulmonary: No Dyspnea, No Cough Cardiovascular: No: Chest Pain, Lt Headedness Gastrointestinal: No: Nausea, Vomiting, Abdominal Pain Genitourinary: No Dysuria, No Hematuria Musculoskeletal: No: neck pain, shoulder pain Neurological: No: Weakness, Numbness Objective Exam Vital Signs Date Time Temp Pulse Resp B/P (MAP) Pulse Ox O2 Delivery O2 Flow Rate FiO2 10/01/22 03:14 36.4 89 20 101/65 (77) 94 Room Air 10/01/22 01:00 84 09/30/22 23:07 36.8 84 20 126/74 (91) 93 Room Air 09/30/22 20:25 Room Air 09/30/22 19:50 37.0 80 18 138/76 (96) 94 Room Air 09/30/22 19:22 92 Room Air 09/30/22 19:00 76 09/30/22 16:10 36.6 76 18 122/68 (86) 94 Room Air 09/30/22 12:10 67 09/30/22 11:33 36.3 61 20 106/61 (76) 95 Room Air 09/30/22 08:00 Room Air 09/30/22 07:48 36.5 79 22 88/53 (65) 92 Room Air I & O 10/01/22 07:00 Intake Total 440 ml Output Total 500 ml Balance -60 ml Capillary Refill : Less Than 3 Seconds General Appearance: No Apparent Distress, Obese HEENT: PERRL/EOMI; No Moist Mucous Membranes Respiratory: Normal Breath Sounds, No Respiratory Distress, Accessory Muscle Use, Other (tachypneic) Cardiovascular: No Murmur, Irregularly Irregular Gastrointestinal: normal bowel sounds, distended, tenderness (RUQ) Extremity: Calf Tenderness (B/L with palpation extending up leg to just below pelvis-may be secondary to swelling), Pedal Edema (pitting B/L LE), Swelling (anasarca) Neurologic/Psychiatric: Depressed Affect Skin: Erythema (R anterior nam from dorsum of foot extending a few inches above foot, with associated warmth -improved ) Results Lab Laboratory Tests 09/30/22 16:13: Glucometer 135H 09/30/22 20:05: Glucometer 132H 10/01/22 05:18: Glucometer 126H Microbiology 09/27/22 Urine Culture - Final, Complete 3 or more isolates Assessment/Plan Assessment/Plan Assessment/Plan 1. SBO - resolved 2. Colon cancer with possible mets/carcinomatosis 3. COPD on 4L 4. Chronic renal failure 5. Afib Pt does not seem to be in pain pain at this time. No surgical intervention needed at this time, pt also does not desire surgery at this time if needed. Per nursing staff, pt is planned to leave for hospice today. GRACE GOLDEN Oct 01, 2022 07:54
[2022-10-01] MEDS ORDERED: CEPH500T PO (08:54)
[2022-10-01] MEDS ORDERED: LIDOCAINE UROJET 2% GEL 10 ML PKG TOP NR (09:00)
[2022-10-01] MEDS: SENNA W/DOCUSATE (SENOKOT S) TABLET PO SCH (09:00)
[2022-10-01] MEDS: PANTOPRAZOLE 40 MG (PROTONIX) TAB PO SCH (09:00)
[2022-10-01] MEDS: APIXABAN 2.5 MG (ELIQUIS) TABLET PO SCH (09:00)
--- NOTE | 2022-10-01 09:17 | Discharge Summary ---
ANDREY FORD 10/01/22 0917: Diagnosis/Chief Complaint Date of Admission Sep 24, 2022 at 12:00 Date of Discharge 10/01/2022 Discharge Date: Oct 01, 2022 Discharge Time: 09:20 Admission Diagnosis Admission Diagnosis 1. Acute on Chronic Respiratory Failure--continue supplemental O2 therapy 2. Atrial Fibrillation with RVR--improved 3. Decompensated Diastolic Congestive Heart Failure--improved 4. Acute on Chronic Anemia- continue monitor H/H, transfuse if Hgb < 8 5. Diabetes mellitus with hyperglycemia due to steroids 6. Acute on Chronic Renal Insufficiency--monitor BUN/Cr 7. Debility--continue PT/OT, increase ambulation 8. History of Colon Cancer--stopped treatment early, fecal occult blood +, continue increased protonix therapy, convert to oral omeperazole outpt 9. COPD with acute exacerbation--oxygen requiring 10. Bilateral Pneumonia 7 days outpt oral Fluconazole and augmentin 12. Pleural effusion- resolved, S/P thoracentesis 13. Constipation 14. Hypertension--improved 15. GERD--home on omeprazole 16. Partial SBO secondary to colon cancer mets/carcinomatosis Discharge Diagnosis metastatic colon cancer Reason Hospital Visit CC: Abdominal Pain HPI: 82 F with pmh of COPD , CHF, A Fibb, DMII was brought to ER for worsening abdominal pain, distention, and n/v. Pt had one bout of emesis that resembled stool, denies any blood. Pt has not had a bowel movement since dc last week to [facility]. Pt claims shes SOB with progressive weakness. Denies any fever chills LOC. Pt has a dx of colon cancer that she stopped treatment early on. CT shows mets to abdominal cavity and possible obstruction. NG tube in place. Surgery to consult later today. Discharge Summary Hospital Course Was the Problem List Reviewed?: Yes Hospital Course 82 F with a PMH of colon cancer, CHF, COPD, A. fibb, DMII, HTN with poor medical compliance was admitted on 09/24/2022 for a suspected SBO. Pt arrived to ED from [facility] with abdominal pain and emesis that resembled feces. CT scan showed carcinomatosis with possible partial SBO likely secondary to colon cancer that was not treated due to pt wishing to stop therapy. NG tube was placed with suction and NPO protocol started. Surgery consult was placed but decided not to pursue surgery at this time due to pts wishes and health status. Pt was restarted on home medications for cardiac hx, eluiqus for DVT prophylaxis, placed on SSI to monitor DMII with decreased feeding, IV fluids to rehydrate and correct electrolyte abnormalities, anti-emetics for supportive care, and initiated MAT protocol. Pt was off supplemental O2 during her hospital stay becuase she continued to have an SpO2 around 94% on room air but did receive DuoNeb breathing treatments regularly. Pt's n/v stopped on 09/28 and was able to pass flatus and small soft BM. NG tube was removed and pt started on mixed/moist diet that was intially tolerated well. PT and OT consults were plac ed but pt continued to deny therapy due to worsening weakness. Pt began to deny feeding and medications causing her to continue to deteriorate. CXR was ordered on 09/30 showing BL interstial infiltrates and opacities consistent with previous CXRs. SS consult and discussion with pt and family about end-of-life care yielded pt to return home on hospice and converting to comfort/palliative care. All medications, except metoprolol to control HR and BP, were stopped along with IV fluids. Pt to be sent home on hospice with comfort care medications on 10/01/2022 to help alleviate any future symptoms of discomfort. Labs Laboratory Tests 09/28/22 11:36: Glucometer 304H 09/28/22 16:24: Glucometer 123H 09/28/22 20:07: Glucometer 136H 09/29/22 05:10: Red Blood Count 3.25L, Hemoglobin 9.0L, Hematocrit 29L, Red Cell Distribution Width 17.3H, Sodium Level 131L, Carbon Dioxide Level 16L, Blood Urea Nitrogen 48H, Creatinine 3.30H, Glucose Level 137H, Calcium Level 7.8L 09/29/22 05:35: Glucometer 126H 09/29/22 15:55: Glucometer 155H 09/29/22 20:26: Glucometer 118H 09/30/22 05:34: Glucometer 131H 09/30/22 05:57: Red Blood Count 3.48L, Hemoglobin 9.7L, Hematocrit 31L, Red Cell Distribution Width 17.9H, Immature Granulocyte # (Auto) 0.6H, Sodium Level 134L, Potassium Level 5.1H, Carbon Dioxide Level 16L, Blood Urea Nitrogen 51H, Creatinine 3.51H, Glucose Level 132H, Calcium Level 8.0L 09/30/22 16:13: Glucometer 135H 09/30/22 20:05: Glucometer 132H 10/01/22 05:18: Glucometer 126H Procedures None. Discharge Physical Examination Allergies: Coded Allergies: No Known Drug Allergies (Unverified , 05/28/21) Vitals & I&Os Vital Signs Date Time Temp Pulse Resp B/P (MAP) Pulse Ox O2 Delivery O2 Flow Rate FiO2 10/01/22 07:51 37.0 109 21 123/55 (77) Room Air 10/01/22 03:14 94 09/29/22 08:06 09/28/22 08:55 21 General Appearance: Alert, Cooperative HEENT: Atraumatic, EOMI Respiratory: Normal Air Movement Cardiovascular: No Murmurs, Other (irregularly irregular ) Abdominal: No Tenderness, No Masses, Other (distended, hypoactive BS x 4) Extremities: No Clubbing, No Cyanosis, Other (3+ BL LE edema) Skin: No Rashes, No Significant Lesion Neuro: Normal Speech, Other (strength 1/5 x4 ext ) Psych/Mental Status: Mental Status NL, Other (depressed) Discharge Home Medications Reviewed and agree with Discharge Medication list on patient's Discharge Instruction sheet Instructions to Patient/Family Please see electronic discharge instructions given to patient. Clinical Quality Measures End of Life/Advance Care Plan: Advance Care discuss with: patient, family member (s) End of Life Care: Comfort Measures, Pallative Care, Hospice Care (Home) Plan: clarifying prognosis TAO REED DO 10/01/22 1305: Diagnosis/Chief Complaint Discharge Diagnosis 1. Acute on Chronic Respiratory Failure--continue supplemental O2 therapy 2. Atrial Fibrillation with RVR--improved 3. Decompensated Diastolic Congestive Heart Failure--improved 4. Acute on Chronic Anemia- continue monitor H/H, transfuse if Hgb < 8 5. Diabetes mellitus with hyperglycemia due to steroids 6. Acute on Chronic Renal Insufficiency--monitor BUN/Cr 7. Debility--continue PT/OT, increase ambulation 8. History of Colon Cancer--stopped treatment early, fecal occult blood +, continue increased protonix therapy, convert to oral omeperazole outpt 9. COPD with acute exacerbation--oxygen requiring 10. Bilateral Pneumonia 7 days outpt oral Fluconazole and augmentin 12. Pleural effusion- resolved, S/P thoracentesis 13. Constipation 14. Hypertension--improved 15. GERD--home on omeprazole 16. Partial SBO secondary to colon cancer mets/carcinomatosis Discharge Summary Hospital Course Was the Problem List Reviewed?: Yes Hospital Course Agree with above--I did discuss possible palliative care with both Dr. Christianson and patient/family but patient did not want to pursue palliative care as she stopped treatment for her colon cancer in the past due to just not wanting to do the therapy anymore. Discharge Physical Examination Allergies: Coded Allergies: No Known Drug Allergies (Unverified , 05/28/21) General Appearance: Alert, Mild Distress Respiratory: Other (coarse) Cardiovascular: Other (irregular) Psych/Mental Status: Other (depressed) Clinical Quality Measures End of Life/Advance Care Plan: Advance Care discuss with: patient, family member (s) End of Life Care: Hospice Care (Home) ANDREY FORD Oct 01, 2022 09:17 TAO REED DO Oct 01, 2022 13:05
--- NOTE | 2022-10-01 09:50 | Physical Therapy Progress Note ---
Therapy Progress Note Patient to be dismissed from skilled PT per physician due to decline in status and will dismiss to home with daughter on hospice. MIGUELITO CHANEL PT Oct 01, 2022 09:50
[2022-10-01] MEDS ORDERED: BISACODYL 10 MG SUPP (DULCOLAX) PR PRN (10:45)
[2022-10-01] MEDS ORDERED: SALIVA SUBSTITUTE 60 ML SPRAY(MOUTHKOTE) MM PRN (10:45)
[2022-10-01] MEDS ORDERED: RT-ALBUTEROL/IPRATROPIUM 3 ML (DUONEB) VIAL INH PRN (10:45)
[2022-10-01] MEDS ORDERED: ONDANSETRON 4 MG/2 ML (SDV) Z0FRAN IVP PRN (10:45)
[2022-10-01] MEDS ORDERED: GLYCOPYRROLATE 0.2 MG/ML (ROBINUL) 2 ML VIAL IV PRN (10:45)
[2022-10-01] MEDS ORDERED: ACETAMINOPHEN 650 MG SUPP (TYLENOL) PR PRN (10:45)
[2022-10-01] MEDS ORDERED: ARTIFICAL TEARS 0.4 ML UNIT DOSE (REFRESH PLUS) OU PRN (10:45)
[2022-10-01] MEDS: RT-ALBUTEROL/IPRATROPIUM 3 ML (DUONEB) VIAL INH SCH (10:46)
[2022-10-01 12:11] VITALS: BP 123/55
== END 2022-10-01 12:00 | disposition hospice, home (50) | DRG 374 ==
LOC: EDUNIT# 10:03 → ER 10:05 → 4TH 12:00
PROVIDERS: ADMIT Family Medicine; ATTEND Family Medicine
PROC: 0D9670Z Drainage of Stomach with Drainage Device, Via Natural or Artificial Opening (ICD-10-PCS; principal; 2022-09-24)
DX: C78.6 Secondary malignant neoplasm of retroperitoneum and peritoneum (principal); I50.33 Acute on chronic diastolic (congestive) heart failure; J18.9 Pneumonia, unspecified organism; J96.20 Acute and chronic respiratory failure, unspecified whether with hypoxia or hypercapnia; I13.0 Hypertensive heart and chronic kidney disease with heart failure and stage 1 through stage 4 chronic kidney disease, or unspecified chronic kidney disease; N17.9 Acute kidney failure, unspecified; I48.20 Chronic atrial fibrillation, unspecified; C18.9 Malignant neoplasm of colon, unspecified; E87.1 Hypo-osmolality and hyponatremia; J44.0 Chronic obstructive pulmonary disease with (acute) lower respiratory infection; Z66 Do not resuscitate; Z51.5 Encounter for palliative care; E11.22 Type 2 diabetes mellitus with diabetic chronic kidney disease; E11.65 Type 2 diabetes mellitus with hyperglycemia; N18.9 Chronic kidney disease, unspecified; E11.649 Type 2 diabetes mellitus with hypoglycemia without coma; Z79.01 Long term (current) use of anticoagulants; E86.0 Dehydration; D64.9 Anemia, unspecified; E87.6 Hypokalemia; K59.00 Constipation, unspecified; G47.30 Sleep apnea, unspecified; K21.9 Gastro-esophageal reflux disease without esophagitis; M19.91 Primary osteoarthritis, unspecified site; E66.9 Obesity, unspecified; Z68.35 Body mass index [BMI] 35.0-35.9, adult; H40.9 Unspecified glaucoma; H54.3 Unqualified visual loss, both eyes; R53.1 Weakness; Z79.4 Long term (current) use of insulin; Z79.84 Long term (current) use of oral hypoglycemic drugs
CPT/HCPCS: 36415; 71045; 74176; 74250; 80048; 80053; 81000; 82947; 83690; 85007; 85025; 85027; 87088; 94640; 94760; 96361; 96374